=== PATIENT | female | born 1995 | race Caucasian/White ===

== ENCOUNTER 2016-12-10 18:27 | Emergency (ER) | payer MEDICAID ==
[~2016-12-10] VITALS: Ht 162.6 cm; Wt 81.6 kg
[~2016-12-10 18:27] MED LIST: ALBUTEROL0.09 MG/A2 IH; APAP/BUTALBITAL1 TA1 PO; BACTROBAN2% TP; ETODOLAC200 MG PO; FOLIC ACID 1MG T1 MG PO; KEFLEX 500MG.500 MG PO; KEFLEX250 M1 PO; LEVAQUIN500 MG PO; MONODOX100 MG PO; PRENATAL 19 TA1 EACH PO; SEPTRA DS 800 M1 TAB PO; VOLTAREN75 MG PO; ZOFRAN ODT4 MG PO; ZYRTEC-D 12HR 51 TER PO; Zofran4 MG PO
--- NOTE | 2016-12-10 18:43 | Emergency Room Report ---
History of Present Illness Time Seen by MD Marinelli Presenting Problem in Triage Pt arrived:Walked Presenting Problem:ABDOMINAL PAIN Onset of symptoms date/time:12/07/16 or onset unknown for: Treatment Prior to Arrival: [employer] Provided by: Sepsis Risk Assessment: Temp: 98.4 B/P: 141/88 MAP: 105 Pulse: 100 Resp: 20 Recent fever? N Clinical Suspician of Infection? N Mental Status: 1 - Regular (Normal Baseline) Sepsis Risk:Possible Sepsis Risk Have you (or family members/close friends) recently traveled outside the [place]? N If Yes, where/when: Have you had exposure to infectious disease within the past month? N TB? Other? Specify: Nausea,bilious emesis, bloating for the past three days. States she chews and swallows small pieces of styrofoam cups. No blood from above or below. Had fever three days ago, none today; no urinary sx. LMP two weeks ago. Hx anemia of , delivered twins one year ago and continues to take her PNV daily. ALLERGIES Coded Allergies: penicillin G (Intermediate, SWELLING 12/10/16) erythromycin base (Mild, I-HIVES 12/10/16) Uncoded Allergies: ARTIFICIAL STRAWBERRY FLAVORING (Mild, I-RASH 06/04/15) Home Medications Reported Medications No Known Home Medications History Medical History General CAD? No Angina: No MA: No Hypertension? No Hyperlipidemia? No CHF? No DVT? No PE? No COPD? No Asthma? No Anemia? No GERD? No Gastric ulcers? No GI Bleed? No Hernia? No Thyroid Problems? No Hypothyroidism? No CVA? No Seizures? Yes Diabetes? No Renal Insuffiency? No End Stage Renal Disease? No UTI? Yes Stones? No BPH? No GB Disease: No Nephritic Syndrome? No Asplenia? No Hepatitis? No Sickle Cell Disease? No Arthritis? No Migraines? Yes Cataracts? No Glaucoma? No MRSA? No HIV? No TB? No Anxiety? No Depression? No Cancer? No More? 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 EGD [employer] Hx LMP 1-6 Days Ago Social History Smoking Hx Smoker: Current Every Day Smoker Tobacco: Yes Type Cigarettes Packs/day 1 1/2 - 2 Packs Alcohol Alcohol: No Review of Systems All Other Systems Reviewed and Negative Gastrointestinal see HPI Physical Exam Vital Signs Vital Signs Date Time Temp Pulse Resp B/P Pulse O2 O2 Flow FiO2 Ox Delivery Rate 12/10 1831 98.4 100 20 141/88 99 General Appearance normal appearance, WD/WN, no apparent distress Eye Exam - bilateral eye normal exam, bilateral eye PERRL, bilateral eye EOMI Neck normal inspection, non-tender, supple, full range of motion Respiratory Status Yes: trachea midline, chest symmetrical, non tender chest. No: respiratory distress, tender on palpation, use of accessory muscles, pain on inspiration, pain on expiration, productive cough, non productive cough. Lung Sounds bilateral: normal breath sounds, lungs clear. Cardiovascular normal exam, regular rate/rhythm, no peripheral edema, no gallop, no JVD, no murmur, no rub, normal peripheral pulses Gastrointestinal normal bowel sounds, normal exam, soft, no organomegaly, no pulsatile mass, abnormal bowel sounds, distended, no guarding, no rebound, tenderness (periumbilical pain), no pain over McBurney's Extremities normal range of motion Strength 5 Upper Ext (L), 5 Upper Ext (R), 5 Lower Ext (L), 5 Lower Ext (R) Neurologic alert, normal exam, no motor/sensory deficits, oriented x 3 Skin intact, normal color, warm/dry Medical Decision Making LABS/Meds/Orders Pt receiving controlled substance in ED? No Results/Orders Laboratory Tests 12/10/16 1900: Sodium 137, Potassium 4.0, Chloride 101, Carbon Dioxide 28, BUN 11, Creatinine 0.8, Estimated Creat Clear 143, Estimated GFR (MDRD) 91, Glucose 99, Calcium 9.4 , Total Bilirubin 0.2, AST 16, ALT 25, Alkaline Phosphatase 95, Total Protein 7.9, Albumin 3.8, Globulin 4.1 H, Albumin/Globulin Ratio 0.9 L, Lipase 155, WBC 13.1 H, RBC 5.00, Hgb 15.2, Hct 45.3, MCV 90.6, RDW 13.0, Plt Count 239, MPV 9.2, Gran % 66.9, Gran # 8.8 H, Lymphocytes % 26.7, Monocytes % 2.9, Eosinophils % 3.1, Basophils % 0.3, Lymphocytes # 3.5, Monocytes # 0.4, Eosinophils # 0.4, Basophils # 0.0, PUBS MCHC 33.5, MCH 30.4 12/10/16 164: Urine Color YELLOW, Urine Appearance CLEAR, Urine pH 6.5, Ur Specific [place] 1.025, Urine Protein NEGATIVE, Urine Ketones NEGATIVE, Urine Blood NEGATIVE, Urine Nitrate NEGATIVE, Urine Bilirubin NEGATIVE, Urine Urobilinogen 0.2, Ur Leukocyte Esterase NEGATIVE, Urine RBC NONE, Urine WBC OCC, Ur Squamous Epith Cells 10-20, Urine Bacteria 2+, Urine Glucose NEGATIVE Current Medication Orders Sig/Gisel Start time Last Medication Dose Route Stop Time Status Admin Ondansetron HCl 0 .STK-MED ONE 12/10 1913 DC .ROUTE Ondansetron HCl 4 MG ONCE ONE 12/10 1844 DC 12/10 IV 12/10 Sodium Chloride 10 ML PRN PRN 12/10 1844 AC IV 12/11 184 Orders Procedure Date/time Status DIET-NOTHING BY MOUTH 12/[address] ABD/PELVIS REQ 12/10 185 Complete IV SALINE LOCK 12/10 1844 Active URINALYSIS/COMPLETE 12/10 184 Complete URINE 12/10 1844 Complete LIPASE 12/10 184 Complete CBC WITH AUTO DIFF 12/10 1844 Complete CHEM 12 PROFILE 12/10 184 Complete CULTURE, URINE 12/10 1642 Active XRAY/CT/US XRAY/CT/US CT abdomen, pelvis CT interpretation by reviewed by me (report reviewed) Time results known: 1950 CT Results nl appendix; radioopaque foci throughout; generous stool Departure Departure Time of Disposition 1950 Disposition DC Home or Self Care(routine) Clinical Impression Primary Impression: Vomiting Qualifiers: Vomiting type: unspecified Vomiting Intractability: non-intractable Nausea presence: with nausea Qualified Code: R11.2 - Nausea with vomiting, unspecified Secondary Impressions: Periumbilical pain Condition STABLE Referrals Loly ZUNIGA,Jamshid Knight Patient Instructions Acute Abdominal Pain Additional Instructions Clear liquids overnight, see your family doctor in one day for recheck. You stated you have Zofran at home, so take it as prescribed already for nausea/ vomiting. Do not chew/swallow styrofoam as it is accumulating in your gastrointestinal tract and may lead to obstruction. Discharge Counseling Counseled pt/family regarding diagnosis, test results, medications/RX, home care, follow up needs Prescriptions Current Visit Scripts No Known Home Medications ED Critical Care Critical Care No at 1957
[2016-12-10 18:50] LABS: URINE BILIRUBIN - DIPSTICK NEGATIVE (NEG); URINE BLOOD NEGATIVE (NEG)
[2016-12-10 19:26] LABS: LYMPH # 3.5 K/mm3 (0.7-4.5); LYMPH % 26.7 % (10-50.0)
[2016-12-10 19:33] LABS: HEMOGLOBIN 15.2 g/dL (12.2-16.2)
--- NOTE | 2016-12-10 19:40 | RADIOLOGY REPORT PS360 ---
CT ABD PELVIS W/O CONTRAST HISTORY: PERIUMBILICAL PAIN, BILIOUS EMESIS, BLOATING Patient Age: 21 years: Female Ordering Physician: Dasha Bravo MD TECHNIQUE: Helical CT scanning performed through abdomen and pelvis with no oral nor IV contrast utilized. COMPARISON : Previous 08/07/2016 CT abdomen without contrast. FINDINGS ------ Lung bases appear clear with nothing definitely acute. HEART NORMAL SIZE ABDOMEN PELVIS decreased sensitivity with lack of oral and IV contrast. Liver, spleen, adrenals appear satisfactory on this nonenhanced study. Pancreas unremarkable given the limitations of no contrast enhancement. Kidneys. No urinary tract calculi nor obstruction. Ureters unremarkable Gallbladder. Contracted. No calcified stones. No biliary ductal dilatation. ...... GI tract: Stomach. Food filled stomach. Likely recent meal. Stippled small areas radiopaque material at distal stomach likely reflect some type of ingested radiopaque material or food element. There is curious fat density anterior aspect of the descending duodenum on axial image 40 which yields afat/ fluid level. Curious feature noted. But curious tiny outpouching at duodenal bulb which I doubt is of significance. Possible diverticulum. No inflammation to support ulcer clinical correlation required the patient or may warrant further evaluation. The remainder the duodenal loop unremarkable. The small bowel normal caliber. No dilatation. There are some small focal radiopaque density seen within the small bowel reflecting ingested material is well. Seen at the proximal small bowel reflecting some type of ingested radio opaque material . Such as might be seen with a bone fragment. Ingested tablet also considered. . scattered small- moderatesized nodes seen throughout the mesentery. Slightly more evident. The larger nodes towards right lower quadrant measuring 13 mm x 8 mm seen on axial image 33. Other nodes are smaller less than 1 cc this may reflect mild mesenteric adenitis. The appendix is normal. Terminal ileum unremarkable. Large bowel. Moderate to generous stool throughout colon. Stool most evident at right colon Pelvis. Generous girth uterus resides to the right of midline. Question vague 16 mm fibroid at the right margin uterus coronal image 49. No significant adnexal masses Left ovary 2.8 cm. Normal size Right ovary anterior to the uterus measuring nearly 3.2 cm height.. . Osseous structures stable. No significant findings or lesions. Region of umbilicus with no significant change since July [address] abdomen IMPRESSION...... 1. No discrete acute findings abdomen or pelvis.No free fluid. No free air. Appendix is normal. No urinary tract obstruction or calculi. 2 No adnexal masses. Uterus appears slight generous in girth. Question 15 mm fibroid right aspect of uterus. Coronal image 49. 3. Moderate to generous stool throughout colon most evident at right colon. 4. Note small radiopaque foci seen throughout stomach and small bowel. Nonspecific but reflect some form of ingested radiopaque elements within food, medication. No small bowel dilatation nor obstruction
[2016-12-10 20:25] VITALS: BP 117/70
--- OUTSIDE RECORDS SUMMARY | 2016-12-12 22:21 | External Medical Summary Rpt ---
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 09-17-2 0.6 0.2-0.6 complet 014 K/ul ed 21:55 EOS# -17-2 0.7 0.0-0.9 complet 014 K/ul ed 21:55 BASO# -17-2 0.1 0.0-0.2 complet 014 K/ul ed 21:55 WBC -17-2 12.4 3.0-11. complet 014 K/UL 3 ed 21:55 RBC -17-2 3.820 3.450-5 complet 014 M/ul .400 ed 21:55 HGB 01-25-2 11.8 10.0-16 complet 014 gm/dl .0 ed 21:55 HCT 01-25-2 34.1 % 29.9-45 complet 014 .5 ed 21:55 MCV 01-25-2 89.3 fl 78.2-10 complet 014 1.8 ed 21:55 MCH 17-2 30.8 pg 26.4-33 complet 014 .3 ed 21:55 COMP. METABOLIC PANEL (CHEM 12) (01-25-2014 21:55) GLUCOSE 01-25- 79 70-110 complet 014 MG/DL ed 21:55 BUN 01-25-2 8 MG/DL 7-18 complet 014 ed 21:55 SODIUM 01-25-2 139 133-144 complet 014 mmol/L ed 21:55 POTASSI 01-25-2 4.1 3.6-5.2 complet UM 014 mmol/l ed 21:55 CHLORID 01-25-2 108 98-107 complet E 014 mmol/l ed 21:55 CO2 -17-2 27 21-32 complet 014 mmol/L ed 21:55 CREATIN -17-2 0.8 0.6-1.3 complet INE 014 MG/DL ed 21:55 PROTEIN -17-2 6.6 6.4-8.4 complet , TOTAL 014 G/DL ed 21:55 ALBUMIN -17-2 3.2 3.4-5.0 complet 014 G/DL ed 21:55 GLOBULI 17-2 3.4 2.4-4.8 complet N 014 G/DL ed 21:55 A/G 0.9 0.6-1.6 complet RATIO 014 ed 21:55 CALCIUM 9.0 8.5-10. complet 014 MG/DL 1 ed 21:55 ALKALIN 84 U/L 45-117 complet E 014 ed PHOSPHA 21:55 TASE AST 17 U/L 15-37 complet 014 ed 21:55 ALT 20 U/L 12-78 complet 014 ed 21:55 BILIRUB 0.10 0.00-1. complet IN, 014 MG/DL 00 ed TOTAL 21:55 AMYLASE (01-25-2014 21:55) AMYLASE 36 U/L 25-115 complet 014 ed 21:55 LIPASE (01-25-2014 21:55) LIPASE 112 U/L 73-393 complet 014 ed 21:55 UA, MICROSCOPIC REVIEW (01-25-2014 21:30) BACTERI 1+ HPF Absent complet A 014 ed 21:30 EPITHEL TNTC complet IAL 014 HPF ed CELLS 21:30 WBC 0-5 HPF 0-5 complet 014 ed 21:30 RBC 01-25- 0-5 HPF 0-5 complet 014 ed 21:30 COMMENT: (01-25-2014 21:30) COMMENT SEE complet : 014 BELOW ed 21:30 URINALYSIS COMPLETE (01-25-2014 21:30) COLOR YELLOW complet 014 ed 21:30 RBC 01-25- REVIEW 0-4 complet COUNT 014 /HPF ed 21:30 LEUKOCY NEGATIV NEGATIV complet DONALD 014 E E ed 21:30 NITRITE 01-25- NEGATIV NEGATIV complet 014 E E ed 21:30 UROBILI 01-25- 0.2 0.2-1.0 complet NOGEN 014 E.U./DL ed 21:30 SPECIFI 1.012 1.006-1 complet C 014 .035 ed GRAVITY 21:30 KETONE 01-25- NEGATIV NEGATIV complet 014 E MG/DL E ed 21:30 BILIRUB NEGATIV NEGATIV complet IN 014 E E ed 21:30 GLUCOSE NEGATIV NEGATIV complet 014 E MG/DL E ed 21:30 CLARITY CLOUDY complet 014 ed 21:30 PROTEIN NEGATIV NEGATIV complet 014 E MG/DL E ed 21:30 PH 6.5 5.0-9.0 complet 014 ed 21:30 BLOOD NEGATIV NEGATIV complet 014 E E ed 21:30 URINE HCG (01-25-2014 21:30) URINE NEGATIV complet HCG 014 E ed 21:30 HCG SCREEN,URINE (01-03-2014 22:08) [facility] NEGATIV NEGATIV complet tive 014 E E ed HCG 22:08 URINALYSIS W/C+S IF INDICATED (01-03-2014 22:08) Color YELLOW YELLOW, complet 014 STRAW,C ed 22:08 OLORLES S,PALE YELLOW TRICHOM NONE complet ONAS 014 SEEN ed 22:08 AMORPHO 1+ NONE complet US 014 SEEN ed SEDIMEN 22:08 T YEAST, NONE NONE complet UA 014 OBSERVE OBSERVE ed 22:08 D D Crystal NONE NONE complet s 014 SEEN SEEN ed 22:08 Casts NONE NONE complet 014 SEEN SEEN ed 22:08 Mucus NONE NONE complet 014 SEEN SEEN ed 22:08 Epithel 01-03- 10-20 NONE complet ial 014 SQUAMOU SEEN ed Cells 22:08 S EPITHEL IAL CELLS Bacteri NONE NONE complet a 014 SEEN SEEN ed 22:08 UA RBC 01-03- NONE 0-2 complet 014 SEEN ed 22:08 UA WBC 01-03- NONE 0-2 complet 014 SEEN ed 22:08 Blood NEGATIV NEGATIV complet 014 E E ed 22:08 Bilirub NEGATIV NEGATIV complet in 014 E E ed 22:08 Urobili NEGATIV 0-1 complet nogen 014 E mg/dL ed 22:08 Ketones NEGATIV NEGATIV complet 014 E E ed 22:08 Glucose 08-26-2 NEGATIV NEGATIV complet 014 E E ed 22:08 UA 08-26-2 NEGATIV NEGATIV complet Protein 014 E E ed 22:08 Nitrite 08--2 NEGATIV NEGATIV complet 014 E E ed 22:08 Leukocy 08-26-2 NEGATIV NEGATIV complet te 014 E E ed 22:08 PH 08--2 7.0 5.0-7.0 complet 014 ed 22:08 Specifi -26-2 1.010 1.016-1 complet c 014 .022 ed Whately 22:08 Appeara -26-2 HAZY CLEAR complet nce 014 ed 22:08 URINALYSIS COMPLETE (07-28-2013 00:49) EPITHEL 03-20-2 2 /HPF 0-6 complet IAL 014 ed CELL 00:49 COUNT WBC 03-20-2 2 /HPF 0-5 complet COUNT 014 ed 00:49 RBC 03-20-2 3 /HPF 0-4 complet COUNT 014 ed 00:49 LEUKOCY 03-20-2 NEGATIV NEGATIV complet DONALD 014 E E ed 00:49 NITRITE 03-20-2 NEGATIV NEGATIV complet 014 E E ed 00:49 UROBILI 03-20-2 0.2 0.2-1.0 complet NOGEN 014 E.U./DL ed 00:49 PROTEIN 03-20-2 NEGATIV NEGATIV complet 014 E MG/DL E ed 00:49 PH 03-20-2 6.0 5.0-9.0 complet 014 ed 00:49 BLOOD 03-20-2 LARGE NEGATIV Abnorma complet 014 E l ed 00:49 SPECIFI 03-20-2 1.012 1.006-1 complet C 014 .035 ed GRAVITY 00:49 KETONE 03-20-2 NEGATIV NEGATIV complet 014 E MG/DL E ed 00:49 BILIRUB 03-20-2 NEGATIV NEGATIV complet IN 014 E E ed 00:49 GLUCOSE 03-20-2 NEGATIV NEGATIV complet 014 E MG/DL E ed 00:49 CLARITY 03-20-2 CLEAR complet 014 ed 00:49 HYALINE 03-20-2 0 /LPF 0-4 complet CAST 014 ed 00:49 BACTERI 03-20-2 TRACE NEGATIV Abnorma complet A COUNT 014 /HPF E l ed 00:49 COLOR YELLOW complet 014 ed 00:49 URINE HCG (07-28-2013 00:39) URINE NEGATIV complet HCG 014 E ed 00:39 BASIC METABOLIC PANEL (CHEM 7) (07-28-2013 00:34) CALCIUM 9.5 8.5-10. complet 014 MG/DL 1 ed 00:34 CREATIN 0.8 0.6-1.3 complet INE 014 MG/DL ed 00:34 CO2 28 21-32 complet 014 mmol/L ed 00:34 CHLORID 106 98-107 complet E 014 mmol/l ed 00:34 POTASSI 4.1 3.6-5.2 complet UM 014 mmol/l ed 00:34 SODIUM 142 133-144 complet 014 mmol/L ed 00:34 BUN 10 7-18 complet 014 MG/DL ed 00:34 GLUCOSE 96 70-110 complet 014 MG/DL ed 00:34 MONO-TEST (07-28-2013 00:33) MONO-TE NEGATIV NEGATIV complet ST 014 E E ed 00:33 MANUAL DIFFERENTIAL (06-15-2013 13:57) SEGS 06-15-2 54 % 23-85 complet 014 ed 13:57 RBC -- NORMAL complet MORPHOL 014 ed OGY 13:57 PLATELE 02-05-2 NORMAL complet T 014 ed MORPHOL 13:57 OGY PLATELE -05-2 ADEQUAT complet T 014 E ed ESTIMAT 13:57 E EOS # 02-05-2 0.6 0.0-0.9 complet 014 K/ul ed 13:57 MONO # 02-05-2 0.7 0.2-0.6 Above complet 014 K/ul high ed 13:57 normal LYMPH # 02-05-2 3.5 0.4-3.9 complet 014 K/ul ed 13:57 NEUTROP 02-05-2 7.1 3.4-7.0 Above complet HIL # 014 K/ul high ed 13:57 normal NEUTROP 02-05-2 60.0 % 43.0-83 complet HIL % 014 .0 ed 13:57 EOS % 02-05-2 5.0 % 0.0-9.0 complet 014 ed 13:57 MONO % 02-05-2 6.0 % 1.0-14. complet 014 0 ed 13:57 LYMPH % 02-05-2 29.0 % 10.0-42 complet 014 .0 ed 13:57 BANDS 02-05-2 6 % 0-16 complet 014 ed 13:57 BASIC METABOLIC PANEL (CHEM 7) (06-15-2013 13:57) GLUCOSE 05-2 76 70-110 complet 014 MG/DL ed 13:57 CALCIUM -05-2 9.2 8.5-10. complet 014 MG/DL 1 ed 13:57 CREATIN -05-2 0.8 0.6-1.3 complet INE 014 MG/DL ed 13:57 CO2 05-2 25 21-32 complet 014 mmol/L ed 13:57 CHLORID 107 98-107 complet E 014 mmol/l ed 13:57 POTASSI 4.3 3.6-5.2 complet UM 014 mmol/l ed 13:57 SODIUM 136 133-144 complet 014 mmol/L ed 13:57 BUN 2 9 MG/DL 7-18 complet 014 ed 13:57 HCG QUALITATIVE SERUM (06-15-2013 13:57) HCG NEGATIV complet QUALITA 014 E ed TIVE 13:57 SERUM APTT (06-15-2013 13:57) APTT 31 SEC 26-33 complet 014 ed 13:57 PROTIME\T\INR (06-15-2013 13:57) INR 1.02 0.88-1. complet 014 12 ed 13:57 PROTHRO 11.2 9.9-12. complet MBIN 014 SEC 5 ed TIME 13:57 CBC/NO DIFF+ PLATELET (06-15-2013 13:57) MPV 9.8 fl 6.4-10. complet 014 4 ed 13:57 PLATELE 257 122-454 complet T 014 K/UL ed 13:57 RDW 13.2 % 10.1-16 complet 014 .2 ed 13:57 MCHC 05-2 34.1 32.5-35 complet 014 g/dl .3 ed 13:57 MCH -05-2 31.2 pg 26.4-33 complet 014 .3 ed 13:57 MCV -05-2 91.7 fl 78.2-10 complet 014 1.8 ed 13:57 HCT 05-2 38.5 % 29.9-45 complet 014 .5 ed 13:57 HGB -05-2 13.1 10.0-16 complet 014 gm/dl .0 ed 13:57 RBC -05-2 4.200 3.450-5 complet 014 M/ul .400 ed 13:57 WBC -05-2 11.9 3.0-11. Above complet 014 K/UL 3 high ed 13:57 normal MONO (01-06-2013 21:47) [place] --2 NEGATIV NEGATIV Normal complet Spot 013 E E ed 21:47 INFLUENZA VIRUS A/B DIRECT IF TST (01-06-2013 21:44) Influen 01-06-2 NEGATIV NEGATIV Normal complet za B 013 E E ed Antigen 21:44 Influen 08--2 NEGATIV NEGATIV Normal complet za A 013 E E ed Antigen 21:44 HCG SCREEN,URINE (11-27-2012 15:53) [facility] --2 NEGATIV NEGATIV Normal complet tive 013 E E ed HCG 15:53 URINALYSIS W/MICRO (11-27-2012 15:51) Epithel 07-20-2 20-50 NONE Abnorma complet ial 013 SEEN l ed Cells 15:51 Bacteri 07-20-2 2+ NONE Abnorma complet a 013 SEEN l ed 15:51 UA RBC 07-20-2 0-2 0-2 Normal complet 013 ed 15:51 UA WBC 07-20-2 0-2 0-2 Normal complet 013 ed 15:51 Blood 07--2 NEGATIV NEGATIV Normal complet 013 E E ed 15:51 Bilirub 07-20-2 NEGATIV NEGATIV Normal complet in 013 E E ed 15:51 Urobili 07-20-2 NEGATIV 0-1 Normal complet nogen 013 E mg/dL ed 15:51 Ketones 07-20-2 NEGATIV NEGATIV Normal complet 013 E E ed 15:51 Glucose 07-20-2 NEGATIV NEGATIV Normal complet 013 E E ed 15:51 UA 07-20-2 NEGATIV NEGATIV Normal complet Protein 013 E E ed 15:51 Nitrite -20-2 NEGATIV NEGATIV Normal complet 013 E E ed 15:51 Leukocy 07-20-2 NEGATIV NEGATIV Normal complet te 013 E E ed 15:51 PH -20-2 6.0 5.0-7.0 Normal complet 013 ed 15:51 Specifi -20-2 1.020 1.016-1 Normal complet c 013 .022 ed Whately 15:51 Appeara 20-2 SL HAZY CLEAR Abnorma complet nce 013 l ed 15:51 Color 20-2 YELLOW YELLOW, Normal complet 013 STRAW,C ed 15:51 OLORLES S,PALE YELLOW BASIC METABOLIC PANEL (11-27-2012 15:50) BUN/Cre -20-2 9 complet at 013 ed Ratio 15:50 Calcium 07-20-2 8.8 7.5-10. Normal complet 013 mg/dL 2 ed 15:50 CO2 07-20-2 29 21-29 Normal complet 013 mmol/L ed 15:50 Chlorid 07-20-2 107 99-108 Normal complet e 013 mEq/L ed 15:50 Potassi 07-20-2 3.8 3.5-5.0 Normal complet um 013 mEq/L ed 15:50 Sodium 07-20-2 141 133-144 Normal complet 013 mEq/L ed 15:50 Creatin 07-20-2 0.9 0.3-0.9 Normal complet ine 013 mg/dL ed 15:50 Glucose 07-20-2 113 70-99 Above complet 013 mg/dL high ed 15:50 normal BUN 07-20-2 8 mg/dL 5-18 Normal complet 013 ed 15:50 CBC W/DIFF (11-27-2012 15:50) Lymphoc 07-20-2 2.5 X 0.7-4.3 Normal complet yte 013 10 ed Count 15:50 Basophi 07-20-2 0.1 X 0.0-0.1 Normal complet l Count 013 10 ed 15:50 Eosinop 07-20-2 0.5 X 0.0-0.8 Normal complet hil 013 10 ed Count 15:50 Monocyt 07-20-2 0.4 X 0.2-1.2 Normal complet e Count 013 10 ed 15:50 Neutrop 07-20-2 5.3 X 1.5-7.1 Normal complet hil 013 10 ed Count 15:50 Basophi 07-20-2 0.7 % 0.0-2.0 Normal complet ls % 013 ed 15:50 Eosinop 07-20-2 5.5 % 0.0-6.0 Normal complet hils % 013 ed 15:50 Monocyt 07-20-2 4.7 % 3.0-15. Normal complet es % 013 0 ed 15:50 Lymphoc 07-20-2 28.7 % 4.0-51. Normal complet ytes % 013 0 ed 15:50 Neutrop 07-20-2 60.4 % 33.0-89 Normal complet hils % 013 .0 ed 15:50 MPV 07-20-2 10.1 fl 6.6-10. Normal complet 013 1 ed 15:50 RDW 07-20-2 13.1 % 10.7-14 Normal complet 013 .1 ed 15:50 MCV 07-20-2 90.4 fl 78.0-98 Normal complet 013 .0 ed 15:50 MCHC 07-20-2 34.2 31.8-35 Normal complet 013 gm/dL .7 ed 15:50 MCH 07-20-2 30.9 pg 25.5-33 Normal complet 013 .7 ed 15:50 Platele 07-20-2 198 X 126-404 Normal complet t 013 10 ed 15:50 Hematoc 07-20-2 39.4 % 32.9-46 Normal complet rit 013 .2 ed 15:50 Hemoglo 07-20-2 13.5 11.2-15 Normal complet bin 013 gm/dL .5 ed 15:50 RBC 07-20-2 4.36 X 3.64-5. Normal complet 013 10 36 ed 15:50 WBC 07-20-2 8.7 X 3.9-11. Normal complet 013 10 6 ed 15:50 CULTURE, BLOOD (04-03-2012 17:45) [facility] No complet l 012 Growth ed Report 17:45 After 5 Days [facility] No complet l 012 Growth ed Report 17:45 After 4 Days [facility] No complet l 012 Growth ed Report 17:45 After 3 Days [facility] No complet l 012 Growth ed Report 17:45 After 48 Hours [facility] No complet l 012 Growth ed Report 17:45 After 24 Hours [facility] Culture complet l 012 In ed Report 17:45 Progres s [facility] CUL RES complet l 012 ed Report 17:45 (Final) [facility] Status: complet l 012 Final ed Report 17:45 Last Updated : 012 09:34 [facility] Collect complet l 012 ed: ed Report 17:45 012 17:45 [facility] Specime complet l 012 n: ed Report 17:45 BLOOD CULTURE, BLOOD (04-03-2012 17:45) [facility] Specime complet l 012 n: ed Report 17:45 BLOOD HCG,SCREEN (04-03-2012 17:45) [facility] NEGATIV NEGATIV Normal complet tive 012 E E ed HCG 17:45 CBC W/DIFF (04-03-2012 17:45) Lymphoc 2.5 X 0.7-4.3 Normal complet yte 012 10 ed Count 17:45 Basophi 0.1 X 0.0-0.1 Normal complet l Count 012 10 ed 17:45 Eosinop 04-03-2 0.4 X 0.0-0.8 Normal complet hil 012 10 ed Count 17:45 Monocyt 04-03- 0.4 X 0.2-1.2 Normal complet e Count 012 10 ed 17:45 Neutrop 04-03- 10.8 X 1.5-7.1 Above complet hil 012 10 high ed Count 17:45 normal Basophi 04-03-2 0.4 % 0.0-2.0 Normal complet ls % 012 ed 17:45 Eosinop 04-03-2 2.7 % 0.0-6.0 Normal complet hils % 012 ed 17:45 Monocyt 04-03-2 2.9 % 3.0-15. Below complet es % 012 0 low ed 17:45 normal Lymphoc 11-24-2 17.4 % 4.0-51. Normal complet ytes % 012 0 ed 17:45 Neutrop 11-24-2 76.6 % 33.0-89 Normal complet hils % 012 .0 ed 17:45 MPV 11-24-2 10.6 fl 6.6-10. Above complet 012 1 high ed 17:45 normal RDW -24-2 12.0 % 10.7-14 Normal complet 012 .1 ed 17:45 MCV 11-24-2 91.0 fl 78.0-98 Normal complet 012 .0 ed 17:45 MCHC 24-2 32.8 31.8-35 Normal complet 012 gm/dL .7 ed 17:45 MCH -24-2 29.8 pg 25.5-33 Normal complet 012 .7 ed 17:45 Platele 24-2 314 X 126-404 Normal complet t 012 10 ed 17:45 Hematoc 24-2 46.7 % 32.9-46 Above complet rit 012 .2 high ed 17:45 normal Hemoglo 24-2 15.3 11.2-15 Normal complet bin 012 gm/dL .5 ed 17:45 RBC 24-2 5.14 X 3.64-5. Normal complet 012 10 36 ed 17:45 WBC -24-2 14.2 X 3.9-11. Normal complet 012 10 6 ed 17:45 HCG SCREEN,URINE (04-01-2012 22:56) [facility] 04-01-2 NEGATIV NEGATIV Normal complet tive 012 E E ed HCG 22:56 URINALYSIS W/MICRO (04-01-2012 22:37) AMORPHO 04-01-2 NONE NONE Normal complet US 012 SEEN SEEN ed SEDIMEN 22:37 T YEAST, NONE NONE Normal complet UA 012 OBSERVE OBSERVE ed 22:37 D D Crystal 04-01- NONE NONE Normal complet s 012 SEEN SEEN ed 22:37 Casts 04-01-2 NONE NONE Normal complet 012 SEEN SEEN ed 22:37 Mucus 04-01-2 NONE NONE Normal complet 012 SEEN SEEN ed 22:37 Epithel 04-01-2 10-20 NONE Abnorma complet ial 012 SEEN l ed Cells 22:37 Bacteri 04-01-2 3+ NONE Abnorma complet a 012 SEEN l ed 22:37 UA RBC 11-22-2 0-2 0-2 Normal complet 012 ed 22:37 UA WBC 11-22-2 0-2 0-2 Normal complet 012 ed 22:37 Blood 11-22-2 NEGATIV NEGATIV Normal complet 012 E E ed 22:37 Bilirub 11-22-2 NEGATIV NEGATIV Normal complet in 012 E E ed 22:37 Urobili -22-2 NEGATIV 0-1 Normal complet nogen 012 E mg/dL ed 22:37 Ketones -22-2 NEGATIV NEGATIV Normal complet 012 E E ed 22:37 Glucose 11-22-2 NEGATIV NEGATIV Normal complet 012 E E ed 22:37 UA 11-22-2 NEGATIV NEGATIV Normal complet Protein 012 E E ed 22:37 Nitrite 11-22-2 NEGATIV NEGATIV Normal complet 012 E E ed 22:37 Leukocy -22-2 NEGATIV NEGATIV Normal complet te 012 E E ed 22:37 PH -22-2 6.5 5.0-7.0 Normal complet 012 ed 22:37 Specifi 11-22-2 1.020 1.016-1 Normal complet c 012 .022 ed [place] 22:37 Appeara -22-2 CLOUDY CLEAR Abnorma complet nce 012 l ed 22:37 Color 11-22-2 YELLOW YELLOW, Normal complet 012 STRAW,C ed 22:37 OLORLES S,PALE YELLOW COMPREHENSIVE METABOLIC PANEL (03-02-2012 15:20) A/G 23-2 0.9 complet Ratio 012 ed 15:20 BUN/Cre 23-2 9 complet at 012 ed Ratio 15:20 Bilirub -23-2 0.20 0.1-1.2 Normal complet in, 012 mg/dL ed Total 15:20 AST 23-2 28 U/L 7-35 Normal complet 012 ed 15:20 ALT -23-2 38 U/L 6-24 Above complet 012 high ed 15:20 normal Alk 23-2 116 U/L 24-368 Normal complet Phos 012 ed 15:20 Albumin -23-2 3.5 2.7-5.2 Normal complet 012 gm/dL ed 15:20 Total 10-23-2 7.4 5.5-8.2 Normal complet Protein 012 gm/dL ed 15:20 Calcium 03-02-2 9.6 7.5-10. Normal complet 012 mg/dL 2 ed 15:20 CO2 03-02-2 29 21-29 Normal complet 012 mmol/L ed 15:20 Chlorid 03-02-2 104 99-108 Normal complet e 012 mEq/L ed 15:20 Potassi 03-02-2 3.8 3.5-5.0 Normal complet um 012 mEq/L ed 15:20 Sodium 139 133-144 Normal complet 012 mEq/L ed 15:20 Creatin 03-02-2 1.0 0.3-0.9 Above complet ine 012 mg/dL high ed 15:20 normal BUN 2 9 mg/dL 5-18 Normal complet 012 ed 15:20 Glucose 03-02- 123 70-99 Above complet 012 mg/dL high ed 15:20 normal CBC W/DIFF (03-02-2012 15:20) Lymphoc 23-2 2.7 X 0.7-4.3 Normal complet yte 012 10 ed Count 15:20 Basophi 03-02-2 0.2 X 0.0-0.1 Above complet l Count 012 10 high ed 15:20 normal Eosinop 23-2 0.4 X 0.0-0.8 Normal complet hil 012 10 ed Count 15:20 Monocyt 23-2 0.4 X 0.2-1.2 Normal complet e Count 012 10 ed 15:20 Neutrop 03-02-2 7.5 X 1.5-7.1 Above complet hil 012 10 high ed Count 15:20 normal Basophi 23-2 1.5 % 0.0-2.0 Normal complet ls % 012 ed 15:20 Eosinop 23-2 3.6 % 0.0-6.0 Normal complet hils % 012 ed 15:20 Monocyt 1023-2 4.0 % 3.0-15. Normal complet es % 012 0 ed 15:20 Lymphoc 10-23-2 23.8 % 4.0-51. Normal complet ytes % 012 0 ed 15:20 Neutrop 1023-2 67.1 % 33.0-89 Normal complet hils % 012 .0 ed 15:20 MPV 23-2 9.4 fl 6.6-10. Normal complet 012 1 ed 15:20 RDW 23-2 12.3 % 10.7-14 Normal complet 012 .1 ed 15:20 MCV 23-2 90.0 fl 78.0-98 Normal complet 012 .0 ed 15:20 MCHC 23-2 34.0 31.8-35 Normal complet 012 gm/dL .7 ed 15:20 MCH 23-2 30.6 pg 25.5-33 Normal complet 012 .7 ed 15:20 Platele 03-02-2 262 X 126-404 Normal complet t 012 10 ed 15:20 Hematoc 03-02-2 40.8 % 32.9-46 Normal complet rit 012 .2 ed 15:20 Hemoglo 23-2 13.9 11.2-15 Normal complet bin 012 gm/dL .5 ed 15:20 RBC 23-2 4.54 X 3.64-5. Normal complet 012 10 36 ed 15:20 WBC 23-2 11.2 X 3.9-11. Normal complet 012 10 6 ed 15:20 URINALYSIS W/MICRO (03-02-2012 14:00) Urobili 23-2 NEGATIV 0-1 Normal complet nogen 012 E mg/dL ed 14:00 Ketones 23-2 NEGATIV NEGATIV Normal complet 012 E E ed 14:00 Glucose 23-2 NEGATIV NEGATIV Normal complet 012 E E ed 14:00 UA 23-2 NEGATIV NEGATIV Normal complet Protein 012 E E ed 14:00 Nitrite 23-2 NEGATIV NEGATIV Normal complet 012 E E ed 14:00 Leukocy 23-2 NEGATIV NEGATIV Normal complet te 012 E E ed 14:00 PH 23-2 6.5 5.0-7.0 Normal complet 012 ed 14:00 Specifi 23-2 1.010 1.016-1 Below complet c 012 .022 low ed Whately 14:00 normal Appeara 23-2 CLEAR CLEAR Normal complet nce 012 ed 14:00 Color 23-2 YELLOW YELLOW, Normal complet 012 STRAW,C ed 14:00 OLORLES S,PALE YELLOW Epithel 10-23-2 5-10 NONE Abnorma complet ial 012 SQUAMOU SEEN l ed Cells 14:00 S EPITHEL IAL CELLS UA RBC 10-23-2 0-2 0-2 Normal complet 012 ed 14:00 UA WBC 10-23-2 0-2 0-2 Normal complet 012 ed 14:00 Blood 10-23-2 NEGATIV NEGATIV Normal complet 012 E E ed 14:00 Bilirub 10-23-2 NEGATIV NEGATIV Normal complet in 012 E E ed 14:00 Procedures Procedure DOS Code Location Performer Comment IADNA 513[address] [facility] DEPT [facility] DE[facility] TRACHOMAT [place] IS AMPLIFIED PROBE TQ CYTP 66923 [facility] CERV/VAG 7 [facility] ER JR AUTO THIN LAYER PREP MNL SCREEN IADNA 27411 [facility] NE[facility] DEPT [facility] DEPT GONORRHOE [place] AE AMPLIFIED PROBE TQ URINE 23717 [facility] TEST [facility] DEPT HLTH DEPT VISUAL [place] COLOR CMPRSN METHS CONTRACEP S4993 [facility] TIVE [facility] PILLS FOR TH DEPT TH DEPT [place] CONTROL RADEX 59346 [place] [facility] ANKLE 7 MEDICAL COMPLETE IMAGING MINIMUM 3 ASS VIEWS RADEX 73007 [place] [facility] FOOT 7 MEDICAL COMPLETE IMAGING MINIMUM 3 ASS VIEWS COLLECTIO 68937 [facility] N VENOUS 7 COMP BLOOD HEALTH VENIPUNCT DANNIE URE GONADOTRO 94238 [facility] PIN 7 COMP CHORIONIC HEALTH DANNIE QUALITATI VE URNLS DIP 98177 [facility] STICK/TAB INC INC LET REAGENT AUTO MICROSCOP Y BLOOD 19631 [facility] COUNT [facility] COMPLETE INC INC AUTO&AUTO DIFRNTL WBC FINAL G9551 [facility] 7 MEDICAL IMAG STS IMAGING W/O ASS INCIDNT FND LES NTD: FINAL G9638 [place] [facility] REPORTS 7 MEDICAL W/O DOC IMAGING 1/[place] [address] [facility] AMYLASE 7 [place] [address] [facility] ABDOMEN & 7 [facility] PELVIS INC INC W/O CONTRAST MATERIAL URINE 79119 [facility] TEST INC INC VISUAL COLOR CMPRSN METHS COMPREHEN 76625 [facility] SIVE 7 [facility] METABOLIC INC INC PANEL THER 76751 [facility] PROPH/DX 7 [facility] NJX IV INC INC PUSH SINGLE/1S T SBST/[place] [address] [facility] LIPASE 7 [place] [address] [facility] LIPASE 7 N N COMMUNTIY COMMUNTIY HOSPITA HOSPITA URINE 97627 [facility] 7 N N TEST COMMUNTIY COMMUNTIY VISUAL HOSPITA HOSPITA COLOR CMPRSN METHS THER 81027 [facility] PROPH/DX 7 N N NJX IV COMMUNTIY COMMUNTIY PUSH HOSPITA HOSPITA SINGLE/1S T SBST/DRUG COMPREHEN 71417 [facility] SIVE 7 N N METABOLIC COMMUNTIY [place] [address] [facility] INFUSION 7 N N HYDRATION COMMUNTIY COMMUNTIY EACH HOSPITA HOSPITA ADDITIONA L HOUR INJECTION J1885 [facility] 7 N N KETOROLAC COMMUNTIY COMMUNTIY HOSPITA HOSPITA TROMETHAM INE PER 15 MG INFUSION J7030 [facility] NORMAL 7 N N SALINE COMMUNTIY COMMUNTIY SOLUTION HOSPITA HOSPITA 1000 CC BLOOD 36025 [facility] [facility] COUNT 7 N N COMPLETE COMMUNTIY COMMUNTIY AUTO&AUTO HOSPITA HOSPITA DIFRNTL WBC URNLS DIP 90449 [facility] 7 N N STICK/TAB COMMUNTIY COMMUNTIY LET HOSPITA HOSPITA REAGENT AUTO MICROSCOP Y THERAPEUT 98490 [facility] IC 7 [facility] PROPHYLAC INC INC TIC/DX INJECTION SUBQ/IM URINE 97696 [facility] 7 N N TEST COMMUNTIY COMMUNTIY VISUAL HOSPITA HOSPITA COLOR CMPRSN METHS URNLS DIP 18442 [facility] 7 N N STICK/TAB COMMUNTIY COMMUNTIY LET HOSPITA HOSPITA REAGENT AUTO MICROSCOP Y URNLS DIP 47573 [facility] STICK/TAB INC INC LET REAGENT AUTO MICROSCOP Y BLOOD 33875 [facility] COUNT 7 [facility] COMPLETE INC INC AUTO&[place] [address] [facility] AMYLASE 7 [facility] INC INC FINAL G9638 [place] [facility] REPORTS 7 MEDICAL W/O DOC IMAGING 1/MORE ASS DOSE REDUCTION TECH FINAL G9551 [facility] RE[facility] ABD 7 MEDICAL IMAG STS IMAGING W/O ASS INCIDNT FND LES NTD: URINE 12373 [facility] TEST INC INC VISUAL COLOR CMPRSN METHS COMPREHEN 35345 [facility] SIVE 7 [facility] [place] [address] [facility] H[facility] LIPASE 7 [facility] INC INC SUSCEPTIB 31230 [facility] LTY STDY 7 [facility] ANTIMICRB INC INC IAL MICRO/[place] [address] [facility] ABDOMEN & 7 [facility] PELVIS INC INC W/O CONTRAST MATERIAL CUL BACT 43841 [facility] XCPT 7 [facility] URINE INC INC BLOOD/STO OL AEROBIC ISOL CUL BACT 73122 [facility] AEROBIC 7 [facility] ADDL INC INC METHS DEFINITIV E EA ISOL NEBULIZER E0570 [facility] HOME WITH 7 MEDICAL MEDICAL COMPRESSO R BREATHING A4618 [facility] HOME CIRCUITS 7 MEDICAL MEDICAL IAADIADOO 03665 [place] [facility] 6 G A R H G A R H INFLUENZA URNLS DIP 50639 [facility] 6 G A R H G A R H STICK/TAB LET REAGENT AUTO MICROSCOP Y GONADOTRO 37955 [place] PIN 6 G A R H G A R H CHORIONIC QUALITATI VE GONADOTRO 76180 [place] PIN 6 G A R H G A R H CHORIONIC QUALITATI VE URNLS DIP 59113 [place] 6 G A R H G A R H STICK/TAB LET REAGENT AUTO MICROSCOP Y CULTURE 69480 [place] [facility] BACTERIAL 6 G A R H G A R H QUANTTATI VE COLONY COUNT URINE RADEX 40827 [facility] ABDOMEN [address] [place] [address] CENTER ANTEROPOS TERIOR VIEW NONINVASI 29781 [facility] VE [address] [place] [address] EAR/PULSE CENTER [place] [address] SAMIRA GODFREYMAN ABDOMINAL 6 GAR REAL RADIOLOGY TIME PLLC W/[place] [address] [place] [facility] LIPASE 6 G A R H G A R H IAADIADOO 49601 [place] 6 G A R H G A R H INFLUENZA COMPREHEN 25645 [place] [facility] SIVE 6 G A R H G A R H METABOLIC PANEL THER 51232 [place] PROPH/DX 6 G A R H G A R H NJX IV PUSH SINGLE/1S T SBST/[place] [address] [place] [facility] INFUSION 6 G A R H G A R H HYDRATION EACH ADDITIONA L HOUR CULTURE 70506 [place] BACTERIAL 6 G A R H G A R H QUANTTATI VE COLONY COUNT URINE COLLECTIO 69533 [place] N VENOUS 6 G A R H G A R H BLOOD VENIPUNCT URE URNLS DIP 91071 [place] 6 G A R H G A R H STICK/TAB LET REAGENT AUTO MICROSCOP Y BLOOD 49457 [place] COUNT 6 G A R H G A R H COMPLETE AUTO&[place] [address] [facility] [place] AMYLASE 6 G A R H G A R H INJECTION J2550 [place] 6 G A R H G A R H PROMETHAZ INE HCL UP TO 50 MG INJECTION J1885 [facility] 6 G A R H G A R H KETOROLAC TROMETHAM INE PER 15 MG THERAPEUT 91725 [facility] IC 6 G A R H G A R H [place] [address] MAJOR NAVARRO BLOOD/URI 6 COMP C ACID HEALTH DANNIE BLOOD 09216 [facility] MELANIE COUNT 6 COMP COMPLETE HEALTH AUTOMATED DANNIE LACTATE 69518 LAB DANNIE LAB DANNIE DEHYDROGE 6 KRISTY KRISTY NASE LDH HOLDINGS HOLDINGS COMPREHEN 79005 [facility] [facility] W[facility] NAVARRO SIVE 6 COMP METABOLIC HEALTH PANEL DANNIE 16672 MAJOR NAVARRO DELIVERY 6 COMP ONLY HEALTH DANNIE ANESTHESI 80457 [facility] DEN A 6 ANESTHESI A GROUP DELIVERY PS ONLY BREAST E0603 [facility] HOME PUMP 6 MEDICAL MEDICAL ELECTRIC ANY TYPE IADNA 23055 LAB D[facility]IE LAB DANNIE ELIANA 6 KRISTY KRISTY SPECIES HOLDINGS HOLDINGS AMPLIFIED PROBE TQ IADNA 00719 LAB D[facility] LAB DANNIE CHLAMYDIA 6 KRISTY KRISTY HOLDINGS HOLDINGS TRACHOMAT IS AMPLIFIED PROBE TQ IADNA 42128 LAB D[facility] LAB DANNIE NEISSERIA 6 KRISTY KRISTY HOLDINGS HOLDINGS GONORRHOE AE AMPLIFIED PROBE TQ IADNA NOS 91321 LAB DANNIE LAB DANNIE 6 KRISTY KRISTY AMPLIFIED HOLDINGS HOLDINGS PROBE TQ EACH ORGANISM IADNA 84143 LAB DANNIE LAB DANNIE TRICHOMON 6 KRISTY KRISTY HOLDINGS HOLDINGS VAGINALIS AMPLIFIED PROBE TECH INJECTION J0690 [facility] [place] 6 G A R H G A R H CEFAZOLIN SODIUM 500 MG INJECTION J3105 [facility] [place] 6 G A R H G A R H TERBUTALI NE SULFATE UP TO 1 MG EVAL C/V 08071 [facility] [place] AMNIOTIC 6 G A R H G A R H FLUID PROTEIN QUAL EA SPECIMEN DRUG TEST G0479 [facility] 6 G A R H G A R H PRESUMP;I NSTRUMENT ED CHEMISTRY ANLYZER BLOOD 57250 [facility] [place] COUNT 6 COMP COMP COMPLETE HEALTH HEALTH AUTOMATED DANNIE DANNIE SYPHILIS 34217 LAB DANNIE LAB DANNIE TEST 6 KRISTY KRISTY NON-TREPO HOLDINGS HOLDINGS NEMAL ANTIBODY QUAL COLLECTIO 46460 MA[facility] [place] MELANIE N VENOUS 6 COMP BLOOD HEALTH VENIPUNCT DANNIE URE RADEX ABD 26382 MAJOR FRAGOSONE MELANIE 6 COMP ANTEROPOS HEALTH T&ADDL DANNIE OBLQ&CONE VIEWS OBSERVATI 67649 [facility] ON CARE 6 HEALTH APRIL [place] [address] [facility] NONSTRESS 6 HEALTH HEALTH TEST [facility] [address] [facility] INFUSION 6 HEALTH HEALTH HYDRATION [facility] EACH ADDITIONA L HOUR INITIAL 08744 [facility] SIXTO OBSERVATI 6 HEALTH APRIL ON MEDICAL CARE/DAY GROUP 70 MINUTES BILIRUBIN 01280 [facility] TOTAL 6 [facility]ALTH [facility] HOSPITAL G0378 [facility] OBSERVATI 6 HEALTH HEALTH ON [facility] [place] [address] [facility] BLOOD/URI 6 HEALTH HEALTH C ACID [facility] UNCLASSIF J3490 [facility] IED DRUGS 6 [place] [address] [facility] INFUSION 6 HEALTH HEALTH HYDRATION [facility] EACH ADDITIONA L HOUR TRANSFERA 37417 [facility] SE 6 HEALTH HEALTH ASPARTATE [facility] AMINO AST SGOT TRANSFERA 87868 [facility] SE 6 HEALTH HEALTH ALANINE [facility] AMINO ALT SGPT INJECTION J3105 [facility]KH 6 HEALTH HEALTH TERBUTALI [facility] NE SULFATE UP TO 1 MG BLOOD 60081 [facility] COUNT 6 HEALTH HEALTH COMPLETE [facility] AUTO&AUTO DIFRNTL WBC LACTATE 86770 [facility] DEHYDROGE 6 [facility] NASE LDH [facility] FTL 80968 [facility] FIBRONECT 6 [facility] IN INC INC CERVICOVA G SECRETION S SEMI-LAM URNLS DIP 62487 [facility] 6 [facility] STICK/TAB INC INC LET REAGENT AUTO MICROSCOP Y 15372 [facility] NONSTRESS 6 HEALTH HEALTH TEST [facility] CULTURE 29319 [facility] BACTERIAL 6 [facility] INC INC QUANTTATI VE COLONY COUNT URINE BLOOD 85718 [facility] TYPING 6 [facility] SEROLOGIC [facility] RH (D) ANTIBODY 36519 [facility] SCREEN 6 [facility] RBC EACH [facility] SERUM TECHNIQUE DOPPLER 73899 [facility] VELOCIMET 6 [facility] RY INC INC UMBILICAL ARTERY THERAPEUT 27755 [facility] IC 6 [facility] PROPHYLAC [facility] TIC/DX INJECTION SUBQ/IM US PREG 90906 [place] [facility] ALL UTERUS 6 MEDICAL REAL TIME IMAGING F/[place] [address] [facility] PHOSPHATA 6 [facility] HE[facility] SE [facility] ALKALINE CREATININ 89764 [facility] E BLOOD 6 [facility]ALTH [facility] BLOOD 77415 [facility] TYPING 6 [facility] SEROLOGIC [facility] ABO 14467 [place] [facility] ALL BIOPHYSIC 6 MEDICAL AL IMAGING PROFILE ASS W/[place] [address] [facility] INFUSION 6 [facility] HYDRATION [facility] INITIAL 31 MIN-1 HOUR 16890 [facility] BIOPHYSIC 6 PHYSICIAN PHYSICIAN AL S GROUP S GROUP PROFILE W/[place] [address] [facility] PINTO 6 PHYSICIAN LILIBETH UTERUS S GROUP LIMITED 1/> [facility] 84634 [facility] DISCHARGE 6 HEALTH APRIL DAY MEDICAL MANAGEMEN GROUP T 30 MIN/< SBSQ [address]/DAY MEDICAL 25 GROUP MINUTES SBSQ [address] CARE/DAY MEDICAL 15 GROUP MINUTES US PREG 30694 [facility] 6 HEALTH APRIL REAL TIME MEDICAL F/U GROUP TRNSABDL PER FETUS INITIAL [address] CARE/DAY MEDICAL 70 GROUP MINUTES 64929 [facility] BIOPHYSIC 6 PHYSICIAN LILIBETH AL S GROUP PROFILE W/[place] [address] [facility] PIN[facility] 6 PHYSICIAN LILIBETH UTERUS S GROUP LIMITED 1/> [facility] OBSERVATI 92252 [facility] ON/INPATI 6 COMP [facility] DANNIE CARE 50 MINUTES RADIOLOGI 70742 [place] IS[place] ALL C 6 MEDICAL EXAMINATI IMAGING ON ANKLE ASS 2 VIEWS 04933 [facility] HARPEL NONSTRESS 6 PHYSICIAN ENID TEST S GROUP 04776 [facility] NONSTRESS 6 [facility] TEST INC INC CULTURE 73798 [facility] BACTERIAL 6 [facility] INC INC QUANTTATI VE COLONY COUNT URINE THERAPEUT 77313 [facility] IC 6 [facility] PROPHYLAC INC INC TIC/DX INJECTION SUBQ/IM UNCLASSIF J3490 [facility] IED DRUGS 6 [facility] INC INC FTL 71021 [facility] FIBRONECT 6 [facility] IN INC INC CERVICOVA G SECRETION S SEMI-LAM URNLS DIP 96008 [facility] 6 [facility] STICK/TAB INC INC LET REAGENT AUTO MICROSCOP Y URNLS DIP 48896 [facility] 6 [facility] STICK/TAB INC INC LET REAGENT AUTO MICROSCOP Y INJECTION J0595 [facility] 6 [facility] BUTORPHAN INC INC OL TARTRATE 1 MG UNCLASSIF J3490 [facility] IED DRUGS 6 [facility] INC INC THERAPEUT 92236 [facility] IC 6 [facility] PROPHYLAC INC INC TIC/DX INJECTION SUBQ/IM US PREG 41955 CARMELA KELLY UTERUS 6 MEDICAL APRIL REAL TIME IMAGING W/[place] [address] CAR[facility]EL[facility] KELLY 6 MEDICAL APRIL UTERUS IMAGING LIMITED ASS 1/> FETUSES 85218 [facility] NONSTRESS 6 [facility] TEST INC INC GLUCOSE 31806 [facility] PINTO BLOOD 6 PHYSICIAN LILIBETH REAGENT S GROUP STRIP UNCLASSIF J3490 [facility] IED DRUGS 6 [facility] INC INC FTL 20460 [facility] FIBRONECT 6 [facility] IN INC INC CERVICOVA G SECRETION S SEMI-LAM URNLS DIP 79973 [facility]Y GIB 6 [facility] STICK/TAB INC LET REAGENT AUTO MICROSCOP Y 58973 [facility] NONSTRESS 6 [place] [address] [facility] INFUSION 6 [facility] HYDRATION INC INC INITIAL 31 MIN-1 HOUR US PREG 14297 [facility] SRAVANTHI UTERUS 6 HEALTH MOL W/DETAIL MEDICAL GROUP HECTOR 1ST GESTATION [place] PREG 09950 [facility] SRAVANTHI UTERUS 6 HEALTH MOL DETAIL MEDICAL GROUP HECTOR EXAM EA GESTAT BLOOD 43240 [facility] CONNE[facility] TYPING 6 G A R H G A R H SEROLOGIC RH (D) BLOOD 50080 [facility] TYPING 6 G A R H G A R H SEROLOGIC ABO ANTIBODY 95634 [facility] SCREEN 6 G A R H G A R H RBC EACH SERUM TECHNIQUE COLLECTIO 26040 [facility] N VENOUS 6 G A R H G A R H BLOOD VENIPUNCT URE US PREG 09117 JOSELUIS GARZA JR UTERUS 6 KAYLA ZUNIGA ELYSE AFTER 1ST PC TRIMEST GESTATION BLOOD 24039 [facility] COUNT 6 G A R H G A R H COMPLETE AUTO&AUTO DIFRNTL WBC DIRECT G0379 [facility] ADMISSION 6 G A R H G A R H PATIENT HOSPITAL OBSERV CARE OBSERVATI 09833 MAJOR NAVARRO ON/INPATI 6 [facility] DANNIE CARE 40 MINUTES HOSPITAL G0378 [facility] OBSERV[facility] 6 G A R H G A R H ON SERVICE PER HOUR DRUG TEST G0479 [facility] 6 G A R H G A R H PRESUMP;I NSTRUMENT ED CHEMISTRY ANLYZER URNLS DIP 02909 [facility] 6 G A R H G A R H STICK/TAB LET REAGENT AUTO MICROSCOP Y HOSPITAL G0463 [facility] OUTPATIEN 6 G A R H G A R H T CLIN VISIT ASSESS & MGMT PT OPHTH 85666 SCIFRES SCIFRES MEDICAL 6 ANG ANG XM&EVAL COMPRHNSV ESTAB PT 1/> FITTING 66376 SCIFRES SCIFRES SPECTACLE 6 ANG ANG S XCPT APHAKIA MONOFOCAL LENS V2784 SCIFRES SCIFRES POLYCARBO 6 ANG ANG JW OR EQUAL ANY INDEX PER LENS FRAMES V2020 SCIFRES SCIFRES PURCHASES 6 ANG ANG 1 VISN V2103 SCIFRES SCIFRES PLANO 6 ANG ANG TO+/-4.00 D SPHER 0.12-2.00 D CYL EA SCRATCH V2760 SCIFRES SCIFRES RESISTANT 6 ANG ANG COATING PER LENS IAADIADOO 13724 [facility] 6 N N INFLUENZA COMMUNTIY COMMUNTIY HOSPITA HOSPITA US PREG 59094 [facility] UTERUS 6 PHYSICIAN PHYSICIAN REAL TIME S GROUP S GROUP F/[place] [address] [facility] 6 PHYSICIAN PHYSICIAN UTERUS S GROUP S GROUP LIMITED 1/> [place] [address] [facility] [place] G[place] JAM UTERUS 6 RADIOLOGY REAL TIME W/IMAGE DCMTN TRANSVAG IAADIADOO 92144 [facility] 6 N N INFLUENZA COMMUNTIY COMMUNTIY HOSPITA HOSPITA URNLS DIP 18837 [facility] 6 [facility] STICK/TAB INC INC LET REAGENT AUTO MICROSCOP Y US PREG 10812 [facility] MILLIE UTERUS 6 PHYSICIAN LILIBETH REAL TIME S GROUP W/IMAGE DCMTN TRANSVAG COLLECTIO 31177 [facility] N VENOUS 6 [facility] BLOOD INC INC VENIPUNCT URE IADNA 80462 [facility] CHLAMYDIA 6 [facility] INC INC TRACHOMAT IS AMPLIFIED PROBE TQ IADNA 00108 [facility] NEISSERIA 6 [facility] INC INC GONORRHOE AE AMPLIFIED PROBE TQ OBSTETRIC 44587 [facility] PANEL 6 [facility] INC INC DRUG TST G0477 [facility] MILLIE PRESUMP;C 6 PHYSICIAN PBL BEING S GROUP READ DC OPT OBV ONLY INF AGT G0432 [facility] AB DETECT 6 [facility] EIA TECH INC INC HIV-1&/HI V-2 SCR GONADOTRO 42578 [facility] MELANIE PIN 5 COMP CHORIONIC HEALTH DANNIE QUANTITAT TOMMY COLLECTIO 85763 [facility] MELANIE N VENOUS 5 COMP BLOOD HEALTH VENIPUNCT DANNIE URE US PREG 48776 [facility] MELANIE UTERUS 5 COMP REAL TIME HEALTH W/IMAGE DANNIE DCMTN TRANSVAG COLLECTIO 02152 [facility] V[facility] 5 COMP BLOOD HEALTH VENIPUNCT DANNIE URE GONADOTRO 51249 [facility] MELANIE PIN 5 COMP CHORIONIC HEALTH DANNIE QUANTITAT TOMMY GONADOTRO 25250 [place] PIN 5 G A R H G A R H CHORIONIC QUANTITAT TOMMY GONADOTRO 12514 [place] PIN 5 G A R H G A R H CHORIONIC QUALITATI VE IAADIADOO 18690 [place] WH[place] 5 G A R H G A R H STREPTOCO CCUS GROUP A IAADIADOO 89093 [place] WH[place] 5 G A R H G A R H INFLUENZA COLLECTIO 59646 [facility] N VENOUS 5 COMP SHELLY BLOOD HEALTH VENIPUNCT DANNIE URE GONADOTRO 37644 [facility] PIN 5 COMP SHELLY CHORIONIC HEALTH DANNIE QUALITATI VE GONADOTRO 96955 [facility] PIN 5 COMP CAR CHORIONIC HEALTH DANNIE QUALITATI VE COLLECTIO 82556 [facility] N VENOUS 5 COMP CAR [place] [address] [place] [facility] ALL HEAD/BRAI 5 MEDICAL N W/O IMAGING CONTRAST ASS MATERIAL RADEX 57530 [place] [facility] FOOT 5 MEDICAL APRIL COMPLETE IMAGING MINIMUM 3 ASS VIEWS OPHTH 93752 BARBER JEANNIE BARBER JEANNIE MEDICAL 5 XM&EVAL COMPRE NEW PT 1/> VST FITTING 53197 ELISABETH DENNIS BARBER JEANNIE SPECTACLE 5 S XCPT APHAKIA MONOFOCAL LENS V2784 BARBERCLAUDINE DENNIS BARBER JEANNIE POLYCARBO 5 JW OR EQUAL ANY INDEX PER LENS SCRATCH V2760 ELISABETH CASENES JEANNIE RESISTANT 5 COATING PER LENS 1 VISN V2103 ELISABETH CASENES JEANNIE PLANO 5 TO+/-4.00 D SPHER 0.12-2.00 D CYL EA FRAMES V2020 ELISABETH [place] [address] [place] [address] [place] [facility] ABDOMEN & 5 MEDICAL APRIL PELVIS IMAGING W/O ASS CONTRAST MATERIAL IADNA 92186 LAB DANNIE LAB DANNIE CHLAMYDIA 5 KRISTY KRISTY HOLDINGS HOLDINGS [place] [address] [facility] MELANIE TRANSVAGI 5 COMP NAL HEALTH DANNIE COLLECTIO 75648 [facility] N VENOUS 5 COMP COMP BLOOD HEALTH HEALTH VENIPUNCT DANNIE DANNIE URE IADNA 84866 LAB DANNIE LAB DANNEI ELIANA 5 KRISTY KRISTY SPECIES HOLDINGS HOLDINGS AMPLIFIED PROBE TQ IADNA NOS 43338 LAB DANNIE LAB DANNIE 5 KRISTY KRISTY AMPLIFIED HOLDINGS HOLDINGS PROBE TQ EACH ORGANISM IADNA 06575 LAB [facility] LAB DANNIE NEISSERIA 5 KRISTY KRISTY HOLDINGS HOLDINGS GONORRHOE AE AMPLIFIED PROBE TQ IADNA 45479 LAB D[facility]IE LAB DANNIE TRICHOMON 5 KRISTY KRISTY HOLDINGS HOLDINGS VAGINALIS AMPLIFIED PROBE TECH GONADOTRO 24302 MAOJR NAVARRO PIN 5 COMP CHORIONIC HEALTH DANNIE QUALITATI VE GONADOTRO 01213 [facility] PIN 5 G A R H G A R H CHORIONIC QUALITATI VE BLOOD 10615 [facility] [place] COUNT 5 G A R H G A R H COMPLETE AUTO&AUTO DIFRNTL WBC URNLS DIP 81034 [facility] [place] 5 G A R H G A R H STICK/TAB [place] [address] [facility] [place] AMYLASE 5 [place] [address] [facility] LIPASE 5 G A R H G A R H COMPREHEN 66609 [facility] SIVE 5 G A R H G A R H METABOLIC PANEL URINE 83060 [facility] 5 PRIMARY BA TEST CARE VISUAL COLOR CMPRSN METHS URINE 78800 [facility] 4 PRIMARY BA TEST CARE VISUAL COLOR CMPRSN METHS RADIOLOGI 89744 SAMIRA BOLDEN BRA C 4 EXAMINATI RADIOLOGY ON PELVIS PLLC 1/2 VIEWS RADEX 28398 SAMIRA BOLDEN BRA ELBOW 4 COMPLETE RADIOLOGY MINIMUM 3 PLLC VIEWS RADEX 43082 SAMIRA BOLDEN BRA HAND 4 MINIMUM 3 RADIOLOGY VIEWS PLLC RADEX 72432 SAMIRA BOLDEN BRA SPINE 4 CERVICAL RADIOLOGY 2 OR 3 PLLC VIEWS BLOOD 52923 [facility] COUNT 4 G A R H G A R H COMPLETE AUTO&AUTO DIFRNTL WBC RADIOLOGI 27725 [facility] C EXAM 4 G A R H G A R H CHEST 2 VIEWS FRONTAL&L ATERAL RADIOLOGI 24988 SAMIRA WEAVER C EXAM 4 BA CHEST 2 RADIOLOGY VIEWS PLLC FRONTAL&L ATERAL GONADOTRO 40124 [facility] PIN 4 G A R H G A R H CHORIONIC QUALITATI VE URNLS DIP 31221 [facility] [place] 4 G A R H G A R H STICK/TAB LET REAGENT AUTO MICROSCOP Y NONINVASI 26293 SAMIRA HOGAN VE [address] [facility] EAR/PULSE CENTER CENTER OXIMETRY SINGLE DETER CRTCHS E0114 SAMIRA HOGAN UNDARM [address] [facility] OTH THAN [facility] WOOD PAIR PAD TIP&HNDGR IP REPAIR 12672 KIRKPATRI KIRKPATRI NAIL BED 4 CK IZZY CK IZZY RADEX 90035 RACHELLE BUSH FOOT 4 GAR GAR COMPLETE MINIMUM 3 VIEWS REMOVAL 04368 GAUNT TIN GAUNT TIN IMPLANTAB 4 LE CONTRACEP TIVE CAPSULES KO ELAST L1820 RESPIRATO RESPIRATO W/CONDYLR 4 RY PLUS RY PLUS PADS&JNT [facility] PRFAB INCL FIT&[place] [address] SAMIRA BUSH ABDOMINAL 4 GAR REAL RADIOLOGY TIME PLLC W/IMAGE DOCUMENTA TION US PELVIC 43766 JAYSON JAYSON 4 DEN DEN NONOBSTET RAINER REAL-TIME IMAGE COMPLETE CULTURE 84995 LAB DANNIE LAB DANNIE BACTERIAL 4 OF KRISTY KRISTY HOLDINGS QUANTTATI HOLDINGS VE COLONY COUNT URINE BLOOD 84432 LAB DANNIE LAB DANNIE COUNT 4 OF KRISTY COMPLETE KRISTY HOLDINGS AUTO&AUTO HOLDINGS DIFRNTL WBC US BREAST 33014 MARGARITA MARGARITA REAL 4 PATRIA PATRIA TIME W/IMAGE DOCUMENTA TION IADNA 81276 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 CHEST 2 [facility] CENTER VIEWS FRONTAL&L ATERAL HETEROPHI 59776 SAMIRA HOGAN LE [address] [facility] ANTIBODIE [facility] S SCREEN INFUSION J7030 SAMIRA HOGAN NORMAL [address] [facility] SALINE [facility] SOLUTION 1000 CC URNLS DIP 37283 SAMIRA HOGAN 4 MEDICAL MEDICAL STICK/TAB CENTER CENTER LET REAGENT AUTO MICROSCOP Y BLOOD 67782 SAMIRA HOGAN COUNT 4 [facility] [place] [facility] CENTER AUTO&AUTO DIFRNTL WBC GONADOTRO 06499 SAMIRA HOGAN PIN [address] [facility] CHORIONIC CENTER CENTER QUALITATI VE COLLECTIO 35759 SAMIRA HOGAN N VENOUS [address] [facility] BLOOD [facility] VENIPUNCT URE BASIC 43250 SAMIRA HOGAN METABOLIC 4 [facility] [place] T[place] [address] SAMIRA HOGAN INFUSION [address] [facility] HYDRATION [facility] INITIAL 31 MIN-1 HOUR NONINVASI 26312 SAMIRA HOGAN VE 4 [facility]PULSE [facility] CENTER OXIMETRY SINGLE DETER LEVEL III 67395 ANNA ADLER SHE SURG 4 ADLER MD PATHOLOGY PSC GROSS&MELANIE ROSCOPIC EXAM TONSILLEC 03734 THOMPSON THOMPSON FRANKI 4 BA BA PRIMARY/S ECONDARY AGE 12/> ANESTHESI 90691 [place] ANG [place] ANG A 4 INTRAORAL WITH BIOPSY NOS RADIOLOGI 24007 OWEN WEAVER C EXAM 4 BA BA CHEST 2 VIEWS FRONTAL&L ATERAL URNLS DIP 49566 DONTRELL JON 3 BA BA STICK/TAB LET RGNT NON-AUTO W/O MICRSCP RADEX 09122 KAYLA GARZA JR FINGR 3 ELYSE EYLSE MINIMUM 2 VIEWS GENERAL 74582 [facility] 3 KRISTY KRISTY PANEL HOLDINGS HOLDINGS 25 50573 [facility] D[facility] HYDROXY 3 KRITSY KRISTY INCLUDES HOLDINGS HOLDINGS FRACTIONS IF PERFORMED GONADOTRO 85099 [facility] D[facility] PIN 3 KRISTY KRIST[facility] CHORIONIC [facility] HOLDINGS QUANTITAT TOMMY LIPID 35645 [facility] PANEL 3 KRISTY KRISTY HOLDINGS HOLDINGS ECG 86298 SELPH SCO SELPH SCO ROUTINE 3 ECG W/LEAST 12 LDS I&R ONLY RADIOLOGI 19805 RACHELLE BUSH C EXAM 3 GAR GAR CHEST 2 VIEWS FRONTAL&L ATERAL RADIOLOGI 15639 BECKI CONNELL C EXAM 3 G A R H G A R H CHEST 2 VIEWS FRONTAL&L ATERAL PRESSURIZ 88279 B[facility] CONNELL ED/NONPRE 3 G A R H G A R H SSURIZED INHALATIO N TREATMENT COLLECTIO 62026 [facility] CONNELL N VENOUS 3 G A R H G A R H BLOOD VENIPUNCT URE IAADI 93430 [facility] CONNELL INFLUENZA 3 G A R H G A R H B VIRUS ANTIBODY 82774 [facility] CONNELL INFLUENZA 3 G A R H G A R H VIRUS HETEROPHI 05987 [facility] CONNELL LE 3 G A R H G A R H ANTIBODIE S SCREEN GONADOTRO 20592 [facility] CONNELL PIN 3 G A R H G A R H CHORIONIC QUALITATI VE DRUG SCR G0434 LAB DANNIE LABORATOR NOT 3 OF Y CHROMATOG KRISTY CORPORATI RAPHIC; HOLDINGS ON OF AM ANY NUMBER PT ENC BASIC 48658 BECKI CONNELL METABOLIC 3 G A R H G A R H PANEL CALCIUM TOTAL COLLECTIO 18129 BECKI CONNELL N VENOUS 3 G A R H G A R H BLOOD VENIPUNCT URE GONADOTRO 11062 B[facility] CONNELL PIN 3 G A R H G A R H CHORIONIC QUALITATI VE BLOOD 53929 BEC[facility] CONNELL COUNT 3 G A R H G A R H COMPLETE AUTO&AUTO DIFRNTL WBC URNLS DIP 47417 BECKI [place] 3 G A R H G A R H STICK/TAB LET REAGENT AUTO MICROSCOP Y RADEX 91166 BECKI CONNELL FOOT 3 G A R H G A R H COMPLETE MINIMUM 3 VIEWS COLLECTIO 20515 [facility] [address] [facility] [place] [address] [facility] AN[facility] 3 [facility] CHEST [facility] W/CONTRAS T/NONCONT RAST ECG 46963 [facility] ROUTINE [address] [facility] ECG CENTER CENTER W/LEAST 12 LDS TRCG ONLY W/O I&R RADIOLOGI 27011 SAMIRA HOGAN C EXAM 3 MEDICAL MEDICAL CHEST 2 CENTER CENTER VIEWS FRONTAL&L ATERAL LOCM Q9967 SAMIRA HOGAN [phone] 3 MEDICAL MEDICAL MG/ML CENTER CENTER IODINE CONCENTRA TION PER ML THER 13408 SAMIRA HOGAN PROPH/DX 3 MEDICAL MEDICAL NJX IV CENTER CENTER PUSH SINGLE/1S T SBST/DRUG ECG 89815 [facility] ROUTINE 3 EMERGENCY BRA ECG SERVICES W/LEAST 12 LDS I&R ONLY NONINVASI 73878 SAMIRA HOGAN VE 3 [facility]ICAL MEDICAL EAR/PULSE CENTER CENTER OXIMETRY SINGLE DETER BASIC 66554 SAMIRA HOGAN METABOLIC 3 MEDICAL MEDICAL PANEL CENTER CENTER CALCIUM IONIZED INJECTION J1885 SAMIRA HOGAN 3 MEDICAL MEDICAL KETOROLAC CENTER E[facility]ON TROMETHAM INE PER 15 MG BLOOD 09584 SAMIRA HOGAN COUNT 3 [facility] COMPLETE CENTER CENTER AUTO&AUTO DIFRNTL WBC GONADOTRO 49040 SAMIRA HOGAN PIN 3 [facility]ION[facility] CENTER CENTER QUALITATI VE IAADIADOO 69780 JEANIE WARE 3 [facility] [facility] A RADIOLOGI 70694 SAMIRA HOGAN C EXAM 3 MEDICAL MEDICAL CHEST 2 CENTER CENTER VIEWS FRONTAL&L ATERAL SUSCEPTIB 70589 [facility] LTY STDY 3 KRISTY KRISTY ANTIMICRB HOLDINGS HOLDINGS IAL MICRO/AGA R DILUTJ CUL BACT 20207 [facility] AEROBIC 3 KRISTY KRISTY ADDL HOLDINGS HOLDINGS METHS DEFINITIV E EA ISOL CULTURE 85636 LAB [facility] LAB [facility]ANN[facility] BACTERIAL 3 KRISTY KRISTY HOLDINGS HOLDINGS QUANTTATI VE COLONY COUNT URINE CULTURE 07729 LAB [facility] LAB [facility]ANN[facility] BCT 3 KRISTY KRISTY ISOL&PRSM HOLDINGS HOLDINGS PTV ID ISOLATE EA URINE WRIST L3908 PROFESSIO PROFESSIO HAND 3 NAL HOME NAL HOME ORTHOSIS MEDICAL MEDICAL EXT JASMINE JASMINE CONTROL COCK-UP PREFAB COLLECTIO 36447 MALIKA DALY N VENOUS 3 MELANIE MELANIE BLOOD VENIPUNCT URE URNLS DIP 03432 DONTRELL JON 3 BA BA STICK/TAB LET RGNT NON-AUTO W/O MICRSCP RADEX 64648 SAMIRA HOGAN FACIAL [address] [facility] CENTER COMPLETE MINIMUM 3 VIEWS NONINVASI 64878 SAMIRA HOGAN VE [address] [facility] EAR/PULSE CENTER CENTER OXIMETRY SINGLE DETER CLOSED 95494 DIOR ANT DIOR ANT TREATMENT 2 NASAL FRACTURE [place] [address] SAMIRA TYLER ABDOMINAL 2 DEN REAL RADIOLOGY TIME PLLC W/IMAGE LIMITED IAADIADOO 74281 JEANIE CARROLLBY 2 [facility] A EGD 95345 ULYSSES ARORA TRANSORAL 2 DAVID DAVID BIOPSY SINGLE/[place] [address] ANNA ADLER SHE SURG 2 ADLER PATHOLOGY PSC GROSS&MELANIE ROSCOPIC EXAM ANES 53153 BLANK CAR BLANK CAR UPPER GI [address] THORAX 88088 [place] [facility] W/O 2 G A R [facility] G A R [facility] CONTRAST MATERIAL CULTURE 70082 [place] BACTERIAL 2 G A R H G A R H BLOOD AEROBIC W/ID ISOLATES INJECTION J1956 [place] STUGAN 2 G A R H ANT LEVOFLOXA TOBI 250 MG GONADOTRO 13103 [place] PIN 2 G A R H G A R H CHORIONIC QUALITATI VE BLOOD 97405 [place] COUNT 2 G A R H G A R H COMPLETE AUTO&AUTO DIFRNTL WBC INJECTION J2405 [place] 2 G A R H G A R H ONDANSETR ON HCL PER 1 MG INJECTION C9113 [place] 2 G A R H G A R H PANTOPRAZ OLE SODIUM PER VIAL THER 67910 [place] PROPH/DX 2 G A R H G A R H NJX IV PUSH SINGLE/1S T SBST/DRUG LOCM Q9967 [place] 300-399 2 G A R H G A R H MG/[place] [address] B[facility]KI V[facility]BUR ABDOMEN & 2 G A R H G A R H PELVIS W/CONTRAS T MATERIAL CT THORAX 42977 [place] 2 G A R H G A R H W/CONTRAS T MATERIAL URNLS DIP 91775 [place] 2 G A R H G A R H STICK/TAB LET REAGENT AUTO MICROSCOP Y GONADOTRO 19460 [facility] PIN 2 G A R H G A R H CHORIONIC QUALITATI VE BLOOD 19979 LAB [facility]ANN[facility] LAB [facility] COUNT 2 AMERIC AMERIC COMPLETE HOLDING HOLDING AUTO&AUTO DIFRNTL WBC HETEROPHI 84689 LAB DANNIE LAB DANNIE LE 2 AMERIC AMERIC ANTIBODIE HOLDING HOLDING S SCREEN URNLS DIP 14108 DONTRELL JON 2 BA BA STICK/TAB LET RGNT NON-AUTO W/O MICRSCP OBSERVATI 84790 DONTRELL JON ON CARE 2 BA BA DISCHARGE MANAGEMEN T INITIAL 20216 DONTRELL JON OBSERVATI 2 BA BA ON CARE/DAY 50 MINUTES INITIAL 59419 DONTRELL JON OBSERVATI 2 BA BA ON CARE/DAY 50 [place] [address] JOSELUIS GARZA JR RETROPERI 2 KAYLA PAPPAS TONECJ PC REAL TIME W/IMAGE COMPLETE NONINVASI 44000 SAMIRA HOGAN VE [address] [facility] CENTER OXIMETRY SINGLE DETER RADIOLOGI 48275 SAMIRA Houser 2 DEN EXAMINATI RADIOLOGY ON FEMUR PLLC 2 VIEWS RADEX HIP 43851 SAMIRA TYLER 2 DEN UNILATERA RADIOLOGY L PLLC COMPLETE MINIMUM 2 VIEWS IAADIADOO 85842 DONTRELL JON 2 BA BA STREPTOCO CCUS GROUP A RADIOLOGI 63698 BECKI CONNELL C 2 G A R H G A R H EXAMINATI ON KNEE 3 VIEWS [facility]PHTH 20966 [facility] ARNULFO XM&EVAL COMPRE NEW PT 1/> VST RADEX 28389 KAYLA GARZA JR SPINE 2 ELYSE ELYSE CERVICAL 6 OR MORE VIEWS RADEX 47692 KAYLA GARZA JR RIBS UNI 2 ELYSE ELYSE W/POSTERO ANT CH MINIMUM 3 VIEWS OBSERVATI 90793 DONTRELL JON ON CARE 2 BA BA DISCHARGE MANAGEMEN T INITIAL 33849 DONTRELL JON OBSERVATI 2 BA BA ON CARE/DAY 50 MINUTES RADIOLOGI 52615 JOSELUIS GARZA JR C 2 KAYLA ZUNIGA ELYSE EXAMINATI PC ON CHEST SINGLE VIEW FRONTAL NEBULIZER E0570 [employer] [facility] WITH 2 [place] [address] [place] OWEN ABDOMEN & 2 BA PELVIS RADIOLOGY W/CONTRAS PLLC T MATERIAL BREATHING A4618 MT [facility]visible Sentinel MT MED CIRCUITS 2 EQUIPMENT EQUIPMENT INC INC RADIOLOGI 54610 SHADEANAM CASANOVAALL C EXAM 2 BA CHEST 2 RADIOLOGY VIEWS PLLC FRONTAL&L ATERAL BLOOD 06821 LAB DANNIE LAB DANNIE COUNT 2 AMERIC AMERIC COMPLETE HOLDINGS HOLDING AUTO&AUTO DIFRNTL WBC IAADIADOO 90429 [facility] 2 [facility] A RADIOLOGI 48529 SAMIRA AVILA C 2 PATRIA EXAMINATI RADIOLOGY ON KNEE 3 PLLC VIEWS IAADIADOO 17371 DONTRELL JON 2 BA BA STREPT[facility]O CCUS GROUP A 25 15349 LAB DANNIE LAB DANNIE HYDROXY 2 KRISTY KRISTY INCLUDES HOLDINGS HOLDINGS FRACTIONS IF PERFORMED CYANOCOBA 41856 LAB DANNIE LAB DANNIE KOURTNEY 2 KRISTY KRISTY VITAMIN HOLDINGS HOLDINGS B-12 GENERAL 50416 LAB DANNIE LAB DANNIE HEALTH 2 KRISTY KRISTY PANEL HOLDINGS HOLDINGS IRON 43132 LAB DANNIE LAB DANNIE BINDING 2 KRISTY KRISTY [place] [address] LAB DANNIE LAB DANNIE IRON 2 KRISTY KRISTY HOLDINGS HOLDINGS COLLECTIO 34446 OVERBEE OVERBEE N VENOUS 2 GENNY GENNY BLOOD VENIPUNCT URE RADEX 79414 [place] SPINE 2 G A R H G A R H THORACIC 2 VIEWS URNLS DIP 74001 JON OVERBEE 2 BA GENNY STICK/TAB LET RGNT NON-AUTO W/O MICRSCP URNLS DIP 25398 JON JON 1 BA BA STICK/TAB LET RGNT NON-AUTO W/O MICRSCP RADIOLOGI 30874 BECKI Houser EXAM 1 G A R H G A R H CHEST 2 VIEWS FRONTAL&L ATERAL ADMN SET A7003 CARE MORE CARE MORE SM VOL 1 PHARMACY PHARMACY NONFILTR PNEUMAT NEBULIZR DISPBL RADEX 02270 JOSELUIS GARZA JR ANKLE 1 KAYLA ZUNIGA ELYSE COMPLETE PC MINIMUM 3 VIEWS RADEX 41510 JOSELUIS GARZA JR FOOT 1 KAYLA ZUNIGA ELYSE COMPLETE PC MINIMUM 3 VIEWS HETEROPHI 68518 LAB D[facility]IE LAB DANNIE LE 1 AMERIC AMERIC ANTIBODIE HOLDING HOLDING S SCREEN BLOOD 59406 LAB DANNIE LAB DANNIE COUNT 1 AMERIC AMERIC COMPLETE HOLDING HOLDING AUTO&AUTO DIFRNTL WBC RADIOLOGI 55213 BECKI CONNELL C 1 G A R H G A R H EXAMINATI ON KNEE 3 VIEWS RADIOLOGI 36257 JOSELUIS GARZA JR C EXAM 1 KAYLA ZUNIGA ELYSE KNEE PC COMPLETE 4/MORE VIEWS CRTCHS E0114 THE THE [facility] STORE WOOD PAIR PAD TIP&HNDGR IP IADNA 07909 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 NEISSERIA 1 Y DANNIE OF Y DANNIE OF KRISTY KRISTY GONORRHOE H H AE AMPLIFIED PROBE TQ CYTP C/V 50863 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 AUTO THIN 1 Y DANNIE OF Y DANNIE OF LYR KRISTY KRISTY PREPJ SCR H H MNL RESCR PHYS IADNA 08619 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 CHLAMYDIA 1 Y DANNIE OF Y DANNIE OF KRISTY KRISTY TRACHOMAT H H IS AMPLIFIED PROBE TQ IAADIADOO 20278 SOL[facility] OVERBEE 1 PRIMARY GENNY STREPTOCO CARE CCUS GROUP A IAADIADOO 53462 SOL[facility]IO OVERBEE 1 PRIMARY GENNY STREPTOCO CARE CCUS GROUP A IAADIADOO 25334 SOLITARIO OVERBEE 0 PRIMARY GENNY STREPTOCO CARE CCUS GROUP A IAADIADOO 30828 SOLITARIO OVERBEE 0 PRIMARY GENNY STREPTOCO CARE CCUS GROUP A IIV3 [address] DR[address] JON VACCINE 0 LYDIA COSME SPLIT Espinoza JON VIRUS 0.5 D ML DOSAGE IM USE THERAPEUT 98518 DR. JON IC 0 LYDIA COSME PROPHYLAC Espinoza JON TIC/DX D INJECTION SUBQ/IM INJECTION J2550 DR. JON 0 LYDIA COSME PROMETHAZ Espinoza JON INE HCL D UP TO 50 MG RADEX 94599 [place] CLAVICLE 0 G A R H G A R H COMPLETE RADEX 07753 [place] SHOULDER 0 G A R H G A R H COMPLETE MINIMUM [address] D[address] JON 0 LYDIA COSME STICK/TAB Espinoza JON LET RGNT D NON-AUTO W/O MICRSCP FRAMES V2020 Bayron JOHNSON, PURCHASES 0 ALEX HENDERSONBIE K OD PSC KOD US PELVIC 52952 JOSELUIS GARZA JR, 0 KAYLA Phillip NONOBSTET PC RAINER REAL-TIME IMAGE COMPLETE SPHERE V2100 Bayron JOHNSON, SINGLE 0 ALEX MISSAEL K VISION OD PSC PLANO +/- KOD 4.00 PER LENS OPHTH 19753 Bayron JOHNSON, MEDICAL 0 ALEX MISSAEL K XM&EVAL OD PSC COMPRHNSV KOD ESTAB PT 1/> FITTING 14609 Bayron JOHNSON, SPECTACLE 0 ALEX HENDERSONBIE K S XCPT [place] [address] [place] ABDOMEN 0 G A R H G A R H W/CONTRAS T MATERIAL COLLECTIO 88505 [place] N VENOUS 0 G A R H G A R H BLOOD VENIPUNCT URE RADEX 57220 JOSELUIS GRAZA JR, UPPER GI 0 KAYLA Phillip W/WO PC GLUCAGON/ DELAY IMGES W/O KUB COMPREHEN 67356 [facility] [place] SIVE 0 [place] [address] JOSELUIS GARZA JR, ABDOMINAL 0 KAYLA Phillip REAL PC TIME W/[place] [address] [place] LIPASE 0 [place] [address] [place] AMYLASE 0 G A R H G A R H URNLS DIP 61242 [place] 0 G A R H G A R H STICK/TAB LET REAGENT AUTO MICROSCOP Y RADEX 67983 JOSELUIS GARZA JR, FINGR 0 KAYLA Phillip MINIMUM 2 PC VIEWS IAADIADOO 43533 SOLITARIO DODSONOME, 9 PRIMARY JOVANNA Marjan [place] [address] SAMIRA HOGAN INFLUENZA 9 MEDICAL MEDICAL A/B EACH CENTER CENTER WALKING L4386 [place] SAMIRA BOOT 9 MEDICAL MEDICAL NON-PNEUM CENTER CENTER ATIC PREFAB CUSTOM FIT RADIOLOGI 03734 Mik VÁSQUEZ 9 RAYMOND EXAMINAHOSSEIN RADIOLOGY ON FOOT 2 PLLC VIEWS RADEX 98568 [place] FOOT 9 G A R H G A R H COMPLETE MINIMUM 3 VIEWS COLLECTIO 63799 [place] N VENOUS 9 G A R H G A R H BLOOD VENIPUNCT URE COLLECTIO 29928 [place] N 9 G A R H G A R H CAPILLARY BLOOD SPECIMEN GLUCOSE 69757 [place] TOLERANCE 9 G A R H G A R H TEST GTT 3 SPECIMENS GLUCOSE 23933 [place] TOLERANCE 9 G A R H G A R H EA ADDL BEYOND [address] JON, Martell VENOUS 9 Espinoza COMBS VENIPUNCT D URE GENERAL 58118 LAB DANNIE LAB DANNIE HEALTH 9 AMERIC AMERIC PANEL HOLDING HOLDING FITTING 87528 Bayron JOHNSON, SPECTACLE 9 ALEX [place] S XCPT OD PSC APHAKIA KOD MONOFOCAL OPHTH 34920 Bayron JOHNSON, MEDICAL 9 ALEX [place] XM&EVAL OD PSC COMPRE KOD NEW PT 1/> VST SPHERE V2100 Bayron JOHNSON, SINGLE 9 ALEX [place] VISION OD PSC PLANO +/- KOD 4.00 PER LENS FRAMES V2020 Bayron JOHNSON, PURCHASES 9 ALEX [place] OD PSC KOD KNEE L1830 MT MED MT MED ORTHOSIS 9 EQUIPMENT EQUIPMENT IMMOBLIZE INC INC R CANVAS LONGTUDNL PREFAB RADIOLOGI 81449 JOSELUIS GARZA JR, C 9 KAYLA Phillip EXAMINA PC ON KNEE 3 VIEWS RADIOLOGI 70723 LAUREN Houser 9 [facility] ON KNEE 1/2 VIEWS RADEX 93826 SAMIRA TYLER ELBOW 8 [place] COMPLETE RADIOLOGY MINIMUM 3 PLLC VIEWS RADEX 01633 ALLAN PEREZ JR 8 KAYLA Phillip COMPLETE PC MINIMUM 3 VIEWS Encounters Encounter Start End Date Code Location Performer Type Date INITIAL 58045 [facility] DEPT [facility] DEPT MEDICINE [facility] AGE 18-39YRS EMERGENCY 10860 YOLANDA LEVI 7 7 PHYSICIAN DEPARTMEN S, PLLC T VISIT MODERATE SEVERITY OFFICE 60560 [facility] OUTPATIEN 7 7 COMP T VISIT HEALTH 15 DANNIE MINUTES EMERGENCY 71206 [facility] 7 7 [facility] DEPARTMEN INC T VISIT HIGH/URGE NT SEVERITY EMERGENCY 86324 YOLANDA LEVI DEPT 7 7 PHYSICIAN VISIT S, PLLC HIGH SEVERITY& THREAT [facility] OUTPATIEN INC T [facility] - 7 7 N OUTPATIEN COMMUNTIY T HOSPITA EMERGENCY 53152 [facility] DEPT 7 7 [place] LO VISIT EMERGENCY HIGH SERVI SEVERITY& THREAT FUNCJ EMERGENCY 00724 [facility] 7 7 N DEPARTMEN COMMUNTIY T VISIT HOSPITA MODERATE SEVERITY [facility] - 7 7 [facility] OUTPATIEN INC T EMERGENCY 03454 [facility] 7 7 [facility] DEPARTMEN INC T VISIT LOW/MODER SEVERITY EMERGENCY 11572 [facility] 7 7 N DEPARTMEN COMMUNTIY T VISIT HOSPITA LIMITED/M INOR PROB HOSPITAL [facility] - 7 7 N OUTPATIEN COMMUNTIY T HOSPITA EMERGENCY 20301 [facility] 7 7 [place] DEPARTMEN EMERGENCY T VISIT PHYS HIGH/URGE NT SEVERITY EMERGENCY 22866 [facility] DEPT 7 7 PHYSICIAN VISIT S, [facility] HIGH SEVERITY& THREAT [facility] - 7 7 [facility] OUTPATIEN INC T EMERGENCY 96781 [facility] 7 7 [facility] DEPARTMEN INC T VISIT MODERATE SEVERITY OFFICE 96900 [facility] 7 PRIMARY T VISIT CARE 15 MINUTES EMERGENCY 85806 [facility] 6 6 MEDICAL DEPARTMEN PARTNERS T VISIT LL MODERATE SEVERITY [facility] [place] - 6 6 G A R H OUTPATIEN T OFFICE 17332 [facility] T VISIT CARE 15 MINUTES OFFICE 42554 [facility] 6 6 PRIMARY BA T VISIT CARE 15 MINUTES [facility]OSP[facility] [place] - 6 6 G A R H OUTPATIEN T EMERGENCY 91481 [facility] 6 6 MEDICAL DEPARTMEN PARTNERS T VISIT LL HIGH/URGE NT SEVERITY EMERGENCY 98387 [place] 6 6 G A R H DEPARTMEN T VISIT MODERATE SEVERITY OFFICE 20642 SOLIT[facility]IO JON OUTPATIEN 6 6 PRIMARY BA T VISIT CARE 15 MINUTES HOSP[facility] [place] - 6 6 MEDICAL OUTPATIEN CENTER T EMERGENCY 52636 [place] 6 6 MEDICAL DEPARTMEN CENTER T VISIT MODERATE SEVERITY EMERGENCY 82431 SAMIRA GIBSONE 6 6 R OBDULIA DEPARTMEN ORIENTAL ORTHODOX T VISIT HOSP LOW/MODER SEVERITY OFFICE 29495 SOL[facility]IO JON OUTPATIEN 6 6 PRIMARY BA T VISIT CARE 15 MINUTES OFFICE 60720 SOLITARIOCE JON OUTPATIEN 6 6 PRIMARY AB T VISIT CARE 15 MINUTES OFFICE 88601 [facility]IO JON OUTPATIEN 6 6 PRIMARY BA T VISIT CARE 15 MINUTES [facility] [place] - 6 6 MEDICAL OUTPATIEN EATON T OFFICE 52087 SOL[facility]IO JON OUTPATIEN 6 6 PRIMARY BA T VISIT CARE 15 MINUTES EMERGENCY 12286 [place] 6 6 G A R H DEPARTMEN T VISIT MODERATE SEVERITY [facility] [place] - 6 6 G A R H OUTPATIEN T OFFICE 32643 [place] [place] MELANIE OUTPATIEN 6 6 COMP T VISIT HEALTH 10 DANNIE MINUTES OFFICE 91220 [facility] 6 COMP T VISIT HEALTH 15 DANNIE MINUTES [facility] [place] - 6 6 G A R H OUTPATIEN T OFFICE 77513 [facility]EN 6 6 COMP T VISIT HEALTH 15 DANNIE MINUTES [facility]OS[facility] - 6 6 HEALTH OUTPATIEN [facility] T OFFICE 32149 [facility] OUTPATIEN 6 6 PHYSICIAN LILIBETH T VISIT S GROUP 15 MINUTES [facility]OSP[facility] - 6 6 HEALTH INPATIENT [facility] OFFICE 93351 [facility] 6 6 COMP T VISIT HEALTH 15 DANNIE MINUTES EMERGENCY 04702 YOLANDA HALE DEPT 6 6 PHYSICIAN U ANDREIA VISIT S, PLLC HIGH SEVERITY& THREAT [facility] 6 6 [facility] OUTPATIEN INC T [facility] - 6 6 [facility] OUTPATIEN INC T OFFICE 49040 [facility] OUTPATIEN 6 6 PHYSICIAN T VISIT 5 S GROUP MINUTES OFFICE 92235 [facility] OUTPATIEN 6 6 PHYSICIAN LILIBETH T VISIT S GROUP 15 MINUTES [facility]OSP[facility] - 6 6 [facility] OUTPATIEN INC T [facility] - 6 6 [facility] OUTPATIEN HOSP T OFFICE 99633 [facility] SRAVANTHI CONSULTAT 6 6 HEALTH MOL ION MEDICAL NEW/ESTAB GROUP PATIENT 15 MIN OFFICE 28699 [facility] OUTPATIEN 6 6 PHYSICIAN LILIBETH T VISIT S GROUP 15 MINUTES [facility]OSP[facility] [place] - 6 6 G A R H OUTPATIEN T EMERGENCY 73622 [facility] 6 6 N DEPARTMEN COMMUNTIY T VISIT HOSPITA MODERATE SEVERITY OFFICE 64467 [facility] OUTPATIEN 6 6 PHYSICIAN MELANIE T NEW 30 S GROUP MINUTES [facility]OSP[facility] - 6 6 N OUTPATIEN COMMUNTIY T HOSPITA EMERGENCY 22165 [facility] 6 6 [place] OBDULIA DEPARTMEN EMERGENCY T VISIT PHYSI HIGH/URGE NT SEVERITY EMERGENCY 65279 YOLANDA BARROSO 6 6 PHYSICIAN FOR DEPARTMEN S, PLLC T VISIT MODERATE SEVERITY OFFICE 82181 [facility] OUTPATIEN 6 6 PHYSICIAN LILIBETH T VISIT S GROUP 15 MINUTES EMERGENCY 83372 SELWYN 6 6 N DEPARTMEN COMMUNTIY T VISIT HOSPITA MODERATE SEVERITY HOSPITAL SI[facility] - 6 6 N OUTPATIEN COMMUNTIY T HOSPITA EMERGENCY 74690 YOLANDA LEVI 6 6 PHYSICIAN MELANIE DEPARTMEN S, PLLC T VISIT MODERATE SEVERITY EMERGENCY 41180 [facility] 6 6 [facility] DEPARTMEN INC T VISIT LOW/MODER SEVERITY [facility] - 6 6 [facility] OUTPATIEN INC T OFFICE 18858 [facility] OUTPATIEN 6 6 PHYSICIAN T NEW 45 S GROUP MINUTES [facility]OSP[facility] 6 6 [facility] OUTPATIEN INC T [facility] - 5 5 [facility] OUTPATIEN INC T EMERGENCY 04323 YOLANDA HUNTER 5 5 PHYS[facility] HIGH/URGE NT SEVERITY EMERGENCY 68416 [facility] 5 5 [facility] T VISIT LIMITED/M INOR PROB OFFICE 65767 [facility] MELANIE OUTPATIEN 5 5 COMP T VISIT HEALTH 15 DANNIE MINUTES OFFICE 38563 [facility] MELANIE OUTPATIEN 5 5 COMP T VISIT HEALTH 15 DANNIE MINUTES [facility] [place] - 5 5 G A R H OUTPATIEN T EMERGENCY 46802 [facility]- 5 5 MEDICAL [place] I[place] DEPARTMEN PARTNERS T VISIT LL MODERATE SEVERITY [facility] [place] - 5 5 G A R H OUTPATIEN T EMERGENCY 64383 [place] 5 5 G A R H DEPARTMEN T VISIT MODERATE SEVERITY EMERGENCY 41617 [facility] 5 5 MEDICAL SHANTELLE DEPARTMEN PARTNERS T VISIT LL HIGH/URGE NT SEVERITY EMERGENCY 31356 [facility] P DEPT 5 5 MEDICAL VISIT PARTNERS HIGH LL SEVERITY& THREAT FUNCJ OFFICE 28473 [facility] OUTPATIEN 5 5 COMP SHELLY T VISIT HEALTH 15 DANNIE MINUTES OFFICE 65252 [facility] OUTPATIEN 5 5 COMP CAR T VISIT HEALTH 15 DANNIE MINUTES EMERGENCY 13268 YOLANDA LEVI 5 5 PHYSICIAN MELANIE DEPARTMEN S, PLLC T VISIT HIGH/URGE NT SEVERITY [facility] - 5 5 [facility] OUTPATIEN INC T EMERGENCY 69766 [facility] 5 5 [facility] DEPARTMEN INC T VISIT LIMITED/M INOR PROB EMERGENCY 80518 [facility] 5 5 [place] SCO DEPARTMEN EMERGENCY T VISIT PHYS MODERATE SEVERITY OFFICE 84403 [facility] OUTPATIEN 5 5 COMP T NEW 30 HEALTH MINUTES [facility]PITAL [place] - 5 5 G A R H OUTPATIEN T EMERGENCY 66154 [place] 5 5 G A R H DEPARTMEN T VISIT MODERATE SEVERITY EMERGENCY 71044 [facility] 5 [facility] DEPART[facility] PARTNERS T VISIT LL HIGH/URGE NT SEVERITY OFFICE 13773 [facility] PRIMARY BA T VISIT CARE 15 MINUTES EMERGENCY 24856 [facility] KIRKPATRI DEPT 4 4 [place] CK IZZY VISIT EMERGENCY HIGH PHYS SEVERITY& THREAT FUNCJ OFFICE 64179 [facility] 4 4 PRIMARY BA T VISIT CARE 15 MINUTES EMERGENCY 16424 [facility] DEPT 4 4 [place] VISIT EMERGENCY HIGH SERV SEVERITY& THREAT FUNCJ EMERGENCY 97743 [facility] P 4 4 MEDICAL DEPARTMEN PARTNERS T VISIT LL MODERATE SEVERITY [facility] [place] - 4 4 G A R H OUTPATIEN T EMERGENCY 74258 [facility] [place] 4 4 [place] R OBDULIA DEPARTMEN EMERGENCY T VISIT PHYS HIGH/URGE NT SEVERITY EMERGENCY 30094 [facility] MOSER 4 4 [place] SHANTELLE DEPARTMEN EMERGENCY T VISIT PHYS HIGH/URGE NT SEVERITY EMERGENCY 00622 [place] 4 4 G A R H DEPARTMEN T VISIT MODERATE SEVERITY [facility] [place] - 4 4 G A R H OUTPATIEN T EMERGENCY 18869 MELITON MOJGAN MELITON MOJGAN 4 4 DEPARTMEN T VISIT HIGH/URGE NT SEVERITY OFFICE 43302 DONTRELL JON OUTPATIEN 4 4 BA BA T VISIT 15 MINUTES OFFICE 55298 MIGUEL MAXWELL OUTPATIEN 4 4 T NEW 45 MINUTES EMERGENCY 75941 [place] [facility] 4 4 MEDICAL DIAGNOSTI DEPARTMEN CENTER CS T VISIT MODERATE SEVERITY [facility] [place] - 4 4 MEDICAL OUTPATIEN CENTER T EMERGENCY 88010 KIRKPATRLaura TRUJILLOKPATRI 4 4 CK IZZY CK IZZY DEPARTMEN T VISIT HIGH/URGE NT SEVERITY [facility] [place] - 4 4 MEDICAL OUTPATIEN CENTER T OFFICE 71614 DR. ABRAHAM SESAY OUTPATIEN 4 4 LYDIA T VISIT Espinoza JON 15 D MINUTES OFFICE 23515 JEANIE WARE OUTPATIEN 4 4 [facility] T VISIT HIGH HIGH 10 [facility]CHO[facility] MINUTES OFFICE 21905 JEANIE WARE OUTPATIEN 4 4 [facility] T VISIT 5 HIGH HIGH MINUTES [facility] [place] - 4 4 MEDICAL OUTPATIEN CENTER T PERIODIC 87794 [facility] PREVENTIV 4 4 E MED EST PATIENT 18-39 YRS [facility] [place] [facility] T EMERGENCY 77037 [place] [facility] T VISIT HIGH/URGE NT SEVERITY EMERGENCY 39156 KIRSTEN KIRSTEN 4 4 SRINI SRINI DEPARTMEN T VISIT MODERATE SEVERITY OFFICE 67164 THOMPSON THOMPSON CONSULTAT 4 4 BA BA ION NEW/ESTAB PATIENT 60 MIN OFFICE 42521 JEANIE WARE OUTPATIEN 3 3 [facility] T VISIT [facility] MIN[facility]ES OFFICE 97316 JEANIE WARE OUTPATIEN 3 3 [facility] T VISIT [facility] MIN[facility] OFFICE 22319 DONTRELL JON OUTPATIEN 3 3 BA BA T VISIT 15 MINUTES OFFICE 54314 DONTRELL JON OUTPATIEN 3 3 BA BA T VISIT 15 MINUTES [facility] [place] [facility] T EMERGENCY 02991 [place] [facility] T VISIT MODERATE SEVERITY OFFICE 16927 DONTRELL JON OUTPATIEN 3 3 BA BA T VISIT 15 MINUTES OFFICE 47957 JEANIE WARE OUTPATIEN 3 3 [facility] T VISIT 5 [facility]IGH [facility] MIN[facility] OFFICE 93718 DONTRELL JON OUTPATIEN 3 3 BA BA T VISIT 15 MINUTES EMERGENCY 49999 [facility] DEPT 3 3 VISIT HIGH SEVERITY& THREAT [facility] OFFICE 64136 SWOFF[facility] SWOFFORD OUTPATIEN 3 3 MAR MAR T NEW 30 MINUTES OFFICE 71074 JEANIE WARE OUTPATIEN 3 3 [facility] T VISIT [facility] MINUTES OFFICE 81725 AHMED LAY[facility]MED [facility] CONSULTAT 3 3 ION NEW/ESTAB PATIENT 60 MIN OFFICE 86361 DONTRELL JON OUTPATIEN 3 3 BA BA T VISIT 15 MIN[address] EMERGENCY [address] [facility] DEPT 3 3 ANDREIA ANDREIA VISIT HIGH SEVERITY& THREAT [facility] [place] - 3 3 G A R H OUTPATIEN T EMERGENCY 09389 [place] 3 3 G A R H DEPARTMEN T VISIT HIGH/URGE NT SEVERITY OFFICE 16951 JEANIE CARROLLBY OUTPATIEN 3 3 [facility] T VISIT 5 [facility]IGH [facility] MIN[facility] OFFICE 23749 DONTRELL JON OUTPATIEN 3 3 BA BA T VISIT 15 MINUTES OFFICE 79609 DONTRELL JON OUTPATIEN 3 3 BA BA T VISIT 15 MINUTES EMERGENCY 12121 [place] 3 3 G A R H DEPARTMEN T VISIT MODERATE SEVERITY [facility] [place] - 3 3 G A R H OUTPATIEN T EMERGENCY 46596 [facility] P [place] P 3 3 DEPARTMEN T VISIT HIGH/URGE NT SEVERITY OFFICE 99162 DONTRELL JON OUTPATIEN 3 3 BA BA T VISIT 15 MINUTES OFFICE 26982 DONTRELL JON OUTPATIEN 3 3 BA BA T VISIT 15 MINUTES [facility] [place] [facility] 3 3 G A R H OUTPATIEN T EMERGENCY 39948 [place] 3 3 G A R H DEPARTMEN T VISIT MODERATE SEVERITY OFFICE 84306 JEANIE WARE OUTPATIEN 3 3 [facility] T VISIT 5 [facility]IGH [facility] MIN[facility] EMERGENCY 68701 [place] 3 [facility] T VISIT HIGH/URGE NT SEVERITY EMERGENCY 12403 [facility] DEPT 3 3 EMERGENCY BRA VISIT SERVICES HIGH SEVERITY& THREAT [facility] OFFICE 33170 JEANIE CARROLLBY OUTPATIEN 3 3 [facility] T VISIT [facility] 15 [facility] MINUTES [facility] [place] [facility] T OFFICE 82584 MALIKA DALY OUTPATIEN 3 3 MELANIE MELANIE T VISIT 15 MINUTES OFFICE 81929 JEANIE JEANIE OUTPATIEN 3 3 [facility] T VISIT [facility] 10 [facility] MINUTES OFFICE 40465 JEANIE JEANIE OUTPATIEN 3 3 [facility] T VISIT [facility] 10 [facility] MINUTES OFFICE 29226 DONTRELL JON OUTPATIEN 3 3 BA BA T VISIT 15 MINUTES OFFICE 28233 DONTRELL JON OUTPATIEN 3 3 BA BA T VISIT 15 MINUTES OFFICE 03274 DONTRELL JON OUTPATIEN 3 3 BA BA T VISIT 15 MINUTES [facility] [place] [facility] OFFICE 02580 JEANIE CARROLLBY OUTPATIEN 3 3 [facility] T VISIT [facility] 10 [facility] MINUT[facility] OFFICE 88056 DONTRELL JON OUTPATIEN 3 3 BA BA T VISIT 15 MINUTES OFFICE 25612 DONTRELL JON OUTPATIEN 3 3 AB BA T VISIT 15 MINUTES OFFICE 55402 JEANIE WARE OUTPATIEN 3 3 [facility] T VISIT 5 [facility] OFFICE 55849 DONTRELL JON OUTPATIEN 3 3 BA BA T VISIT 15 MINUTES OFFICE 21446 JEANIE CARROLLBY OUTPATIEN 3 3 [facility] T [facility]IS[facility] 15 [facility] MIN[facility]ES OFFICE 61388 JEANIE CARROLLBY OUTPATIEN 3 3 [facility] T [facility]ISIT [facility] 10 [facility] MINUTES OFFICE 78193 JEANIE CARROLLBY OUTPATIEN 3 3 [facility] T VISIT [facility] MINUTES OFFICE 37490 MALIKA DALY OUTPATIEN 3 3 MELANIE MELANIE T VISIT 15 MINUTES OFFICE 18951 DONTRELL JON OUTPATIEN 3 3 BA BA T VISIT 15 MINUTES OFFICE 53131 ULYSSES ARORA OUTPATIEN 2 2 DAVID DAVID T VISIT 15 MINUTES OFFICE 20578 JEANIE JEANIE OUTPATIEN 2 2 [facility] T VISIT 5 [facility] 18923 DIOR ANT DIOR ANT 2 2 DEPARTMEN T VISIT HIGH/URGE NT SEVERITY EMERGENCY 17934 [place] [facility] T VISIT MODERATE SEVERITY OFFICE 44809 JEANIE WARE OUTPATIEN 2 2 [facility] T VISIT 5 [facility] [place] [facility] [place] [facility] T OFFICE 28133 JEANIE WARE OUTPATIEN 2 2 [facility] T VISIT [facility]ES OFFICE 63889 ULYSSES ARORA OUTPATIEN 2 2 DAVID DAVID T [facility] 30 MINUTES [facility] [place] [facility]PATI[facility] T EMERGENCY 09634 [place] 2 2 [facility] DEPARTMEN T VISIT MODERATE SEVERITY EMERGENCY 67031 [facility] T VISIT LL HIGH/URGE NT SEVERITY EMERGENCY 96241 [place] 2 2 [facility] DEPARTMEN T VISIT HIGH/URGE NT SEVERITY [facility] [place] [facility] OUTPATIEN T OFFICE 95080 JEANIE WARE OUTPATIEN 2 2 [facility] OFFICE 08655 DONTRELL JON OUTPATIEN 2 2 BA BA T VISIT 15 MINUTES OFFICE 63249 JEANIE WARE OUTPATIEN 2 2 [facility]ES OFFICE 06859 JEANIE WARE OUTPATIEN 2 2 [facility] T [facility] OFFICE 76318 DONTRELL JON OUTPATIEN 2 2 BA BA T VISIT 15 MINUTES OFFICE 53693 JEANIE JEANIE OUTPATIEN 2 2 [facility] T [facility]ES OFFICE 06258 JEANIE WARE OUTPATIEN 2 2 [facility] T VISIT 5 [facility] OFF[facility] 46281 JEANIE WARE OUTPATIEN 2 2 [facility] T VISIT 5 [facility] OFFICE 12188 OVERBEE OVERBEE OUTPATIEN 2 2 GENNY GENNY T VISIT 15 MINUTES OFFICE 20967 JEANIE WARE OUTPATIEN 2 2 [facility] T [facility]ES OFFICE 50987 JEANIE WARE OUTPATIEN 2 2 [facility] T [facility]ES OFFICE 92236 JEANIE WARE OUTPATIEN 2 2 [facility] T [facility]ES OFFICE 08982 MALIKA DALY OUTPATIEN 2 2 MELANIE MELANIE T VISIT 15 MINUTES OFFICE 69288 JEANIE WARE OUTPATIEN 2 2 [facility] T [facility]ES OFFICE 50069 JEANIE WARE OUTPATIEN 2 2 [facility] T VISIT 5 [facility] OFFICE 08573 JEANIE WARE OUTPATIEN 2 2 [facility] T [facility]ISIT [facility] MIN[facility]ES OFFICE 39784 JEANIE WARE OUTPATIEN 2 2 [facility] T [facility]IS[facility]ES OFFICE 58703 DONTRELL JON OUTPATIEN [address] [facility] T VISIT 15 MINUTES OFFICE 95531 JEANIE WARE OUTPATIEN 2 2 [facility] T [facility]ISIT [facility] MIN[facility]ES EMERGENCY 97665 [place] 2 2 [facility] T VISIT MODERATE SEVERITY [facility] [place] [facility] T OFFICE 88178 JEANIE WARE OUTPATIEN 2 2 [facility] T [facility]IS[facility]ES OFFICE 68703 JEANIE WARE OUTPATIEN 2 2 [facility] T VIS[facility]ES OFFICE 54511 DONTRELL JON OUTPATIEN 2 2 BA BA T VISIT 15 MINUTES [facility] [place] [facility] OUTPATI[facility] T EMERGENCY 70388 [facility] 2 2 [facility] T VISIT LL MODERATE SEVERITY OFFICE 46157 DONTRELL JON OUTPATIEN 2 2 BA BA T VISIT 25 MINUTES EMERGENCY 15209 [facility] DEPT 2 2 MEDICAL DON VISIT PARTNERS HIGH LL SEVERITY& THREAT FUNCJ OFFICE 30400 DONTRELL JON OUTPATIEN 2 2 BA BA T VISIT 15 MINUTES OFFICE 94174 JEANIE WARE OUTPATIEN 2 2 [facility] OFFICE 98534 JEANIE WARE OUTPATIEN 2 2 [facility] T [facility]IS[facility] MIN[facility]ES OFFICE 16562 JEANIE WARE OUTPATIEN 2 2 [facility] OFFICE 33250 DONTRELL JON OUTPATIEN 2 2 BA BA T VISIT 15 MINUTES OFFICE 08739 DONTRELL JON OUTPATIEN 2 2 BA BA T VISIT 15 MINUTES OFFICE 37846 JEANIE JEANIE OUTPATIEN 2 2 [facility] OFFICE 87909 DONTRELL JON OUTPATIEN 2 2 BA BA T VISIT 15 MINUTES OFFICE 39490 JEANIE JEANIE OUTPATIEN 2 2 [facility] T [facility]IS[facility] 15 [facility] MINUT[facility] OFFICE 08568 JEANIE JEANIE OUTPATIEN 2 2 [facility] T VIS[facility] 10 [facility] MINUTES EMERGENCY 08578 [facility] 2 2 DEPARTMEN T VISIT MODERATE SEVERITY OFFICE 83379 DONTRELL JON OUTPATIEN 2 2 BA BA T VISIT 15 MINUTES OFFICE 86180 DONTRELL JON OUTPATIEN 2 2 BA BA T VISIT 15 MINUTES OFFICE 30124 JEANIE JEANIE OUTPATIEN 2 2 [facility]ES OFFICE 95380 JEANIE JEANIE OUTPATIEN 2 2 [facility]ES OFFICE 91094 DONTRELL JON OUTPATIEN 2 2 BA BA T VISIT 15 MINUTES [facility] [place] [facility] OUTPATIEN T OFFICE 49116 DONTRELL OVERBEE OUTPATIEN 2 2 BA GENNY T VISIT 15 MINUTES OFFICE 55412 JEANIE WARE OUTPATIEN 1 1 [facility] OFFICE 97941 DONTRELL JON OUTPATIEN 1 1 BA BA T VISIT 15 MINUTES OFFICE 17627 JEANIE JEANIE OUTPATIEN 1 1 [facility] [place] [facility] OUTPATIEN T OFFICE 18152 SOLITARIO OVERBEE OUTPATIEN 1 1 [facility] T VISIT CARE 15 MINUTES OFFICE 66659 JEANIE JEANIE OUTPATIEN 1 1 [facility] T [facility]IS[facility] MIN[facility] OFFICE 84032 SOLITARIO OVERBEE OUTPATIEN 1 1 [facility] T VISIT CARE 15 MINUTES OFFICE 29435 SOLITARIO OVERBEE OUTPATIEN 1 1 [facility] T VISIT CARE 15 MINUTES OFFICE 68540 JEANIE JEANIE OUTPATIEN 1 1 [facility] T [facility] [place] [facility] OUTPATIEN T OFFICE 06411 SOLITARIO OVERBEE OUTPATIEN 1 1 [facility] T VISIT CARE 15 MINUTES OFFICE 39680 SOLITARIO OVERBEE OUTPATIEN 1 1 [facility] T [facility]ISIT C[facility] 15 MINUTES OFFICE 52780 SOLITARIO OVERBEE OUTPATIEN 1 1 [facility] T [facility] 15 [facility]UTES [facility] [place] [facility] OUTPATIEN T OFFICE 54579 SOLITARIO OVERBEE OUTPATIEN 1 1 [facility] T VISIT CARE 15 MINUTES INITIAL 91158 GAUNT TIN GAUNT TIN PREVENTIV 1 1 E MEDICINE NEW PT AGE 12-17 YR OFFICE 12607 JEANIE JEANIE OUTPATIEN 1 1 [facility] T [facility] OFFICE 19679 SOLITARIO OVERBEE OUTPATIEN 1 1 [facility] T VISIT CARE 15 MINUTES OFFICE 39266 JEANIE JEANIE OUTPATIEN 1 1 [facility] T [facility] OFFICE 38230 SOLITARIO OVERBEE OUTPATIEN 1 1 [facility] T VISIT CARE 15 MINUTES OFFICE 06484 JEANIE JEANIE OUTPATIEN 1 1 [facility]ES OFFICE 10259 JEANIE JEANIE OUTPATIEN 1 1 [facility] T [facility] MIN[facility]ES OFFICE 96972 JEANIE JEANIE OUTPATIEN 1 1 [facility] T [facility]IS[facility] MIN[facility]ES OFFICE 62778 JEANIE JEANIE OUTPATIEN 1 1 [facility] T [facility]ES OFFICE 65876 JEANIE JEANIE OUTPATIEN 1 1 [facility] T [facility]ISIT [facility] MIN[facility]ES OFFICE 93418 JEANIE JEANIE OUTPATIEN 1 1 [facility] T [facility]IS[facility] MIN[facility] OFFICE 12198 SOLITARIO OVERBEE OUTPATIEN 1 1 [facility] T VISIT CARE 15 MINUTES OFFICE 79048 JEANIE JEANIE OUTPATIEN 1 1 [facility] T VISIT 5 [facility] OFFICE 93368 JEANIE JEANIE OUTPATIEN 1 1 [facility] T [facility]IS[facility]ES OFFICE 02561 SOLITARIO OVERBEE OUTPATIEN 1 1 [facility] T VISIT CARE 15 MINUTES OFFICE 04990 JEANIE JEANIE OUTPATIEN 1 1 [facility] T [facility]ES OFFICE 25652 JEANIE JEANIE OUTPATIEN 1 1 [facility] T [facility]ISIT [facility]ES OFFICE 66114 SOLITARIO OVERBEE OUTPATIEN 1 1 [facility] T VISIT CARE 15 MINUTES OFFICE 41139 JEANIE JEANIE OUTPATIEN 1 1 [facility] T [facility]IS[facility]ES OFFICE 55730 JEANIE JEANIE OUTPATIEN 1 1 [facility] T [facility]ISIT [facility] 15 [facility] MIN[facility]ES OFFICE 99520 JEANIE JEANIE OUTPATIEN 1 1 [facility] T [facility]IS[facility] MIN[facility] OFFICE 83968 SOLITARIO OVERBEE OUTPATIEN 1 1 [facility] T VISIT CARE 15 MINUTES OFFICE 42217 SOLITARIO OVERBEE OUTPATIEN 1 1 [facility] T VISIT CARE 15 MINUTES OFFICE 60260 JEANIE JEANIE OUTPATIEN 1 1 [facility] T [facility]ES OFFICE 22411 JEANIE JEANIE OUTPATIEN 0 0 [facility] T [facility]IS[facility] MIN[facility] OFFICE 06721 SOLITARIO OVERBEE OUTPATIEN 0 0 [facility] T VISIT CARE 15 MINUTES OFFICE 26774 JEANIE JEANIE OUTPATIEN 0 0 [facility] MINUT[facility] OFF[facility] 74036 DR. DALY OUTPATIEN 0 0 LYDIA NAVARRO T VISIT JON,M 15 D MINUTES OFFICE 68996 JEANIE JEANIE OUTPATIEN 0 0 [facility] T [facility] OFFICE 88031 SOLITARIO OVERBEE OUTPATIEN 0 0 [facility] T [facility]IS[facility] CARE 15 MINUTES OFFICE 17278 JEANIE JEANIE OUTPATIEN 0 0 [facility] OFFICE 24320 JEANIE JEANIE OUTPATIEN 0 0 [facility] T [facility] OFFICE 79266 DR. DALY OUTPATIEN 0 0 LYDIA NAVARRO Devendra VISIT Espinoza JON 15 D [address]ES OFF[address]. JON OUTPATIEN 0 0 LYDIA Ramsay VISIT JONEspinoza [address]ES [address] JON OUTPATIEN 0 0 LYDIA Ramsay VISIT JONEspinoza 15 D MINUTES [facility] [place] [facility] OUTPATIEN T OFFICE 89991 JEANIE WARE OUTPATIEN 0 0 [facility] T [facility] OFFICE 92192 DR. JON OUTPATIEN 0 0 LYDIA Ramsay VISIT JON,M 15 D MINUTES OFFICE 63589 DR. JON OUTPATIEN 0 0 LYDIA Ramsay VISIT JON,M 15 D MINUTES OFFICE 99995 DR. JON OUTPATIEN 0 0 LYDIA Ramsay VISIT JON 15 D MINUTES [facility] [place] [facility] [place] [facility] [place] [facility] 0 0 [facility] OUTPATIEN T OFFICE 22844 DR. JON, OUTPATIEN 0 0 LYDIA LYDIA Devendra VISIT Espinoza JON 15 D MINUTES [facility] [place] [facility] 0 0 [facility] OUTPATIEN T EMERGENCY 50267 [place] 0 0 G A R H DEPARTMEN T VISIT LOW/MODER SEVERITY EMERGENCY 12744 [facility] 0 0 [facility] ROXANA Mulligan [facility] T VISIT [facility] HIGH/URGE NT SEVERITY OFFICE 17597 JODY VERA OUTPATIEN 0 0 ELEMENTAR ELEMENTAR T VISIT Y Y 10 MINUTES EMERGENCY 70215 [facility] 0 0 [facility] , DEIDRE DEPARTMEN PARTNERS F T V[facility]IT [facility] MODERATE SEVERITY [facility] [place] [facility] 0 0 [facility] OUTPATIEN T EMERGENCY 12967 [place] 0 0 G A [facility] H DEPARTMEN T VISIT LOW/MODER SEVERITY OFFICE 22801 JODY VERA OUTPATIEN 0 0 ELEMENTAR ELEMENTAR T VISIT Y Y [address] JON, OUTPATIEN 0 0 LYDIA Ramsay VISIT Espinoza JON 15 D MINUTES OFFICE 34647 SOLITARIO LEMUS, OUTPATIEN 0 0 [facility] JOVANNA D T VISIT CARE 15 MINUTES [facility] [place] [facility] T OFFICE 86495 SOLITARIO ALLAN, OUTPATIEN 9 9 PRIMARY JOVANNA D T VISIT CARE 15 MINUTES OFFICE 06549 [facility] JODY OUTPATIEN 9 9 HEALTH ELEMENTAR T VISIT CENTRAL Y 10 BANK ACCT MINUTES OFFICE 31343 [facility] [place] OUTPATIEN 9 9 HEALTH ELEMENTAR T NEW 20 CENTRAL Y MINUTES BANK ACCT OFFICE 05114 SOLITARIO ALLAN, OUTPATIEN 9 9 PRIMARY JOVANNA D T VISIT CARE 15 MINUTES OFFICE 82208 SOLITARIO ALLAN, OUTPATIEN 9 9 PRIMARY JOVANNA D T VISIT CARE 15 MINUTES OFFICE 22746 SOLITARIO ALLAN, OUTPATIEN 9 9 PRIMARY JOVANNA D T VISIT CARE 15 MINUTES [facility] [place] [facility] 90491 SAMIRA STEVE, CONSULTAT 9 9 R[facility] SOR[facility] PATIENT 40 MIN [facility]Y 90954 [facility] T VISIT LLC MODERATE SEVERITY EMERGENCY 85360 [place] 9 9 [facility] T VISIT LOW/MODER SEVERITY [facility] [place] [facility] 91149 SOLITARIO ALLAN, OUTPATIEN 9 9 PRIMARY JOVANNA D T VISIT CARE 15 MINUTES [facility] [place] [facility] 01753 PIERO POLANCOPATIEN 9 9 LYDIA Ramsay VISIT Espinoza JON 15 D MINUTES OFFICE 57378 ESAU POLANCO 9 9 LYDIA Ramsay VISIT Espinoza JON 15 D MINUTES OFFICE 67086 SOLITARIO ALLAN, OUTPATIEN 9 9 PRIMARY JOVANNA D T VISIT CARE 15 MINUTES OFFICE 98903 SOLITARIO ALLAN, OUTPATIEN 9 9 PRIMARY JOVANNA D T VISIT CARE 15 MINUTES EMERGENCY 53189 [place] 9 9 [facility] T VISIT MODERATE SEVERITY [facility] [place] - 9 9 [facility] T OFFICE 78293 [facility] 9 LYDIA FREEMAN T VISIT Espinoza JON 15 D MINUTES OFFICE 40267 SOLITARIO LEMUS [facility] 8 8 PRIMARY JOVANNA Ramsay VISIT [facility] 15 MINUTES [facility] 8 [facility] T OFF[facility] 54529 ALLAN LEMUS OUTPATILUDWIN 8 8 JOVANNA Phillip T [facility] 20 MINUTES [facility] [place] [facility] 8 8 [facility] T EMERGENCY 22924 [place] 8 8 [facility] T VISIT ANDRAE PATEL PROB OFFICE 69601 ALICJA VAZQUEZ [facility] [address] [facility] CARE Devendra ROSEN VISIT MED [facility] 10
--- OUTSIDE RECORDS SUMMARY | 2016-12-12 22:21 | External Medical Summary Rpt ---
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 complet c 012 .022 ed Converse 22:37 [facility] -22-2 CLOUDY CLEAR Abnorma complet [...] Below complet c 012 .022 low ed Converse 14:00 normal Appeara 23-2 CLEAR CLEAR Normal [...] Procedure DOS Code Location Performer Comment IADNA 11697 [facility] CHLAM[facility] DEPT [facility] DEPT TRACHOMAT SOURAV SOURAV IS AMPLIFIED PROBE TQ CYTP 57335 [facility], PICKLESIM CERV/VAG 7 LLC ER JR AUTO THIN LAYER PREP MNL SCREEN IADNA 86433 [facility] NEISSERIA 7 DISTRICT DISTRICT [facility] DEPT [facility] DEPT GONORRHOE SOURAV SOURAV AE AMPLIFIED PROBE TQ URINE 16747 [facility] 7 DISTRICT DISTRICT TEST [facility] DEPT HLTH DEPT VISUAL SOURAV SOURAV COLOR CMPRSN METHS CONTRACEP S4993 [facility] TIVE 7 DISTRICT DISTRICT PILLS FOR TH DEPT TH DEPT SOURAV SOURAV CONTROL RADEX 43463 [place] [facility] ANKLE 7 MEDICAL COMPLETE IMAGING MINIMUM 3 ASS VIEWS RADEX 33150 [place] FOOT 7 MEDICAL COMPLETE IMAGING MINIMUM 3 ASS VIEWS COLLECTIO 81207 [facility] N VENOUS 7 COMP BLOOD HEALTH VENIPUNCT DANNIE URE GONADOTRO 00929 [facility] PIN 7 COMP CHORIONIC HEALTH DANNIE QUALITATI VE URNLS DIP 58324 [facility] STICK/TAB INC INC LET REAGENT AUTO MICROSCOP Y BLOOD 97312 [facility] COUNT 7 [facility] COMPLETE INC INC AUTO&AUTO DIFRNTL WBC FINAL G9551 [facility] RE[facility] ABD 7 MEDICAL IMAG STS IMAGING W/O ASS INCIDNT FND LES NTD: FINAL G9638 [place] BE[place] REPORTS 7 MEDICAL W/O DOC IMAGING 1/[place] [address] [facility] AMYLASE 7 [place] [address] [facility] ABDOMEN & 7 [facility] PELVIS INC INC W/O CONTRAST MATERIAL URINE 76636 [facility] TEST INC INC VISUAL COLOR CMPRSN METHS COMPREHEN 77304 [facility] SIVE 7 [facility] METABOLIC INC INC PANEL THER 02265 [facility] PROPH/DX 7 [facility] NJX IV INC INC PUSH SINGLE/1S T SBST/[place] [address] [facility] LIPASE 7 [place] [address] [facility] LIPASE 7 N N COMMUNTIY COMMUNTIY HOSPITA HOSPITA URINE 74347 [facility] 7 N N TEST COMMUNTIY COMMUNTIY VISUAL HOSPITA HOSPITA COLOR CMPRSN METHS THER 49154 [facility] PROPH/DX 7 N N NJX IV COMMUNTIY COMMUNTIY PUSH HOSPITA HOSPITA SINGLE/1S T SBST/DRUG COMPREHEN 18871 [facility] SIVE 7 N N METABOLIC COMMUNTIY [place] [address] [facility] INFUSION 7 N N HYDRATION COMMUNTIY COMMUNTIY EACH HOSPITA HOSPITA ADDITIONA L HOUR INJECTION J1885 [facility] 7 N N KETOROLAC COMMUNTIY COMMUNTIY HOSPITA HOSPITA TROMETHAM INE PER 15 MG INFUSION J7030 [facility] NORMAL 7 N N SALINE COMMUNTIY COMMUNTIY SOLUTION HOSPITA HOSPITA 1000 CC BLOOD 50961 [facility] COUNT 7 N N COMPLETE COMMUNTIY COMMUNTIY AUTO&AUTO HOSPITA HOSPITA DIFRNTL WBC URNLS DIP 41824 [facility] 7 N N STICK/TAB COMMUNTIY COMMUNTIY LET HOSPITA HOSPITA REAGENT AUTO MICROSCOP Y THERAPEUT 05396 [facility] IC 7 [facility] PROPHYLAC INC INC TIC/DX INJECTION SUBQ/IM URINE 16130 [facility] 7 N N TEST COMMUNTIY COMMUNTIY VISUAL HOSPITA HOSPITA COLOR CMPRSN METHS URNLS DIP 44684 [facility] 7 N N STICK/TAB COMMUNTIY COMMUNTIY LET HOSPITA HOSPITA REAGENT AUTO MICROSCOP Y URNLS DIP 79603 [facility] STICK/TAB INC INC LET REAGENT AUTO MICROSCOP Y BLOOD 54941 [facility] COUNT 7 [facility] COMPLETE INC INC AUTO&[place] [address] [facility] AMYLASE 7 [facility] INC INC FINAL G9638 [place] REPORTS 7 MEDICAL W/O DOC IMAGING 1/MORE ASS DOSE REDUCTION TECH FINAL G9551 [facility] RE[facility] ABD 7 MEDICAL IMAG STS IMAGING W/O ASS INCIDNT FND LES NTD: URINE 35362 [facility] TEST INC INC VISUAL COLOR CMPRSN METHS COMPREHEN 74457 [facility] SIVE 7 [facility] [place] [address] [facility] LIPASE 7 [facility] INC INC SUSCEPTIB 81938 [facility] LTY STDY 7 [facility] ANTIMICRB INC INC IAL MICRO/[place] [address] [facility] ABDOMEN & 7 [facility] PELVIS INC INC W/O CONTRAST MATERIAL CUL BACT 36080 [facility] XCPT 7 [facility] URINE INC INC BLOOD/STO OL AEROBIC ISOL CUL BACT 76850 [facility] AEROBIC 7 [facility] ADDL INC INC METHS DEFINITIV E EA ISOL NEBULIZER E0570 [facility] HOME WITH 7 MEDICAL MEDICAL COMPRESSO R BREATHING A4618 [facility] HOME CIRCUITS 7 MEDICAL MEDICAL IAADIADOO 41631 [facility] 6 G A R H G A R H INFLUENZA URNLS DIP 51219 [facility] 6 G A R H G A R H STICK/TAB LET REAGENT AUTO MICROSCOP Y GONADOTRO 20369 [facility] PIN 6 G A R H G A R H CHORIONIC QUALITATI VE GONADOTRO 06442 [place] PIN 6 G A R H G A R H CHORIONIC QUALITATI VE URNLS DIP 74332 [facility] [facility] 6 G A R H G A R H STICK/TAB LET REAGENT AUTO MICROSCOP Y CULTURE 00457 [facility] [facility] BACTERIAL 6 G A R H G A R H QUANTTATI VE COLONY COUNT URINE RADEX 35545 [facility] ABDOMEN [address] [place] [address] CENTER ANTEROPOS TERIOR VIEW NONINVASI 51324 [facility] VE [address] [place] [address] EAR/PULSE CENTER [place] [address] SAMIRA GODFREYMAN ABDOMINAL 6 GAR REAL RADIOLOGY TIME [place] W/[place] [address] [facility] [facility] LIPASE 6 G A R H G A R H IAADIADOO 83391 [facility] 6 G A R H G A R H INFLUENZA COMPREHEN 04835 [facility] [facility] SIVE 6 G A R H G A R H METABOLIC PANEL THER 86629 [place] [facility] PROPH/DX 6 G A R H G A R H NJX IV PUSH SINGLE/1S T SBST/[place] [address] [facility] [facility] INFUSION 6 G A R H G A R H HYDRATION EACH ADDITIONA L HOUR CULTURE 40657 [place] BACTERIAL 6 G A R H G A R H QUANTTATI VE COLONY COUNT URINE COLLECTIO 84705 [place] N VENOUS 6 G A R H G A R H BLOOD VENIPUNCT URE URNLS DIP 43266 [place] 6 G A R H G A R H STICK/TAB LET REAGENT AUTO MICROSCOP Y BLOOD 55121 [place] COUNT 6 G A R H G A R H COMPLETE AUTO&[place] [address] [facility] [place] AMYLASE 6 G A R H G A R H INJECTION J2550 [place] 6 G A R H G A R H PROMETHAZ INE HCL UP TO 50 MG INJECTION J1885 [facility] 6 G A R H G A R H KETOROLAC TROMETHAM INE PER 15 MG THERAPEUT 61917 [facility] V[facility]GENBUR IC 6 G A R H G A R H INJECTION [place] [address] MAJOR NAVARRO BLOOD/URI 6 COMP C ACID HEALTH DANNIE BLOOD 92357 [facility] WON MELANIE COUNT 6 COMP COMPLETE HEALTH AUTOMATED DANNIE LACTATE 97601 LAB DANNIE LAB DANNIE DEHYDROGE 6 KRISTY KRISTY NASE [facility] COMPREHEN 01717 [facility] WON NAVARRO SIVE 6 COMP METABOLIC HEALTH PANEL DANNIE 80593 MAJOR NAVARRO DELIVERY 6 COMP ONLY HEALTH DANNIE ANESTHESI 79616 [facility] DEN A 6 ANESTHESI A GROUP DELIVERY PS ONLY BREAST E0603 [facility] HOME [facility] HOME PUMP 6 MEDICAL MEDICAL ELECTRIC ANY TYPE IADNA 70906 LAB DANNIE LAB DANNIE ELIANA 6 KRISTY KRISTY SPECIES [facility] AMPLIFIED PROBE TQ IADNA 37410 LAB DANNIE LAB DANNIE CHLAMYDIA 6 KRISTY KRISTY [facility] TRACHOMAT IS AMPLIFIED PROBE TQ IADNA 00527 LAB DANNIE LAB DANNIE NEISSERIA 6 KRISTY KRISTY [facility] GONORRHOE AE AMPLIFIED PROBE TQ IADNA NOS 48450 LAB DANNIE LAB DANNIE 6 KRISTY KRISTY AMPLIFIED [facility] PROBE TQ EACH ORGANISM IADNA 09731 LAB DANNIE LAB DANNIE TRICHOMON 6 KRISTY KRISTY [facility] VAGINALIS AMPLIFIED PROBE TECH INJECTION J0690 [facility] [place] 6 G A R H G A R H CEFAZOLIN SODIUM 500 MG INJECTION J3105 [facility] [place] 6 G A R H G A R H TERBUTALI NE SULFATE UP TO 1 MG EVAL C/V 12219 [facility] [place] AMNIOTIC 6 G A R H G A R H FLUID PROTEIN QUAL EA SPECIMEN DRUG TEST G0479 [facility] 6 G A R H G A R H PRESUMP;I NSTRUMENT ED CHEMISTRY ANLYZER BLOOD 14286 [facility] COUNT 6 COMP COMP COMPLETE HEALTH HEALTH AUTOMATED DANNIE DANNIE SYPHILIS 05904 LAB DANNIE LAB DANNIE TEST 6 KRISTY KRISTY NON-TREPO [facility] NEMAL ANTIBODY QUAL COLLECTIO 42471 [facility] [place] MELANIE N VENOUS 6 COMP BLOOD HEALTH VENIPUNCT DANNIE URE RADEX ABD 33266 MAJOR FRAGOSONE MELANIE 6 COMP ANTEROPOS HEALTH T&ADDL DANNIE OBLQ&CONE VIEWS OBSERVATI 79226 [facility] SIXTO ON CARE 6 HEALTH APRIL [place] [address] [facility] ALEVISM NONSTRESS 6 HEALTH HEALTH [place] [address] ALEVISM ALEVISM INFUSION 6 HEALTH HEALTH HYDRATION [facility] EACH ADDITIONA L HOUR INITIAL 59199 [facility] SIXTO OBSERVATI 6 HEALTH APRIL ON MEDICAL CARE/DAY GROUP 70 MINUTES BILIRUBIN 11922 [facility] ALEVISM TOTAL 6 [facility] G0378 A[facility]VISM ALEVISM OBSERVATI 6 HEALTH HEALTH ON [facility] [address] A[facility]VISM ALEVISM BLOOD/URI 6 HEALTH HEALTH C ACID [facility] UNCLASSIF J3490 [facility] IED DRUGS 6 [place] [address] ALEVISM ALEVISM INFUSION 6 HEALTH HEALTH HYDRATION [facility] EACH ADDITIONA L HOUR TRANSFERA 51863 [facility] ALEVISM SE 6 HEALTH HEALTH ASPARTATE [facility] AMINO AST SGOT TRANSFERA 40468 [facility] ALEVISM SE 6 HEALTH HEALTH ALANINE [facility] AMINO ALT SGPT INJECTION J3105 [facility] ALEVISM 6 HEALTH HEALTH TERBUTALI [facility] NE SULFATE UP TO 1 MG BLOOD 60056 [facility] ALEVISM COUNT 6 HEALTH HEALTH COMPLETE [facility] AUTO&AUTO DIFRNTL WBC LACTATE 71047 [facility] ALEVISM DEHYDROGE [address] [facility] HEALTH NASE LDH [facility] FTL 33221 [facility] FIBRONECT 6 [facility] IN INC INC CERVICOVA G SECRETION S SEMI-LAM URNLS DIP 66317 [facility] STICK/TAB INC INC LET REAGENT AUTO MICROSCOP Y 86841 ALEVISM ALEVISM NONSTRESS 6 HEALTH HEALTH TEST [facility] CULTURE 28696 [facility] BACTERIAL 6 [facility] INC INC QUANTTATI VE COLONY COUNT URINE BLOOD 94323 A[facility]M ALEVISM TYPING [address] [facility] HEALTH SEROLOGIC [facility] RH (D) ANTIBODY 93470 [facility] ALEVISM SCREEN 6 [facility] RBC EACH [facility] SERUM TECHNIQUE DOPPLER 24689 [facility] VELOCIMET 6 [facility] RY INC INC UMBILICAL ARTERY THERAPEUT 17679 [facility] ALEVISM IC [address] [facility] HEALTH PROPHYLAC [facility] TIC/DX INJECTION SUBQ/IM US PREG 79219 [place] ALL UTERUS 6 MEDICAL REAL TIME IMAGING F/[place] [address] ALEVISM ALEVISM PHOSPHATA [address] [facility] HEALTH SE [facility] ALKALINE CREATININ 63507 [facility]M ALEVISM E BLOOD [address] [facility] HEALTH [facility] BLOOD 57737 A[facility]M ALEVISM TYPING [address] [facility] HEALTH SEROLOGIC [facility] ABO 43008 [place] ALL BIOPHYSIC 6 MEDICAL AL IMAGING PROFILE ASS W/[place] [address] ALEVISM ALEVISM INFUSION 6 [facility] HYDRATION [facility] INITIAL 31 MIN-1 HOUR 75302 [facility] BIOPHYSIC 6 PHYSICIAN PHYSICIAN AL S GROUP S GROUP PROFILE W/[place] [address] [facility] PINTO 6 PHYSICIAN LILIBETH UTERUS S GROUP LIMITED 1/> [facility] 66271 A[facility] SIXTO DISCHARGE 6 HEALTH APRIL DAY MEDICAL MANAGEMEN GROUP T 30 MIN/< SBSQ [address]/DAY MEDICAL 25 GROUP MINUTES SBSQ [address] CARE/DAY MEDICAL 15 GROUP MINUTES US PREG 60475 [facility] 6 HEALTH APRIL REAL TIME MEDICAL F/U GROUP TRNSABDL PER FETUS INITIAL [address] CARE/DAY MEDICAL 70 GROUP MINUTES 03851 [facility] BIOPHYSIC 6 PHYSICIAN LILIBETH AL S GROUP PROFILE W/[place] [address] [facility] PINTO 6 PHYSICIAN LILIBETH UTERUS S GROUP LIMITED 1/> FETUSES OBSERVATI 10874 [facility] ON/INPATI [address] [facility] DANNIE CARE 50 MINUTES RADIOLOGI 27342 [place] ALL C 6 MEDICAL EXAMINATI IMAGING ON ANKLE ASS 2 VIEWS 78054 [facility] HARPEL NONSTRESS 6 PHYSICIAN ENID TEST S GROUP 99853 [facility] NONSTRESS 6 [facility] TEST INC INC CULTURE 36875 [facility] BACTERIAL 6 [facility] INC INC QUANTTATI VE COLONY COUNT URINE THERAPEUT 68014 [facility] IC 6 [facility] PROPHYLAC INC INC TIC/DX INJECTION SUBQ/IM UNCLASSIF J3490 [facility] IED DRUGS 6 [facility] INC INC FTL 47068 [facility] FIBRONECT 6 [facility] IN INC INC CERVICOVA G SECRETION S SEMI-LAM URNLS DIP 79137 [facility] 6 [facility] STICK/TAB INC INC LET REAGENT AUTO MICROSCOP Y URNLS DIP 63108 [facility] 6 [facility] STICK/TAB INC INC LET REAGENT AUTO MICROSCOP Y INJECTION J0595 [facility] BUTORPHAN INC INC OL TARTRATE 1 MG UNCLASSIF J3490 [facility] IED DRUGS 6 [facility] INC INC THERAPEUT 24296 [facility] IC 6 [facility] PROPHYLAC INC INC TIC/DX INJECTION SUBQ/IM US PREG 94445 CARMELA KELLY UTERUS 6 MEDICAL APRIL REAL TIME IMAGING W/[place] [address] CARMELA KELLY 6 MEDICAL APRIL UTERUS IMAGING LIMITED ASS 1/> FETUSES 22000 [facility] NONSTRESS 6 [facility] TEST INC INC GLUCOSE 94987 [facility]TO BLOOD 6 PHYSICIAN LILIBETH REAGENT S GROUP STRIP UNCLASSIF J3490 [facility] IED DRUGS 6 [facility] INC INC FTL 14639 [facility] FIBRONECT 6 [facility] IN INC INC CERVICOVA G SECRETION S SEMI-LAM URNLS DIP 56144 [facility] GUY GIB 6 [facility] HOS[facility] STICK/TAB INC LET REAGENT AUTO MICROSCOP Y 37445 [facility] NONSTRESS 6 [place] [address] [facility] INFUSION 6 [facility] HYDRATION INC INC INITIAL 31 MIN-1 HOUR US PREG 42095 [facility] SRAVANTHI UTERUS 6 HEALTH MOL W/DETAIL MEDICAL GROUP HECTOR 1ST [place]STATION [place] PREG 40884 [facility] SRAVANTHI UTERUS 6 HEALTH MOL DETAIL MEDICAL GROUP HECTOR EXAM EA GESTAT BLOOD 39995 [facility] CONNE[facility] TYPING 6 G A R H G A R H SEROLOGIC RH (D) BLOOD 50972 [facility] TYPING 6 G A R H G A R H SEROLOGIC ABO ANTIBODY 04033 [facility] SCREEN 6 G A R H G A R H RBC EACH SERUM TECHNIQUE COLLECTIO 41952 [facility] N VENOUS 6 G A R H G A R H BLOOD VENIPUNCT URE US PREG 09075 JOSELUIS GARZA JR UTERUS 6 KAYLA ZUNIGA ELYSE AFTER 1ST PC TRIMEST GESTATION BLOOD 75222 [facility] COUNT 6 G A R H G A R H COMPLETE AUTO&AUTO DIFRNTL WBC DIRECT G0379 [facility] ADMISSION 6 G A R H G A R H PATIENT HOSPITAL OBSERV CARE OBSERVATI 63876 MAJOR NAVARRO ON/INPATI 6 [facility] DANNIE CARE 40 MINUTES HOSPITAL G0378 [facility] G A R H G A R H ON SERVICE PER HOUR DRUG TEST G0479 [facility] 6 G A R H G A R H PRESUMP;I NSTRUMENT ED CHEMISTRY ANLYZER URNLS DIP 61523 [facility] VIRGENBUR 6 G A R H G A R H STICK/TAB LET REAGENT AUTO MICROSCOP Y HOSPITAL G0463 [facility] CONNE[facility] OUTPATIEN 6 G A R H G A R H T CLIN VISIT ASSESS & MGMT PT OPHTH 90431 SCIFRES SCIFRES MEDICAL 6 ANG ANG XM&EVAL COMPRHNSV ESTAB PT 1/> FITTING 46747 SCIFRES SCIFRES SPECTACLE 6 ANG ANG S XCPT APHAKIA MONOFOCAL LENS V2784 SCIFRES SCIFRES POLYCARBO 6 ANG ANG JW OR EQUAL ANY INDEX PER LENS FRAMES V2020 SCIFRES SCIFRES PURCHASES 6 ANG ANG 1 VISN V2103 SCIFRES SCIFRES PLANO 6 ANG ANG TO+/-4.00 D SPHER 0.12-2.00 D CYL EA SCRATCH V2760 SCIFRES SCIFRES RESISTANT 6 ANG ANG COATING PER LENS IAADIADOO 78165 [facility] 6 N N INFLUENZA COMMUNTIY COMMUNTIY HOSPITA HOSPITA US PREG 27679 [facility] UTERUS 6 PHYSICIAN PHYSICIAN REAL TIME S GROUP S [place] [address] [facility] SYSTEM 6 PHYSICIAN PHYSICIAN UTERUS S GROUP S GROUP LIMITED 1/> [place] [address] [facility] [place] GARZA JAM UTERUS 6 RADIOLOGY REAL TIME W/IMAGE DCMTN TRANSVAG IAADIADOO 65280 [facility] 6 N N INFLUENZA COMMUNTIY COMMUNTIY HOSPITA HOSPITA URNLS DIP 28259 [facility] STICK/TAB INC INC LET REAGENT AUTO MICROSCOP Y [place] PREG 49486 [facility] MILLIE UTERUS 6 PHYSICIAN LILIBETH REAL TIME S GROUP W/IMAGE DCMTN TRANSVAG COLLECTIO 68507 [facility] N VENOUS 6 [facility] BLOOD INC INC VENIPUNCT URE IADNA 61488 [facility] CHLAMYDIA 6 [facility] INC INC TRACHOMAT IS AMPLIFIED PROBE TQ IADNA 36964 [facility] NEISSERIA 6 [facility] INC INC GONORRHOE AE AMPLIFIED PROBE TQ OBSTETRIC 57752 [facility] PANEL 6 [facility] INC INC DRUG TST G0477 [facility] MILLIE PRESUMP;C 6 PHYSICIAN PBL BEING S GROUP READ DC OPT OBV ONLY INF AGT [id number] [facility] AB DETECT 6 [facility] EIA TECH INC INC HIV-1&/HI V-2 SCR GONADOTRO 01422 [facility] PIN 5 [facility] QUANTITAT TOMMY COLLECTIO 55166 [facility] N VENOUS 5 COMP BLOOD HEALTH VENIPUNCT DANNIE URE US PREG 11571 [facility] UTERUS 5 COMP REAL TIME HEALTH W/IMAGE DANNIE DCMTN TRANSVAG COLLECTIO 66198 [facility] 5 COMP BLOOD HEALTH VENIPUNCT DANNIE URE GONADOTRO 70833 [facility] PIN 5 [facility] D[facility] QUANTITAT TOMMY GONADOTRO 02754 [facility] PIN 5 G A R H G A R H CHORIONIC QUANTITAT TOMMY GONADOTRO 21723 [facility] PIN 5 G A R H G A R H CHORIONIC QUALITATI VE IAADIADOO 12588 [facility] 5 G A R H G A R H STREPTOCO CCUS GROUP A IAADIADOO 25299 [facility] 5 G A R H G A R H INFLUENZA COLLECTIO 36833 [facility] VENIPUNCT [facility]ANNIE URE GONADOTRO 22585 [facility] PIN 5 COMP [facility] D[facility] QUALITATI VE GONADOTRO 18439 [facility] PIN 5 COMP [facility] QUALITATI VE COLLECTIO 25976 [facility] N VENOUS 5 COMP [place] B[place] [address] [place] [facility] ALL HEAD/BRAI 5 MEDICAL N W/O IMAGING CONTRAST ASS MATERIAL RADEX 65263 [place] [facility] FOOT 5 MEDICAL APRIL COMPLETE IMAGING MINIMUM 3 ASS VIEWS OPHTH 13983 BARBER JEANNIE BARBER JEANNIE MEDICAL 5 XM&EVAL COMPRE NEW PT 1/> VST FITTING 81966 ELISABETH DENNIS BARBER JEANNIE SPECTACLE 5 S XCPT APHAKIA MONOFOCAL LENS V2784 BARBERCLAUDINE DENNIS BARBER JEANNIE POLYCARBO 5 JW OR EQUAL ANY INDEX PER LENS SCRATCH V2760 ELISABETH CASENES JEANNIE RESISTANT 5 COATING PER LENS 1 VISN V2103 ELISABETH CASENES JEANNIE PLANO 5 TO+/-4.00 D SPHER 0.12-2.00 D CYL EA FRAMES V2020 ELISAB[place] [address] [place] [address] [place] KELLY ABDOMEN & 5 MEDICAL APRIL PELVIS IMAGING W/O ASS CONTRAST MATERIAL IADNA 24789 [facility] LAB DANNIE CHLAMYDIA 5 [facility] HOLD[place] [address] [place] [facility] TRANSVAGI 5 COMP NAL HEALTH DANNIE COLLECTIO 92822 [facility] N VENOUS 5 COMP COMP BLOOD HEALTH HEALTH VENIPUNCT DANNIE DANNIE URE IADNA 13759 [facility] D[facility]IE ELIANA 5 KRISTY KRI[facility] SPECIES [facility] HOLDINGS AMPLIFIED PROBE TQ IADNA NOS 11357 [facility] LAB DANNIE 5 KRISTY KRISTY AMPLIFIED HOLDINGS HOLDINGS PROBE TQ EACH ORGANISM IADNA 08441 [facility] D[facility] NEISSERIA 5 KRISTY [facility] GONORRHOE AE AMPLIFIED PROBE TQ IADNA 26686 [facility] D[facility] TRICHOMON 5 [facility]RI[facility]Y [facility] [facility] VAGINALIS AMPLIFIED PROBE TECH GONADOTRO 10202 [facility] NAVARRO PIN 5 COMP [facility] QUALITATI VE GONADOTRO 11473 [facility] PIN 5 G A R H G A R H CHORIONIC QUALITATI VE BLOOD 65165 [facility] COUNT 5 G A R H G A R H COMPLETE AUTO&AUTO DIFRNTL WBC URNLS DIP 87058 [facility] 5 G A R H G A R H STICK/TAB [place] [address] [facility] AMYLASE 5 [place] [address] [facility] LIPASE 5 G A R H G A R H COMPREHEN 89860 [facility] CONNELL SIVE 5 G A R H G A R H METABOLIC PANEL URINE 11463 [facility] 5 PRIMARY BA TEST CARE VISUAL COLOR CMPRSN METHS URINE 16394 [facility] 4 PRIMARY BA TEST CARE VISUAL COLOR CMPRSN METHS RADIOLOGI 66829 [facility] BRA C 4 EXAMINATI RADIOLOGY ON PELVIS PLLC 1/2 VIEWS RADEX 94561 [facility] B[facility] ELBOW 4 COMPLETE RADIOLOGY MINIMUM 3 PLLC VIEWS RADEX 01637 [facility] HAND 4 MINIMUM 3 RADIOLOGY VIEWS PLLC RADEX 84580 [facility] SPINE 4 CERVICAL RADIOLOGY 2 OR 3 PLLC VIEWS BLOOD 91645 [facility] VIRGEN[facility] COUNT 4 G A R H G A R H COMPLETE AUTO&AUTO DIFRNTL WBC RADIOLOGI 42333 BECKI VIRGENBUR C EXAM 4 G A R H G A R H CHEST 2 VIEWS FRONTAL&L ATERAL RADIOLOGI 57064 SAMIRA WEAVER C EXAM 4 BA CHEST 2 RADIOLOGY VIEWS PLLC FRONTAL&L ATERAL GONADOTRO 00911 BECKI [facility] PIN 4 G A R H G A R H CHORIONIC QUALITATI VE URNLS DIP 76249 BECKI [place] 4 G A R H G A R H STICK/TAB LET REAGENT AUTO MICROSCOP Y NONINVASI 76594 SAMIRA HOGAN VE 4 [facility] EAR/PULSE CENTER CENTER OXIMETRY SINGLE DETER CRTCHS E0114 SAMIRA HOGAN UNDARM 4 [facility] OTH THAN [facility] WOOD PAIR PAD TIP&HNDGR IP REPAIR 52197 KIRKPATRI KIRKPATRI NAIL BED 4 CK IZZY CK IZZY RADEX 23753 RACHELLE BUSH FOOT 4 GAR GAR COMPLETE MINIMUM 3 VIEWS REMOVAL 96700 GAUNT TIN GAUNT TIN IMPLANTAB 4 LE CONTRACEP TIVE CAPSULES KO ELAST L1820 RESPIRATO RESPIRATO W/CONDYLR 4 RY PLUS RY PLUS PADS&JNT [facility] PRFAB INCL FIT&[place] [address] SAMIRA BUSH ABDOMINAL 4 GAR REAL RADIOLOGY TIME PLLC W/IMAGE DOCUMENTA TION US PELVIC 94765 JAYSON JAYSON 4 DEN DEN NONOBSTET RAINER REAL-TIME IMAGE COMPLETE CULTURE 92850 LAB DANNIE LAB DANNIE BACTERIAL 4 OF KRISTY KRISTY HOLDINGS QUANTTATI HOLDINGS VE COLONY COUNT URINE BLOOD 39583 LAB DANNIE LAB DANNIE COUNT 4 OF KRISTY COMPLETE KRISTY HOLDINGS AUTO&AUTO HOLDINGS DIFRNTL WBC US BREAST 96326 MARGARITA MARGARITA REAL 4 PATRIA PATRIA TIME W/IMAGE DOCUMENTA TION IADNA 90596 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 CHLAMYDIA 4 Y DANNIE OF Y DANNIE OF KRISTY KRISTY TRACHOMAT H H IS AMPLIFIED PROBE TQ CYTP C/V 85211 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 AUTO THIN 4 Y DANNIE OF Y DANNIE OF LYR KRISTY KRISTY PREPJ SCR H H MNL RESCR PHYS IADNA 45663 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 NEISSERIA 4 Y DANNIE OF Y DANNIE OF KRISTY KRISTY GONORRHOE H H AE AMPLIFIED PROBE TQ RADIOLOGI 16246 SAMIRA HOGAN C EXAM 4 [facility] CHEST 2 [facility] VIEWS FRONTAL&L ATERAL HETEROPHI 83055 SAMIRA HOGAN LE 4 [facility] ANTIBODIE [facility] S SCREEN INFUSION J7030 SAMIRA HOGAN NORMAL 4 [facility] SALINE [facility] SOLUTION 1000 CC URNLS DIP 31644 SAMIRA HOGAN 4 MEDICAL MEDICAL STICK/TAB CENTER CENTER LET REAGENT AUTO MICROSCOP Y BLOOD 16835 SAMIRA HOGAN COUNT 4 [facility] MEDICAL COMPLETE CENTER CENTER AUTO&AUTO DIFRNTL WBC GONADOTRO 41872 SAMIRA HOGAN PIN 4 [facility] CHORIONIC CENTER CENTER QUALITATI VE COLLECTIO 90283 SAMIRA HOGAN N VENOUS 4 [facility] BLOOD [facility] VENIPUNCT URE BASIC 00182 SAMIRA HOGAN METABOLIC 4 [facility] MEDICAL [place] [address] SAMIRA HOGAN INFUSION 4 [facility] HYDRATION [facility] INITIAL 31 MIN-1 HOUR NONINVASI 07462 SAMIRA HOGAN VE 4 [facility] MEDICAL EAR/PULSE CENTER CENTER OXIMETRY SINGLE DETER LEVEL III 96280 ANNA ADLER SHE SURG 4 ADLER MD PATHOLOGY PSC GROSS&MELANIE ROSCOPIC EXAM TONSILLEC 00223 THOMPSON THOMPSON FRANKI 4 BA BA PRIMARY/S ECONDARY AGE 12/> ANESTHESI 63043 LOCK[place]ART ANG LOCKHART ANG A 4 INTRAORAL WITH BIOPSY NOS RADIOLOGI 73164 OWEN WEAVER C EXAM 4 BA BA CHEST 2 VIEWS FRONTAL&L ATERAL URNLS DIP 46777 DONTRELL JON 3 BA BA STICK/TAB LET RGNT NON-AUTO W/O MICRSCP RADEX 68397 KAYLA GARZA JR FINGR 3 ELYSE ELYSE MINIMUM 2 VIEWS GENERAL 12497 LAB DANNIE LAB DANNIE HEALTH 3 KRISTY KRISTY PANEL HOLDINGS HOLDINGS 25 17814 LAB DANNIE LAB DANNIE HYDROXY 3 KRISTY KRISTY INCLUDES HOLDINGS HOLDINGS FRACTIONS IF PERFORMED GONADOTRO 40507 LAB DANNIE LAB DANNIE PIN 3 KRISTY KRISTY CHORIONIC HOLDINGS HOLDINGS QUANTITAT TOMMY LIPID 49024 LAB DANNIE LAB DANNIE PANEL 3 KRISTY KRISTY HOLDINGS HOLDINGS ECG 87712 SELPH SCO SELPH SCO ROUTINE 3 ECG W/LEAST 12 LDS I&R ONLY RADIOLOGI 27925 RACHELLE BUSH C EXAM 3 GAR GAR CHEST 2 VIEWS FRONTAL&L ATERAL RADIOLOGI 18606 BECKI CONNELL C EXAM 3 G A R H G A R H CHEST 2 VIEWS FRONTAL&L ATERAL PRESSURIZ 63540 BECKI CONNELL ED/NONPRE 3 G A R H G A R H SSURIZED INHALATIO N TREATMENT COLLECTIO 66323 BECKI CONNELL N VENOUS 3 G A R H G A R H BLOOD VENIPUNCT URE IAADI 20903 BECKI CONNELL INFLUENZA 3 G A R H G A R H B VIRUS ANTIBODY 03642 BECKI CONNELL INFLUENZA 3 G A R H G A R H VIRUS HETEROPHI 74334 BECKI CONNELL LE 3 G A R H G A R H ANTIBODIE S SCREEN GONADOTRO 39471 BECKI CONNELL PIN 3 G A R H G A R H CHORIONIC QUALITATI VE DRUG SCR G0434 LAB DANNIE LABORATOR NOT 3 OF Y CHROMATOG KRISTY CORPORATI RAPHIC; HOLDINGS ON OF AM ANY NUMBER PT ENC BASIC 23362 BECKI CONNELL METABOLIC 3 G A R H G A R H PANEL CALCIUM TOTAL COLLECTIO 78159 BECKI CONNELL N VENOUS 3 G A R H G A R H BLOOD VENIPUNCT URE GONADOTRO 87056 BECKI CONNELL PIN 3 G A R H G A R H CHORIONIC QUALITATI VE BLOOD 68822 BECKI CONNELL COUNT 3 G A R H G A R H COMPLETE AUTO&AUTO DIFRNTL WBC URNLS DIP 02768 BECKI [place] 3 G A R H G A R H STICK/TAB LET REAGENT AUTO MICROSCOP Y RADEX 55156 BECKI CONNELL FOOT 3 G A R H G A R H COMPLETE MINIMUM 3 VIEWS COLLECTIO [address] [facility] N VENOUS 3 [facility] BLOOD [place] [address] [facility] 3 [facility] CHEST [facility] W/CONTRAS T/NONCONT RAST ECG 96735 [facility] R[facility] 3 [facility] ECG CENTER CENTER W/LEAST 12 LDS TRCG ONLY W/O I&R RADIOLOGI 69881 SAMIRA HOGAN C EXAM 3 MEDICAL MEDICAL CHEST 2 CENTER CENTER VIEWS FRONTAL&L ATERAL LOCM Q9967 SAMIRA HOGAN 300-399 3 MEDICAL MEDICAL MG/ML CENTER CENTER IODINE CONCENTRA TION PER ML THER 45930 SAMIRA HOGAN PROPH/DX 3 MEDICAL MEDICAL NJX IV CENTER CENTER PUSH SINGLE/1S T SBST/DRUG ECG 33709 [facility] ROUTINE 3 EMERGENCY BRA ECG SERVICES W/LEAST 12 LDS I&R ONLY NONINVASI 94411 SAMIRA HOGAN VE 3 MEDICAL MEDICAL EAR/PULSE CENTER CENTER OXIMETRY SINGLE DETER BASIC 96378 SAMIRA HOGAN METABOLIC 3 MEDICAL MEDICAL PANEL CENTER CENTER CALCIUM IONIZED INJECTION J1885 SAMIRA HOGAN 3 MEDICAL MEDICAL KETOROLAC CENTER [place] TROMETHAM INE PER 15 MG BLOOD 10172 SAMIRA HOGAN COUNT 3 MEDICAL MEDICAL COMPLETE CENTER CENTER AUTO&AUTO DIFRNTL WBC GONADOTRO 56942 SAMIRA HOGAN PIN 3 MEDICAL MEDICAL CHORIONIC CENTER CENTER QUALITATI VE IAADIADOO 34743 JEANIE WARE 3 [facility] STREPTOCO [facility]IGH [facility] A RADIOLOGI 43019 SAMIRA HOGAN C EXAM 3 MEDICAL MEDICAL CHEST 2 CENTER CENTER VIEWS FRONTAL&L ATERAL SUSCEPTIB 27931 LAB DANNIE LAB DANNIE LTY STDY 3 KRISTY KRISTY ANTIMICRB HOLDINGS HOLDINGS IAL MICRO/AGA R DILUTJ CUL BACT 69292 LAB DANNIE LAB DANNIE AEROBIC 3 KRISTY KRISTY ADDL HOLDINGS HOLDINGS METHS DEFINITIV E EA ISOL CULTURE 66240 LAB DANNIE LAB DANNIE BACTERIAL 3 KRISTY KRISTY HOLDINGS HOLDINGS QUANTTATI VE COLONY COUNT URINE CULTURE 64595 LAB DANNIE LAB DANNIE BCT 3 KRISTY KRISTY ISOL&PRSM HOLDINGS HOLDINGS PTV ID ISOLATE EA URINE WRIST L3908 PROFESSIO PROFESSIO HAND 3 [facility] ORTHOSIS MEDICAL MEDICAL EXT JASMINE JASMINE CONTROL COCK-UP PREFAB COLLECTIO 40963 MALIKA DALY N VENOUS 3 MELANIE MELANIE BLOOD VENIPUNCT URE URNLS DIP 37503 DONTRELL JON 3 BA BA STICK/TAB LET RGNT NON-AUTO W/O MICRSCP RADEX 74412 SAMIRA HOGAN FACIAL 2 [facility] BONES CENTER CENTER COMPLETE MINIMUM 3 VIEWS NONINVASI 90463 SAMIRA HOGAN VE 2 [facility] EAR/PULSE CENTER CENTER OXIMETRY SINGLE DETER CLOSED 68979 DIOR ANT DIOR ANT TREATMENT 2 NASAL FRACTURE [place] [address] SAMIRA TYLER ABDOMINAL 2 DEN REAL RADIOLOGY TIME PLLC W/IMAGE LIMITED IAADIADOO 34536 JEANIE CARROLLBY 2 [facility] STREPTOCO HIGH [facility] A EGD 01505 ULYSSES ARORA TRANSORAL 2 DAVID DAVID BIOPSY SINGLE/[place] [address] ANNA ADLER SHE SURG 2 ADLER PATHOLOGY PSC GROSS&MELANIE ROSCOPIC EXAM ANES 49042 BLANK CAR BLANK CAR UPPER GI 2 [address]OS[address] TO [address]UM [address] THORAX 36077 [place] W/O 2 G A R H G A R H CONTRAST MATERIAL CULTURE 74481 [place] BACTERIAL 2 G A R H G A R H BLOOD AEROBIC W/ID ISOLATES INJECTION J1956 [place] STUGAN 2 G A R H ANT LEVOFLOXA TOBI 250 MG GONADOTRO 25548 [place] PIN 2 G A R H G A R H CHORIONIC QUALITATI VE BLOOD 54775 [place] COUNT 2 G A R H G A R H COMPLETE AUTO&AUTO DIFRNTL WBC INJECTION J2405 [place] 2 G A R H G A R H ONDANSETR ON HCL PER 1 MG INJECTION C9113 [place] 2 G A R H G A R H PANTOPRAZ OLE SODIUM PER VIAL THER 06161 [place] PROPH/DX 2 G A R H G A R H NJX IV PUSH SINGLE/1S T SBST/DRUG LOCM Q9967 [place] 300-399 2 G A R H G A R H MG/[place] [address] BECKI V[place]GEN[place] ABDOMEN & 2 G A R H G A R H PELVIS W/CONTRAS T MATERIAL CT THORAX 21275 [place] 2 G A R H G A R H W/CONTRAS T MATERIAL URNLS DIP 73968 [place] 2 G A R H G A R H STICK/TAB LET REAGENT AUTO MICROSCOP Y GONADOTRO 26259 BECKI [facility] PIN 2 G A R H G A R H CHORIONIC QUALITATI VE BLOOD 34095 LAB DANNIE LAB DANNIE COUNT 2 AMERIC AMERIC COMPLETE HOLDING HOLDING AUTO&AUTO DIFRNTL WBC HETEROPHI 91359 LAB DANNIE LAB DANNIE LE 2 AMERIC AMERIC ANTIBODIE HOLDING HOLDING S SCREEN URNLS DIP 62604 DONTRELL JON 2 BA AB STICK/TAB LET RGNT NON-AUTO W/O MICRSCP OBSERVATI 31603 DONTRELL JON ON CARE 2 BA BA DISCHARGE MANAGEMEN T INITIAL 61350 DONTRELL JON OBSERVATI 2 BA BA ON CARE/DAY 50 MINUTES INITIAL 82196 DONTRELL JON OBSERVATI 2 BA BA ON CARE/DAY [address] [place] [address] JOSELUIS GARZA JR RETROPERI 2 KAYLA PAPPAS TONECJ PC REAL TIME W/IMAGE COMPLETE NONINVASI 40941 SAMIRA HOGAN VE 2 [facility] EAR/PULSE CENTER CENTER OXIMETRY SINGLE DETER RADIOLOGI 73549 SAMIRA Houser 2 DEN EXAMINATI RADIOLOGY ON FEMUR PLLC 2 VIEWS RADEX HIP 13497 SAMIRA TYLER 2 DEN UNILATERA RADIOLOGY L PLLC COMPLETE MINIMUM 2 VIEWS IAADIADOO 68346 DONTRELL JON 2 BA BA STREPTOCO CCUS GROUP A RADIOLOGI 31905 BECKI CONNELL C 2 G A R H G A R H EXAMINATI ON KNEE 3 VIEWS OPHTH 51229 [facility] ARNULFO XM&EVAL COMPRE NEW PT 1/> VST RADEX 66381 KAYLA GARZA JR SPINE 2 ELYSE ELYSE CERVICAL 6 OR MORE VIEWS RADEX 98741 KAYLA GARZA JR RIBS UNI 2 ELYSE ELYSE W/POSTERO ANT CH MINIMUM 3 VIEWS OBSERVATI 28786 DONTRELL JON ON CARE 2 BA BA DISCHARGE MANAGEMEN T INITIAL 74974 DONTRELL JON OBSERVATI 2 BA BA ON CARE/DAY 50 MINUTES RADIOLOGI 03059 JOSELUIS GARZA JR C 2 KAYLA ZUNIGA ELYSE EXAMINATI PC ON CHEST SINGLE VIEW FRONTAL NEBULIZER E0570 [employer] MED WITH 2 EQU[place] [address] [place] OWEN ABDOMEN & 2 BA PELVIS RADIOLOGY W/CONTRAS PLLC T MATERIAL BREATHING A4618 MT GLAMSQUAD MT MED CIRCUITS 2 EQUIPMENT EQUIPMENT INC INC RADIOLOGI 96719 SHADEANAM CASANOVAALL C EXAM 2 BA CHEST 2 RADIOLOGY VIEWS PLLC FRONTAL&L ATERAL BLOOD 10430 LAB DANNIE LAB DANNIE COUNT 2 AMERIC AMERIC COMPLETE HOLDINGS HOLDING AUTO&AUTO DIFRNTL WBC IAADIADOO 20930 [facility] MONETT 2 [facility] STREPTOCO HIGH [facility] [facility] GROUP A RADIOLOGI 28743 SAMIRA AVILA C 2 PATRIA EXAMINATI RADIOLOGY ON KNEE 3 PLLC VIEWS IAADIADOO 66907 DONTRELL JON 2 BA BA STREPTOCO CCUS GROUP A 25 74691 LAB DANNIE LAB DANNIE HYDROXY 2 KRISTY KRISTY INCLUDES HOLDINGS HOLDINGS FRACTIONS IF PERFORMED CYANOCOBA 67030 LAB DANNIE LAB DANNIE KOURTNEY 2 KRISTY KRISTY VITAMIN HOLDINGS HOLDINGS B-12 GENERAL 45463 LAB DANNIE LAB DANNIE HEALTH 2 KRISTY KRISTY PANEL HOLDINGS HOLDINGS IRON 91764 LAB DANNIE LAB DANNIE BINDING 2 KRISTY KRISTY [place] [address] LAB DANNIE LAB DANNIE IRON 2 KRISTY KRISTY HOLDINGS HOLDINGS COLLECTIO 46680 OVERBEE OVERBEE N VENOUS 2 GENNY GENNY BLOOD VENIPUNCT URE RADEX 71365 [place] SPINE 2 G A R H G A R H THORACIC 2 VIEWS URNLS DIP 16773 JON OVERBEE 2 BA GENNY STICK/TAB LET RGNT NON-AUTO W/O MICRSCP URNLS DIP 53709 JON JON 1 BA BA STICK/TAB LET RGNT NON-AUTO W/O MICRSCP RADIOLOGI 12940 BECKI Houser EXAM 1 G A R H G A R H CHEST 2 VIEWS FRONTAL&L ATERAL ADMN SET A7003 CARE MORE CARE MORE SM VOL 1 PHARMACY PHARMACY NONFILTR PNEUMAT NEBULIZR DISPBL RADEX 35970 JOSELUIS GARZA JR ANKLE 1 KAYLA ZUNIGA ELYSE COMPLETE PC MINIMUM 3 VIEWS RADEX 05548 JOSELUIS GARZA JR FOOT 1 KAYLA ZUNIGA ELYSE COMPLETE PC MINIMUM 3 VIEWS HETEROPHI 98154 LAB DANNIE LAB DANNIE LE 1 AMERIC AMERIC ANTIBODIE HOLDING HOLDING S SCREEN BLOOD 24969 LAB DANNIE LAB DANNIE COUNT 1 AMERIC AMERIC COMPLETE HOLDING HOLDING AUTO&AUTO DIFRNTL WBC RADIOLOGI 74498 BECKI CONNELL C 1 G A R H G A R H EXAMINATI ON KNEE 3 VIEWS RADIOLOGI 48659 JOSELUIS GARZA JR C EXAM 1 KAYLA ZUNIGA ELYSE KNEE PC COMPLETE 4/MORE VIEWS CRTCHS E0114 THE [facility] ST[facility] WOOD PAIR PAD TIP&HNDGR IP IADNA 11558 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 NEISSERIA 1 Y DANNIE OF Y DANNIE OF KRISTY KRISTY GONORRHOE H H AE AMPLIFIED PROBE TQ CYTP C/V 76519 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 AUTO THIN 1 Y DANNIE OF Y DANNIE OF LYR KRISTY KRISTY PREPJ SCR H H MNL RESCR PHYS IADNA 25563 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 CHLAMYDIA 1 Y DANNIE OF Y DANNIE OF KRISTY KRISTY TRACHOMAT H H IS AMPLIFIED PROBE TQ IAADIADOO 74009 SOLITARIO OVERBEE 1 PRIMARY GENNY STREPTOCO CARE CCUS GROUP A IAADIADOO 66676 SOLITARIO OVERBEE 1 PRIMARY GENNY STREPTOCO CARE CCUS GROUP A IAADIADOO 23271 SOLITARIO OVERBEE 0 PRIMARY GENNY STREPTOCO CARE CCUS GROUP A IAADIADOO 71286 SOLITARIO OVERBEE 0 PRIMARY GENNY STREPTOCO CARE CCUS GROUP A IIV3 [address]41 DR. JON VACCINE 0 LYDIA COSME SPLIT Espinoza JON VIRUS 0.5 D ML DOSAGE IM USE THERAPEUT 84716 DR. JON IC 0 LYDIA COSME PROPHYLAC Espinoza JON TIC/DX D INJECTION SUBQ/IM INJECTION J2550 DR. JON 0 LYDIA COSME PROMETHAZ Espinoza JON INE HCL D UP TO 50 MG RADEX 31393 [place] CLAVICLE 0 G A R H G A R H COMPLETE RADEX 24777 [place] SHOULDER 0 G A R H G A R H COMPLETE MINIMUM [address] D[address] JON 0 LYDIA COSME STICK/TAB Espinoza JON LET RGNT D NON-AUTO W/O MICRSCP FRAMES V2020 Bayron JOHNSON, PURCHASES 0 ALEX HENDERSONBIE K OD PSC KOD US PELVIC 80138 JOSELUIS GARZA JR, 0 KAYLA Phillip NONOBSTET PC RAINER REAL-TIME IMAGE COMPLETE SPHERE V2100 Bayron JOHNSON, SINGLE 0 ALEX MISSAEL K VISION OD PSC PLANO +/- KOD 4.00 PER LENS OPHTH 31384 Bayron JOHNSON, MEDICAL 0 ALEX MISSAEL K XM&EVAL OD PSC COMPRHNSV KOD ESTAB PT 1/> FITTING 52330 Bayron JOHNSON, SPECTACLE 0 ALEX HENDERSONBIE K S XCPT [place] [address] [place] ABDOMEN 0 G A R H G A R H W/CONTRAS T MATERIAL COLLECTIO 59611 [place] N VENOUS 0 G A R H G A R H BLOOD VENIPUNCT URE RADEX 46717 JOSELUIS GARZA JR, UPPER GI 0 KAYLA Phillip W/WO PC GLUCAGON/ DELAY IMGES W/O KUB COMPREHEN 60959 BECKI [place] SIVE 0 [place] [address] JOSELUIS GARZA JR, ABDOMINAL 0 KAYLA Phillip REAL PC TIME W/[place] [address] [place] LIPASE 0 [place] [address] [place] AMYLASE 0 G A R H G A R H URNLS DIP 91377 [place] 0 G A R H G A R H STICK/TAB LET REAGENT AUTO MICROSCOP Y RADEX 47491 JOSELUIS GARZA JR, FINGR 0 KAYLA Phillip MINIMUM 2 PC VIEWS IAADIADOO 10286 SOLITARIO DODSONOME, 9 PRIMARY JOVANNA Marjan [place] [address] SAMIRA HOGAN INFLUENZA 9 MEDICAL MEDICAL A/B EACH CENTER CENTER WALKING L4386 [place] SAMIRA BOOT 9 MEDICAL MEDICAL NON-PNEUM CENTER CENTER ATIC PREFAB CUSTOM FIT RADIOLOGI 94986 Mik VÁSQUEZ 9 RAYMOND EXAMINAHOSSEIN RADIOLOGY ON FOOT 2 PLLC VIEWS RADEX 25220 [place] FOOT 9 G A R H G A R H COMPLETE MINIMUM 3 VIEWS COLLECTIO 96863 [place] N VENOUS 9 G A R H G A R H BLOOD VENIPUNCT URE COLLECTIO 46774 [place] N 9 G A R H G A R H CAPILLARY BLOOD SPECIMEN GLUCOSE 13611 [place] TOLERANCE 9 G A R H G A R H TEST GTT 3 SPECIMENS GLUCOSE 59844 [place] TOLERANCE 9 G A R H G A R H EA ADDL BEYOND [address] JON, Martell VENOUS 9 Espinoza COMBS VENIPUNCT D URE GENERAL 75431 LAB DANNIE LAB DANNIE HEALTH 9 AMERIC AMERIC PANEL HOLDING HOLDING FITTING 31213 Bayron JOHNSON, SPECTACLE 9 ALEX [place] S XCPT OD PSC APHAKIA KOD MONOFOCAL OPHTH 95840 Bayron JOHNSON, MEDICAL 9 ALEX [place] XM&EVAL OD PSC COMPRE KOD NEW PT 1/> VST SPHERE V2100 Bayron JOHNSON, SINGLE 9 ALEX [place] VISION OD PSC PLANO +/- KOD 4.00 PER LENS FRAMES V2020 Bayron JOHNSON, PURCHASES 9 ALEX [place] OD PSC KOD KNEE L1830 MT MED MT MED ORTHOSIS 9 EQUIPMENT EQUIPMENT IMMOBLIZE INC INC R CANVAS LONGTUDNL PREFAB RADIOLOGI 34744 JOSELUIS GARZA JR, C 9 KAYLA Pihllip EXAMINA PC ON KNEE 3 VIEWS RADIOLOGI 47455 LAUREN Houser 9 [facility] ON KNEE 1/2 VIEWS RADEX 74185 SAMIRA TYLER ELBOW 8 [place]OUST[place]HA [place] COMPLETE RADIOLOGY MINIMUM 3 PLLC VIEWS RADEX 98148 ALLAN PEREZ JR 8 KAYLA Phillip COMPLETE PC MINIMUM 3 VIEWS Encounters Encounter Start End Date Code Location Performer Type Date INITIAL 12821 [facility] DEPT [facility] DEPT MEDICINE [facility] AGE 18-39YRS EMERGENCY 07701 YOLANDA LEVI 7 7 PHYSICIAN DEPARTMEN S, PLLC T VISIT MODERATE SEVERITY OFFICE 32564 [facility] OUTPATIEN 7 7 COMP T VISIT HEALTH 15 DANNIE MINUTES EMERGENCY 82154 [facility] 7 7 [facility] DEPARTMEN INC T VISIT HIGH/URGE NT SEVERITY EMERGENCY 19189 YOLANDA LEVI DEPT 7 7 PHYSICIAN VISIT S, PLLC HIGH SEVERITY& THREAT [facility] 7 [facility] OUTPATIEN INC T [facility] - 7 7 N OUTPATIEN COMMUNTIY T HOSPITA EMERGENCY 44306 MEDICINE [facility] DEPT 7 7 [place] LO VISIT EMERGENCY HIGH SERVI SEVERITY& THREAT [facility] EMERGENCY 90933 [facility] 7 7 N DEPARTMEN COMMUNTIY T VISIT HOSPITA MODERATE SEVERITY [facility] - 7 7 [facility] OUTPATIEN INC T EMERGENCY 13517 [facility] 7 7 [facility] DEPARTMEN INC T VISIT LOW/MODER SEVERITY EMERGENCY 17218 [facility] 7 7 N DEPARTMEN COMMUNTIY T VISIT HOSPITA LIMITED/M INOR PROB [facility] - 7 7 N OUTPATIEN COMMUNTIY T HOSPITA EMERGENCY 98577 [facility] 7 7 [place] DEPARTMEN EMERGENCY T VISIT PHYS HIGH/URGE NT SEVERITY EMERGENCY 44070 [facility] DEPT 7 7 PHYSICIAN VISIT S, [facility] HIGH SEVERITY& THREAT [facility] - 7 7 MEM HOSP OUTPATIEN INC T EMERGENCY 40700 [facility] 7 7 MEM HOSP DEPARTMEN INC T VISIT MODERATE SEVERITY OFFICE 62072 [facility] 7 PRIMARY T VISIT CARE 15 MINUTES EMERGENCY 33164 [facility] 6 6 MEDICAL DEPARTMEN PARTNERS T VISIT LL MODERATE SEVERITY [facility] [place] - 6 6 G A R H OUTPATIEN T OFFICE 87473 [facility] PRIMARY T VISIT CARE 15 MINUTES OFFICE 69761 [facility] 6 6 PRIMARY BA T VISIT CARE 15 MINUTES [facility] [place] - 6 6 G A R H OUTPATIEN T EMERGENCY 72693 [facility] 6 6 MEDICAL DEPARTMEN PARTNERS T VISIT LL HIGH/URGE NT SEVERITY EMERGENCY 51892 [place] 6 6 G A R H DEPARTMEN T VISIT MODERATE SEVERITY OFFICE 00946 SOLITARIO JON OUTPATIEN 6 6 PRIMARY BA T VISIT CARE 15 MINUTES [facility] [place] - 6 6 MEDICAL OUTPATIEN CENTER T EMERGENCY 58546 [place] 6 6 MEDICAL DEPARTMEN CENTER T VISIT MODERATE SEVERITY EMERGENCY 43405 SAMIRA GIBSONE 6 6 R OBDULIA DEPARTMEN [facility] T VISIT HOSP LOW/MODER SEVERITY OFFICE 72434 SOLITARIO JON OUTPATIEN 6 6 PRIMARY BA T VISIT CARE 15 MINUTES OFFICE 84260 SOLITARIOCE JON OUTPATIEN 6 6 PRIMARY BA T VISIT CARE 15 MINUTES OFFICE 51075 SOLITARIO JON OUTPATIEN 6 6 PRIMARY BA T VISIT CARE 15 MINUTES [facility] [place] - 6 6 MEDICAL OUTPATIEN [place] T OFFICE 29453 [facility] JON OUTPATIEN 6 6 PRIMARY BA T VISIT CARE 15 MINUTES EMERGENCY 05211 [place] 6 6 G A R H DEPARTMEN T VISIT MODERATE SEVERITY [facility] [place] [facility] 6 6 G A R H OUTPATIEN T OFFICE 72662 [facility] OUT[facility] 6 6 COMP T VISIT HEALTH 10 DANNIE MINUTES [facility] COMP T V[facility]ALTH 15 DANNIE MINUTES [facility] [place] [facility] 6 6 G A R H [facility] T [facility] 14565 [facility]EN [facility] 6 COMP T VISIT HEALTH 15 DANNIE MINUTES [facility] - 6 6 HEALTH OUTPATIEN [place] T OFFICE 19978 [facility] [place] OUTPATIEN 6 6 PHYSICIAN LILIBETH T VISIT S GROUP 15 MINUTES [facility]OSP[facility] 6 6 HE[facility] INPATIENT [facility] 00[facility] 6 6 COMP T VISIT HEALTH 15 DANNIE MINUTES EMERGENCY 82502 YOLANDA HALE DEPT 6 6 PHYSICIAN U ANDREIA VISIT S, PLLC HIGH SEVERITY& THREAT [facility]J [facility] [place] - 6 6 [facility] OUTPATIEN INC T [facility] [place] - 6 6 [facility] OUTPATIEN INC T OFFICE 41511 [facility] OUTPATIEN 6 6 PHYSICIAN T VISIT 5 S GROUP MINUTES OFFICE 43568 [facility] [place] OUTPATIEN 6 6 PHYSICIAN LILIBETH T VISIT S GROUP 15 MINUTES [facility]OSP[facility] [place] - 6 6 [facility]EN [facility] - 6 6 [facility] OUTPATIEN HOSP T OFFICE 35560 [facility] SRAVANTHI CONSULTAT 6 6 HEALTH MOL ION MEDICAL NEW/ESTAB GROUP PATIENT 15 MIN OFFICE 72775 [facility] [place] OUTPATIEN 6 6 PHYSICIAN LILIBETH T VISIT S GROUP 15 MINUTES [facility] [place] [facility] 6 6 G A R H OUTPATIEN T EMERGENCY 16752 [facility] 6 6 N DEPARTMEN COMMUNTIY T VISIT HOSPITA MODERATE SEVERITY OFFICE 85308 [facility] [place] OUTPATIEN 6 6 PHYSICIAN MELANIE T NEW 30 S GROUP MINUTES HOSPITAL [facility] - 6 6 N OUTPATIEN COMMUNTIY T HOSPITA EMERGENCY 86975 [facility] 6 6 [facility]BD[facility]IA DEPARTMEN EMERGENCY T VISIT PHYSI HIGH/URGE NT SEVERITY EMERGENCY 85988 YOLANDA BARROSO 6 6 PHYSICIAN FOR DEPARTMEN S, PLLC T VISIT MODERATE SEVERITY OFFICE 93773 [facility] OUTPATIEN 6 6 PHYSICIAN LILIBETH T VISIT S GROUP 15 MINUTES EMERGENCY 88930 [facility] 6 6 N DEPARTMEN COMMUNTIY T VISIT HOSPITA MODERATE SEVERITY HOSPITAL SI[facility] - 6 6 N OUTPATIEN COMMUNTIY T HOSPITA EMERGENCY 31168 YOLANDA LEVI 6 6 PHYSICIAN MELANIE DEPARTMEN S, PLLC T VISIT MODERATE SEVERITY EMERGENCY 48592 [facility] 6 6 [facility] DEPARTMEN INC T VISIT LOW/MODER SEVERITY [facility] [place] - 6 6 [facility] OUTPATIEN INC T OFFICE 64646 [facility] OUTPATIEN 6 6 PHYSICIAN T NEW 45 S GROUP MINUTES [facility] - 6 6 [facility]PAT[facility] INC T [facility] - 5 5 [facility] OUTPATIEN INC T EMERGENCY 41142 YOLANDA HUNTER 5 5 [facility]YSIC[facility]IGH/URGE NT SEVERITY EMERGENCY 62648 [facility] 5 5 [facility] V[facility]/M INOR PROB OFFICE 57832 [facility] MELANIE OUTPATIEN 5 5 COMP T VISIT HEALTH 15 DANNIE MINUTES OFFICE 24670 [facility] MELANIE OUTPATIEN 5 5 COMP T VISIT HEALTH 15 DANNIE MINUTES [facility] [place] [facility] 5 5 G A R H OUTPATIEN T EMERGENCY 66014 [facility]- 5 5 MEDICAL [place] DEPARTMEN PARTNERS T VISIT LL MODERATE SEVERITY [facility] [place] - 5 5 G A R H OUTPATIEN T EMERGENCY 78379 [place] 5 5 G A R H DEPARTMEN T VISIT MODERATE SEVERITY EMERGENCY 34618 [facility] 5 5 MEDICAL SH[place] DEPARTMEN PARTNERS T VISIT LL HIGH/URGE NT SEVERITY EMERGENCY 47454 [facility] P DEPT 5 5 MEDICAL VISIT PARTNERS HIGH LL SEVERITY& THREAT FUNCJ OFFICE 86110 [facility] OUTPATIEN 5 5 COMP SEHLLY T VISIT HEALTH 15 DANNIE MINUTES OFFICE 80287 [facility] OUTPATIEN 5 5 COMP CAR T VISIT HEALTH 15 DANNIE MINUTES EMERGENCY 12116 YOLANDA LEVI 5 5 PHYSICIAN MELANIE DEPARTMEN S, PLLC T VISIT HIGH/URGE NT SEVERITY [facility] [place] - 5 5 [facility] OUTPATIEN INC T EMERGENCY 96945 [facility] 5 5 [facility] DEPARTMEN INC T VISIT LIMITED/M INOR PROB EMERGENCY 22375 [facility] [place] 5 5 [facility] DEPARTMEN EMERGENCY T VISIT PHYS MODERATE SEVERITY OFFICE 75562 [facility] OUTPATIEN 5 5 COMP T NEW 30 HEALTH MINUTES [facility] [place] [facility] 5 5 G A R H OUTPATIEN T EMERGENCY 66092 [place] 5 5 G A R H DEPARTMEN T VISIT MODERATE SEVERITY EMERGENCY 91534 [facility] 5 5 [facility]ICAL [facility] DEPARTMEN PARTNERS T VISIT LL HIGH/URGE NT SEVERITY OFFICE 25848 [facility] PRIMARY BA T VISIT CARE 15 MINUTES EMERGENCY 92361 [facility] DE[facility] 4 4 [facility] CK IZZY VISIT EMERGENCY HIGH PHYS SEVERITY& THREAT FUNCJ OFFICE [address] [facility] [facility] 4 4 PRIMARY BA T VISIT CARE 15 MINUTES EMERGENCY 72927 [facility] DEPT 4 4 [facility] VISIT EMERGENCY HIGH SERV SEVERITY& THREAT FUNCJ EMERGENCY 48307 [facility] P 4 4 MEDICAL DEPARTMEN PARTNERS T VISIT LL MODERATE SEVERITY [facility] [place] [facility] 4 4 G A R H OUTPATIEN T EMERGENCY 49636 [facility] 4 4 [facility] R OBDULIA DEPARTMEN EMERGENCY T VISIT PHYS HIGH/URGE NT SEVERITY EMERGENCY 80880 [facility] 4 4 [facility] [place] DEPARTMEN EMERGENCY T VISIT PHYS HIGH/URGE NT SEVERITY EMERGENCY 30605 [place] 4 4 G A R H DEPARTMEN T VISIT MODERATE SEVERITY [facility] [place] [facility] 4 4 G A R H OUTPATIEN T EMERGENCY 37445 MELITON MOJGAN MELITON MOJGAN 4 4 DEPARTMEN T VISIT HIGH/URGE NT SEVERITY OFFICE 49343 DONTRELL JON OUTPATIEN 4 4 BA BA T VISIT 15 MINUTES OFFICE 37869 MIGUEL MAXWELL OUTPATIEN 4 4 T NEW 45 MINUTES EMERGENCY 00421 [place] [facility] 4 4 [facility] DIAGNOSTI DEPARTMEN CENTER CS T VISIT MODERATE SEVERITY [facility] [place] [facility] 4 [facility] T EMERGENCY 85752 KIRKPATRLaura TRUJILLOKPATRI 4 4 CK IZZY CK IZZY DEPARTMEN T VISIT HIGH/URGE NT SEVERITY [facility] [place] [facility] 4 [facility] T OFFICE 92301 DR. ABRAHAM SESAY OUTPATIEN 4 4 LYDIA T VISIT Espinoza JON 15 D MINUTES OFFICE 47282 JEANIE WARE OUTPATIEN 4 4 [facility] T VISIT [facility] MIN[facility]ES OFFICE 56103 JEANIE WARE OUTPATIEN 4 4 [facility] T [facility]ISIT 5 HIGH HIGH MINUTES [facility] [place] [facility] T PERIODIC 18107 GA[facility] T[facility] GA[facility]T T[facility] PREVENTIV 4 4 E MED EST PATIENT 18-39 YRS [facility] [place] [facility] 4 [facility] T EMERGENCY 14434 [place] 4 4 [facility] DEPART[facility] CENTER T VISIT HIGH/URGE NT SEVERITY EMERGENCY 66347 KIRSTEN KIRSTEN 4 4 SRINI SRINI DEPARTMEN T VISIT MODERATE SEVERITY OFFICE 17909 THOMPSON THOMPSON CONSULTAT 4 4 BA BA ION NEW/ESTAB PATIENT 60 MIN OFFICE 79855 JEANIE WARE OUTPATIEN 3 3 [facility] T VISIT [facility] MIN[facility]ES OFFICE 33289 JEANIE WARE OUTPATIEN 3 3 [facility] T VISIT [facility] MIN[facility]ES OFFICE 67836 DONTRELL JON OUTPATIEN 3 3 BA BA T VISIT 15 MINUTES OFFICE 65918 DONTRELL JON OUTPATIEN 3 3 BA BA T VISIT 15 MINUTES [facility] [place] [facility] T EMERGENCY 10608 [place] 3 3 [facility] CENTER T VISIT MODERATE SEVERITY OFFICE 72852 DONTRELL JON OUTPATIEN 3 3 BA BA T VISIT 15 MINUTES OFFICE 71806 JEANIE WARE OUTPATIEN 3 3 [facility] T VISIT 5 [facility]IGH [facility] MINUT[facility] OFFICE 57498 DONTRELL JON OUTPATIEN 3 3 BA BA T VISIT 15 MINUTES EMERGENCY 95686 [facility] DEPT 3 3 VISIT HIGH SEVERITY& THREAT [facility] OFFICE 62400 [facility] OUTPATIEN 3 3 MAR MAR T NEW 30 MINUTES OFFICE 67322 JEANIE WARE OUTPATIEN 3 3 [facility] T VISIT [facility] MINUT[facility] OFFICE 50104 AHMED LAY[facility] AHMED [facility]AY[facility] CONSULTAT 3 3 ION NEW/ESTAB PATIENT 60 MIN OFFICE 58129 DONTRELL JON OUTPATIEN 3 3 BA BA T VISIT 15 MINUTES EMERGENCY 50541 [facility] DEPT 3 3 ANDREIA ANDREIA VISIT HIGH SEVERITY& THREAT [facility] [place] [facility] 3 3 G A R H OUTPATIEN T EMERGENCY 58183 [place] 3 3 G A R H DEPARTMEN T VISIT HIGH/URGE NT SEVERITY OFFICE 29064 JEANIE CARROLLBY OUTPATIEN 3 3 [facility]ISIT 5 [facility]IGH [facility] OFFICE 22713 DONTRELL JON OUTPATIEN 3 3 BA BA T VISIT 15 MINUTES OFFICE 81784 DONTRELL JON OUTPATIEN 3 3 BA BA T VISIT 15 MINUTES EMERGENCY 94406 [place] 3 3 G A R H DEPARTMEN T VISIT MODERATE SEVERITY [facility] [place] [facility] 3 3 G A R H OUTPATIEN T EMERGENCY 62473 LETIC[facility] P [facility] P 3 3 DEPARTMEN T VISIT HIGH/URGE NT SEVERITY OFFICE 85594 DONTRELL JON OUTPATIEN 3 3 BA BA T VISIT 15 MINUTES OFFICE 25079 DONTRELL JON OUTPATIEN 3 3 BA BA T VISIT 15 MINUTES [facility] [place] [facility] 3 3 G A R H OUTPATIEN T EMERGENCY 06693 [place] 3 3 G A R H DEPARTMEN T VISIT MODERATE SEVERITY OFFICE 90732 JEANIE WARE OUTPATIEN 3 3 [facility] T VISIT 5 HIGH [facility] MINUTES [facility] EMERGENCY 04327 [place] 3 3 [facility] CENTER T VISIT HIGH/URGE NT SEVERITY EMERGENCY 87682 [facility] DEPT 3 3 EMERGENCY BRA VISIT SERVICES HIGH SEVERITY& THREAT FUNCJ OFFICE 71149 JEANIE CARROLLBY OUTPATIEN 3 3 [facility] T VISIT H[facility] 15 [facility] MINUTES [facility] [place] [facility] 3 [facility] OUT[facility] T OFFICE 24419 MALIKA DALY OUTPATIEN 3 3 MELANIE MELANIE T VISIT 15 MINUTES OFFICE 55316 JEANIE JEANIE OUTPATIEN 3 3 [facility] T VISIT [facility] MINUTES OFFICE 16329 JEANIE JEANIE OUTPATIEN 3 3 [facility] T VISIT [facility] MINUTES OFFICE 51925 DONTRELL JON OUTPATIEN 3 3 BA BA T VISIT 15 MINUTES OFFICE 75737 DONTRELL JON OUTPATIEN 3 3 BA BA T VISIT 15 MINUTES OFFICE 26056 DONTRELL JON OUTPATIEN 3 3 BA BA T VISIT 15 MINUTES [facility] [place] [facility] T OFFICE 23848 JEANIE CARROLLBY OUTPATIEN 3 3 [facility] T VISIT [facility] 10 [facility] MINUT[facility] OFFICE 74730 DONTRELL JON OUTPATIEN 3 3 BA BA T VISIT 15 MINUTES OFFICE 60062 DONTRELL JON OUTPATIEN 3 3 BA BA T VISIT 15 MINUTES OFFICE 28802 JEANIE WARE OUTPATIEN 3 3 [facility] T VISIT 5 HIGH [facility] MINUTES [facility] OFFICE 71216 DONTRELL JON OUTPATIEN 3 3 BA BA T VISIT 15 MINUTES OFFICE 87956 JEANIE CARROLLBY OUTPATIEN 3 3 [facility] T VISIT [facility] 15 [facility] MINUTES OFFICE 06593 JEANIE CARROLLBY OUTPATIEN 3 3 [facility] T VISIT [facility] 10 [facility] MINUTES OFFICE 45917 JEANIE CARROLLBY OUTPATIEN 3 3 [facility] T VISIT [facility] 10 [facility] MINUTES OFFICE 57627 MALIKA DALY OUTPATIEN 3 3 MELANIE MELANIE T VISIT 15 MINUTES OFFICE 74016 DONTRELL JON OUTPATIEN 3 3 BA BA T VISIT 15 MINUTES OFFICE 04656 ULYSSES ARORA OUTPATIEN 2 2 DAVID DAVID T VISIT 15 MINUTES OFFICE 78755 JEANIE JEANIE OUTPATIEN 2 2 [facility] T VISIT 5 HIGH [facility] MINUTES [facility] EMERGENCY 78828 DIOR ANT DIOR ANT 2 2 DEPARTMEN T VISIT HIGH/URGE NT SEVERITY EMERGENCY 61887 [place] 2 2 [facility] T VISIT MODERATE SEVERITY OFFICE 10107 JEANIE WARE OUTPATIEN 2 2 [facility] T VISIT 5 [facility]IGH [facility] MINUT[facility] [place] [facility] 2 [facility] [place] [facility] 2 2 [facility] T OFFICE 38121 JEANIE WARE OUTPATIEN 2 2 [facility] T VISIT [facility] MIN[facility]ES OFFICE 34960 ULYSSES ARORA OUTPATIEN 2 2 DAVID DAVID T [facility] 30 MINUTES [facility] [place] [facility] 2 2 G A R H OUTPATIEN T EMERGENCY 05796 [place] 2 2 G A R H DEPARTMEN T VISIT MODERATE SEVERITY EMERGENCY 16336 [facility] 2 2 [facility] T VISIT LL HIGH/URGE NT SEVERITY EMERGENCY 56079 [place] 2 2 G A R H DEPARTMEN T VISIT HIGH/URGE NT SEVERITY [facility] [place] [facility] 2 2 G A R H OUTPATIEN T OFFICE 37467 JEANIE WARE OUTPATIEN 2 2 [facility] T VISIT [facility] MIN[facility]ES OFFICE 28775 DONTRELL JON OUTPATIEN 2 2 BA BA T VISIT 15 MINUTES OFFICE 00330 JEANIE WARE OUTPATIEN 2 2 [facility] T VISIT [facility] MIN[facility]ES OFFICE 78692 JEANIE WARE OUTPATIEN 2 2 [facility] T VISIT [facility] MINUTES OFFICE 78313 DONTRELL JON OUTPATIEN 2 2 BA BA T VISIT 15 MINUTES OFFICE 20618 JEANIE JEANIE OUTPATIEN 2 2 [facility] T VISIT [facility] MINUTES OFFICE 17415 JEANIE WARE OUTPATIEN 2 2 [facility] T VISIT 5 [facility] MIN[facility] OFFICE 74210 JEANIE WARE OUTPATIEN 2 2 [facility] T VISIT 5 [facility] OFFICE 34570 [facility] OUTPATIEN 2 2 GENNY GENNY T VISIT 15 MINUTES OFFICE 28844 JEANIE WARE OUTPATIEN 2 2 [facility] T VISIT [facility] MINUTES OFFICE 72578 JEANIE WARE OUTPATIEN 2 2 [facility] T VISIT [facility] 10 [facility] MINUTES OFFICE 53312 JEANIE WARE OUTPATIEN 2 2 [facility] T VISIT [facility] 10 [facility] MINUTES OFFICE 19827 MALIKA DALY OUTPATIEN 2 2 MELANIE MELANIE T VISIT 15 MINUTES OFFICE 57395 JEANIE WARE OUTPATIEN 2 2 [facility] T VISIT [facility] MINUTES OFFICE 72378 JEANIE WARE OUTPATIEN 2 2 [facility] T VISIT 5 [facility]IGH [facility] MIN[facility] OFFICE 76907 JEANIE [facility]ARE OUTPATIEN 2 2 [facility] T VISIT [facility] 10 [facility] MINUTES OFFICE 51585 JEANIE WARE OUTPATIEN 2 2 [facility] T VISIT [facility] MINUTES OFFICE 44316 DONTRELL JON OUTPATIEN 2 2 [facility] T VISIT 15 MINUTES OFFICE 84205 JEANIE WARE OUTPATIEN 2 2 [facility] T VISIT [facility] 10 [facility] MINUTES EMERGENCY 23564 [place] 2 2 [facility] T VISIT MODERATE SEVERITY [facility] [place] [facility] 2 2 [facility] OUTPAT[facility] CENTER T OFFICE 16652 JEANIE WARE OUTPATIEN 2 2 [facility] T VISIT [facility] MIN[facility] OFFICE 74999 JEANIE WARE OUTPATIEN 2 2 [facility] T VISIT [facility] MIN[facility]ES OFFICE 36031 DONTRELL JON OUTPATIEN 2 2 BA BA T VISIT 15 MINUTES [facility] [place] [facility] 2 2 G A R H OUTPATIEN T EMERGENCY 82058 [facility] 2 2 MEDICAL DEPARTMEN PARTNERS T VISIT LL MODERATE SEVERITY OFFICE 52700 DONTRELL JON OUTPATIEN 2 2 BA BA T VISIT 25 MINUTES EMERGENCY 02293 [facility] 2 2 MEDICAL DON VISIT PARTNERS HIGH LL SEVERITY& THREAT FUNCJ OFFICE 27636 DONTRELL JON OUTPATIEN 2 2 BA BA T VISIT 15 MINUTES OFFICE 36689 JEANIE WARE OUTPATIEN 2 2 [facility] T VISIT [facility] MIN[facility] OFFICE 22710 JEANIE [facility]ARE OUTPATIEN 2 2 [facility] T VISIT [facility] MIN[facility]ES OFFICE 59792 JEANIE WARE OUTPATIEN 2 2 [facility] T VISIT [facility] MIN[facility] OFFICE 51079 DONTRELL JON OUTPATIEN 2 2 BA BA T VISIT 15 MINUTES OFFICE 98105 DONTRELL JON OUTPATIEN 2 2 BA BA T VISIT 15 MINUTES OFFICE 76187 JEANIE JEANIE OUTPATIEN 2 2 [facility] OFFICE 64165 DONTRELL JON OUTPATIEN 2 2 BA BA T VISIT 15 MINUTES OFFICE 57226 JEANIE JEANIE OUTPATIEN 2 2 [facility] T VISIT [facility] 15 [facility] MINUTES OFFICE 40742 JEANIE JEANIE OUTPATIEN 2 2 [facility] T VISIT [facility] 10 [facility] MINUTES EMERGENCY 19633 [facility] 2 2 DEPARTMEN T VISIT MODERATE SEVERITY OFFICE 83940 DONTRELL JON OUTPATIEN 2 2 BA BA T VISIT 15 MINUTES OFFICE 44420 DONTRELL JON OUTPATIEN 2 2 BA BA T VISIT 15 MINUTES OFFICE 41069 JEANIE JEANIE OUTPATIEN 2 2 [facility] T VISIT [facility] MIN[facility]ES OFFICE 89855 JEANIE JEANIE OUTPATIEN 2 2 [facility] T VISIT [facility] MIN[facility] OFFICE 94952 DONTRELL JON OUTPATIEN 2 2 BA BA T VISIT 15 MINUTES [facility] [place] [facility] G A R H OUTPATIEN T OFFICE 39476 DONTRELL [facility] OUTPATIEN 2 2 BA GENNY T VISIT 15 MINUTES OFFICE 85233 JEANIE WARE OUTPATIEN 1 1 [facility] T VISIT [facility] MIN[facility] OFFICE 73857 DONTRELL JON OUTPATIEN 1 1 BA BA T VISIT 15 MINUTES OFFICE 53732 JEANIE JEANIE OUTPATIEN 1 1 [facility] T VISIT [facility] [place] [facility] 1 G A [facility] H OUTPATIEN T OFFICE 98180 [facility] OUTPATI[facility] 1 1 [facility] T VISIT CARE 15 MINUTES OFFICE 74321 JEANIE JEANIE OUTPATIEN 1 1 [facility] T VISIT [facility] 15 [facility] MINUT[facility] OFFICE 19110 [facility] OUTPATIEN 1 1 [facility] T VISIT CARE 15 MINUTES OFFICE 72704 [facility] OUTPATIEN 1 1 [facility] T VISIT CARE 15 MINUTES OFFICE 28928 JEANIE JEANIE OUTPATIEN 1 1 [facility] T VISIT [facility] [place] [facility] 1 G A [facility] H OUTPATIEN T OFFICE 08633 [facility] OUTPATI[facility] 1 1 [facility] T VISIT CARE 15 MINUTES OFFICE 31151 [facility] OUTPATI[facility] 1 1 [facility] T VISIT CARE 15 MINUTES OFFICE 15155 [facility] OUTPATI[facility] 1 1 [facility] T VISIT CARE 15 MINUTES [facility] [place] [facility] 1 G A [facility] H OUTPATIEN T OFFICE 77179 [facility] OUTPATIEN 1 1 [facility] T VISIT CARE 15 MINUTES INITIAL 72333 GAUNT TIN GAUNT TIN PREVENTIV 1 1 E MEDICINE NEW PT AGE 12-17 YR OFFICE 98025 JEANIE JEANIE OUTPATIEN 1 1 [facility] T VIS[facility]ES OFFICE 76907 [facility] OUTPATIEN 1 1 [facility] T VISIT CARE 15 MINUTES OFFICE 38018 JEANIE JEANIE OUTPATIEN 1 1 [facility] T VISIT [facility]ES OFFICE 47882 [facility] OUTPATIEN 1 1 [facility] T VISIT CARE 15 MINUTES OFFICE 71732 JEANIE JEANIE OUTPATIEN 1 1 [facility] T VIS[facility]ES OFFICE 78885 JEANIE JEANIE OUTPATIEN 1 1 [facility] T VISIT [facility] MIN[facility]ES OFFICE 70333 JEANIE JEANIE OUTPATIEN 1 1 [facility] T VIS[facility] MIN[facility]ES OFFICE 17525 JEANIE JEANIE OUTPATIEN 1 1 [facility] T VIS[facility]ES OFFICE 24547 JEANIE JEANIE OUTPATIEN 1 1 [facility] T VISIT [facility] MIN[facility]ES OFFICE 39475 JEANIE JEANIE OUTPATIEN 1 1 [facility] T VISIT [facility] MIN[facility]ES OFFICE 96030 [facility] OUTPATIEN 1 1 [facility] T VISIT CARE 15 MINUTES OFFICE 97254 JEANIE JEANIE OUTPATIEN 1 1 [facility] T VISIT 5 [facility] MIN[facility] OFFICE 02179 JEANIE JEANIE OUTPATIEN 1 1 [facility] T VISIT [facility] MIN[facility] OFFICE 80124 [facility] OUTPATIEN 1 1 [facility] T VISIT CARE 15 MINUTES OFFICE 07311 JEANIE JEANIE OUTPATIEN 1 1 [facility] T VISIT [facility] MIN[facility]ES OFFICE 58954 JEANIE JEANIE OUTPATIEN 1 1 [facility] T VISIT [facility] MIN[facility]ES OFFICE 83287 [facility] OUTPATIEN 1 1 [facility] T VISIT CARE 15 MINUTES OFFICE 57557 JEANIE JEANIE OUTPATIEN 1 1 [facility] T [facility]IS[facility]ES OFFICE 21839 JEANIE JEANIE OUTPATIEN 1 1 [facility] T VISIT [facility] 15 [facility] MIN[facility]ES OFFICE 44216 JEANIE JEANIE OUTPATIEN 1 1 [facility] T VISIT [facility] MIN[facility] OFFICE 39876 [facility] OUTPATIEN 1 1 [facility] T VISIT CARE 15 MINUTES OFFICE 63639 [facility] OUTPATIEN 1 1 [facility] T VISIT CARE 15 MINUTES OFFICE 30101 JEANIE JEANIE OUTPATIEN 1 1 [facility] T VISIT [facility]ES OFFICE 28102 JEANIE JEANIE OUTPATIEN 0 0 [facility] T VISIT [facility] OFFICE 55011 [facility] OUTPATIEN 0 0 [facility] T VISIT CARE 15 MINUTES OFFICE 93495 JEANIE JEANIE OUTPATIEN 0 0 [facility] T [facility] OFFICE [address]70 DR[facility] DALY OUTPATIEN 0 0 LYDIA NAVARRO T VISIT JON,M 15 D MINUTES OFFICE 91166 JEANIE JEANIE OUTPATIEN 0 0 [facility] T VIS[facility] OFFICE 94657 [facility] OUTPATIEN 0 0 [facility] T VISIT CARE 15 MINUTES OFFICE 47169 JEANIE JEANIE OUTPATIEN 0 0 [facility]IS[facility]ES OFFICE 49857 JEANIE JEANIE OUTPATIEN 0 0 [facility] T [facility]IS[facility] MINUT[facility] OFFICE 55973 DR. DALY OUTPATIEN 0 0 LYDIA NAVARRO Devendra VISIT Espinoza JON 15 D [address]ES OFF[address] JON OUTPATIEN 0 0 LYDIA Ramsay VISIT JONEspinoza [address]ES [address] JON OUTPATIEN 0 0 LYDIA Ramsay VISIT JONEspinoza 15 D MINUTES [facility] [place] [facility] OUTPATIEN T OFFICE 86120 JEANIE WARE OUTPATIEN 0 0 [facility] T VISIT [facility] MINUT[facility] OFFICE 23634 DR. JON OUTPATIEN 0 0 LYDIA Ramsay VISIT JON,M 15 D MINUTES OFFICE 92055 DR. JON OUTPATIEN 0 0 LYDIA Ramsay VISIT JON,M 15 D MIN[address]ES OFFICE 61687 DR. JON OUTPATIEN 0 0 LYDIA Ramsay VISIT JON 15 D MINUTES [facility] [place] [facility]PAT[facility] [place] [facility] 0 0 [facility]PAT[facility] [place] [facility] 0 0 G [facility] OUTPATIEN T OFFICE 11039 DR. JON, OUTPATIEN 0 0 LYDIA LYDIA Devendra VISIT Espinoza JON 15 D MINUTES [facility] [place] [facility] 0 0 [facility] OUTPATIEN T EMERGENCY 76491 [place] 0 0 G A R H DEPARTMEN T VISIT LOW/MODER SEVERITY EMERGENCY 11594 [facility] 0 0 MEDICAL ROXANA Mulligan DEPARTMEN PARTNERS T VISIT [facility] HIGH/URGE NT SEVERITY OFFICE 36500 JODY VERA OUTPATIEN 0 0 ELEMENTAR ELEMENTAR T VISIT Y Y 10 MINUTES EMERGENCY 84134 [facility] 0 0 MEDICAL , DEIDRE DEPARTMEN PARTNERS F T V[facility]IT [facility] MODERATE SEVERITY [facility] [place] [facility] 0 0 [facility] A [facility] OUTPATIEN T EMERGENCY 13333 [place] 0 0 G A R H DEPARTMEN T VISIT LOW/MODER SEVERITY OFFICE 65859 JODY VERA OUTPATIEN 0 0 ELEMENTAR ELEMENTAR T VISIT Y Y [address] JON, OUTPATIEN 0 0 LYDIA Ramsay VISIT Espinoza JON 15 D MINUTES OFFICE 75339 [facility] LEMUS, OUTPATIEN 0 0 PRIMARY JOVANNA D T VISIT CARE 15 MINUTES [facility] [place] [facility] 9 [facility] T OFFICE 50816 SOLITARIO ALLAN, OUTPATIEN 9 9 PRIMARY JOVANNA D T VISIT CARE 15 MINUTES OFFICE 64997 [facility] JODY OUTPATIEN 9 9 HEALTH ELEMENTAR T VISIT CENTRAL Y 10 BANK ACCT MINUTES OFFICE 31216 [facility] [place] OUTPATIEN 9 9 HEALTH ELEMENTAR T NEW 20 CENTRAL Y MINUTES BANK ACCT OFFICE 23772 SOLITARIO ALLAN, OUTPATIEN 9 9 PRIMARY JOVANNA D T VISIT CARE 15 MINUTES OFFICE 35750 SOLITARIO ALLAN, OUTPATIEN 9 9 PRIMARY JOVANNA D T VISIT CARE 15 MINUTES OFFICE 21464 SOLITARIO ALLAN, OUTPATIEN 9 9 PRIMARY JOVANNA D T VISIT CARE 15 MINUTES [facility] [place] [facility] 9 9 [facility] T OFFICE 94918 SAMIRA STEVE, CONSULTAT 9 9 RODY SORTO NEW/ESTAB HOSP PATIENT 40 MIN [facility] 15808 [facility] E T VISIT LLC MODERATE SEVERITY EMERGENCY 26590 [place] 9 9 G A R [facility] T VISIT LOW/MODER SEVERITY [facility] [place] [facility] 45126 SOLITARIO ALLAN, OUTPATIEN 9 9 PRIMARY JOVANNA D T VISIT CARE 15 MINUTES [facility] [place] [facility] 97314 PIERO POLANCOPATIEN 9 9 LYDIA Ramsay VISIT Espinoza JON 15 D MINUTES OFFICE 75594 ESAU POLANCO 9 9 LYDIA Ramsay VISIT Espinoza JON 15 D MINUTES OFFICE 17623 SOLITARIO ALLAN, OUTPATIEN 9 9 PRIMARY JOVANNA D T VISIT CARE 15 MINUTES OFFICE 04489 SOLITARIO ALLAN, OUTPATIEN 9 9 PRIMARY JOVANNA D T VISIT CARE 15 MINUTES EMERGENCY 16149 [facility] 9 9 [facility] T VISIT MODERATE SEVERITY [facility] [place] - 9 9 [facility] T OFFICE 53267 [facility] 9 LYDIA FREEMAN T VISIT Espinoza JON 15 D MINUTES OFFICE 94580 [facility]IO LEMUS [facility] 8 8 PRIMARY JOVANNA Ramsay VISIT [facility] 15 MIN[facility]ES [facility] 8 [facility] T OFFICE 46306 ALLAN LEMUS OUTPATILUDWIN 8 8 JOVANNA Phillip T [facility] 20 MINUTES [facility] SH[facility] - 8 8 [facility] T EMERGENCY 21575 SHADE 8 8 [facility] T VISIT ANDRAE PATEL PROB OFFICE 79234 ALICJA VAZQUEZ [facility] 8 8 [facility] C[facility] Devendra ROSEN V[facility] 10
--- OUTSIDE RECORDS SUMMARY | 2016-12-12 22:33 | External Medical Summary Rpt ---
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 INJURY 02-10-2008 JOSELUIS JURADO&GISELA GARZA MD PC CIFIED [facility]&WRI ST V705 HEALTH 01-25-2008 [place] EXAMINATION [facility] CV OF DEFINED MED SUBPOPULATI ON Medications Na ND Rx Da Fi Fi [...] 0 MA MG CY TA BL ET LA 00 01 02 21 6 00 CA [...] .0 RE 17 ER ti YL 15 5- 5- 00 50 BE ve LA 02 20 20 MO 9 E ED [...] .0 RE 17 ER ti IN 40 06 BE ve IR 20 20 20 MO 4 E 50 11 11 RE BR 30 2 IA 0 PH N MG AR S MA CA CY PS UL E LA 00 10 10 0 30 10 CA 62 OV Ac OM 78 -1 -1 .0 RE 17 ER ti ET 11 06 BE ve FELIPE 83 20 20 MO 5 E ZI 01 11 11 RE BR NE 0 IA PH N 25 AR S MA MG CY TA BL ET IB 53 10 10 0 30 10 CA 62 OV Ac UP 74 -0 -0 .0 RE 16 ER ti RO 60 19 BE ve FE 46 20 20 MO 5 E N 60 11 11 RE BR 80 5 IA 0 PH N MG AR S MA TA CY BL ET CE 00 08 08 0 21 7 CA 62 OV Ac PH 09 -2 -2 .0 RE 13 ER ti AL 33 72 BE ve EX 14 20 20 MO 3 E IN 70 11 11 RE BR 5 IA 50 PH N 0 AR S MG MA CY CA PS UL E LO 51 08 08 0 30 30 CA 62 OV Ac RA 66 -2 -2 .0 RE 13 ER ti TA 00 72 BE ve DI 52 20 20 MO 4 E NE 60 11 11 RE BR 5 IA 10 PH N AR S MG MA CY TA BL ET IB 53 08 08 0 90 30 CA 62 OV Ac UP 74 -2 -2 .0 RE 13 ER ti RO 60 72 BE ve FE 46 20 20 MO 5 E N 60 11 11 RE BR 80 5 IA 0 PH N MG AR S MA TA CY BL ET CE 16 08 08 0 20 10 CA 62 OV Ac FD 71 -0 -0 .0 RE 12 ER ti IN 40 67 BE ve IR 20 20 20 MO 2 E 50 11 11 RE BR 30 2 IA 0 PH N MG AR S MA CA CY PS UL E CI 00 08 08 0 7. 10 CA 62 OV Ac LA 06 -0 -0 50 RE 12 ER [...] 3. 28 CA 62 GA Ac 06 -2 00 RE 09 UN ti 21 6- 8- 0 82 T ve 92 20 20 MO 8 TI 01 11 11 RE NA 5 C PH AR MA CY 00 06 06 2 3. 28 CA 62 GA Ac 06 -1 00 RE 09 UN ti 21 6- 6- 0 82 T ve 92 20 20 MO 8 TI 01 11 11 RE NA 5 C PH AR MA CY 59 05 05 0 8. 25 CA [...] S MA CA CY PS UL E BE 65 05 05 0 30 10 CA 62 OV Ac NZ 16 -1 -1 .0 RE 07 ER ti ON 20 0- 0- 00 63 BE ve AT 53 20 20 MO 3 E AT 61 11 11 RE BR E 0 IA 10 PH N 0 AR S MG MA CY CA PS UL E AZ 64 05 05 [...] 2 60 30 CA 61 CO Ac LA 14 -0 -0 .0 RE 97 LL [...] 0 10 5 CA 62 OV Ac WY 00 -2 -2 .0 RE 02 ER ti FL 40 3- 3- 00 54 BE ve U 80 20 20 MO 6 E 75 08 11 11 RE BR 5 IA MG PH N AR S CA MA PS CY UL E 60 01 01 0 24 8 CA 62 OV Ac 25 -3 -3 0. RE 00 ER ti 80 1- 1- 00 67 BE ve 23 20 20 0 MO 4 E 91 11 11 RE BR 6 IA PH N AR S MA CY LA 00 01 01 0 15 5 CA 62 OV Ac OM 78 -3 -3 .0 RE 00 ER ti ET 11 1- 1- 00 67 BE ve FELIPE 83 20 [...] 0 MA MG CY TA BL ET LA 00 10 12 0 20 5 CA 61 CO Ac OM 78 -0 -0 .0 RE 97 LL ti ET 11 5- 7- 00 47 IN ve FELIPE 83 20 20 MO 3 S ZI 01 10 10 RE WI NE 0 LL PH IA 25 AR M MA MG CY TA BL ET NA 00 11 12 2 60 30 CA 61 CO Ac LA 14 -0 -0 .0 RE 97 LL ti OX 39 2- 6- 00 40 IN ve EN 90 20 20 MO 0 S 80 10 10 RE WI SO 1 LL DI PH IA UM AR M MA 55 CY 0 MG TA B AV 00 11 12 4 28 28 CA 61 CO Ac IA 55 -0 -0 .0 RE 97 LL ti NE 59 2- 6- 00 40 IN ve -2 04 20 20 MO 1 S 8 55 10 10 RE WI TA 8 LL BL PH IA ET AR M MA CY AZ 00 11 11 0 6. 5 CA 61 OV Ac IT 00 RE 96 ER ti HR 37 6- 6- 0 18 BE ve OM 14 20 20 MO 3 E YC 61 10 10 RE BR IN 8 IA PH N 25 AR S 0 MA MG CY TA BL ET NA 00 11 11 3 60 30 [place] 34 FELIPE Ac LA 09 -0 -0 .0 VA 10 LL [...] 8 MA NA BL CY D ET IB 53 10 10 0 60 10 CA 61 OV Ac UP 74 -2 -2 .0 RE 94 ER ti RO 60 6- 6- 00 76 BE ve FE 46 20 20 MO 3 E N 40 10 10 RE BR 40 5 IA 0 PH N MG AR S MA TA CY BL ET 67 10 10 0 20 10 CA 61 OV Ac 25 -2 -2 .0 RE 94 ER ti 30 6- 6- 00 76 BE ve 00 20 20 MO 4 E 76 10 10 RE BR 0 IA PH N AR S MA CY LA 00 09 09 0 20 5 CA [...] RE 92 LL ti ME 12 5- 00 15 IN ve TH 32 20 20 MO 7 S AC 50 10 10 RE WI IN 1 LL PH IA 25 AR M MA MG CY CA PS UL E IB 53 09 09 0 30 8 CA 61 CO Ac UP 74 -1 -1 .0 RE 92 LL ti RO 60 5- 5 15 IN ve FE 46 20 20 MO 8 S N 60 10 10 RE WI 80 5 LL 0 PH IA MG AR M MA TA CY BL ET AV 00 08 08 0 10 10 CA 61 CO Ac EL 08 -1 -1 .0 RE 90 LL ti OX 51 51 IN ve 73 20 20 MO 8 S 40 30 10 10 RE WI 0 1 LL MG PH IA AR M TA MA BL CY ET CL 00 08 08 0 20 10 CA 61 CO Ac AR 05 -1 -1 .0 RE 90 LL ti IT 40 36 IN ve HR 03 20 20 MO 5 S OM 72 10 10 RE WI YC 1 LL IN PH IA AR M 50 MA 0 CY MG TA BL ET 67 07 07 5 30 10 CA 61 CO Ac 25 -1 -1 .0 RE 88 LL ti 30 5 5- 00 71 IN ve 62 20 20 MO 3 S 11 10 10 RE WI 0 LL PH IA AR M MA CY 60 05 05 0 10 3 CA 20 BA Ac 95 -1 -1 .0 RE 04 RL ti 10 8 8- 65 OW ve 79 20 20 MO 0 77 10 10 RE DA 0 NA PH S AR MA CY LA 00 05 05 0 10 3 CA 61 BA Ac OM 71 -1 -1 .0 RE 85 RL ti ET 30 8 59 OW ve HE 52 20 20 MO 8 GA 61 10 10 RE DA N 2 NA 25 PH S AR MG MA CY JASMINE PP OS IT OR Y 67 11 12 00 20 10 CA 61 CO Ac 25 -2 -0 .0 RE 75 LL ti 30 5- 3- 00 18 IN ve 00 20 20 MO 7 S 76 09 09 RE WI 0 LL PH IA AR M MA CY 60 11 12 00 90 5 CA 61 CO Ac 25 -2 -0 .0 RE 75 LL ti 80 5- 3- 00 18 IN ve 23 20 20 MO 8 S 91 09 09 RE WI 6 LL PH IA AR M MA CY 60 10 11 00 12 3 CA 61 NE Ac 25 -2 -0 0. RE 72 WS ti 80 3- 5- 00 88 OM ve 23 20 20 0 MO 5 E 91 09 09 RE JA 6 WY PH E AR D MA CY AZ 64 10 11 00 6. 5 CA 61 NE Ac IT 67 -2 -0 00 RE 72 WS ti HR 90 2- 5- 0 88 OM ve OM 96 20 20 MO 4 E YC 10 09 09 RE JA IN 4 WY PH E 25 AR D 0 MA MG CY TA BL ET LA 00 09 10 00 20 5 CA 61 NE Ac OM 78 -3 -0 .0 RE 71 WS ti ET 11 0- 8- 00 43 OM ve FELIPE 83 20 20 MO 8 E ZI 01 09 09 RE JA NE 0 WY PH E 25 AR D MA MG CY TA BL ET AZ 00 08 09 00 6. 5 CA 61 NE Ac IT 78 -2 -1 00 RE 69 WS ti HR 11 6- 0- 0 20 OM ve OM 49 20 20 MO 6 E YC 66 09 09 RE JA IN 8 WY PH E 25 AR D 0 MA MG CY TA BL ET AZ 00 08 08 00 6. 5 [...] PH IA AR M MA CY 67 03 03 00 20 10 CA 61 CO Ac 25 -0 -2 .0 RE 60 LL ti 30 9- 6- 00 00 IN ve 00 20 20 MO 9 S 76 09 09 RE WI 0 LL PH IA AR M MA CY 53 02 03 00 30 8 CA 61 WY Ac 74 -2 -1 .0 RE 59 [...] 0 bl PH e AR MA CY LA 00 09 10 00 6. 4 CA [...] sed n IIV3 09-2 141 AMANDA No 20 INS WILL VACC 10 BA GRAZYNA INE AMANDA SPLI INS, T MD VIRU S 0.5 ML DOSA GE IM USE Procedures Procedure DOS Code Location Performer Comment IADNA 38716 [facility] CHLAM[facility]DIA 7 [facility] DEPT [facility] DEPT TRACHOMAT SOURAV SOURAV IS AMPLIFIED PROBE TQ CYTP 12841 [facility], PICKLESIM CERV/VAG 7 [facility] ER JR AUTO THIN LAYER PREP MNL SCREEN IADNA 06519 [facility] NEISSERIA [facility] DE[facility] GONORRHOE SOURAV SOURAV AE AMPLIFIED PROBE TQ URINE 88394 [facility] 7 [facility] TEST [facility] DEPT [facility] DEPT VISUAL SOURAV SOURAV COLOR CMPRSN METHS CONTRACEP S4993 [facility] TIVE 7 [facility] DEPT SOURAV SOURAV CONTROL RADEX 27136 [place] [facility] ANKLE 7 MEDICAL COMPLETE IMAGING MINIMUM 3 ASS VIEWS RADEX 80159 [place] [facility] FOOT 7 MEDICAL COMPLETE IMAGING MINIMUM 3 ASS VIEWS COLLECTIO 76072 [facility] N VENOUS 7 COMP BLOOD HEALTH VENIPUNCT DANNIE URE GONADOTRO 17974 [facility] PIN 7 COMP [facility] DANNIE QUALITATI VE FINAL G9551 CARMELA BLAIR REPR ABD 7 MEDICAL IMAG STS IMAGING W/O ASS INCIDNT FND LES NTD: URNLS DIP 94908 [facility] STICK/TAB INC [place] [address] [facility] ABDOMEN & 7 [facility] PELVIS INC INC W/[place] [address] [facility] LIPASE 7 [facility] INC INC BLOOD 61787 [facility] COUNT 7 [facility] COMPLETE INC INC AUTO&AUTO DIFRNTL WBC FINAL G9638 CARMELA BLAIR REPORTS 7 MEDICAL W/O DOC IMAGING 1/MORE ASS DOSE REDUCTION TECH URINE 79614 [facility] REISON [facility] TEST INC INC [place] [address] UKRT[facility] AMYLASE 7 [facility] INC INC COMPREHEN 36685 [facility] SIVE 7 [facility] METABOLIC INC INC PANEL THER 91057 [facility] PROPH/DX 7 [facility] NJX IV INC INC PUSH SINGLE/1S T SBST/DRUG THER 75928 [facility] PROPH/DX 7 N N NJX IV COMMUNTIY COMMUNTIY PUSH HOSPITA HOSPITA SINGLE/1S T SBST/DRUG INJECTION J1885 [facility] 7 N N KETOROLAC COMMUNTIY COMMUNTIY HOSPITA HOSPITA TROMETHAM INE PER 15 MG INFUSION J7030 [facility] NORMAL 7 N N SALINE COMMUNTIY COMMUNTIY SOLUTION HOSPITA HOSPITA 1000 CC COMPREHEN 49088 [facility] SIVE 7 N N METABOLIC COMMUNTIY [place] [address] [facility] INFUSION 7 N N HYDRATION COMMUNTIY COMMUNTIY EACH HOSPITA HOSPITA ADDITIONA L HOUR URINE 72923 [facility] 7 N N TEST COMMUNTIY COMMUNTIY VISUAL HOSPITA HOSPITA COLOR CMPRSN METHS BLOOD 18146 [facility] COUNT 7 N N COMPLETE COMMUNTIY COMMUNTIY AUTO&AUTO HOSP[place] [address] [facility] LIPASE 7 N N COMMUNTIY COMMUNTIY HOSPITA HOSPITA URNLS DIP 48853 [facility] 7 N N STICK/TAB COMMUNTIY COMMUNTIY LET HOSPITA HOSPITA REAGENT AUTO MICROSCOP Y THERAPEUT 77952 [facility] IC 7 [facility] PROPHYLAC INC INC TIC/DX INJECTION SUBQ/IM URINE 40496 [facility] 7 N N TEST COMMUNTIY COMMUNTIY VISUAL HOSPITA HOSPITA COLOR CMPRSN METHS URNLS DIP 13240 [facility] 7 N N STICK/TAB COMMUNTIY COMMUNTIY LET HOSPITA HOSPITA REAGENT AUTO MICROSCOP Y URNLS DIP 76431 [facility] STICK/TAB INC [place] [address] [facility] ABDOMEN & 7 MEDICAL PELVIS IMAGING W/O ASS CONTRAST MATERIAL FINAL G9551 [facility]LLY REPR ABD 7 MEDICAL IMAG STS IMAGING W/O ASS INCID[place]: [place] [address] [facility] LIPASE 7 [facility] INC INC BLOOD 59833 [facility] COUNT 7 [facility] COMPLETE INC INC AUTO&[place] [address] [facility] AMYLASE 7 [facility] INC INC SUSCEPTIB 11935 [facility] LTY STDY 7 [facility] ANTIMICRB INC INC IAL MICRO/AGA R DILUTJ FINAL G9638 CARMELA KELLY REPORTS 7 MEDICAL W/O DOC IMAGING 1/MORE ASS DOSE REDUCTION TECH URINE 96122 [facility] TEST INC INC VISUAL COLOR CMPRSN METHS CUL BACT 23503 [facility] XCPT 7 [facility] URINE INC INC BLOOD/STO OL AEROBIC ISOL COMPREHEN 75112 [facility] SIVE 7 [facility] METABOLIC INC INC PANEL CUL BACT 20912 [facility] AEROBIC 7 [facility] ADDL INC INC METHS DEFINITIV E EA ISOL BREATHING A4618 [facility] CIRCUITS 7 MEDICAL MEDICAL NEBULIZER E0570 [facility] WITH 7 MEDICAL MEDICAL COMPRESSO R IAADIADOO 76463 [facility] 6 G A R H G A R H INFLUENZA URNLS DIP 32260 [facility] 6 G A R H G A R H STICK/TAB LET REAGENT AUTO MICROSCOP Y GONADOTRO 98773 [facility] PIN 6 G A R H G A R H CHORIONIC QUALITATI VE GONADOTRO 40889 [facility] PIN 6 G A R H G A R H CHORIONIC QUALITATI VE URNLS DIP 84614 [facility] 6 G A R H G A R H STICK/TAB LET REAGENT AUTO MICROSCOP Y CULTURE 26683 [facility] BACTERIAL 6 G A R H G A R H QUANTTATI VE COLONY COUNT URINE NONINVASI 90611 [facility] VE 6 [facility] [place] OXIMETRY SINGLE DETER RADEX 67665 [facility] ABDOMEN [address] [place] [address] [place] [address] [facility] [place] ABDOMINAL 6 GAR REAL RADIOLOGY TIME PLLC W/IMAGE LIMITED INJECTION J1885 [facility] 6 G A R H G A R H KETOROLAC TROMETHAM INE PER 15 MG THER 37846 [facility] PROPH/DX 6 G A R H G A R H NJX IV PUSH SINGLE/1S T SBST/DRUG CULTURE 24773 [facility] BACTERIAL 6 G A R H G A R H QUANTTATI VE COLONY COUNT URINE COMPREHEN 06052 [facility] SIVE 6 [place] [address] [facility] INFUSION 6 G A R H G A R H HYDRATION EACH ADDITIONA L HOUR THERAPEUT 20621 [facility] IC 6 G A R H G A R H [place] [address] [facility] AMYLASE 6 G A R H G A R H IAADIADOO 96988 [facility] 6 G A R H G A R H INFLUENZA INJECTION J2550 [facility] 6 G A R H G A R H PROMETHAZ INE HCL UP TO 50 MG COLLECTIO 69093 [facility] N VENOUS 6 G A R H G A R H BLOOD VENIPUNCT URE URNLS DIP 09700 [facility] 6 G A R H G A R H STICK/TAB [place] [address] [facility] CONNELL LIPASE 6 G A R H G A R H BLOOD 09738 [facility] CONNE[facility] COUNT 6 G A R H G A R H COMPLETE AUTO&AUTO DIFRNTL WBC BLOOD 47844 [facility] [place] MELANIE COUNT 6 COMP COMPLETE HEALTH AUTOMATED DANNIE LACTATE 52214 LAB DANNIE LAB DANNIE DEHYDROGE 6 KRISTY KRISTY [place] [address] MAJOR NAVARRO BLOOD/URI 6 COMP C ACID HEALTH DANNIE COMPREHEN 37110 MAJOR NAVARRO SIVE 6 COMP METABOLIC HEALTH PANEL DANNIE ANESTHESI 74087 [place] DEN A 6 ANESTHESI A GROUP DELIVERY PS ONLY 486[address] MAJOR [place] MELANIE DELIVERY 6 COMP ONLY HEALTH DANNIE BREAST E0603 [facility] HOME PUMP 6 MEDICAL MEDICAL ELECTRIC ANY TYPE IADNA 76938 LAB DANNIE LAB DANNIE TRICHOMON 6 KRISTY KRISTY HOLDINGS HOLDINGS VAGINALIS AMPLIFIED PROBE TECH IADNA 21796 LAB DANNIE LAB DANNIE NEISSERIA 6 KRISTY KRISTY HOLDINGS HOLDINGS GONORRHOE AE AMPLIFIED PROBE TQ IADNA NOS 17008 LAB DANNIE LAB DANNIE 6 KRISTY KRISTY AMPLIFIED HOLDINGS HOLDINGS PROBE TQ EACH ORGANISM IADNA 63124 LAB DANNIE LAB DANNIE CHLAMYDIA 6 KRISTY KRISTY HOLDINGS HOLDINGS TRACHOMAT IS AMPLIFIED PROBE TQ IADNA 58379 LAB DANNIE LAB DANNIE ELIANA 6 KRISTY KRISTY SPECIES HOLDINGS HOLDINGS AMPLIFIED PROBE TQ DRUG TEST G0479 [facility] 6 G A R H G A R H PRESUMP;I NSTRUMENT ED CHEMISTRY ANLYZER EVAL C/V 30403 [facility] AMNIOTIC 6 G A R H G A R H FLUID PROTEIN QUAL EA SPECIMEN INJECTION J0690 [facility] 6 G A R H G A R H CEFAZOLIN SODIUM 500 MG INJECTION J3105 [facility] 6 G A R H G A R H TERBUTALI NE SULFATE UP TO 1 MG COLLECTIO 46888 [facility] M[facility]IE N VENOUS 6 COMP BLOOD HEALTH VENIPUNCT DANNIE URE SYPHILIS 02464 LAB DANNIE LAB DANNIE TEST 6 KRISTY KRISTY NON-TREPO HOLDINGS HOLDINGS NEMAL ANTIBODY QUAL RADEX ABD 86574 [facility] WON MELANIE 6 COMP ANTEROPOS HEALTH T&ADDL DANNIE OBLQ&CONE VIEWS BLOOD 51683 [facility] COUNT 6 COMP COMP COMPLETE HEALTH HEALTH AUTOMATED DANNIE DANNIE 49705 [facility] T[facility]RIISM NONSTRESS 6 [facility]ALTH [place] [address] T[facility]RIISM TENRIISM INFUSION 6 HEALTH HEALTH HYDRATION [facility] EACH ADDITIONA L HOUR OBSERVATI 87359 JOSE G HENSON ON CARE 6 HEALTH APRIL DISCHARGE MEDICAL GROUP MANAGEMEN T DOPPLER 37319 [facility] VELOCIMET 6 [facility] RY INC INC UMBILICAL ARTERY BLOOD 70432 [facility] T[facility]RI[facility] TYPING 6 HEALTH HEALTH SEROLOGIC [facility] RH (D) UNCLASSIF J3490 [facility] IED DRUGS 6 [facility] INC INC THERAPEUT 73350 TENRIISM TENRIISM IC 6 HEALTH HEALTH PROPHYLAC [facility] TIC/DX INJECTION SUBQ/[place] [address] TENRIISM TENRIISM INFUSION 6 HEALTH HEALTH HYDRATION [facility] EACH ADDITIONA L HOUR INITIAL 98111 TENRIISMDevendra HENSON OBSERVATI 6 HEALTH APRIL ON MEDICAL CARE/DAY GROUP 70 MINUTES 66335 [place] BIOPHYSIC 6 MEDICAL AL IMAGING PROFILE ASS W/O NON-STRES S TESTING [place] PREG 46337 [place] [facility] UTERUS 6 MEDICAL REAL TIME IMAGING F/[place] [address] T[facility] TENRIISM INFUSION 6 [facility]ALTH HEALTH HYDRATION [facility] INITIAL 31 MIN-1 HOUR CULTURE 34214 [facility] BACTERIAL 6 [facility] INC INC QUANTTATI VE COLONY COUNT URINE ANTIBODY 07819 [facility] T[facility]RIISM SCREEN 6 HEALTH HEALTH RBC EACH [facility] SERUM TECHNIQUE BLOOD 94876 [facility] T[facility]RIISM TYPING 6 HEALTH HEALTH SEROLOGIC [facility] G0378 TENRIISM TENRIISM OBSERVATI 6 HEALTH HEALTH ON [facility] SERVICE PER HOUR INJECTION J3105 T[facility]RIISM TENRIISM 6 HEALTH HEALTH TERBUTALI [facility] NE SULFATE UP TO 1 MG TRANSFERA 09457 [facility]ISM TENRIISM SE 6 [facility]ALTH HEALTH ASPARTATE [facility] AMINO AST SGOT TRANSFERA 77902 T[facility]RIISM TENRIISM SE 6 [facility]ALTH HEALTH ALANINE [facility] AMINO ALT SGPT BILIRUBIN 81601 [facility]ISM TENRIISM TOTAL 6 [facility] [place] [address] TENRIISM TENRIISM BLOOD/URI 6 HEALTH HEALTH C ACID [facility] 72828 TENRIISM TENRIISM NONSTRESS 6 HEALTH HEALTH TEST [facility] LACTATE 67530 TENRIISM TENRIISM DEHYDROGE 6 HEALTH HEALTH NASE LDH [facility] URNLS DIP 51587 [facility] STICK/TAB INC INC LET REAGENT AUTO MICROSCOP Y FTL 19127 [facility] FIBRONECT 6 [facility] IN INC INC CERVICOVA [place] [address] TENRIISM TENRIISM PHOSPHATA 6 [facility] [place] ALKALINE CREATININ 60205 T[facility]ISM TENRIISM E BLOOD 6 [facility] BLOOD 43646 TENRIISM TENRIISM COUNT 6 [facility] AUTO&AUTO DIFRNTL WBC 81801 [facility] BIOPHYSIC 6 PHYSICIAN PHYSICIAN AL S GROUP S GROUP PROFILE W/[place] [address] [facility] MILLIE 6 PHYSICIAN LILIBETH UTERUS S GROUP LIMITED 1/> [facility] [address] [facility] DISCHARGE [address] [place] [address] [facility] T 30 MIN/< SBSQ [id number] MEDICAL 25 GROUP [place]UT[place] PREG [address] REAL TIME MEDICAL F/U GROUP TRNSABDL PER FETUS SBSQ [address] MEDICAL 15 GROUP MINUTES INITIAL [address] [place] 70 [place] [address] [facility] 6 PHYSICIAN LILIBETH UTERUS S GROUP LIMITED 1/> [facility] [address] [facility] 6 PHYSICIAN LILIBETH AL S GROUP PROFILE W/O NON-STRES S TESTING OBSERVATI 65506 [facility] ON/INPATI 6 [facility] DANNIE CARE 50 MINUTES 38666 [facility] NONSTRESS 6 PHYSICIAN ENID TEST S GROUP RADIOLOGI 82817 [place] ALL C 6 MEDICAL EXAMINATI IMAGING ON ANKLE ASS 2 VIEWS URNLS DIP 57232 [facility] STICK/TAB INC INC LET [place]AGENT [place]CROSCOP Y 02330 [facility] NONSTRESS 6 [facility] TEST INC INC FTL 08599 [facility] FIBRONECT 6 [facility] IN INC INC CERVICOVA G SECRETION S SEMI-LAM CULTURE 34313 [facility] BACTERIAL 6 [facility] INC INC QUANTTATI VE COLONY COUNT URINE UNCLASSIF J3490 [facility] IED DRUGS 6 [facility] INC INC THERAPEUT 37948 [facility] IC 6 [facility] PROPHYLAC INC INC TIC/DX INJECTION SUBQ/IM UNCLASSIF J3490 [facility] IED DRUGS 6 [place] [address] [facility] 6 MEDICAL APRIL UTERUS IMAGING LIMITED ASS 1/> FETUSES THERAPEUT 87893 [facility] IC 6 [facility] PROPHYLAC INC INC TIC/DX INJECTION SUBQ/IM US PREG 94188 [facility] UTERUS 6 MEDICAL APRIL REAL TIME IMAGING W/IMAGE ASS DCMTN TRANSVAG URNLS DIP 76652 [facility] 6 [facility] STICK/TAB INC INC LET REAGENT [place] MICROSCOP Y 86399 [facility] NONSTRESS 6 [facility] TEST INC INC INJECTION J0595 [facility] 6 [facility] BUTORPHAN INC INC OL TARTRATE 1 MG GLUCOSE 21882 [facility] BLOOD 6 PHYSICIAN LILIBETH REAGENT S GROUP STRIP UNCLASSIF J3490 [facility] IED DRUGS 6 [place] [address] [facility] INFUSION 6 [facility] HYDRATION INC INC INITIAL 31 MIN-1 HOUR 82184 [facility] NONSTRESS 6 [facility] TEST INC INC FTL 35988 [facility] FIBRONECT 6 [facility] IN INC INC CERVICOVA G SECRETION S SEMI-LAM URNLS DIP 15691 [facility] GIB 6 [facility] STICK/TAB INC LET REAGENT AUTO MICROSCOP [place] PREG 74801 TENRIISM SRAVANTHI UTERUS 6 HEALTH MOL W/DETAIL MEDICAL GROUP HECTOR 1ST GESTATION [place] PREG 73265 TENRIISM SRAVANTHI UTERUS 6 HEALTH MOL DETAIL MEDICAL GROUP HECTOR EXAM EA GESTAT BLOOD 55403 [place] [facility] TYPING 6 G A R H G A R H SEROLOGIC RH (D) [place] PREG 87693 JOSELUIS GARZA JR UTERUS 6 KAYLA ZUNIGA ELYSE AFTER 1ST PC TRIMEST GESTATION OBSERVATI 59568 MAJOR NAVARRO ON/INPATI 6 COMP [facility] DANNIE CARE 40 MINUTES BLOOD 79972 [facility] CONNELL TYPING 6 G A R H G A R H SEROLOGIC ABO ANTIBODY 02805 [facility] SCREEN 6 G A R H G A R H RBC EACH SERUM TECHNIQUE COLLECTIO 83896 [facility] N VENOUS 6 G A R H G A R H BLOOD VENIPUNCT URE DIRECT G0379 [facility] CONNE[facility] ADMISSION 6 G A R H G A R H [facility]IENT [facility] G0378 [facility] CONNELL OBSERVATI 6 G A R H G A R H ON SERVICE PER HOUR BLOOD 94346 [facility] CONNELL COUNT 6 G A R H G A R H COMPLETE AUTO&AUTO DIFRNTL WBC URNLS DIP 61442 [facility] CONNELL 6 G A R H G A R H STICK/TAB LET REAGENT AUTO MICROSCOP Y DRUG TEST G0479 [facility] CONNELL 6 G A R H G A R H PRESUMP;I NSTRUMENT ED CHEMISTRY [facility] G0463 BECKI CONNELL OUTPATIEN 6 G A R H G A R H T CLIN VISIT ASSESS & MGMT PT OPHTH 74256 SCIFRES SCIFRES MEDICAL 6 ANG ANG XM&EVAL COMPRHNSV ESTAB PT 1/> FITTING 73558 SCIFRES SCIFRES SPECTACLE 6 ANG ANG S XCPT APHAKIA MONOFOCAL FRAMES V2020 SCIFRES SCIFRES PURCHASES 6 ANG ANG 1 VISN V2103 SCIFRES SCIFRES PLANO 6 ANG ANG TO+/-4.00 D SPHER 0.12-2.00 D CYL EA SCRATCH V2760 SCIFRES SCIFRES RESISTANT 6 ANG ANG COATING PER LENS LENS V2784 SCIFRES SCIFRES POLYCARBO 6 ANG ANG JW OR EQUAL ANY INDEX PER LENS IAADIADOO 88217 [facility] 6 N N [place] [address] [facility] 6 PHYSICIAN PHYSICIAN UTERUS S GROUP S GROUP LIMITED 1/> FETUSES US PREG 44632 [facility] UTERUS 6 PHYSICIAN PHYSICIAN REAL TIME S GROUP S GROUP F/U TRNSABDL PER FETUS US PREG 15012 [facility] [place] [facility] UTERUS 6 RADIOLOGY REAL TIME W/IMAGE DCMTN TRANSVAG IAADIADOO 87155 [facility] 6 N N INFLUENZA COMMUNTIY COMMUNTIY HOSPITA HOSPITA URNLS DIP 92779 [facility] STICK/TAB INC INC LET REAGENT AUTO MICROSCOP Y US PREG 04161 [facility] UTERUS 6 PHYSICIAN LILIBETH REAL TIME S GROUP W/IMAGE DCMTN TRANSVAG OBSTETRIC 06722 [facility] PANEL 6 [facility] INC INC IADNA 78588 [facility] CHLAMYDIA 6 [facility] INC INC TRACHOMAT IS AMPLIFIED PROBE TQ INF AGT G0432 [facility] AB DETECT 6 [facility] EIA TECH INC INC HIV-1&/HI V-2 SCR COLLECTIO 99933 [facility] N VENOUS 6 [facility] BLOOD INC INC VENIPUNCT URE IADNA 13763 [facility] NEISSERIA 6 [facility] INC INC GONORRHOE AE AMPLIFIED PROBE TQ DRUG TST G0477 [facility] [place] PRESUMP;C 6 PHYSICIAN PBL BEING S GROUP READ DC OPT OBV ONLY GONADOTRO 81373 [facility] PIN 5 COMP [facility] QUANTITAT TOMMY COLLECTIO 94768 [facility] N VENOUS 5 COMP BLOOD HEALTH VENIPUNCT DANNIE URE US PREG 13859 [facility] UTERUS 5 COMP REAL TIME HEALTH W/IMAGE DANNIE DCMTN TRANSVAG COLLECTIO 38242 [facility] N VENOUS 5 COMP BLOOD HEALTH VENIPUNCT DANNIE URE GONADOTRO 30462 [facility] PIN 5 COMP [facility] QUANTITAT TOMMY GONADOTRO 69494 [facility] PIN 5 G A R H G A R H CHORIONIC QUANTITAT TOMMY GONADOTRO 77523 [facility] PIN 5 G A R H G A R H CHORIONIC QUALITATI VE IAADIADOO 46379 [facility] 5 G A R H G A R H STREPTOCO CCUS GROUP A IAADIADOO 76407 [facility] 5 G A R H G A R H INFLUENZA COLLECTIO 32240 [facility] N VENOUS [address] [facility] BLOOD HEALTH VENIPUNCT DANNIE URE GONADOTRO 98818 [facility] PIN [address] [facility] CHORIONIC HEALTH DANNIE QUALITATI VE GONADOTRO 27626 [facility] PIN 5 COMP CAR [facility]ORIONIC HEALTH DANNIE QUALITATI VE COLLECTIO 50944 [facility] N VENOUS 5 COMP CAR [place] [address] [place] ISAB[place] ALL HEAD/BRAI 5 MEDICAL N W/O IMAGING CONTRAST ASS MATERIAL RADEX 49260 [place] KE[place] FOOT 5 MEDICAL APRIL COMPLETE IMAGING MINIMUM 3 ASS VIEWS FITTING 61321 BARBER JEANNIE BARBER JEANNIE SPECTACLE 5 S XCPT APHAKIA MONOFOCAL SCRATCH V2760 BARBER JEANNIE BARBER JEANNIE RESISTANT 5 COATING PER LENS LENS V2784 BARBER JEANNIE BARBER JEANNIE POLYCARBO 5 JW OR EQUAL ANY INDEX PER LENS 1 VISN V2103 BARBER JEANNIE BARBER JEANNIE PLANO 5 TO+/-4.00 D SPHER 0.12-2.00 D CYL EA FRAMES V2020 BARBER JEANNIE BARBER JEANNIE PURCHASES 5 OPHTH 13061 BARBER JEANNIE BARBER JEANNIE MEDICAL 5 XM&EVAL COMPRE NEW PT 1/> [place] [address] [place] KELLY ABDOMEN & 5 MEDICAL APRIL PELVIS IMAGING W/O ASS CONTRAST MATERIAL GONADOTRO 35953 [facility] [facility] PIN 5 COMP [facility] DANNIE QUALITATI VE IADNA 87584 LAB DANNIE LAB DANNIE ELIANA 5 KRISTY KRISTY SPECIES HOLDINGS [place] [address] [facility] TRANSVAGI 5 COMP NAL HEALTH DANNIE IADNA 90476 LAB D[facility] LAB DANNIE CHLAMYDIA 5 KRISTY KRISTY HOLDINGS HOLDINGS TRACHOMAT IS AMPLIFIED PROBE TQ IADNA 61120 LAB D[facility] LAB DANNIE NEISSERIA 5 KRISTY KRISTY HOLDINGS HOLDINGS GONORRHOE AE AMPLIFIED PROBE TQ COLLECTIO 27976 [facility] MAJOR N VENOUS 5 COMP COMP BLOOD HEALTH HEALTH VENIPUNCT DANNIE DANNIE URE IADNA NOS 96521 LAB DANNIE LAB DANNIE 5 KRISTY KRISTY AMPLIFIED HOLDINGS HOLDINGS PROBE TQ EACH ORGANISM IADNA 26874 LAB [facility] LAB DANNIE TRICHOMON 5 KRISTY KRISTY HOLDINGS HOLDINGS VAGIN[place] [address] [facility] [facility] AMYLASE 5 G A R H G A R H COMPREHEN 22805 [place] SIVE 5 G A R H G A R H METABOLIC PANEL BLOOD 29386 [facility] COUNT 5 G A R H G A R H COMPLETE AUTO&[place] [address] [place] LIPASE 5 G A R H G A R H GONADOTRO 42321 [place] PIN 5 G A R H G A R H CHORIONIC QUALITATI VE URNLS DIP 81129 [place] [facility] 5 G A R H G A R H STICK/TAB LET REAGENT AUTO MICROSCOP Y URINE 31767 [facility] 5 PRIMARY BA TEST CARE VISUAL COLOR CMPRSN METHS URINE 33340 SOLITARIO JON 4 PRIMARY BA TEST CARE VISUAL COLOR CMPRSN METHS RADIOLOGI 32310 SAMIRA BOLDEN BRA C 4 EXAMINATI RADIOLOGY ON PELVIS PLLC 1/2 VIEWS RADEX 60473 SAMIRA BOLDEN BRA ELBOW 4 COMPLETE RADIOLOGY MINIMUM 3 PLLC VIEWS RADEX 00984 SAMIRA BOLDEN BRA HAND 4 MINIMUM 3 RADIOLOGY VIEWS PLLC RADEX 88512 SAMIRA BOLDEN BRA SPINE 4 CERVICAL RADIOLOGY 2 OR 3 PLLC VIEWS BLOOD 45108 [place] COUNT 4 G A R H G A R H COMPLETE AUTO&AUTO DIFRNTL WBC RADIOLOGI 96534 JOSELUIS GARZA JR C EXAM 4 KAYLA ZUNIGA ELYSE CHEST 2 PC VIEWS FRONTAL&L ATERAL RADIOLOGI 16120 SAMIRA WEAVER C EXAM 4 BA CHEST 2 RADIOLOGY VIEWS PLLC FRONTAL&L ATERAL URNLS DIP 12458 [facility] [place] 4 G A R H G A R H STICK/TAB LET REAGENT AUTO MICROSCOP Y GONADOTRO 93063 [facility] PIN 4 G A R H G A R H CHORIONIC QUALITATI VE CRTCHS E0114 SAMIRA HOGAN UNDARM 4 MEDICAL MEDICAL OTH THAN CENTER CENTER WOOD PAIR PAD TIP&HNDGR IP NONINVASI 47026 SAMIRA HOGAN VE 4 [facility] EAR/PULSE CENTER CENTER OXIMETRY SINGLE DETER RADEX 20224 RACHELLE BUSH FOOT 4 GAR GAR COMPLETE MINIMUM 3 VIEWS REPAIR 60446 KIRKPATRI KIRKPATRI NAIL BED 4 CK IZZY CK IZZY REMOVAL 78977 GAUNT TIN GAUNT TIN IMPLANTAB 4 LE CONTRACEP TIVE CAPSULES KO ELAST L1820 RESPIRATO RESPIRATO W/CONDYLR 4 RY PLUS RY PLUS PADS&JNT HEALTHCA HEALTHCA PRFAB INCL FIT&ADJ US PELVIC 71212 JAYSON JAYSON 4 DEN DEN NONOBSTET [place] [address] SAMIRA BUSH ABDOMINAL 4 GAR REAL RADIOLOGY TIME PLLC W/IMAGE DOCUMENTA TION CULTURE 38943 LAB DANNIE LAB DANNIE BACTERIAL 4 OF KRISTY KRISTY HOLDINGS QUANTTATI HOLDINGS VE COLONY COUNT URINE BLOOD 93855 LAB DANNIE LAB DANNIE COUNT 4 OF KRISTY COMPLETE KRISTY HOLDINGS AUTO&AUTO HOLDINGS DIFRNTL WBC US BREAST 79796 MARGARITA MARGARITA REAL 4 PATRIA PATRIA TIME W/IMAGE DOCUMENTA TION IADNA 11471 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 CHLAMYDIA 4 Y DANNIE OF Y DANNIE OF KRISTY KRISTY TRACHOMAT H H IS AMPLIFIED PROBE TQ IADNA 36752 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 NEISSERIA 4 Y DANNIE OF Y DANNIE OF KRISTY KRISTY GONORRHOE H H AE AMPLIFIED PROBE TQ CYTP C/V 41063 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 AUTO THIN 4 Y DANNIE OF Y DANNIE OF LYR KRISTY KRISTY PREPJ SCR H H MNL RESCR PHYS HETEROPHI 07341 SAMIRA HOGAN LE 4 [facility] ANTIBODIE [facility] S SCREEN RADIOLOGI 38348 SETTLES SETTLES C EXAM 4 II ELIA II ELIA CHEST 2 VIEWS FRONTAL&L ATERAL INFUSION J7030 SAMIRA HOGAN NORMAL 4 [facility] SALINE CENTER [place] SOLUTION 1000 CC BASIC 77937 SAMIRA HOGAN METABOLIC 4 [facility] MEDICAL [place]EL [place] [address] SAMIRA HOGAN INFUSION [address] [place] [address] HYDRATION [facility] INITIAL 31 MIN-1 HOUR COLLECTIO 54941 SAMIRA HOGAN N VENOUS [address] [place] [address] BLOOD [facility] VENIPUNCT URE NONINVASI 41601 SAMIRA HOGAN VE [address] [place] [address] EAR/PULSE CENTER CENTER OXIMETRY SINGLE DETER BLOOD 97841 SAMIRA HOGAN COUNT 4 [facility] COMPLETE [facility] AUTO&AUTO DIFRNTL WBC GONADOTRO 85411 SAMIRA HOGAN PIN [address] [place] [address] CHORIONIC [place] CENTER QUALITATI VE URNLS DIP 07983 SAMIRA HOGAN [address] [place] [address] MEDICAL STICK/TAB CENTER CENTER LET REAGENT AUTO MICROSCOP Y ANESTHESI 54643 [place] ANG [place] ANG A 4 INTRAORAL WITH BIOPSY NOS LEVEL III 79011 ANNA ADLER SHE SURG 4 ADLER PATHOLOGY PSC GROSS&MELANIE ROSCOPIC EXAM TONSILLEC 91364 THOMPSON THOMPSON FRANKI 4 BA BA PRIMARY/S ECONDARY AGE 12/> RADIOLOGI 70238 OWEN WEAVER C EXAM 4 BA BA CHEST 2 VIEWS FRONTAL&L ATERAL URNLS DIP 75968 DONTRELL JON 3 BA BA STICK/TAB LET RGNT NON-AUTO W/O MICRSCP RADEX 63774 KAYLA GARZA JR FINGR 3 ELYSE ELYSE MINIMUM 2 VIEWS GENERAL 04324 LAB DANNIE LAB DANNIE HEALTH 3 KRISTY KRISTY PANEL HOLDINGS HOLDINGS LIPID 16284 LAB DANNIE LAB DANNIE PANEL 3 KRISTY KRISTY HOLDINGS HOLDINGS 25 38665 LAB DANNIE LAB DANNIE HYDROXY 3 KRISTY KRISTY INCLUDES HOLDINGS HOLDINGS FRACTIONS IF PERFORMED GONADOTRO 17685 LAB DANNIE LAB DANNIE PIN 3 KRISTY KRISTY CHORIONIC HOLDINGS HOLDINGS QUANTITAT TOMMY ECG 06291 SELPH SCO SELPH SCO ROUTINE 3 ECG W/LEAST 12 LDS I&R ONLY RADIOLOGI 67631 RACHELLE BUSH C EXAM 3 GAR GAR CHEST 2 VIEWS FRONTAL&L ATERAL RADIOLOGI 98099 KAYLA GARZA JR C EXAM 3 ELYSE ELYSE CHEST 2 VIEWS FRONTAL&L ATERAL COLLECTIO 38361 [facility] [place] N VENOUS 3 G A R H G A R H BLOOD VENIPUNCT URE PRESSURIZ 27460 B[facility] CONNELL ED/NONPRE 3 G A R H G A R H SSURIZED INHALATIO N TREATMENT ANTIBODY 15405 [facility] [place] INFLUENZA 3 G A R H G A R H VIRUS IAADI 82963 [place] INFLUENZA 3 G A R H G A R H B VIRUS HETEROPHI 37171 [place] LE 3 G A R H G A R H ANTIBODIE S SCREEN GONADOTRO 63387 [place] PIN 3 G A R H G A R H CHORIONIC QUALITATI VE DRUG SCR G0434 LAB DANNIE LABORATOR NOT 3 OF Y CHROMATOG KRISTY CORPORATI RAPHIC; HOLDINGS ON OF AM ANY NUMBER PT ENC BASIC 45985 [facility] [place] METABOLIC 3 G A R H G A R H PANEL CALCIUM TOTAL COLLECTIO 19750 [facility] N VENOUS 3 G A R H G A R H BLOOD VENIPUNCT URE GONADOTRO 03590 [place] PIN 3 G A R H G A R H CHORIONIC QUALITATI VE URNLS DIP 77639 [place] [facility] 3 G A R H G A R H STICK/TAB LET REAGENT AUTO MICROSCOP Y BLOOD 57716 [place] COUNT 3 G A R H G A R H COMPLETE AUTO&AUTO DIFRNTL WBC RADEX 02871 JOSELUIS GARZA JR FOOT 3 KAYLA ZUNIGA ELYSE COMPLETE PC MINIMUM 3 VIEWS BASIC 75565 SAMIRA HOGAN METABOLIC 3 MEDICAL MEDICAL PANEL CENTER CENTER CALCIUM IONIZED LOCM Q9967 SAMIRA HOGAN [phone] 3 MEDICAL MEDICAL MG/ML CENTER CENTER [place] [address] SAMIRA HOGAN ANGIOGRAP 3 [facility] HY CHEST CENTER CENTER W/CONTRAS T/NONCONT RAST INJECTION J1885 SHADEKARLALUCIO HOGAN 3 [facility] KETOROLAC CENTER [place] TROMETHAM INE PER 15 MG THER 17831 SAMIRA HOGAN PROPH/DX 3 [facility] NJX IV CENTER CENTER PUSH SINGLE/1S T SBST/DRUG COLLECTIO 51643 SAMIRA HOGAN N VENOUS 3 [facility] BLOOD CENTER [place] VENIPUNCT URE RADIOLOGI 03905 SAMIRA HOGAN C EXAM 3 MEDICAL MEDICAL CHEST 2 CENTER CENTER VIEWS FRONTAL&L ATERAL ECG 70545 [facility] ROUTINE 3 EMERGENCY BRA ECG SERVICES W/LEAST 12 LDS I&R ONLY NONINVASI 13402 SAMIRA HOGAN VE 3 [facility] EAR/PULSE CENTER CENTER OXIMETRY SINGLE DETER BLOOD 56059 SAMIRA OHGAN COUNT 3 MEDICAL MEDICAL COMPLETE CENTER [place] AUTO&AUTO DIFRNTL WBC GONADOTRO 55930 SAMIRA HOGAN PIN 3 [facility] CHORIONIC CENTER CENTER QUALITATI VE ECG 34814 SAMIRA HOGAN ROUTINE 3 [facility] ECG CENTER [place] W/LEAST 12 LDS TRCG ONLY W/O I&R IAADIADOO 86338 JEANIE JEANIE 3 [facility] [facility] A RADIOLOGI 54194 KELVIN WARREN C EXAM 3 OBDULIA OBDULIA CHEST 2 VIEWS FRONTAL&L ATERAL SUSCEPTIB 65981 LAB [facility] LAB DANNIE LTY STDY 3 KRISTY KRISTY ANTIMICRB HOLDINGS HOLDINGS IAL MICRO/AGA R DILUTJ CUL BACT 51634 LAB D[facility] LAB [facility] AEROBIC 3 KRISTY KRISTY ADDL HOLDINGS HOLDINGS METHS DEFINITIV E EA ISOL CULTURE 86923 LAB DANNIE LAB DANNIE BCT 3 KRISTY KRISTY ISOL&PRSM HOLDINGS HOLDINGS PTV ID ISOLATE EA URINE CULTURE 04723 LAB DANNIE LAB DANNIE BACTERIAL 3 KRISTY KRISTY HOLDINGS HOLDINGS QUANTTATI VE COLONY COUNT URINE WRIST L3908 PROFESSIO PROFESSIO HAND 3 [facility] MEDICAL MEDICAL EXT JASMINE JASMINE CONTROL COCK-UP PREFAB COLLECTIO 19109 MALIKA DALY N VENOUS 3 MELANIE MELANIE BLOOD VENIPUNCT URE URNLS DIP 28840 DONTRELL JON 3 BA BA STICK/TAB LET RGNT NON-AUTO W/O MICRSCP NONINVASI 13966 SAMIRA HOGAN 2 [facility] MEDICAL EAR/PULSE CENTER CENTER OXIMETRY SINGLE DETER CLOSED 70075 DIOR ANT DIOR ANT TREATMENT 2 NASAL FRACTURE W/O MANIPULAT ION RADEX 41475 SAMIRA HOGAN FACIAL 2 [facility] BONES CENTER CENTER COMPLETE MINIMUM 3 [place] [address] SAMIRA HOGAN ABDOMINAL 2 [facility] REAL CENTER CENTER TIME W/IMAGE LIMITED IAADIADOO 00351 JEANIE CARROLLBY 2 [facility] [place] [facility] [place] [address] ANNA ADLER SHE SURG 2 ADLER PATHOLOGY [facility] GROSS&[place] EGD 62472 ULYSSES ARORA TRANSORAL 2 DAVID DAVID BIOPSY SINGLE/MU LTIPLE ANES 65644 SAMIRA KERNS, II UPPER GI 2 [facility] ENDOSCOPY [facility] TO DUODENUM CULTURE 14853 [place] BACTERIAL 2 G A R H G A R H BLOOD AEROBIC W/ID ISOLATES CT THORAX 98755 [place] W/O 2 G A R H G A R H CONTRAST MATERIAL INJECTION J1956 [place] STUGAN 2 G A R H ANT LEVOFLOXA TOBI 250 MG GONADOTRO 83980 [place] PIN 2 G A R H G A R H CHORIONIC QUALITATI VE BLOOD 24084 [place] COUNT 2 G A R H G A R H COMPLETE AUTO&AUTO DIFRNTL WBC THER 50313 [facility] [place] PROPH/DX 2 G A R H G A R H NJX IV PUSH SINGLE/1S T SBST/DRUG INJECTION C9113 [place] 2 G A R H G A R H PANTOPRAZ OLE SODIUM PER VIAL INJECTION J2405 [place] 2 G A R H G A R H ONDANSETR ON HCL PER 1 MG LOCM Q9967 [place] 300-399 2 G A R H G A R H MG/ML IODINE CONCENTRA TION PER ML CT THORAX 53335 [place] 2 G A R H G A R H W/[place] [address] [place] ABDOMEN & 2 G A R H G A R H PELVIS W/CONTRAS T MATERIAL GONADOTRO 71302 [facility] [place] PIN 2 G A R H G A R H CHORIONIC QUALITATI VE URNLS DIP 78425 [place] 2 G A R H G A R H STICK/TAB LET REAGENT AUTO MICROSCOP Y HETEROPHI 98586 LAB [facility] LAB DANNIE LE 2 [facility] ANTIBODIE HOLDING HOLDING S SCREEN BLOOD 18190 LAB DANNIE LAB DANNIE COUNT 2 AMERIC AMERIC COMPLETE HOLDING HOLDING AUTO&AUTO DIFRNTL WBC URNLS DIP 53468 DONTRELL JON 2 BA BA STICK/TAB LET RGNT NON-AUTO W/O MICRSCP OBSERVATI 77143 DONTRELL JON ON CARE 2 BA BA DISCHARGE MANAGEMEN T INITIAL 77827 DONTRELL JON OBSERVATI 2 BA BA ON CARE/DAY 50 MINUTES INITIAL 33790 DONTRELL JON OBSERVATI 2 BA BA ON CARE/DAY [address] [place] [address] JOSELUIS GARZA JR RETROPERI 2 KAYLA KASPER PC REAL TIME W/IMAGE COMPLETE RADIOLOGI 44111 SAMIRA Houser [address] [place] [address] MEDICAL EXAMINATI CENTER CENTER ON FEMUR 2 VIEWS NONINVASI 45388 SAMIRA SAINI 2 [facility] MEDICAL EAR/PULSE CENTER CENTER OXIMETRY SINGLE DETER RADEX HIP 94387 SAMIRA HOGAN 2 [facility] L COMPLETE MINIMUM 2 VIEWS IAADIADOO 48150 DONTRELL JON 2 BA BA STREPTOCO CCUS GROUP A RADIOLOGI 85617 JOSELUIS Houser 2 KAYLA ZUNIGA ELYSE EXAMINATI PC ON KNEE 3 VIEWS OPHTH 76526 [facility] HAZELETT MEDICAL 2 ADOLFO MATA XM&EVAL COMPRE NEW PT 1/> VST RADEX 79450 KAYLA GARZA JR SPINE 2 ELYSE ELYSE CERVICAL 6 OR MORE VIEWS RADEX 64055 KAYLA GARZA JR RIBS UNI 2 ELYSE ELYSE W/POSTERO ANT CH MINIMUM 3 VIEWS OBSERVATI 86234 DONTRELL JON ON CARE 2 BA BA DISCHARGE MANAGEMEN T INITIAL 15658 DONTRELL JON OBSERVATI 2 BA BA ON CARE/DAY 50 MINUTES RADIOLOGI 73636 JOSELUIS Houser 2 KAYLA ZUNIGA ELYSE EXAMINATI PC ON CHEST SINGLE VIEW FRONTAL RADIOLOGI 15259 SAMIRA WEAVER C EXAM 2 BA CHEST 2 RADIOLOGY VIEWS PLLC FRONTAL&L ATERAL BREATHING A4618 MT MED MT MED CIRCUITS [address] [place] [address] SAMIRA WEAVER ABDOMEN & 2 BA PELVIS RADIOLOGY W/CONTRAS PLLC T MATERIAL NEBULIZER E0570 MT MED MT MED WITH 2 EQUIPMENT EQUIPMENT COMPRESSO INC INC R BLOOD 79147 LAB DANNIE LAB DANNIE COUNT 2 AMERIC AMERIC COMPLETE HOLDINGS HOLDING AUTO&AUTO DIFRNTL WBC IAADIADOO 43602 JEANIE WARE 2 [facility] [facility] A RADIOLOGI 73733 SAMIRA AVILA C 2 PATRIA EXAMINATI RADIOLOGY ON KNEE 3 PLLC VIEWS IAADIADOO 52364 DONTRELL JON 2 [place] [address] LAB DANNIE LAB DANNIE IRON 2 KRISTY KRISTY HOLDINGS HOLDINGS GENERAL 83749 LAB DANNIE LAB DANNIE HEALTH 2 KRISTY KRISTY PANEL HOLDINGS HOLDINGS 25 73975 LAB DANNIE LAB DANNIE HYDROXY 2 KRISTY KRISTY INCLUDES HOLDINGS HOLDINGS FRACTIONS IF PERFORMED CYANOCOBA 49754 LAB DANNIE LAB DANNIE KOURTNEY 2 KRISTY KRISTY VITAMIN HOLDINGS HOLDINGS B-12 IRON 14609 LAB DANNIE LAB DANNIE BINDING 2 KRISTY KRISTY CAPACITY HOLDINGS HOLDINGS COLLECTIO 07246 OVERBEE OVERBEE N VENOUS 2 GENNY GENNY BLOOD VENIPUNCT URE RADEX 38121 BECKI CONNELL SPINE 2 G A R H G A R H THORACIC 2 VIEWS URNLS DIP 29852 JON OVERBEE 2 BA GENNY STICK/TAB LET RGNT NON-AUTO W/O MICRSCP URNLS DIP 27590 JON JON 1 BA BA STICK/TAB LET RGNT NON-AUTO W/O MICRSCP RADIOLOGI 42535 JOSELUIS Houser EXAM 1 KAYLA ZUNIGA ELYSE CHEST 2 PC VIEWS FRONTAL&L ATERAL ADMN SET A7003 CARE MORE CARE MORE SM VOL 1 PHARMACY PHARMACY NONFILTR PNEUMAT NEBULIZR DISPBL RADEX 61644 JOSELUIS GARZA JR ANKLE 1 KAYLA ZUNIGA ELYSE COMPLETE PC MINIMUM 3 VIEWS RADEX 73631 JOSELUIS GARZA JR FOOT 1 KAYLA ZUNIGA ELYSE COMPLETE PC MINIMUM 3 VIEWS HETEROPHI 76787 LAB DANNIE LAB DANNIE LE 1 AMERIC AMERIC ANTIBODIE HOLDING HOLDING S SCREEN BLOOD 97194 LAB DANNIE LAB DANNIE COUNT 1 AMERIC AMERIC COMPLETE HOLDING HOLDING AUTO&AUTO DIFRNTL WBC RADIOLOGI 56819 JOSELUIS GARZA JR C EXAM 1 KAYLA ZUNIGA ELYSE KNEE PC COMPLETE 4/MORE VIEWS RADIOLOGI 54181 BECKI CONNELL C 1 G A R H G A R H EXAMINATI ON KNEE 3 VIEWS CRTCHS E0114 THE THE [facility] WOOD PAIR PAD TIP&HNDGR IP IADNA 39710 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 NEISSERIA 1 Y DANNIE OF Y DANNIE OF KRISTY KRISTY GONORRHOE H H AE AMPLIFIED PROBE TQ IADNA 63001 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 CHLAMYDIA 1 Y DANNIE OF Y DANNIE OF KRISTY KRISTY TRACHOMAT H H IS AMPLIFIED PROBE TQ CYTP C/V 47063 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 AUTO THIN 1 Y DANNIE OF Y DANINE OF LYR KRISTY KRISTY PREPJ SCR H H MNL RESCR PHYS IAADIADOO 37084 SOLITARIO OVERBEE 1 PRIMARY GENNY STREPTOCO CARE CCUS GROUP A IAADIADOO 36777 SOLITARIO OVERBEE 1 PRIMARY GENNY STREPTOCO CARE CCUS GROUP A IAADIADOO 90682 SOLITARIO OVERBEE 0 PRIMARY GENNY STREPTOCO CARE CCUS GROUP A IAADIADOO 35609 SOLITARIO OVERBEE 0 PRIMARY GENNY STREPTOCO CARE CCUS GROUP A IIV3 [address] DR[address] JON VACCINE 0 Espinoza CALL VIRUS 0.5 D ML DOSAGE IM USE INJECTION J2550 DR. JON 0 LYDIA COSME PROMETHEspinoza RODARTE INE HCL D UP TO [address] JON IC 0 LYDIA COSME PROPHYLEspinoza SERRATO TIC/DX D INJECTION SUBQ/IM RADEX 77606 [place] CLAVICLE 0 G A R H G A R H COMPLETE RADEX 32744 [place] SHOULDER 0 G A R H G A R H COMPLETE MINIMUM [address] JON 0 LYDIA COSME STICK/TAB Espinoza JON LET RGNT D NON-AUTO W/O MICRSCP SPHERE V2100 Bayron JOHNSON, SINGLE 0 [place] VISION OD PSC PLANO +/- KOD 4.00 PER LENS FITTING 15040 Bayron JOHNSON, SPECTACLE 0 [place] S XCPT OD PSC APHAKIA KOD MONOFOCAL OPHTH 75337 Bayron JOHNSON, MEDICAL 0 ALEX [place] XM&EVAL OD PSC COMPRHNSV KOD ESTAB PT 1/> US PELVIC 44968 [place] 0 G A R H G A R H NONOBSTET RAINER REAL-TIME IMAGE COMPLETE FRAMES V2020 Bayron JOHNSON, PURCHASES 0 [place] [address] JOSELUIS GARZA JR, ABDOMEN 0 KAYLA Phillip W/[place] [address] [place] LIPASE 0 G A R H G A R H COMPREHEN 58751 [place] SIVE 0 G A R H G A R H METABOLIC PANEL RADEX 22936 [place] UPPER GI 0 G A R H G A R H W/WO GLUCAGON/ [place] [address] [place] ABDOMINAL 0 G A R H G A R [place] W/[place] [address] [place] AMYLASE 0 G A R H G A R H COLLECTIO 91038 [place] N VENOUS 0 G A R H G A R H BLOOD VENIPUNCT URE URNLS DIP 23477 [place] 0 G A R H G A R H STICK/TAB LET REAGENT AUTO MICROSCOP Y RADEX 03933 [place] FINGR 0 G A R H G A R H MINIMUM 2 VIEWS IAADIADOO 98588 [facility], PRIMARY JOVANNA D [place] [address] [facility] INFLUEN[facility] MEDICAL MEDICAL A/B [facility] CENTER RADIOLOGI 58966 [facility] C MEDICAL MEDICAL EXAMINATI CENTER CENTER ON FOOT 2 VIEWS WALKING L4386 [facility] BOOT 9 [facility] NON-[facility]UM C[facility] CENTER ATIC PREFAB CUSTOM FIT RADEX 46298 JOSELUIS GARZA JR, FOOT 9 KYALA Phillip COMPLETE PC MINIMUM 3 VIEWS COLLECTIO 38172 [place] N VENOUS 9 G A R H G A R H BLOOD VENIPUNCT URE COLLECTIO 40849 [place] N 9 G A R H G A R H CAPILLARY BLOOD SPECIMEN GLUCOSE 32885 [place] TOLERANCE 9 G A R H G A R H EA ADDL BEYOND 3 SPECIMENS GLUCOSE 03960 [place] TOLERANCE 9 G A R H G A R H TEST GTT 3 SPECIMENS COLLECTIO 27829 Martell POLANCO VENOUS 9 Espinoza COMBS VENIPUNCT D URE GENERAL 64399 [facility] 9 AMERIC AMERIC PANEL HOLDING HOLDING FITTING 69405 Bayron JOHNSON, SPECTACLE 9 ALEX [place] S XCPT OD PSC APHAKIA KOD MONOFOCAL SPHERE V2100 Bayron JOHNSON, SINGLE 9 ALEX [place] VISION OD PSC PLANO +/- KOD 4.00 PER LENS FRAMES V2020 Bayron JOHNSON, PURCHASES 9 ALEX [place] OD PSC KOD OPHTH 61940 Bayron JOHNSON, MEDICAL 9 A[place] XM&EVAL OD PSC COMPRE KOD NEW PT 1/> VST KNEE L1830 [employer] [facility]TH[facility] 9 EQUIPMENT EQUIPMENT [employer] R CANVAS LONGTUDNL PREFAB RADIOLOGI 22774 LAUREN Houser 9 [facility] ON KNEE 1/2 VIEWS RADIOLOGI 93746 Mik PEREZ JR 9 KAYLA Phillip [facility] ON KNEE 3 VIEWS RADEX 77076 SAMIRA HOGAN EL[place]OW 8 [facility] MINIMUM 3 VIEWS RADEX 00361 LAUREN AGUILAR EL[facility]OW 8 [facility] MINIMUM 3 VIEWS Encounters Encounter Start End Date Code Location Performer Type Date INITIAL 52660 [facility] TH DEPT [facility] DEPT MEDICINE SOU[facility] SOU[facility]V NEW PT AGE 18-39YRS EMERGENCY 58233 YOLANDA LEVI 7 7 PHYSICIAN DEPARTMEN S, PLLC T VISIT MODERATE SEVERITY OFFICE 41890 [facility] OUTPATIEN 7 7 COMP T VISIT HEALTH 15 DANNIE MINUTES EMERGENCY 92453 YOLANDA LEVI DEPT 7 7 PHYSICIAN VISIT S, PLLC HIGH SEVERITY& THREAT [facility] - 7 7 [facility] OUTPATIEN INC T EMERGENCY 94146 [facility] 7 7 [facility] DEPARTMEN INC T VISIT HIGH/URGE NT SEVERITY [facility]OS[facility] - 7 7 N OUTPATIEN COMMUNTIY T HOSPITA EMERGENCY 47515 [facility] 7 7 N DEPARTMEN COMMUNTIY T VISIT HOSPITA MODERATE SEVERITY EMERGENCY 03381 [facility] DEPT 7 7 [place] LO VISIT EMERGENCY HIGH SERVI SEVERITY& THREAT FUNCJ EMERGENCY 94313 [place] 7 7 MEM [facility] DEPARTMEN INC T VISIT LOW/MODER SEVERITY [facility]OSP[facility] - 7 7 [facility] OUTPATIEN INC T HOSPITAL [facility] - 7 7 N OUTPATIEN COMMUNTIY T HOSPITA EMERGENCY 12304 [facility] 7 7 [place] DEPARTMEN EMERGENCY T VISIT PHYS HIGH/URGE NT SEVERITY EMERGENCY 98714 [facility] 7 7 N DEPARTMEN COMMUNTIY T VISIT HOSPITA LIMITED/M INOR PROB EMERGENCY 95176 [facility] DEPT 7 7 PHYSICIAN VISIT S, PLLC HIGH SEVERITY& [facility]AT [facility] [place] [facility] 7 7 [facility] OUTPATIEN INC T EMERGENCY 66653 [place] 7 7 [facility] DEPARTMEN INC T VISIT MODERATE SEVERITY OFFICE 74448 [facility] 15 [facility]ES [facility] [place] [facility] 6 6 G A R H OUTPATIEN T EMERGENCY 10836 [facility] 6 6 MEDICAL DEPARTMEN PARTNERS T VISIT LL MODERATE SEVERITY OFFICE 05007 SOLITARIO JON OUTPATIEN 6 6 PRIMARY T VISIT CARE 15 MINUTES OFFICE 66881 SOLITARIO JON OUTPATIEN 6 6 PRIMARY BA T VISIT CARE 15 MINUTES EMERGENCY 20513 [place] 6 6 G A R H DEPARTMEN T VISIT MODERATE SEVERITY [facility] [place] [facility] 6 6 G A R H OUTPATIEN T EMERGENCY 70868 [facility] 6 6 MEDICAL DEPARTMEN PARTNERS T VISIT LL HIGH/URGE NT SEVERITY OFFICE 93134 SOLITARIO JON OUTPATIEN 6 6 PRIMARY BA T VISIT CARE 15 MINUTES EMERGENCY 50579 [place] 6 6 [facility] DEPARTMEN CENTER T VISIT MODERATE SEVERITY EMERGENCY 63468 [place] 6 6 R OBDULIA DEPARTMEN SAMARITAN T VISIT HOSP LOW/MODER SEVERITY [facility] [place] - 6 6 [facility] OUTPAT[facility]EN CENTER T OFFICE 80539 SOLITARIO JON OUTPATIEN 6 6 PRIMARY BA T VISIT CARE 15 MINUTES OFFICE 52220 SOLITARIO JON OUTPATIEN 6 6 PRIMARY BA T VISIT CARE 15 MINUTES OFFICE 47781 SOLITARIO JON OUTPATIEN 6 6 PRIMARY BA T VISIT CARE 15 MINUTES [facility] [place] [facility] 6 6 [facility] OUT[facility] CENTER T OFFICE 16615 SOLITARIO JON OUTPATIEN 6 6 PRIMARY BA T VISIT CARE 15 MINUTES [facility] [place] [facility] 6 6 G A R H OUTPATIEN T EMERGENCY 21531 [place] 6 6 G A R H DEPARTMEN T VISIT MODERATE SEVERITY OFFICE 53357 [facility] 6 6 COMP T VISIT HEALTH 10 DANNIE MINUTES OFFICE 23344 [facility] OUT[facility] 6 6 COMP T VISIT HEALTH 15 DANNIE MINUTES [facility] [place] [facility] 6 6 G A R H OUTPATIEN T OFFICE 71290 [facility] OUT[facility]EN 6 6 COMP T VISIT HEALTH 15 DANNIE MINUTES [facility]OSP[facility] - 6 6 HEALTH OUTPATIEN [place] T OFFICE 56760 [facility] OUTPATIEN 6 6 PHYSICIAN LILIBETH T VISIT S GROUP 15 MINUTES HOSP[facility] - 6 6 HEALTH INPATIENT [place] OFFICE 28315 [facility] WON MELANIE OUTPATIEN 6 6 COMP T VISIT HEALTH 15 DANNIE MINUTES EMERGENCY 43513 YOLANDA HALE DEPT 6 6 PHYSICIAN U ANDREIA VISIT S, PLLC HIGH SEVERITY& THREAT FUNCJ [facility] 6 6 [facility] OUTPATIEN [facility] [facility] 6 6 [facility] OFF[facility] 81590 [facility] OUTPATIEN 6 6 PHYSICIAN T VISIT 5 S GROUP MINUTES OFFICE 64289 [facility] OUTPATIEN 6 6 PHYSICIAN LILIBETH T VISIT S GROUP 15 MINUTES [facility]OSP[facility] [place] [facility] 6 6 [facility] OUTPATIEN INC [facility] - 6 6 [facility] OUTPATIEN HOSP T OFFICE 44058 T[facility]RIISM SRAVANTHI CONSULTAT 6 6 HEALTH MOL ON LICENSE OF [facility] MEDICAL NEW/ESTAB GROUP PATIENT 15 MIN OFFICE 95766 [facility] OUTPATIEN 6 6 PHYSICIAN LILIBETH T VISIT S GROUP 15 MINUTES [facility]OS[facility] [place] [facility] 6 6 G A R H OUTPATIEN T OFFICE 72546 [facility] OUTPATIEN 6 6 PHYSICIAN MELANIE T NEW 30 S GROUP MINUTES EMERGENCY 63102 [facility] 6 6 [facility] OBDULIA DEPARTMEN EMERGENCY T VISIT PHYSI HIGH/URGE NT SEVERITY HOSPITAL [facility] - 6 6 N OUTPATIEN COMMUNTIY T HOSPITA EMERGENCY 10985 [facility] 6 6 N DEPARTMEN COMMUNTIY T VISIT HOSPITA MODERATE SEVERITY EMERGENCY 21156 YOLANDA BARROSO 6 6 PHYSICIAN FOR DEPARTMEN S, PLLC T VISIT MODERATE SEVERITY OFFICE 01882 [facility] MILLIE OUTPATIEN 6 6 PHYSICIAN LILIBETH T VISIT S GROUP 15 MINUTES HOSPITAL [facility] - 6 6 N OUTPATIEN COMMUNTIY T HOSPITA EMERGENCY 97826 [facility] PAT T VISIT PHYS MODERATE SEVERITY EMERGENCY 81663 YOLANDA LEVI 6 6 PHYSICIAN MELANIE [facility] T VISIT MODERATE SEVERITY EMERGENCY 50023 [place] 6 6 [facility] DEPARTMEN INC T VISIT LOW/MODER SEVERITY [facility] [place] [facility] 6 6 [facility] OUTPATIEN INC T OFFICE 61595 [facility] MILLIE HARRYPATIEN 6 6 PHYSICIAN T NEW 45 S GROUP MINUTES [facility]OSP[facility] 6 6 [facility] OUTPATIEN INC T EMERGENCY 74113 YOLANDA HUNTER 5 5 PHYSICIAN DEPARTMEN S, [facility] T VISIT HIGH/URGE NT SEVERITY EMERGENCY 29906 [place] 5 5 [facility] DEPARTMEN INC T VISIT LIMITED/M [facility] [place] - 5 5 [facility] OUTPATIEN INC T OFFICE 41255 [facility] MELANIE OUTPATIEN 5 5 COMP T VISIT HEALTH 15 DANNIE MINUTES OFFICE 39830 [facility] MELANIE OUTPATIEN 5 5 COMP T VISIT HEALTH 15 DANNIE MINUTES [facility] [place] [facility] 5 5 G A R H OUTPATIEN T EMERGENCY 72416 [facility] 5 5 [facility]ICAL [facility] DEPARTMEN PARTNERS T VISIT LL MODERATE SEVERITY EMERGENCY 69419 [place] 5 5 G A R H DEPARTMEN T VISIT MODERATE SEVERITY [facility] [place] [facility] 5 5 G A R H OUTPATIEN T EMERGENCY 46137 [facility] 5 5 MEDICAL SHANTELLE DEPARTMEN PARTNERS T VISIT LL HIGH/URGE NT SEVERITY EMERGENCY 83799 [facility] P DEPT 5 5 MEDICAL VISIT PARTNERS HIGH LL SEVERITY& THREAT FUNCJ OFFICE 20572 [facility] RIZO OUTPATIEN 5 5 COMP SHELLY T VISIT HEALTH 15 DANNIE MINUTES OFFICE 05470 [facility] ALEXANDRA STEVE OUTPATIEN 5 5 COMP CAR T VISIT HEALTH 15 DANNIE MINUTES EMERGENCY 16359 [facility] 5 5 PHYSICIAN MELANIE DEPARTMEN S, PLLC T VISIT HIGH/URGE NT SEVERITY EMERGENCY 47987 [place] 5 5 [facility] DEPARTMEN INC T VISIT LIMITED/M [facility] [place] [facility] 5 5 [facility] OUTPATIEN INC T EMERGENCY 86455 [facility] [place] 5 5 [facility] SCO DEPARTMEN EMERGENCY T VISIT PHYS MODERATE SEVERITY OFFICE 47991 [facility] OUT[facility] 5 5 COMP T NEW 30 HEALTH MINUTES DANNIE EMERGENCY 33061 [place] 5 5 G A R H DEPARTMEN T VISIT MODERATE SEVERITY [facility] [place] [facility] 5 5 G A R H OUTPATIEN T EMERGENCY 98017 [facility] 5 5 MEDICAL [facility] DEPARTMEN PARTNERS T VISIT LL HIGH/URGE NT SEVERITY OFFICE 06938 SOLITARIO JON OUTPATIEN 5 5 PRIMARY BA T VISIT CARE 15 MINUTES EMERGENCY 51061 [facility] KIRKPATRI DEPT 4 4 [facility] CK IZZY VISIT EMERGENCY HIGH PHYS SEVERITY& THREAT FUNCJ OFFICE 38600 SOLITARIO JON OUTPATIEN 4 4 PRIMARY BA T VISIT CARE 15 MINUTES EMERGENCY 34607 [facility] 4 4 [facility] VISIT EMERGENCY HIGH SERV SEVERITY& THREAT FUNCJ EMERGENCY 17271 [place] 4 4 G A R H DEPARTMEN T VISIT MODERATE SEVERITY [facility] [place] [facility] 4 4 G A R H OUTPATIEN T EMERGENCY 83122 [facility] 4 4 [facility] R OBDULIA DEPARTMEN EMERGENCY T VISIT PHYS HIGH/URGE NT SEVERITY EMERGENCY 29503 [facility] MOSER 4 4 [facility] SHANTELLE DEPARTMEN EMERGENCY T VISIT PHYS HIGH/URGE NT SEVERITY EMERGENCY 99444 [place] 4 4 G A R H DEPARTMEN T VISIT MODERATE SEVERITY [facility] [place] [facility] 4 4 G A R H OUTPATIEN T EMERGENCY 11547 MELITON MOJGAN MELITON MOJGAN 4 4 DEPARTMEN T VISIT HIGH/URGE NT SEVERITY OFFICE 33707 DONTRELL JON OUTPATIEN 4 4 BA BA T VISIT 15 MINUTES OFFICE 85694 MIGUEL MAXWELL OUTPATIEN 4 4 T NEW 45 MINUTES EMERGENCY 25076 BRIGIDOATRLaura TRUJILLOKPATRI 4 4 CK IZZY CK IZZY DEPARTMEN T VISIT HIGH/URGE NT SEVERITY EMERGENCY 05128 SAMIRA JOHNS 4 4 MEDICAL DIAGNOSTI [facility] T VISIT MODERATE SEVERITY [facility] [place] - 4 4 [facility] OUTPATIEN C[facility] T [facility] [place] - 4 4 [facility] OUT[facility] C[facility] T OFFICE 01452 DR. ABRAHAM SESAY OUTPATIEN 4 4 LYDIA T VISIT Espinoza JON 15 D MINUTES OFFICE 02386 JEANIE WARE OUTPATIEN 4 4 [facility] T VISIT [facility] MIN[facility] OFFICE 49547 JEANIE WARE OUTPATILUDWIN 4 4 [facility] T VISIT 5 HIGH HIGH MINUTES [facility] - 4 4 MEDICAL OUTPATIEN CENTER T PERIODIC 35874 GAUNT TIN GAUNT TIN PREVENTIV 4 4 E MED EST PATIENT 18-39 YRS [facility] [place] - 4 4 [facility] OUTPAT[facility]EN CENTER T EMERGENCY 66733 [place] 4 [facility] HIGH/URGE NT SEVERITY EMERGENCY 52692 KIRSTEN KIRSTEN 4 4 SRINI SRINI [facility] T VISIT MODERATE SEVERITY OFFICE 93586 THOMPSON THOMPSON CONSULTAT 4 4 BA BA ION NEW/ESTAB PATIENT 60 MIN OFFICE 72549 JEANIE JEANIE OUTPATIEN 3 3 [facility] T VISIT [facility] MINUTES OFFICE 96609 JON JON OUTPATIEN 3 3 BA BA T VISIT 15 MINUTES OFFICE 82885 JEANIE JEANIE OUTPATIEN 3 3 [facility] T VISIT [facility] 10 [facility] MINUTES OFFICE 29592 DONTRELL JON OUTPATIEN 3 3 BA BA T VISIT 15 MINUTES EMERGENCY 55443 FOSTER FOSTER 3 3 YAZMIN ARCE [facility] T VISIT MODERATE SEVERITY [facility] [place] - 3 3 [facility] OUTPATIEN CENTER T OFFICE 22615 JON JON OUTPATIEN 3 3 BA BA T VISIT 15 MINUTES OFFICE 57522 JEANIE JEANIE OUTPATIEN 3 3 [facility] T VISIT 5 HIGH HIGH MINUTES [facility] OFFICE 09529 DONTRELL JON OUTPATIEN 3 3 BA BA T VISIT 15 MINUTES EMERGENCY 24921 [facility]PH S[facility]ELPH SCO DEPT 3 3 VISIT HIGH SEVERITY& THREAT FUNCJ OFFICE 84519 SWOFFORD SWOFFORD OUTPATIEN 3 3 MAR MAR T NEW 30 MINUTES OFFICE 90530 JEANIE JEANIE OUTPATIEN 3 3 [facility] T VISIT [facility] 10 [facility] MINUTES OFFICE 56691 EUFEMIAMED LAYTON CORINNE LATYON CONSULTAT 3 3 ION NEW/ESTAB PATIENT 60 MIN OFFICE 22714 DONTRELL JON OUTPATIEN 3 3 BA BA T VISIT 15 MINUTES EMERGENCY 13168 [place] 3 3 G A R H DEPARTMEN T VISIT HIGH/URGE NT SEVERITY [facility] [place] [facility] 3 3 G A R H OUTPATIEN T EMERGENCY 08486 [facility] 3 3 ANDREIA ANDREIA VISIT HIGH SEVERITY& THREAT FUNCJ OFFICE 14970 JEANIE WARE OUTPATIEN 3 3 [facility] T VISIT 5 HIGH [facility] MINUTES [facility] OFFICE 12629 JEANIE JEANIE OUTPATIEN 3 3 [facility] T VISIT HIGH [facility] 15 [facility] MINUTES OFFICE 81650 DONTRELL JON OUTPATIEN 3 3 BA BA T VISIT 15 MINUTES [facility] [place] [facility] 3 3 G A R H OUTPATIEN T EMERGENCY 33591 [place] 3 3 G A R H DEPARTMEN T VISIT MODERATE SEVERITY EMERGENCY 33994 LETICIA P LETIC[facility] P 3 3 DEPARTMEN T VISIT HIGH/URGE NT SEVERITY OFFICE 42735 DONTRELL JON OUTPATIEN 3 3 BA BA T VISIT 15 MINUTES OFFICE 46257 DONTRELL JON OUTPATIEN 3 3 BA BA T VISIT 15 MINUTES EMERGENCY 05296 [place] 3 3 G A R H DEPARTMEN T VISIT MODERATE SEVERITY [facility] [place] [facility] 3 3 G A R H OUTPATIEN T OFFICE 99927 JEANIE JEANIE OUTPATIEN 3 3 [facility] T VISIT 5 HIGH HIGH MINUTES [facility] EMERGENCY 99796 [place] 3 3 [facility] DEPART[facility] CENTER T VISIT HIGH/URGE NT SEVERITY [facility] [place] [facility] 3 3 [facility] OUTPAT[facility]EN CENTER T EMERGENCY 28174 [facility] DEPT 3 3 EMERGENCY BRA VISIT SERVICES HIGH SEVERITY& THREAT FUNCJ OFFICE 99029 JEANIE WARE OUTPATIEN 3 3 [facility] T VISIT [facility] 15 [facility] MIN[facility] OFFICE 81643 MALIKA DALY OUTPATIEN 3 3 [facility] VIS[facility] 15 MINUTES OFFICE 50102 JEANIE WARE OUTPATIEN 3 3 [facility] T VISIT [facility] 10 [facility] MINUTES OFFICE 00470 JEANIE WARE OUTPATIEN 3 3 [facility] T VISIT [facility] 10 [facility] MINUTES OFFICE 61293 DONTRELL JON OUTPATIEN 3 3 BA BA T VISIT 15 MINUTES OFFICE 40139 DONTRELL JON OUTPATIEN 3 3 BA BA T VISIT 15 MINUTES OFFICE 51955 DONTRELL JON OUTPATIEN 3 3 BA BA T VISIT 15 MINUTES [facility] [place] [facility] 3 3 [facility] OUT[facility]EN CENTER T OFFICE 46542 JEANIE WARE OUTPATIEN 3 3 [facility] T VISIT [facility] 10 [facility] MINUTES OFFICE 93836 DONTRELL JON OUTPATIEN 3 3 BA BA T VISIT 15 MINUTES OFFICE 84167 DONTRELL JON OUTPATIEN 3 3 BA BA T VISIT 15 MINUTES OFFICE 38526 JEANIE WARE OUTPATIEN 3 3 [facility] T VISIT 5 HIGH HIGH MINUTES [facility] OFFICE 74220 DONTRELL JON OUTPATIEN 3 3 BA BA T VISIT 15 MINUTES OFFICE 73624 JEANIE WARE OUTPATIEN 3 3 [facility] T VISIT [facility] 15 [facility] MINUTES OFFICE 86478 JEANIE CARROLLBY OUTPATIEN 3 3 [facility] T VISIT H[facility] 10 [facility] MINUTES OFFICE 74682 JEANIE CARROLLBY OUTPATIEN 3 3 [facility] T VISIT [facility] 10 [facility] MINUTES OFFICE 74872 MALIKA DALY OUTPATIEN 3 3 MELANIE MELANIE T VISIT 15 MINUTES OFFICE 81587 JON JON OUTPATIEN 3 3 BA BA T VISIT 15 MINUTES OFFICE 08438 ULYSSES ARORA OUTPATIEN 2 2 DAVID HERNANDEZ T VISIT 15 MINUTES OFFICE 18853 JEANIE WARE OUTPATIEN 2 2 [facility] T VISIT 5 HIGH HIGH MINUTES [facility] [place] - 2 2 MEDICAL OUTPATIEN CENTER T EMERGENCY 80020 [place] 2 2 [facility] DEPART[facility] CENTER T VISIT MODERATE SEVERITY EMERGENCY 01089 DIOR ANT DIOR ANT 2 2 DEPARTMEN T VISIT HIGH/URGE NT SEVERITY OFFICE 17745 JEANIE WARE OUTPATIEN 2 2 [facility] T VISIT 5 HIGH HIGH MINUTES [facility] [place] - 2 2 MEDICAL OUTPATIEN CENTER T OFFICE 35541 JEANIE WARE OUTPATIEN 2 2 [facility] T VISIT H[facility] OFFICE 93309 ARORA ULYSSES OUTPATIEN 2 2 DAVID HERNANDEZ T NEW 30 MINUTES EMERGENCY [address] [facility] 2 2 MEDICAL [facility]CTOR DEPARTMEN PARTNERS T VISIT LL HIGH/URGE NT SEVERITY EMERGENCY 76137 [place] 2 2 G A R H DEPARTMEN T VISIT MODERATE SEVERITY [facility] [place] [facility] 2 2 G A R H OUTPATIEN T [facility] [place] [facility] 2 2 G A R H OUTPATIEN T EMERGENCY 94024 [place] 2 2 G A R H DEPARTMEN T VISIT HIGH/URGE NT SEVERITY OFFICE 89403 DONTRELL JON OUTPATIEN 2 2 BA BA T VISIT 15 MINUTES OFFICE 52927 JEANIE WARE OUTPATIEN 2 2 [facility] T VISIT [facility] OFFICE 54265 JEANIE CARROLLBY OUTPATIEN 2 2 [facility] T VISIT H[facility] MIN[facility] OFFICE 00203 JEANIE WARE OUTPATIEN 2 2 [facility] T VISIT [facility] MIN[facility]ES OFFICE 34378 DONTRELL JON OUTPATIEN 2 2 [facility] T VISIT 15 MINUTES OFFICE 08286 JEANIE WARE OUTPATIEN 2 2 [facility] T VISIT [facility] MIN[facility]ES OFFICE 05711 JEANIE WARE OUTPATIEN 2 2 [facility] T VISIT 5 HIGH HIGH MINUTES [facility] OFF[facility] 46585 JEANIE WARE OUTPATIEN 2 2 [facility] T VISIT 5 HIGH HIGH MINUTES [facility] OFFICE 80673 OVERBEE OVERBEE OUTPATIEN 2 2 GENNY GENNY T VISIT 15 MINUTES OFFICE 96308 JEANIE WARE OUTPATIEN 2 2 [facility] T VISIT [facility] 10 [facility] MIN[facility]ES OFFICE 11235 JEANIE WARE OUTPATIEN 2 2 [facility] T VISIT [facility] 10 [facility] MIN[facility]ES OFFICE 96319 JEANIE WARE OUTPATIEN 2 2 [facility] T VISIT [facility] 10 [facility] MIN[facility]ES OFFICE 60482 MALIKA DALY OUTPATIEN 2 2 MELANIE MELANIE T VISIT 15 MINUTES OFFICE 32169 JEANIE WARE OUTPATIEN 2 2 [facility] T VISIT [facility] 10 [facility] MINUTES OFFICE 52648 JEANIE CARROLLBY OUTPATIEN 2 2 [facility] T [facility]ISIT 5 HIGH HIGH MINUTES [facility] OFFICE 99147 JEANIE JEANIE OUTPATIEN 2 2 [facility] T VISIT [facility] 10 [facility] MIN[facility]ES OFFICE 61763 JEANIE JEANIE OUTPATIEN 2 2 [facility] T VISIT [facility] 10 [facility] MIN[facility]ES OFFICE 68713 JEANIE WARE OUTPATIEN 2 2 [facility] T VISIT [facility] 10 [facility] MIN[facility]ES OFFICE 90973 DONTRELL JON OUTPATIEN 2 2 BA BA T VISIT 15 MINUTES [facility] [place] [facility] 2 2 [facility] OUTPAT[facility]EN CENTER T EMERGENCY 53659 [facility]STR[facility] 2 2 EMERGENCY DEPARTMEN SERVICES T VISIT MODERATE SEVERITY OFFICE 06643 JEANIE JEANIE OUTPATIEN 2 2 [facility] T VISIT [facility]ES OFFICE 54405 JEANIE JEANIE OUTPATIEN 2 2 [facility] T VISIT [facility] 10 [facility] MIN[facility]ES OFFICE 14663 DONTRELL JON OUTPATIEN 2 2 BA BA T VISIT 15 MINUTES [facility] [place] [facility] 2 2 G A R H OUTPATIEN T EMERGENCY 84734 [facility] 2 2 MEDICAL DEPARTMEN PARTNERS T VISIT LL MODERATE SEVERITY OFFICE 67044 DONTRELL JON OUTPATIEN 2 2 BA BA T VISIT 25 MINUTES EMERGENCY 76654 [facility] 2 2 MEDICAL DON VISIT PARTNERS HIGH LL SEVERITY& THREAT FUNCJ OFFICE 17120 DONTRELL JON OUTPATIEN 2 2 BA BA T VISIT 15 MINUTES OFFICE 27666 JEANIE WARE OUTPATIEN 2 2 [facility] T VISIT [facility]ES OFFICE 38929 JEANIE WARE OUTPATIEN 2 2 [facility] T VISIT [facility] 10 [facility] MIN[facility]ES OFFICE 49006 JEANIE WARE OUTPATIEN 2 2 [facility] T VISIT [facility] 10 [facility] MIN[facility] OFFICE 19942 DONTRELL JON OUTPATIEN 2 2 BA BA T VISIT 15 MINUTES OFFICE 22329 DONTRELL JON OUTPATIEN 2 2 BA BA T VISIT 15 MINUTES OFFICE 26454 JEANIE JEANIE OUTPATIEN 2 2 [facility] OFFICE 73628 DONTRELL JON OUTPATIEN 2 2 BA BA T VISIT 15 MINUTES OFFICE 98407 JEANIE JEANIE OUTPATIEN 2 2 [facility]ES OFFICE 37220 JEANIE WARE OUTPATIEN 2 2 [facility] MINUTES EMERGENCY 34942 MINIX CASSY MINIX CASSY 2 2 DEPARTMEN T VISIT MODERATE SEVERITY OFFICE 85866 DONTRELL JON OUTPATIEN 2 2 BA BA T VISIT 15 MINUTES OFFICE 11114 DONTRELL JON OUTPATIEN 2 2 BA BA T VISIT 15 MINUTES OFFICE 78427 JEANIE WARE OUTPATIEN 2 2 [facility] T VISIT [facility] 10 [facility] MIN[facility]ES OFFICE 00299 JEANIE JEANIE OUTPATIEN 2 2 [facility] T VISIT [facility] MIN[facility]ES OFFICE 40995 DONTRELL JON OUTPATIEN 2 2 BA BA T VISIT 15 MINUTES [facility] [place] [facility] 2 2 G A R H OUTPATIEN T OFFICE 78790 DONTRELL STYLES OUTPATIEN 2 2 BA GENNY T VISIT 15 MINUTES OFFICE 02591 JEANIE WARE OUTPATIEN 1 1 [facility] OFFICE 97837 DONTRELL JON OUTPATIEN 1 1 BA BA T VISIT 15 MINUTES OFFICE 53769 JEANIE WARE OUTPATIEN 1 1 [facility] T [facility]IS[facility] [place] [facility] 1 G A R H OUTPATIEN T OFFICE 48191 SOLITARIO STYLES OUTPATIEN 1 1 [facility] T VISIT CARE 15 MINUTES OFFICE 44534 JEANIE JEANIE OUTPATIEN 1 1 [facility] T VISIT [facility] 15 [facility]ES OFFICE 25460 SOLITARIO OVERBEE OUTPATIEN 1 1 [facility] T [facility]ISIT CARE 15 MINUTES [facility] [place] [facility] 1 [facility] OUTPATIEN T OFFICE 69092 JEANIE JEANIE OUTPATIEN 1 1 [facility] T VISIT [facility]ES OFFICE 69485 SOLITARIO OVERBEE OUTPATIEN 1 1 [facility] T VISIT CARE 15 MINUTES OFFICE 15042 SOLITARIO OVERBEE OUTPATIEN 1 1 [facility] T VISIT CARE 15 MINUTES OFFICE 48862 SOLITARIO OVERBEE OUTPATIEN 1 1 [facility] T VISIT CARE 15 MINUTES OFFICE 64669 SOLITARIO OVERBEE OUTPATIEN 1 1 [facility] T VISIT CARE 15 MINUTES [facility] [place] [facility] 1 G A R H OUTPATIEN T OFFICE 58543 SOLITARIO OVERBEE OUTPATIEN 1 1 [facility] T VISIT CARE 15 MINUTES INITIAL 87442 GAUNT TIN GAUNT TIN PREVENTIV 1 1 E MEDICINE NEW PT AGE 12-17 YR OFFICE 01130 JEANIE JEANIE OUTPATIEN 1 1 [facility] T VISIT [facility]ES OFFICE 87652 SOLITARIO OVERBEE OUTPATIEN 1 1 [facility] T VISIT CARE 15 MINUTES OFFICE 43167 JEANIE JEANIE OUTPATIEN 1 1 [facility] T VISIT [facility]ES OFFICE 88684 JEANIE JEANIE OUTPATIEN 1 1 [facility] T VISIT [facility] 15 [facility] MIN[facility]ES OFFICE 74391 JEANIE JEANIE OUTPATIEN 1 1 [facility] T VISIT [facility] MIN[facility]ES OFFICE 29364 JEANIE JEANIE OUTPATIEN 1 1 [facility] T VISIT [facility] 10 [facility] MIN[facility]ES OFFICE 01244 JEANIE JEANIE OUTPATIEN 1 1 [facility] T VISIT [facility] MIN[facility]ES OFFICE 39423 JEANIE JEANIE OUTPATIEN 1 1 [facility] T VISIT [facility] MIN[facility]ES OFFICE 13966 JEANIE JEANIE OUTPATIEN 1 1 [facility] T VISIT [facility] 10 [facility] MIN[facility]ES OFFICE 54457 JEANIE JEANIE OUTPATIEN 1 1 [facility] T VISIT [facility] OFF[facility] 71071 [facility] OVERBEE OUTPATIEN 1 1 [facility] 15 MINUTES OFFICE 05245 JEANIE JEANIE OUTPATIEN 1 1 [facility] 43642 JEANIE JEANIE OUTPATIEN 1 1 [facility] OFFICE 45404 [facility] OVER[facility] OUTPATIEN 1 1 [facility]IS[facility] CARE 15 MINUTES OFFICE 50065 JEANIE JEANIE OUTPATIEN 1 1 [facility]ES OFF[facility] 49502 JEANIE JEANIE OUTPATIEN 1 1 [facility] OFFICE 71856 [facility] OVERB[facility] OUTPATIEN 1 1 [facility] 15 MINUTES OFFICE 56716 JEANIE JEANIE OUTPATIEN 1 1 [facility]ES OFF[facility] 52776 JEANIE JEANIE OUTPATIEN 1 1 [facility]ES OFFICE 00199 JEANIE JEANIE OUTPATIEN 1 1 [facility] OFFICE 26052 [facility] OVER[facility] OUTPATIEN 1 1 [facility] 15 MINUTES OFFICE 97978 [facility] OVERBEE OUTPATIEN 1 1 [facility] 15 MINUTES OFFICE 09690 JEANIE JEANIE OUTPATIEN 1 1 [facility]ES OFF[facility] 50408 JEANIE JEANIE OUTPATIEN 0 0 [facility] OFF[facility] 72088 [facility] OVER[facility] OUTPATIEN 0 0 [facility] 15 MINUTES OFFICE 54115 JEANIE JEANIE OUTPATIEN 0 0 [facility] [address]370 DR[facility] MALIKA HARRYPATIEN 0 0 LYDIA Ramsay VISIT [facility] JON 15 D MINUTES OFFICE 82176 JEANIE JEANIE OUTPATIEN 0 0 [facility] OFF[facility] 94274 [facility] OVER[facility] OUTPATIEN 0 0 [facility] 15 MINUTES OFFICE 01734 JEANIE JEANIE OUTPATIEN 0 0 [facility]ES [facility] 44561 JEANIE JEANIE OUTPATIEN 0 0 [facility] 38657 DR. MALIKA HARRYPATIEN 0 0 LYDIA Ramsay VISIT [facility] JON 15 D MINUTES OFFICE 95247 JEANIE JEANIE OUTPATIEN 0 0 [facility]ES [facility] 67099 JEANIE JEANIE OUTPATIEN 0 0 [facility] 54774 DR. DONTRELL CIFUENTES 0 0 LYDIA Ramsay VISIT [facility] D [facility]ES [facility] 25005 DR. JON OUTPATIEN 0 0 LYDIA Ramsay VISIT [facility] JON 15 D MIN[address]ES OFF[address] DR[address] JON OUTPATIEN 0 0 LYDIA COSME Devendra VISIT [facility] JON 15 D MIN[address] OFFICE [address]440 DR. JON, OUTPATIEN 0 0 LYDIA Ramsay VISIT [facility] JON [facility] D [facility]ES [facility] [place] [facility] [place] [facility] 0 [facility] OUTPATIEN T OFFICE 02873 DR. JON, OUTPATIEN 0 0 LYDIA Ramsay VISIT [facility] JON 15 D MINUTES [facility] [place] [facility] 0 [facility] OUTPATIEN T EMERGENCY 08168 [place] 0 0 G A [facility] DEPARTMEN T VISIT LOW/MODER SEVERITY EMERGENCY 28430 [facility], 0 0 [facility] ROXANA Mull[facility] HIGH/URGE NT SEVERITY OFFICE 25425 JODY VERA OUTPATIEN 0 0 ELEMENTAR ELEMENTAR T VISIT Y Y 10 MINUTES [facility] [place] [facility] 0 0 [facility]PATI[facility] T EMERGENCY [address] [facility] 0 0 MEDICAL , DEIDRE [facility] MODERATE SEVERITY EMERGENCY 14992 [place] 0 0 G A R H DEPARTMEN T VISIT LOW/MODER SEVERITY OFFICE 16434 JODY VERA OUTPATIEN 0 0 ELEMENTAR ELEMENTAR T VISIT Y Y [address] JON, OUTPATIEN 0 0 LYDIA FREEMAN Devendra VISIT [facility] JON 15 D MINUTES OFFICE 45118 [facility] LEMUS OUTPATIEN 0 0 [facility] T [facility] CARE 15 MINUTES OFFICE 73106 [facility] ALLAN, OUTPATIEN 9 9 [facility] D T VISIT CARE 15 MINUTES [facility] [place] [facility] T OFFICE 48658 [facility] [place] [facility] 9 9 HEALTH ELEMENTAR T VISIT CENTRAL Y 10 BANK ACCT MINUTES OFFICE [id number] [facility] [place] [facility] 9 9 HEALTH ELEMENTAR T NEW 20 CENTRAL Y MINUTES BANK ACCT OFFICE 14069 SOLITARIO ALLAN, OUTPATIEN 9 9 PRIMARY JOVANNA D T VISIT CARE 15 MINUTES OFFICE 49333 SOLITARIO ALLAN, OUTPATIEN 9 9 PRIMARY JOVANNA D T VISIT CARE 15 MINUTES [facility] [place] [facility] 24199 MARISA LORENZO 9 9 [facility] NEW/ESTAB [facility] PATIENT 40 MIN OFFICE 12616 SOLITARIO ALLAN, OUTPATIEN 9 9 PRIMARY JOVANNA D T VISIT CARE 15 MINUTES [facility] [place] - 9 9 G A R H OUTPATIEN T EMERGENCY [id number] [place] 9 9 G A R H DEPARTMEN T VISIT LOW/MODER SEVERITY EMERGENCY [address] [facility] [place] MIGUEL ÁNGEL, 9 9 [facility] MODERATE SEVERITY OFFICE 93843 SOLITARIO ALLAN, OUTPATIEN 9 9 PRIMARY JOVANNA D T VISIT CARE 15 MINUTES [facility] [place] [facility] 9 9 G A R H OUTPATIEN T OFFICE 18558 ESAU POLANCO 9 9 LYDIA Ramsay VISIT Espinoza JON 15 D MINUTES OFFICE 48039 ESAU POLANCO 9 9 LYDIA Ramsay VISIT Espinoza JON 15 D MINUTES OFFICE 00049 SOLITARIO LEMUS, OUTPATIEN 9 9 PRIMARY JOVANNA D T VISIT CARE 15 MINUTES OFFICE 73140 SOLITARIO DODSONOME, OUTPATIEN 9 9 PRIMARY JOVANNA D T VISIT CARE 15 MINUTES [facility]OSP[facility] - 9 9 [facility] T EMERGENCY 41635 AGU[facility] 9 9 [facility] T VISIT MODERATE SEVERITY OFFICE [address]1793 DR. OJN, OUTPATIEN 9 9 LYDIA FREEMAN T VISIT Espinoza JON 15 D MINUTES OFFICE 17723 SOLITARIO LEMUS, OUTPATIEN 8 8 PRIMARY JOVANNA Phillip T VISIT CARE 15 MINUTES [facility] - 8 8 [facility] OFF[facility] 76175 ALLAN, ALLAN, OUTPATIEN 8 8 JOVANNA D JOVANNA D T NEW 20 MINUTES HOSPITAL [facility] - 8 8 [facility] T EMERGENCY 08338 LAUREN 8 8 [facility] T VISIT LIMITED/M INOR PROB OFFICE 95820 ALICJA VAZQUEZ [facility] 8 8 [facility] JESSIKA T VISIT MED [facility] 10 MINUTES
--- OUTSIDE RECORDS SUMMARY | 2016-12-12 22:33 | External Medical Summary Rpt ---
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 [place] [address] [facility] ABDOMEN & 7 [facility] PELVIS INC INC W/[place] [address] [facility] LIPASE 7 [facility] INC INC BLOOD 75145 [facility] COUNT 7 [facility] COMPLETE INC INC AUTO&AUTO DIFRNTL WBC FINAL G9638 CARMELA BLAIR REPORTS 7 MEDICAL W/O DOC IMAGING 1/MORE ASS DOSE REDUCTION TECH URINE 96899 [facility] REISON [facility] TEST INC INC [place] [address] [facility] AMYLASE 7 [facility] INC INC COMPREHEN 63677 [facility] SIVE 7 [facility] METABOLIC INC INC PANEL THER 21663 [facility] PROPH/DX 7 [facility] NJX IV INC INC PUSH SINGLE/1S T SBST/DRUG THER 96066 [facility] PROPH/DX 7 N N NJX IV COMMUNTIY COMMUNTIY PUSH HOSPITA HOSPITA SINGLE/1S T SBST/DRUG INJECTION J1885 [facility] 7 N N KETOROLAC COMMUNTIY COMMUNTIY HOSPITA HOSPITA TROMETHAM INE PER 15 MG INFUSION J7030 [facility] NORMAL 7 N N SALINE COMMUNTIY COMMUNTIY SOLUTION HOSPITA HOSPITA 1000 CC COMPREHEN 96297 [facility] SIVE 7 N N METABOLIC COMMUNTIY [place] [address] [facility] INFUSION 7 N N HYDRATION COMMUNTIY COMMUNTIY EACH HOSPITA HOSPITA ADDITIONA L HOUR URINE 49683 [facility] 7 N N TEST COMMUNTIY COMMUNTIY VISUAL HOSPITA HOSPITA COLOR CMPRSN METHS BLOOD 62869 [facility] COUNT 7 N N COMPLETE COMMUNTIY COMMUNTIY AUTO&AUTO HOSP[place] [address] [facility] LIPASE 7 N N COMMUNTIY COMMUNTIY HOSPITA HOSPITA URNLS DIP 73819 [facility] 7 N N STICK/TAB COMMUNTIY COMMUNTIY LET HOSPITA HOSPITA REAGENT AUTO MICROSCOP Y THERAPEUT 35745 [facility] IC 7 [facility] PROPHYLAC INC INC TIC/DX INJECTION SUBQ/IM URINE 15716 [facility] 7 N N TEST COMMUNTIY COMMUNTIY VISUAL HOSPITA HOSPITA COLOR CMPRSN METHS URNLS DIP 11293 [facility] 7 N N STICK/TAB COMMUNTIY COMMUNTIY LET HOSPITA HOSPITA REAGENT AUTO MICROSCOP Y URNLS DIP 79470 [facility] STICK/TAB [place] [address] [facility] KELLY ABDOMEN & 7 MEDICAL PELVIS IMAGING W/O ASS CONTRAST MATERIAL FINAL G9551 [facility] KELLY REPR ABD 7 MEDICAL IMAG STS IMAGING W/O ASS INCID[place] F[place]: [place] [address] [facility] LIPASE 7 [facility] INC INC BLOOD 83893 [facility] COUNT 7 [facility] COMPLETE INC INC AUTO&[place] [address] [facility] AMYLASE 7 [facility] INC INC SUSCEPTIB 57932 [facility] LTY STDY 7 [facility] ANTIMICRB INC INC IAL MICRO/AGA R DILUTJ FINAL G9638 CARMELA KELLY REPORTS 7 MEDICAL W/O DOC IMAGING 1/MORE ASS DOSE REDUCTION TECH URINE 85560 [facility] TEST INC INC VISUAL COLOR CMPRSN METHS CUL BACT 00772 [facility] XCPT 7 [facility] URINE INC INC BLOOD/STO OL AEROBIC ISOL COMPREHEN 35943 [facility] SIVE 7 [facility] METABOLIC INC INC PANEL CUL BACT 43546 [facility] AEROBIC 7 [facility] ADDL INC INC METHS DEFINITIV E EA ISOL BREATHING A4618 [facility] HOME [facility] HOME CIRCUITS 7 MEDICAL MEDICAL NEBULIZER E0570 [facility] HOME [facility] HOME WITH 7 MEDICAL MEDICAL COMPRESSO R IAADIADOO 03676 [facility] 6 G A R H G A R H INFLUENZA URNLS DIP 27131 [facility] 6 G A R H G A R H STICK/TAB LET REAGENT AUTO MICROSCOP Y GONADOTRO 61401 [facility] PIN 6 G A R H G A R H CHORIONIC QUALITATI VE GONADOTRO 20414 [facility] PIN 6 G A R H G A R H CHORIONIC QUALITATI VE URNLS DIP 36333 [facility] 6 G A R H G A R H STICK/TAB LET REAGENT AUTO MICROSCOP Y CULTURE 87399 [facility] BACTERIAL 6 G A R H G A R H QUANTTATI VE COLONY COUNT URINE NONINVASI 14007 [facility] VE 6 [facility] EAR/PULSE CENTER [place] OXIMETRY SINGLE DETER RADEX 35559 [facility] ABDOMEN [address] [place] [address] [place] [address] [facility] ABDOMINAL 6 GAR REAL RADIOLOGY TIME PLLC W/IMAGE LIMITED INJECTION J1885 [facility] 6 G A R H G A R H KETOROLAC TROMETHAM INE PER 15 MG THER 51739 [facility] PROPH/DX 6 G A R H G A R H NJX IV PUSH SINGLE/1S T SBST/DRUG CULTURE 43350 [facility] BACTERIAL 6 G A R H G A R H QUANTTATI VE COLONY COUNT URINE COMPREHEN 15761 [facility] SIVE 6 [place] [address] [facility] INFUSION 6 G A R H G A R H HYDRATION EACH ADDITIONA L HOUR THERAPEUT 88658 [facility] IC 6 G A R H G A R H [place] [address] [facility] AMYLASE 6 G A R H G A R H IAADIADOO 23125 [facility] 6 G A R H G A R H INFLUENZA INJECTION J2550 [facility] 6 G A R H G A R H PROMETHAZ INE HCL UP TO 50 MG COLLECTIO 16471 [facility] N VENOUS 6 G A R H G A R H BLOOD VENIPUNCT URE URNLS DIP 45129 [facility] 6 G A R H G A R H STICK/TAB [place] [address] [facility] CONNELL LIPASE 6 G A R H G A R H BLOOD 79147 [facility] COUNT 6 G A R H G A R H COMPLETE AUTO&AUTO DIFRNTL WBC BLOOD 39643 [facility] [place] MEL[facility]IE COUNT 6 COMP COMPLETE HEALTH AUTOMATED DANNIE LACTATE 20320 LAB DANNIE LAB DANNIE DEHYDROGE 6 KRISTY KRISTY [place] [address] MAJOR NAVARRO BLOOD/URI 6 COMP C ACID HEALTH DANNIE COMPREHEN 84169 MAJOR NAVARRO SIVE 6 COMP METABOLIC HEALTH PANEL DANNIE ANESTHESI 60332 [place] DEN A 6 ANESTHESI A GROUP DELIVERY PS ONLY 79427 [facility] [place] MELANIE DELIVERY 6 COMP ONLY HEALTH DANNIE BREAST E0603 [facility] HOME [facility] HOME PUMP 6 MEDICAL MEDICAL ELECTRIC ANY TYPE IADNA 17251 LAB [facility] LAB DANNIE TRICHOMON 6 KRISTY KRISTY [employer] HOLD[employer] VAGINALIS AMPLIFIED PROBE TECH IADNA 84996 LAB [facility] LAB DANN[facility] NEISSERIA 6 KRISTY KRISTY [employer] HOLDINGS GONORRHOE AE AMPLIFIED PROBE TQ IADNA NOS 33124 LAB D[facility] LAB DANNIE 6 KRISTY KRISTY AMPLIFIED HOLDINGS HOLDINGS PROBE TQ EACH ORGANISM IADNA 88297 LAB [facility] LAB DANNIE CHLAMYDIA 6 KRISTY KRISTY [employer]INGS HOLDINGS TRACHOMAT IS AMPLIFIED PROBE TQ IADNA 37984 LAB [facility] LAB DANNIE ELIANA 6 KRISTY KRISTY SPECIES HOLDINGS HOLDINGS AMPLIFIED PROBE TQ DRUG TEST G0479 [facility] 6 G A R H G A R H PRESUMP;I NSTRUMENT ED CHEMISTRY ANLYZER EVAL C/V 32137 [facility] AMNIOTIC 6 G A R H G A R H FLUID PROTEIN QUAL EA SPECIMEN INJECTION J0690 [facility] 6 G A R H G A R H CEFAZOLIN SODIUM 500 MG INJECTION J3105 [facility] 6 G A R H G A R H TERBUTALI NE SULFATE UP TO 1 MG COLLECTIO 95027 PR[facility]IRIE [facility] RO[facility] WON MELANIE N VENOUS 6 COMP BLOOD HEALTH VENIPUNCT DANNIE URE SYPHILIS 16407 LAB DANNIE LAB DANNIE TEST 6 KRISTY KRISTY NON-TREPO HOLDINGS HOLDINGS NEMAL ANTIBODY QUAL RADEX ABD 13815 PRAIRIE [facility] ROCHER WON MELANIE 6 COMP ANTEROPOS HEALTH T&ADDL DANNIE OBLQ&CONE VIEWS BLOOD 75749 [facility] COUNT 6 COMP COMP COMPLETE HEALTH HEALTH AUTOMATED DANNIE DANNIE 52978 [facility] NONSTRESS 6 HEALTH HEALTH TEST [facility] [place] [address] OR[facility] ORTHODOXY INFUSION 6 HEALTH HEALTH HYDRATION [facility] EACH ADDITIONA L HOUR OBSERVATI 23317 JOSE G HENSON ON CARE 6 HEALTH APRIL DISCHARGE MEDICAL GROUP MANAGEMEN T DOPPLER 08333 [facility] VELOCIMET 6 [facility] RY INC INC UMBILICAL ARTERY BLOOD 78930 [facility] TYPING 6 HEALTH HEALTH SEROLOGIC [facility] RH (D) UNCLASSIF J3490 [facility] IED DRUGS 6 [facility] INC INC THERAPEUT 64017 [facility] ORTHODOX[facility] IC 6 HEALTH HEALTH PROPHYLAC [facility] TIC/[place] INJECTION SUBQ/[place] [address] [facility] ORTHODOXY INFUSION 6 HEALTH HEALTH HYDRATION [facility] EACH ADDITIONA L HOUR INITIAL 49607 ORTHODOXYDevendra HENSON OBSERVATI 6 HEALTH APRIL ON MEDICAL CARE/DAY GROUP 70 MINUTES 62428 [place] ISABEL ALL BIOPHYSIC 6 MEDICAL AL IMAGING PROFILE ASS W/O NON-STRES S TESTING US PREG 57663 [place] IS[place] ALL UTERUS 6 MEDICAL REAL TIME IMAGING F/[place] [address] [facility] OR[facility] INFUSION 6 HEALTH HEALTH HYDRATION [facility] INITIAL 31 MIN-1 HOUR CULTURE 69553 [facility] BACTERIAL 6 [facility] INC INC QUANTTATI VE COLONY COUNT URINE ANTIBODY 01190 [facility] SCREEN 6 HEALTH HEALTH RBC EACH [facility] SERUM TECHNIQUE BLOOD 50400 [facility] TYPING 6 HEALTH HEALTH SEROLOGIC [facility] G0378 [facility] ORTHODOXY OBSERVATI 6 HEALTH HEALTH ON [facility] SERVICE PER HOUR INJECTION J3105 [facility] ORTHODOXY 6 HEALTH HEALTH TERBUTALI [facility] NE SULFATE UP TO 1 MG TRANSFERA 75596 [facility]TH[facility] SE 6 HEALTH HEALTH ASPARTATE [facility] AMINO AST SGOT TRANSFERA 06710 [facility] ORTH[facility]OX[facility] SE 6 HEALTH HEALTH ALANINE [facility] AMINO ALT SGPT BILIRUBIN 98948 [facility] TOTAL 6 HEALTH HEALTH [facility] [place] [address] OR[facility] ORTHODOXY BLOOD/URI 6 HEALTH HEALTH C ACID [facility] 41099 [facility] ORTH[facility]OXY NONSTRESS 6 HEALTH HEALTH TEST [facility] LACTATE 75113 [facility] ORTHODOXY DEHYDROGE 6 HEALTH HEALTH NASE LDH [facility] URNLS DIP 79518 [facility] STICK/TAB INC INC LET REAGENT AUTO MICROSCOP Y FTL 85584 [facility] FIBRONECT 6 [facility] IN INC INC CERVICOVA [place] [address] ORTH[facility]Y ORTHODOXY PHOSPHATA 6 [facility] [place] ALKALINE CREATININ 49913 [facility] E BLOOD 6 [facility] BLOOD 03224 [facility] ORTHODOXY COUNT 6 [facility] AUTO&AUTO DIFRNTL WBC 52634 [facility] BIOPHYSIC 6 PHYSICIAN PHYSICIAN AL S GROUP S GROUP PROFILE W/[place] [address] [facility] 6 PHYSICIAN LILIBETH UTERUS S GROUP LIMITED 1/> [facility] [address] [facility] DISCHARGE [address] [place] [address] DAY MEDICAL MANAGEMEN GROUP T 30 MIN/< SBSQ [address] MEDICAL 25 GROUP MINUTES [place] PREG [address] REAL TIME MEDICAL F/U GROUP TRNSABDL PER FETUS SBSQ [address] MEDICAL 15 GROUP MINUTES INITIAL [address] MEDICAL [address] [place] [address] [facility] 6 PHYSICIAN LILIBETH UTERUS S GROUP LIMITED 1/> FETUSES 59156 [facility] 6 PHYSICIAN LILIBETH AL S GROUP PROFILE W/O NON-STRES S TESTING OBSERVATI 71754 [facility] ON/INPATI 6 [facility] DANNIE CARE 50 MINUTES 88860 [facility] NONSTRESS 6 PHYSICIAN ENID TEST S GROUP RADIOLOGI 14797 [place] ALL C 6 MEDICAL EXAMINATI IMAGING ON ANKLE ASS 2 VIEWS URNLS DIP 24346 [facility] STICK/TAB INC INC LET REAGENT AUTO MICROSCOP Y 25500 [facility] NONSTRESS 6 [facility] TEST INC INC FTL 93513 [facility] FIBRONECT 6 [facility] IN INC INC CERVICOVA G SECRETION S SEMI-LAM CULTURE 94821 [facility] BACTERIAL 6 [facility] INC INC QUANTTATI VE COLONY COUNT URINE UNCLASSIF J3490 [facility] IED DRUGS 6 [facility] INC INC THERAPEUT 25896 [facility] IC 6 [facility] PROPHYLAC INC INC TIC/DX INJECTION SUBQ/IM UNCLASSIF J3490 [facility] IED DRUGS 6 [place] [address] [facility] 6 MEDICAL APRIL UTERUS IMAGING LIMITED ASS 1/> FETUSES THERAPEUT 71449 [facility] IC 6 [facility] PROPHYLAC INC INC TIC/DX INJECTION SUBQ/IM US PREG 43663 [facility] UTERUS 6 MEDICAL APRIL REAL TIME IMAGING W/IMAGE ASS DCMTN TRANSVAG URNLS DIP 98014 [facility] STICK/TAB INC INC LET REAGENT AUTO MICROSCOP Y 27147 [facility] NONSTRESS 6 [facility] TEST INC INC INJECTION J0595 [facility] 6 [facility] BUTORPHAN INC INC OL TARTRATE 1 MG GLUCOSE 37096 [facility] BLOOD 6 PHYSICIAN LILIBETH REAGENT S GROUP STRIP UNCLASSIF J3490 [facility] IED DRUGS 6 [place] [address] [facility] INFUSION 6 [facility] HYDRATION INC INC INITIAL 31 MIN-1 HOUR 59806 [facility] NONSTRESS 6 [facility] TEST INC INC FTL 89925 [facility] FIBRONECT 6 [facility] IN INC INC CERVICOVA G SECRETION S SEMI-LAM URNLS DIP 72897 [facility] GIB 6 [facility] STICK/TAB INC LET REAGENT AUTO MICROSCOP [place] PREG 98869 [facility] SRAVANTHI UTERUS 6 HEALTH MOL W/DETAIL MEDICAL GROUP HECTOR 1ST GESTATION [place] PREG 37201 [facility] SRAVANTHI UTERUS 6 HEALTH MOL DETAIL MEDICAL GROUP HECTOR EXAM EA GESTAT BLOOD 42383 [facility] TYPING 6 G A R H G A R H SEROLOGIC RH (D) [place] PREG 93250 JOSELUIS GARZA JR UTERUS 6 KAYLA ZUNIGA ELYSE AFTER 1ST PC TRIMEST GESTATION OBSERVATI 40001 MAJOR NAVARRO ON/INPATI 6 COMP [facility] DANNIE CARE 40 MINUTES BLOOD 18576 [facility] TYPING 6 G A R H G A R H SEROLOGIC ABO ANTIBODY 43081 [facility] SCREEN 6 G A R H G A R H RBC EACH SERUM TECHNIQUE COLLECTIO 23582 [facility] N VENOUS 6 G A R H G A R H BLOOD VENIPUNCT URE DIRECT G0379 [facility] ADMISSION 6 G A R H G A R H [facility]IENT [facility] G0378 [facility] OBSERVATI 6 G A R H G A R H ON SERVICE PER HOUR BLOOD 69209 [facility] COUNT 6 G A R H G A R H COMPLETE AUTO&AUTO DIFRNTL WBC URNLS DIP 25349 [facility] 6 G A R H G A R H STICK/TAB LET REAGENT AUTO MICROSCOP Y DRUG TEST G0479 [facility] 6 G A R H G A R H PRESUMP;I NSTRUMENT ED CHEMISTRY [facility] G0463 [facility] OUTPATIEN 6 G A R H G A R H T CLIN VISIT ASSESS & MGMT PT OPHTH 95251 SCIFRES SCIFRES MEDICAL 6 ANG ANG XM&EVAL COMPRHNSV ESTAB PT 1/> FITTING 72791 SCIFRES SCIFRES SPECTACLE 6 ANG ANG S XCPT APHAKIA MONOFOCAL FRAMES V2020 SCIFRES SCIFRES PURCHASES 6 ANG ANG 1 VISN V2103 SCIFRES SCIFRES PLANO 6 ANG ANG TO+/-4.00 D SPHER 0.12-2.00 D CYL EA SCRATCH V2760 SCIFRES SCIFRES RESISTANT 6 ANG ANG COATING PER LENS LENS V2784 SCIFRES SCIFRES POLYCARBO 6 ANG ANG JW OR EQUAL ANY INDEX PER LENS IAADIADOO 28054 [facility] 6 N N INFLUENZA [place] [address] [facility] 6 PHYSICIAN PHYSICIAN UTERUS S GROUP S GROUP LIMITED 1/> FETUSES US PREG 76093 [facility] UTERUS 6 PHYSICIAN PHYSICIAN REAL TIME S GROUP S GROUP F/U TRNSABDL PER FETUS [place] PREG 80483 [facility] [place] GARZA JAM UTERUS 6 RADIOLOGY REAL TIME W/IMAGE DCMTN TRANSVAG IAADIADOO 05958 [facility] 6 N N INFLUENZA COMMUNTIY COMMUNTIY HOSPITA HOSPITA URNLS DIP 59243 [facility] 6 [facility] STICK/TAB INC INC LET REAGENT AUTO MICROSCOP Y [place] PREG 72732 [facility] UTERUS 6 PHYSICIAN LILIBETH REAL TIME S GROUP W/IMAGE DCMTN TRANSVAG OBSTETRIC 12857 [facility] PANEL 6 [facility] INC INC IADNA 28652 [facility] CHLAMYDIA 6 [facility] INC INC TRACHOMAT IS AMPLIFIED PROBE TQ INF AGT G0432 [facility] AB DETECT 6 [facility] EIA TECH INC INC HIV-1&/HI V-2 SCR COLLECTIO 15620 [facility] N VENOUS 6 [facility] BLOOD INC INC VENIPUNCT URE IADNA 50140 [facility] NEISSERIA 6 [facility] INC INC GONORRHOE AE AMPLIFIED PROBE TQ DRUG TST G0477 [facility] PRESUMP;C 6 PHYSICIAN PBL BEING S GROUP READ DC OPT OBV ONLY GONADOTRO 17018 [place] [facility] PIN 5 COMP CHORIONIC HEALTH DANNIE QUANTITAT TOMMY COLLECTIO 54963 [place] [facility] [facility] N VENOUS 5 COMP BLOOD HEALTH VENIPUNCT DANNIE URE US PREG 15336 [place] UTERUS 5 COMP REAL TIME HEALTH W/IMAGE DANNIE DCMTN TRANSVAG COLLECTIO 07563 [place] N VENOUS 5 COMP BLOOD HEALTH VENIPUNCT DANNIE URE GONADOTRO 83172 [place] PIN 5 COMP CHORIONIC HEALTH DANNIE QUANTITAT TOMMY GONADOTRO 77648 [facility] PIN 5 G A R H G A R H CHORIONIC QUANTITAT TOMMY GONADOTRO 82633 [facility] PIN 5 G A R H G A R H CHORIONIC QUALITATI VE IAADIADOO 95731 [facility] 5 G A R H G A R H STREPTOCO CCUS GROUP A IAADIADOO 90356 [facility] 5 G A R H G A R H INFLUENZA COLLECTIO 60886 [facility] N VENOUS 5 COMP [facility] BLOOD HEALTH VENIPUNCT DANNIE URE GONADOTRO 46428 [facility] PIN 5 COMP [facility] CHORIONIC HEALTH DANNIE QUALITATI VE GONADOTRO 01406 [facility] PIN 5 COMP CAR CHORIONIC HEALTH DANNIE QUALITATI VE COLLECTIO 11838 [facility] N VENOUS 5 COMP CAR [place] [address] [place] ISABEL ALL HEAD/BRAI 5 MEDICAL N W/O IMAGING CONTRAST ASS MATERIAL RADEX 90938 [place] KELLY FOOT 5 MEDICAL APRIL COMPLETE IMAGING MINIMUM 3 ASS VIEWS FITTING 13745 BARBER JEANNIE BARBER JEANNIE SPECTACLE 5 S XCPT APHAKIA MONOFOCAL SCRATCH V2760 BARBER JEANNIE BARBER JEANNIE RESISTANT 5 COATING PER LENS LENS V2784 BARBER JEANNIE BARBER JEANNIE POLYCARBO 5 JW OR EQUAL ANY INDEX PER LENS 1 VISN V2103 BARBER JEANNIE BARBER JEANNIE PLANO 5 TO+/-4.00 D SPHER 0.12-2.00 D CYL EA FRAMES V2020 BARBER JEANNIE BARBER JEANNIE PURCHASES 5 OPHTH 30637 BARBER JEANNIE BARBER JEANNIE MEDICAL 5 XM&EVAL COMPRE NEW PT 1/> [place] [address] [place] KELLY ABDOMEN & 5 MEDICAL APRIL PELVIS IMAGING W/O ASS CONTRAST MATERIAL GONADOTRO 55149 [facility] WON MELANIE PIN 5 COMP [facility] DANNIE QUALITATI VE IADNA 94102 LAB DANNIE LAB DANNIE ELIANA 5 KRISTY KRISTY SPECIES [place] [address] MAJOR [place] MELANIE TRANSVAGI 5 COMP NAL HEALTH DANNIE IADNA 63159 LAB DANNIE LAB DANNIE CHLAMYDIA 5 [facility]RI[facility] [employer] [facility]INGS TRACHOMAT IS AMPLIFIED PROBE TQ IADNA 89932 LAB DANN[facility] LAB DANNIE NEISSERIA 5 KRISTY KRI[facility] [employer] HOLDINGS GONORRHOE AE AMPLIFIED PROBE TQ COLLECTIO 61718 PR[facility]IE [facility] MAJOR N VENOUS 5 COMP COMP BLOOD HEALTH HEALTH VENIPUNCT DANNIE DANNIE URE IADNA NOS 94103 LAB DANNIE LAB DANNIE 5 KRISTY KRISTY AMPLIFIED HOLDINGS HOLDINGS PROBE TQ EACH ORGANISM IADNA 88111 LAB D[facility] LAB DANNIE TRICHOMON 5 KRISTY KRIST[facility] HOLDINGS HOLDINGS VAGIN[place] [address] [place] [facility] AMYLASE 5 G A R H G A R H COMPREHEN 72971 [facility] SIVE 5 G A R H G A R [facility] METABOLIC PANEL BLOOD 35636 [facility] COUNT 5 G A R H G A R H COMPLETE AUTO&[place] [address] [place] [facility] LIPASE 5 G A R H G A R H GONADOTRO 02295 [facility] [facility] PIN 5 G A R H G A R H CHORIONIC QUALITATI VE URNLS DIP 30219 [facility] 5 G A R H G A R H STICK/TAB LET REAGENT AUTO MICROSCOP Y URINE 33045 [facility] 5 PRIMARY BA TEST CARE VISUAL COLOR CMPRSN METHS URINE 36324 SOLITARIO JON 4 PRIMARY BA TEST CARE VISUAL COLOR CMPRSN METHS RADIOLOGI 29054 [facility] BOLDEN BRA C 4 EXAMINATI RADIOLOGY ON PELVIS PLLC 1/2 VIEWS RADEX 77298 [facility] BOLDEN BRA ELBOW 4 COMPLETE RADIOLOGY MINIMUM 3 PLLC VIEWS RADEX 21101 [facility] BOLDEN BRA HAND 4 MINIMUM 3 RADIOLOGY VIEWS PLLC RADEX 72497 [facility] BOLDEN BRA SPINE 4 CERVICAL RADIOLOGY 2 OR 3 PLLC VIEWS BLOOD 61306 [facility] [facility] COUNT 4 G A R H G A R H COMPLETE AUTO&AUTO DIFRNTL WBC RADIOLOGI 08743 JOSELUIS GARZA JR C EXAM 4 KAYLA ZUNIGA ELYSE CHEST 2 PC VIEWS FRONTAL&L ATERAL RADIOLOGI 64210 SAMIRA WEAVER C EXAM 4 BA CHEST 2 RADIOLOGY VIEWS PLLC FRONTAL&L ATERAL URNLS DIP 63895 [facility] 4 G A R H G A R H STICK/TAB LET REAGENT AUTO MICROSCOP Y GONADOTRO 00685 [facility] VIRGENBUR PIN 4 G A R H G A R H CHORIONIC QUALITATI VE CRTCHS E0114 SAMIR[facility] HOGAN UNDARM 4 MEDICAL MEDICAL O[facility] THAN CENTER CENTER WOOD PAIR PAD TIP&HNDGR IP NONINVASI 06795 SAMIRA HOGAN VE 4 [facility] EAR/PULSE CENTER CENTER OXIMETRY SINGLE DETER RADEX 12406 RACHELLE BUSH FOOT 4 GAR GAR COMPLETE MINIMUM 3 VIEWS REPAIR 30356 KIRKPATRI KIRKPATRI NAIL BED 4 CK IZZY CK IZZY REMOVAL 44690 GAUNT TIN GAUNT TIN IMPLANTAB 4 LE CONTRACEP TIVE CAPSULES KO ELAST L1820 RESPIRATO RESPIRATO W/CONDYLR 4 RY PLUS RY PLUS PADS&JNT [facility] PRFAB INCL FIT&ADJ US PELVIC 95104 JAYSON JAYSON 4 DEN DEN NONOBSTET [place] [address] SAMIRA BUSH ABDOMINAL 4 GAR REAL RADIOLOGY TIME PLLC W/IMAGE DOCUMENTA TION CULTURE 15929 LAB DANNIE LAB DANNIE BACTERIAL 4 OF KRISTY KRISTY HOLDINGS QUANTTATI HOLDINGS VE COLONY COUNT URINE BLOOD 83433 LAB DANNIE LAB DANNIE COUNT 4 OF KRISTY COMPLETE KRISTY HOLDINGS AUTO&AUTO HOLDINGS DIFRNTL WBC [place] BREAST 77805 MARGARITA MARGARITA REAL 4 PATRIA PATRIA TIME W/IMAGE DOCUMENTA TION IADNA 12516 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 CHLAMYDIA 4 Y DANNIE OF Y DANNIE OF KRISTY KRISTY TRACHOMAT H H IS AMPLIFIED PROBE TQ IADNA 94284 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 S SCREEN RADIOLOGI 70679 SETTLES SETTLES C EXAM 4 II ELIA II ELIA CHEST 2 VIEWS FRONTAL&L ATERAL INFUSION J7030 SAMIRA HOGAN NORMAL 4 [facility] SALINE CENTER [place] SOLUTION 1000 CC BASIC 19666 SAMIRA HOGAN METABOLIC 4 [facility] MEDICAL [place]EL [place] T[place] [address] SAMIRA HOGAN INFUSION [address] [place] [address] HYDRATION [facility] INITIAL 31 MIN-1 HOUR COLLECTIO 70274 SAMIRA HOGAN N VENOUS [address] [place] [address] BLOOD [facility] VENIPUNCT URE NONINVASI 63552 SAMIRA HOGAN VE [address] [place] [address] EAR/PULSE CENTER CENTER OXIMETRY SINGLE DETER BLOOD 44016 SAMIRA HOGAN COUNT 4 [facility] COMPLETE [facility] AUTO&AUTO DIFRNTL WBC GONADOTRO 30118 SAMIRA HOGAN PIN [address] [place] [address] CHORIONIC [place] CENTER QUALITATI VE URNLS DIP 51866 SAMIRA HOGAN [address] [place] [address] MEDICAL STICK/TAB CENTER CENTER LET REAGENT AUTO MICROSCOP Y ANESTHESI 26965 LOCKHART ANG LOCKHART ANG A 4 INTRAORAL WITH BIOPSY NOS LEVEL III 16271 ANNA ADLER SHE SURG 4 ADLER PATHOLOGY PSC GROSS&MELANIE ROSCOPIC EXAM TONSILLEC 32485 THOMPSON THOMPSON FRANKI 4 BA BA PRIMARY/S ECONDARY AGE 12/> RADIOLOGI 76424 OWEN WEAVER C EXAM 4 BA BA CHEST 2 VIEWS FRONTAL&L ATERAL URNLS DIP 84939 DONTRELL JON 3 BA BA STICK/TAB LET RGNT NON-AUTO W/O MICRSCP RADEX 37936 KAYLA GARZA JR FINGR 3 ELYSE ELYSE MINIMUM 2 VIEWS GENERAL 49548 LAB DANNIE LAB DANNIE HEALTH 3 KRISTY KRISTY PANEL HOLDINGS HOLDINGS LIPID 80248 LAB DANNIE LAB DANNIE PANEL 3 KRISTY KRISTY HOLDINGS HOLDINGS 25 35428 LAB DANNIE LAB DANNIE HYDROXY 3 KRISTY KRISTY INCLUDES HOLDINGS HOLDINGS FRACTIONS IF PERFORMED GONADOTRO 89517 LAB DANNIE LAB DANNIE PIN 3 KRISTY KRISTY CHORIONIC HOLDINGS HOLDINGS QUANTITAT TOMMY ECG 69080 SELPH SCO SELPH SCO ROUTINE 3 ECG W/LEAST 12 LDS I&R ONLY RADIOLOGI 95120 RACHELLE BUSH C EXAM 3 GAR GAR CHEST 2 VIEWS FRONTAL&L ATERAL RADIOLOGI 31535 KAYLA GARZA JR C EXAM 3 ELYSE ELYSE CHEST 2 VIEWS FRONTAL&L ATERAL COLLECTIO 32463 [facility] [place] N VENOUS 3 G A R H G A R H BLOOD VENIPUNCT URE PRESSURIZ 33494 [facility] CONNELL ED/NONPRE 3 G A R H G A R H SSURIZED INHALATIO N TREATMENT ANTIBODY 02699 [facility] [place] INFLUENZA 3 G A R H G A R H VIRUS IAADI 64920 [place] INFLUENZA 3 G A R H G A R H B VIRUS HETEROPHI 89660 [place] LE 3 G A R H G A R H ANTIBODIE S SCREEN GONADOTRO 82502 [place] PIN 3 G A R H G A R H CHORIONIC QUALITATI VE DRUG SCR G0434 LAB DANNIE LABORATOR NOT 3 OF Y CHROMATOG KRISTY CORPORATI RAPHIC; HOLDINGS ON OF AM ANY NUMBER PT ENC BASIC 40416 [facility] [place] METABOLIC 3 G A R H G A R H PANEL CALCIUM TOTAL COLLECTIO 29758 [place] N VENOUS 3 G A R H G A R H BLOOD VENIPUNCT URE GONADOTRO 24183 [place] PIN 3 G A R H G A R H CHORIONIC QUALITATI VE URNLS DIP 13991 [place] 3 G A R H G A R H STICK/TAB LET REAGENT AUTO MICROSCOP Y BLOOD 41034 [place] COUNT 3 G A R H G A R H COMPLETE AUTO&AUTO DIFRNTL WBC RADEX 40474 JOSELUIS GARZA JR FOOT 3 KAYLA ZUNIGA ELYSE COMPLETE PC MINIMUM 3 VIEWS BASIC 05532 SAMIRA HOGAN METABOLIC 3 MEDICAL MEDICAL PANEL CENTER CENTER CALCIUM IONIZED LOCM Q9967 SAMIRA HOGAN [phone] 3 MEDICAL MEDICAL MG/ML CENTER C[place] [address] SAMIRA HOGAN ANGIOGRAP 3 [facility] HY CHEST CENTER CENTER W/CONTRAS T/NONCONT RAST INJECTION J1885 SHADEKARLALUCIO HOGAN 3 [facility] KETOROLAC CENTER [place] TROMETHAM INE PER 15 MG THER 12631 SAMIRA HOGAN PROPH/DX 3 [facility] NJX IV CENTER CENTER PUSH SINGLE/1S T SBST/DRUG COLLECTIO 30524 SAMIRA HOGAN N VENOUS 3 [facility] BLOOD CENTER [place] VENIPUNCT URE RADIOLOGI 49562 SAMIRA HOGAN C EXAM 3 MEDICAL MEDICAL CHEST 2 CENTER CENTER VIEWS FRONTAL&L ATERAL ECG 88619 [facility] ROUTINE 3 EMERGENCY BRA ECG SERVICES W/LEAST 12 LDS I&R ONLY NONINVASI 96795 SAMIRA HOGAN VE 3 [facility] EAR/PULSE CENTER CENTER OXIMETRY SINGLE DETER BLOOD 76078 SAMIRA HOGAN COUNT 3 MEDICAL MEDICAL COMPLETE CENTER [place] AUTO&AUTO DIFRNTL WBC GONADOTRO 57949 SAMIRA HOGAN PIN 3 [facility] CHORIONIC CENTER CENTER QUALITATI VE ECG 35277 SAMIRA HOGAN ROUTINE 3 [facility] ECG CENTER [place] W/LEAST 12 LDS TRCG ONLY W/O I&R IAADIADOO 02974 JEANIE JEANIE 3 [facility] A RADIOLOGI 23376 KELVIN WARREN C EXAM 3 OBDULIA OBDULIA CHEST 2 VIEWS FRONTAL&L ATERAL SUSCEPTIB 77298 LAB DANNIE LAB DANNIE LTY STDY 3 KRISTY KRISTY ANTIMICRB HOLDINGS HOLDINGS IAL MICRO/AGA R DILUTJ CUL BACT 89726 LAB DANNIE LAB DANNIE AEROBIC 3 KRISTY KRISTY ADDL HOLDINGS HOLDINGS METHS DEFINITIV E EA ISOL CULTURE 11790 LAB DANNIE LAB DANNIE BCT 3 KRISTY KRISTY ISOL&PRSM HOLDINGS HOLDINGS PTV ID ISOLATE EA URINE CULTURE 56599 LAB DANNIE LAB DANNIE BACTERIAL 3 KRISTY KRISTY HOLDINGS HOLDINGS QUANTTATI VE COLONY COUNT URINE WRIST L3908 PROFESSIO PROFESSIO HAND 3 [facility] MEDICAL MEDICAL EXT JASMINE JASMINE CONTROL COCK-UP PREFAB COLLECTIO 77763 MALIKA DALY N VENOUS 3 MELANIE MELANIE BLOOD VENIPUNCT URE URNLS DIP 88588 DONTRELL JON 3 BA BA STICK/TAB LET RGNT NON-AUTO W/O MICRSCP NONINVASI 47851 SAMIRA HOGAN 2 [facility] MEDICAL EAR/PULSE CENTER CENTER OXIMETRY SINGLE DETER CLOSED 48366 DIOR ANT DIOR ANT TREATMENT 2 NASAL FRACTURE W/O MANIPULAT ION RADEX 56761 SAMIRA HOGAN FACIAL 2 [facility] BONES CENTER CENTER COMPLETE MINIMUM 3 [place] [address] SAMIRA HOGAN ABDOMINAL 2 [facility] REAL CENTER CENTER TIME W/IMAGE LIMITED IAADIADOO 63958 JEANIE CARROLLBY 2 [facility] [place] [address] ANNA ADLER SHE SURG 2 ADLER PATHOLOGY [facility] GROSS&[place] EGD 55717 ULYSSES ARORA TRANSORAL 2 DAVID DAVID BIOPSY SINGLE/MU LTIPLE ANES 07594 SAMIRA KERNS, II UPPER GI 2 [facility] ENDOSCOPY UATSDIN PROXIMAL HOSP TO DUODENUM CULTURE 29432 [place] BACTERIAL 2 G A R H G A R H BLOOD AEROBIC W/ID ISOLATES CT THORAX 33821 [place] W/O 2 G A R H G A R H CONTRAST MATERIAL INJECTION J1956 [place] STUGAN 2 G A R H ANT LEVOFLOXA TOBI 250 MG GONADOTRO 50453 [place] PIN 2 G A R H G A R H CHORIONIC QUALITATI VE BLOOD 34976 [place] COUNT 2 G A R H G A R H COMPLETE AUTO&AUTO DIFRNTL WBC THER 82502 [facility] [place] PROPH/DX 2 G A R [...] IODINE CONCENTRA TION PER ML CT THORAX 05327 [place] 2 G A R H G A R H W/[place] [address] [place] ABDOMEN & 2 G A R H G A R H PELVIS W/CONTRAS T MATERIAL GONADOTRO 10734 [facility] [place] PIN 2 G A R H G A R H CHORIONIC QUALITATI VE URNLS DIP 33000 [place] 2 G A R H G A R H STICK/TAB LET REAGENT AUTO MICROSCOP Y HETEROPHI 10953 LAB DANNIE LAB DANNIE LE 2 [facility] ANTIBODIE HOLDING HOLDING S SCREEN BLOOD 55810 LAB DANNIE LAB DANNIE COUNT 2 AMERIC AMERIC COMPLETE HOLDING HOLDING AUTO&AUTO DIFRNTL WBC URNLS DIP 95769 DONTRELL JON 2 BA BA STICK/TAB LET RGNT NON-AUTO W/O MICRSCP OBSERVATI 74634 DONTRELL JON ON CARE 2 BA BA DISCHARGE MANAGEMEN T INITIAL 63323 DONTRELL JON OBSERVATI 2 BA BA ON CARE/DAY 50 MINUTES INITIAL 35494 DONTRELL JON OBSERVATI 2 BA BA ON CARE/DAY 50 [place] [address] JOSELUIS GARZA JR RETROPERI 2 KAYLA KASPER PC REAL TIME W/IMAGE COMPLETE RADIOLOGI 16929 SAMIRA Houser [address] [place] [address] MEDICAL EXAMINATI CENTER CENTER ON FEMUR 2 VIEWS NONINVASI 32499 SAMIRA SAINI 2 [facility] MEDICAL EAR/PULSE CENTER CENTER OXIMETRY SINGLE DETER RADEX HIP 75966 SAMIRA HOGAN 2 [facility] C[facility] L COMPLETE MINIMUM 2 VIEWS IAADIADOO 93675 DONTRELL JON 2 BA BA STREPTOCO CCUS GROUP A RADIOLOGI 40220 JOSELUIS Houser 2 KAYLA ZUNIGA ELYSE EXAMINATI PC ON KNEE 3 VIEWS OPHTH 48755 [facility] HAZELETT MEDICAL 2 ADOLFO MATA XM&EVAL COMPRE NEW PT 1/> VST RADEX 90189 KAYLA GARZA JR SPINE 2 ELYSE ELYSE CERVICAL 6 OR MORE VIEWS RADEX 59951 KAYLA GARZA JR RIBS UNI 2 ELYSE ELYSE W/POSTERO ANT CH MINIMUM 3 VIEWS OBSERVATI 17690 DONTRELL JON ON CARE 2 BA BA DISCHARGE MANAGEMEN T INITIAL 85813 DONTRELL JON OBSERVATI 2 BA BA ON CARE/DAY 50 MINUTES RADIOLOGI 13701 JOSELUIS Houser 2 KAYLA ZUNIAG ELYSE EXAMINATI PC ON CHEST SINGLE VIEW FRONTAL RADIOLOGI 96506 SAMIRA WEAVER C EXAM 2 BA CHEST 2 RADIOLOGY VIEWS PLLC FRONTAL&L ATERAL BREATHING A4618 MT MED MT MED CIRCUITS [address] [place] [address] SAMIRA WEAVER ABDOMEN & 2 BA PELVIS RADIOLOGY W/CONTRAS PLLC T MATERIAL NEBULIZER E0570 MT MED MT MED WITH 2 EQUIPMENT EQUIPMENT COMPRESSO INC INC R BLOOD 32860 LAB DANNIE LAB DANNIE COUNT 2 AMERIC AMERIC COMPLETE HOLDINGS HOLDING AUTO&AUTO DIFRNTL WBC IAADIADOO 22881 JEANIE WARE [facility] A RADIOLOGI 92955 SAMIRA AVILA C 2 PATRIA EXAMINATI RADIOLOGY ON KNEE 3 PLLC VIEWS IAADIADOO 23824 DONTRELL JON 2 [place] [address] LAB DANNIE LAB DANNIE IRON 2 KRISTY KRISTY HOLDINGS HOLDINGS GENERAL 35381 LAB DANNIE LAB DANNIE HEALTH 2 KRISTY KRISTY PANEL HOLDINGS HOLDINGS 25 76807 LAB DANNIE LAB DANNIE HYDROXY 2 KRISTY KRISTY INCLUDES HOLDINGS HOLDINGS FRACTIONS IF PERFORMED CYANOCOBA 45332 LAB DANNIE LAB DANNIE KOURTNEY 2 KRISTY KRISTY VITAMIN HOLDINGS HOLDINGS B-12 IRON 85184 LAB DANNIE LAB DANNIE BINDING 2 KRISTY KRISTY CAPACITY HOLDINGS HOLDINGS COLLECTIO 85217 OVERBEE OVERBEE N VENOUS 2 GENNY GENNY BLOOD VENIPUNCT URE RADEX 05293 BECKI CONNELL SPINE 2 G A R H G A R H THORACIC 2 VIEWS URNLS DIP 62421 JON OVERBEE 2 BA GENNY STICK/TAB LET RGNT NON-AUTO W/O MICRSCP URNLS DIP 63901 JON JON 1 BA BA STICK/TAB LET RGNT NON-AUTO W/O MICRSCP RADIOLOGI 44567 JOSELUIS Houser EXAM 1 KAYLA ZUNIGA ELYSE CHEST 2 PC VIEWS FRONTAL&L ATERAL ADMN SET A7003 CARE MORE CARE MORE SM VOL 1 PHARMACY PHARMACY NONFILTR PNEUMAT NEBULIZR DISPBL RADEX 73386 JOSELUIS GARZA JR ANKLE 1 KAYLA ZUNIGA ELYSE COMPLETE PC MINIMUM 3 VIEWS RADEX 09239 JOSELUIS GARZA JR FOOT 1 KAYLA ZUNIGA ELYSE COMPLETE PC MINIMUM 3 VIEWS HETEROPHI 72981 LAB DANNIE LAB ADNNIE LE 1 AMERIC AMERIC ANTIBODIE HOLDING HOLDING S SCREEN BLOOD 63682 LAB DANNIE LAB DANNIE COUNT 1 AMERIC AMERIC COMPLETE HOLDING HOLDING AUTO&AUTO DIFRNTL WBC RADIOLOGI 46915 JOSELUIS GARZA JR C EXAM 1 KAYLA ZUNIGA ELYSE KNEE PC COMPLETE 4/MORE VIEWS RADIOLOGI 36043 BECKI CONNELL C 1 G A R H G A R H EXAMINATI ON KNEE 3 VIEWS CRTCHS E0114 THE THE UNDARM 1 [facility] STORE WOOD PAIR PAD TIP&HNDGR IP IADNA 18379 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 NEISSERIA 1 Y DANNIE OF Y DANNIE OF KRISTY KRISTY GONORRHOE H H AE AMPLIFIED PROBE TQ IADNA 77682 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 JON VACCINE 0 Espinoza CALL VIRUS 0.5 D ML DOSAGE IM USE INJECTION J2550 DR. JON 0 LYDIA COSME PROMETHEspinoza RODARTE INE HCL D UP TO [address] JON IC 0 LYDIA COSME PROPHYLEspinoza SERRATO TIC/DX D INJECTION SUBQ/IM RADEX 59756 [place] CLAVICLE 0 G A R H G A R H COMPLETE RADEX 70249 [place] SHOULDER 0 G A R H G A R H COMPLETE MINIMUM [address] JON 0 LYDIA COSME STICK/TAB Espinoza JON LET RGNT D NON-AUTO W/O MICRSCP SPHERE V2100 Bayron JOHNSON, SINGLE 0 [place] VISION OD PSC PLANO +/- KOD 4.00 PER LENS FITTING 97861 Bayron JOHNSON, SPECTACLE 0 [place] S XCPT OD PSC APHAKIA KOD MONOFOCAL OPHTH 57691 Byaron JOHNSON, MEDICAL 0 ALEX [place] XM&EVAL OD PSC COMPRHNSV KOD ESTAB PT 1/> US PELVIC 39592 [place] 0 G A R H G A R H NONOBSTET RAINER REAL-TIME IMAGE COMPLETE FRAMES V2020 Bayron JOHNSON, PURCHASES 0 [place] [address] JOSELUIS GARZA JR, ABDOMEN 0 KAYLA Phillip W/[place] [address] [place] LIPASE 0 G A R H G A R H COMPREHEN 23985 [place] SIVE 0 G A R H G A R H METABOLIC PANEL RADEX 80120 [place] UPPER GI 0 G A R H G A R H W/WO GLUCAGON/ [place] [address] [place] ABDOMINAL 0 G A R H G A R [place] REAL [place] W/[place] [address] [place] AMYLASE 0 G A R H G A R H COLLECTIO 65387 [place] N VENOUS 0 G A R H G A R H BLOOD VENIPUNCT URE URNLS DIP 77862 [place] 0 G A R H G A R H STICK/TAB LET REAGENT AUTO MICROSCOP Y RADEX 70400 [place] FINGR 0 G A R H G A R H MINIMUM 2 VIEWS IAADIADOO 91996 [facility], PRIMARY JOVANNA D [place] [address] [facility] INFLUENZA MEDICAL MEDICAL A/B [facility] CENTER RADIOLOGI 08848 [facility] C MEDICAL MEDICAL EXAMINATI CENTER CENTER ON FOOT 2 VIEWS WALKING L4386 [facility] BOOT 9 [facility] MEDICAL NON-PNEUM CENTER CENTER ATIC PREFAB CUSTOM FIT RADEX 17119 JOSELUIS GARZA JR, FOOT 9 KAYLA Phillip COMPLETE PC MINIMUM 3 VIEWS COLLECTIO 57634 [place] N VENOUS 9 G A R H G A R H BLOOD VENIPUNCT URE COLLECTIO 61169 [place] N 9 G A R H G A R H CAPILLARY BLOOD SPECIMEN GLUCOSE 64376 [place] TOLERANCE 9 G A R H G A R H EA ADDL BEYOND 3 SPECIMENS GLUCOSE 98358 [place] TOLERANCE 9 G A R H G A R H TEST GTT 3 SPECIMENS COLLECTIO 91335 Martell POLANCO VENOUS 9 Espinoza COMBS VENIPUNCT D URE GENERAL 93531 LAB DANNIE LAB DANNIE HEALTH 9 AMERIC AMERIC PANEL HOLDING HOLDING FITTING 30721 Bayron JOHNSON, SPECTACLE 9 [place]LEX [place] S XCPT OD PSC APHAKIA KOD MONOFOCAL SPHERE V2100 Bayron JOHNSON, SINGLE 9 [place]LEX [place] VISION OD PSC PLANO +/- KOD 4.00 PER LENS FRAMES V2020 Bayron JOHNSON, PURCHASES 9 ALEX [place] OD PSC KOD OPHTH 95501 Bayron JOHNSON, MEDICAL 9 ALEX [place] XM&EVAL OD PSC COMPRE KOD NEW PT 1/> VST KNEE L1830 [employer] [facility] ORTHOSIS 9 EQUIPMENT EQUIPMENT [employer] R CANVAS LONGTUDNL PREFAB RADIOLOGI 42238 LAUREN Houser 9 [facility] ON KNEE 1/2 VIEWS RADIOLOGI 46143 Mik PEREZ JR 9 KAYLA Phillip [facility] ON KNEE 3 VIEWS RADEX 94587 SAMIRA HOGAN ELBOW 8 [facility] MINIMUM 3 VIEWS RADEX 58448 LAUREN AGUILAR ELBOW 8 [facility] MINIMUM 3 VIEWS Encounters Encounter Start End Date Code Location Performer Type Date INITIAL 45631 [facility] E TH DEPT [facility] DEPT MEDICINE SOURAV SOURAV NEW PT AGE 18-39YRS EMERGENCY 38171 YOLANDA LEVI 7 7 PHYSICIAN DEPARTMEN S, PLLC T VISIT MODERATE SEVERITY OFFICE 41610 [facility] OUTPATIEN 7 7 COMP T VISIT HEALTH 15 DANNEI MINUTES EMERGENCY 61822 YOLANDA LEVI DEPT 7 7 PHYSICIAN VISIT S, PLLC HIGH SEVERITY& THREAT [facility] 7 7 [facility] OUTPATIEN INC T EMERGENCY 55462 [facility] 7 7 [facility] DEPARTMEN INC T VISIT HIGH/URGE NT SEVERITY [facility] - 7 7 N OUTPATIEN COMMUNTIY T HOSPITA EMERGENCY 81325 [facility] 7 7 N DEPARTMEN COMMUNTIY T VISIT HOSPITA MODERATE SEVERITY EMERGENCY 82651 [facility] 7 7 [place] LO VISIT EMERGENCY HIGH SERVI SEVERITY& THREAT [facility] EMERGENCY 32756 [facility] 7 7 [facility] DEPARTMEN INC T VISIT LOW/MODER SEVERITY [facility] 7 7 [facility] OUTPATIEN INC T [facility] - 7 7 N OUTPATIEN COMMUNTIY T HOSPITA EMERGENCY 52154 [facility] 7 7 [place] DEPARTMEN EMERGENCY T VISIT PHYS HIGH/URGE NT SEVERITY EMERGENCY 92275 [facility] 7 7 N DEPARTMEN COMMUNTIY T VISIT HOSPITA LIMITED/M INOR PROB EMERGENCY 47909 [facility] DE[facility] 7 7 PHYSICIAN VISIT S, PLLC HIGH SEVERITY& THREAT [facility] [place] 7 7 [facility] OUTPATIEN INC T EMERGENCY 54740 [facility] 7 7 [facility] DEPARTMEN INC T VISIT MODERATE SEVERITY OFFICE 89883 [facility] T VISIT CARE 15 MINUTES [facility] [place] - 6 6 G A R H OUTPATIEN T EMERGENCY 75365 [facility] 6 6 MEDICAL DEPARTMEN PARTNERS T VISIT LL MODERATE SEVERITY OFFICE 74896 SOLITARIO JON OUTPATIEN 6 6 PRIMARY T VISIT CARE 15 MINUTES OFFICE 98489 SOLITARIO JON OUTPATIEN 6 6 PRIMARY BA T VISIT CARE 15 MINUTES EMERGENCY 27697 [place] 6 6 G A R H DEPARTMEN T VISIT MODERATE SEVERITY [facility] [place] - 6 6 G A R H OUTPATIEN T EMERGENCY 43392 [facility] 6 6 MEDICAL DEPARTMEN PARTNERS T VISIT LL HIGH/URGE NT SEVERITY OFFICE 67936 SOLITARIO JON OUTPATIEN 6 6 PRIMARY BA T VISIT CARE 15 MINUTES EMERGENCY 08544 [place] 6 6 MEDICAL DEPARTMEN CENTER T VISIT MODERATE SEVERITY EMERGENCY 31283 [place] [facility] 6 6 R OBDULIA DEPARTMEN UATSDIN T VISIT HOSP LOW/MODER SEVERITY [facility] [place] - 6 6 MEDICAL OUTPATIEN CENTER T OFFICE 80708 SOLITARIO JON OUTPATIEN 6 6 PRIMARY BA T VISIT CARE 15 MINUTES OFFICE 26988 SOLIT[facility]IO JON OUTPATIEN 6 6 PRIMARY BA T VISIT CARE 15 MINUTES OFFICE 01422 SOLITARIO JON OUTPATIEN 6 6 PRIMARY BA T VISIT CARE 15 MINUTES [facility] [place] - 6 6 MEDICAL OUTPATIEN CENTER T OFFICE 58107 SOLITARIO JON OUTPATIEN 6 6 PRIMARY BA T VISIT CARE 15 MINUTES [facility] [place] - 6 6 G A R H OUTPATIEN T EMERGENCY 14301 [place] 6 6 G A R H DEPARTMEN T VISIT MODERATE SEVERITY OFFICE 37228 [facility] 6 6 COMP T VISIT HEALTH 10 DANNIE MINUTES OFFICE 83733 [facility] 6 6 COMP T VISIT HEALTH 15 DANNIE MINUTES [facility] [place] - 6 6 G A R H OUTPATIEN T OFFICE 96670 [facility] 6 6 COMP T VISIT HEALTH 15 DANNIE MINUTES [facility] 6 6 HEALTH OUTPATIEN ALICIA T OFFICE 42539 [facility] OUT[facility] 6 6 PHYSICIAN LILIBETH T VISIT S GROUP 15 MINUTES [facility] - 6 6 HEALTH INPATIENT ALICIA OFFICE 23804 [facility] OUTPATIEN 6 6 COMP T VISIT HEALTH 15 DANNIE MINUTES EMERGENCY 72759 YOLANDA HALE DEPT 6 6 PHYSICIAN U ANDREIA VISIT S, PLLC HIGH SEVERITY& THREAT [facility] 6 6 [facility] OUTPATIEN INC [facility] 6 6 [facility] OUTPATIEN [facility] T OFFICE 44056 [facility] 6 6 PHYSICIAN T VISIT 5 S GROUP MINUTES OFFICE 42279 [facility] 6 6 PHYSICIAN LILIBETH T VISIT S GROUP 15 MINUTES [facility] - 6 6 [facility] OUTPATIEN [facility] - 6 6 [facility] OUTPATIEN HOSP T OFFICE 04555 [facility] SRAV[facility]THI CONSULTAT 6 6 HEALTH MOL [facility] NEW/ESTAB GROUP PATIENT 15 MIN OFFICE 84383 [facility] 6 6 PHYSICIAN LILIBETH T VISIT S GROUP 15 MINUTES [facility] [place] [facility] 6 6 G A R H OUTPATIEN T OFFICE 31926 [facility] OUT[facility] 6 6 PHYSICIAN MELANIE T NEW 30 S GROUP MINUTES EMERGENCY 28745 [facility] 6 6 [place] OBDULIA DEPARTMEN EMERGENCY T VISIT PHYSI HIGH/URGE NT SEVERITY HOSPITAL [facility] - 6 6 N OUTPATIEN COMMUNTIY T HOSPITA EMERGENCY 62669 [facility] 6 6 N DEPARTMEN COMMUNTIY T VISIT HOSPITA MODERATE SEVERITY EMERGENCY 54937 YOLANDA BARROSO 6 6 PHYSICIAN FOR DEPARTMEN S, PLLC T VISIT MODERATE SEVERITY OFFICE 35097 [facility] OUTPATI[facility] 6 6 PHYSICIAN LILIBETH T VISIT S GROUP 15 MINUTES HOSPITAL [facility] - 6 6 N OUTPATIEN COMMUNTIY T HOSPITA EMERGENCY 09753 [facility] 6 6 [facility] T VISIT PHYS MODERATE SEVERITY EMERGENCY 75934 YOLANDA LEVI 6 6 PHYSICIAN MELANIE [facility] T VISIT MODERATE SEVERITY EMERGENCY 93436 [facility] 6 6 [facility] DEPARTMEN INC T VISIT LOW/MODER SEVERITY [facility] - 6 6 [facility] OUTPATI[facility] INC T OFFICE 58944 [facility] HARR[facility]ATIEN 6 6 PHYSICIAN T NEW 45 S GROUP MINUTES [facility] - 6 6 [facility] OUTPATIEN INC T EMERGENCY 07606 YOLANDA HUNTER 5 5 [facility] H[facility]/URGE NT SEVERITY EMERGENCY 22818 [facility] 5 5 [facility] DEPARTMEN INC T VISIT LIMITED/M INOR PROB [facility] - 5 5 [facility] OUTPATIEN INC T OFFICE 21880 [facility] MELANIE OUTPATIEN 5 5 COMP T VISIT HEALTH [address]ES OFF[address] [facility] MELANIE OUTPATIEN 5 5 COMP T VISIT HEALTH 15 DANNIE MINUTES [facility] [place] [facility] 5 5 G A R H OUTPATIEN T EMERGENCY 86743 [facility] 5 5 MEDICAL [facility] DEPARTMEN PARTNERS T VISIT LL MODERATE SEVERITY EMERGENCY 41914 [place] 5 5 G A R H DEPARTMEN T VISIT MODERATE SEVERITY [facility] [place] - 5 5 G A R H OUTPATIEN T EMERGENCY 76290 [facility] 5 5 MEDICAL [place] DEPARTMEN PARTNERS T VISIT LL HIGH/URGE NT SEVERITY EMERGENCY 23971 [facility] P DEPT 5 5 MEDICAL VISIT PARTNERS HIGH LL SEVERITY& THREAT FUNCJ OFFICE 96696 [facility] OUTPATIEN 5 5 COMP SHELLY T VISIT HEALTH 15 DANNIE MINUTES OFFICE 28503 [facility] ALEXANDRA STEVE OUTPATIEN 5 5 COMP CAR T VISIT HEALTH 15 DNANIE MINUTES EMERGENCY 09680 [facility] 5 5 PHYSICIAN MELANIE DEPARTMEN S, PLLC T VISIT HIGH/URGE NT SEVERITY EMERGENCY 92696 [facility] 5 5 [facility] DEPARTMEN INC T VISIT LIMITED/M [facility] PROB [facility] - 5 5 [facility] OUTPATIEN INC T EMERGENCY 97662 [facility] 5 5 [place] [facility] DEPARTMEN EMERGENCY T VISIT PHYS MODERATE SEVERITY OFFICE 40522 [facility] OUTPATIEN 5 5 COMP T NEW 30 HEALTH MINUTES DANNIE EMERGENCY 93944 [facility] 5 5 G A R H DEPARTMEN T VISIT MODERATE SEVERITY [facility] [place] - 5 5 G A R H OUTPATIEN T EMERGENCY 50225 [facility] [address] [facility] DEPARTMEN PARTNERS T VISIT LL HIGH/URGE NT SEVERITY OFFICE 18827 [facility] OUTPATIEN 5 5 PRIMARY BA T VISIT CARE 15 MINUTES EMERGENCY 08450 [facility] K[facility] DEPT 4 4 [place] CK IZZY VISIT EMERGENCY HIGH PHYS SEVERITY& THREAT FUNCJ OFFICE 95932 [facility] OUTPATIEN 4 4 PRIMARY BA T VISIT CARE 15 MINUTES EMERGENCY 66863 [facility] DEPT 4 4 [place] VISIT EMERGENCY HIGH SERV SEVERITY& THREAT FUNCJ EMERGENCY 80733 [facility] 4 4 G A R H DEPARTMEN T VISIT MODERATE SEVERITY [facility] [place] - 4 4 G A R H OUTPATIEN T EMERGENCY 96691 [facility] 4 4 [place] R OBDULIA DEPARTMEN EMERGENCY T VISIT PHYS HIGH/URGE NT SEVERITY EMERGENCY 66770 [facility] MOSER 4 4 [place] SHANTELLE DEPARTMEN EMERGENCY T VISIT PHYS HIGH/URGE NT SEVERITY EMERGENCY 11716 [facility] 4 4 G A R H DEPARTMEN T VISIT MODERATE SEVERITY [facility] [place] - 4 4 G A R H OUTPATIEN T EMERGENCY 46575 [facility] MOJGAN MELITON MOJGAN 4 4 DEPARTMEN T VISIT HIGH/URGE NT SEVERITY OFFICE 32546 [facility] OUTPATIEN 4 4 BA BA T VISIT 15 MINUTES OFFICE 35225 MIGUEL MAXWELL OUTPATIEN 4 4 T NEW 45 MINUTES EMERGENCY 04918 BRIGIDOATRLaura TRUJILLOKPATRI 4 4 CK IZZY CK IZZY DEPARTMEN T VISIT HIGH/URGE NT SEVERITY EMERGENCY 79360 SAMIRA JOHNS 4 4 [facility] T VISIT MODERATE SEVERITY [facility] [place] [facility] T [facility] [place] [facility] T OFFICE 76997 DR. ABRAHAM SESAY OUTPATIEN 4 4 LYDIA T VISIT Espinoza JON 15 D MINUTES OFFICE 76296 JEANIE WARE OUTPATIEN 4 4 [facility]ES OFFICE 12766 JEANIE WARE OUTPATILUDWIN 4 4 [facility] T VISIT 5 HIGH HIGH MINUTES [facility] [place] - 4 4 [facility] OUT[facility] T PERIODIC 46503 GAUNT TIN GAUNT TIN PREVENTIV 4 4 E MED EST PATIENT 18-39 YRS [facility] [place] - [facility] 4 [facility] T EMERGENCY 67275 [place] 4 [facility] HIGH/URGE NT SEVERITY EMERGENCY 05277 KIRSTEN KIRSTEN 4 4 SRINI SRINI [facility] T VISIT MODERATE SEVERITY OFFICE 17375 [facility] 4 4 BA BA ION NEW/ESTAB PATIENT 60 MIN OFFICE 44678 JEANIE JEANIE OUTPATIEN 3 3 [facility] OFFICE 22134 JON JON OUTPATIEN 3 3 AB BA T VISIT 15 MINUTES OFFICE 04929 JEANIE JEANIE OUTPATIEN 3 3 [facility]ES OFFICE 18631 DONTRELL JON OUTPATIEN 3 3 BA BA T VISIT 15 MINUTES EMERGENCY 96982 FOSTER FOSTER 3 3 YAZMIN ARCE [facility] T VISIT MODERATE SEVERITY [facility] [place] - [facility] T OFFICE 45481 JON JON OUTPATIEN 3 3 BA BA T VISIT 15 MINUTES OFFICE 09597 JEANIE JEANIE OUTPATIEN 3 3 [facility] OFF[facility] 22833 DONTRELL JON OUTPATIEN 3 3 BA BA T VISIT 15 MINUTES EMERGENCY 26897 [facility] DEPT 3 3 VISIT HIGH SEVERITY& THREAT FUNCJ OFFICE 83831 SWOFFORD SWOFFORD OUTPATIEN 3 3 MAR MAR T NEW 30 MINUTES OFFICE 70101 JEANIE JEANIE OUTPATIEN 3 3 [facility]ES OFFICE 17389 EUFEMIAMED [facility] 3 3 ION NEW/ESTAB PATIENT 60 MIN OFFICE 94610 DONTRELL JON OUTPATIEN 3 3 BA BA T VISIT 15 MINUTES EMERGENCY 76665 [place] 3 3 G A R H DEPARTMEN T VISIT HIGH/URGE NT SEVERITY [facility] [place] [facility] 3 3 G A R H OUTPATIEN T EMERGENCY 01087 [facility] DEPT 3 3 ANDREIA ANDREIA VISIT HIGH SEVERITY& THREAT FUNCJ OFFICE 03982 JEANIE WARE OUTPATIEN 3 3 [facility] 17289 JEANIE JEANIE OUTPATIEN 3 3 [facility] MIN[facility]ES OFFICE 11143 DONTRELL JON OUTPATIEN 3 3 BA BA T VISIT 15 MINUTES [facility] [place] [facility] 3 3 G A R H OUTPATIEN T EMERGENCY 80954 [place] 3 3 G A R H DEPARTMEN T VISIT MODERATE SEVERITY EMERGENCY 72563 LETICIA P LETICIA P 3 3 DEPARTMEN T VISIT HIGH/URGE NT SEVERITY OFFICE 08759 DONTRLEL JON OUTPATIEN 3 3 BA BA T VISIT 15 MINUTES OFFICE 48965 DONTRELL JON OUTPATIEN 3 3 BA BA T VISIT 15 MINUTES EMERGENCY 35694 [place] 3 3 G A R H DEPARTMEN T VISIT MODERATE SEVERITY [facility] [place] [facility] 3 3 G A R H OUTPATIEN T OFFICE 53284 JEANIE JEANIE OUTPATIEN 3 3 [facility] 5 [facility]IGH [facility] MINUT[facility] 10619 [place] 3 3 [facility] T VISIT HIGH/URGE NT SEVERITY [facility] [place] [facility] 3 3 [facility] T EMERGENCY 95930 [facility] DEPT 3 3 EMERGENCY BRA VISIT SERVICES HIGH SEVERITY& THREAT FUNCJ OFFICE 36832 JEANIE WARE OUTPATIEN 3 3 [facility]ES OFFICE 14832 MALIKA DALY OUTPATIEN 3 3 [facility] T VISIT 15 MINUTES OFFICE 33256 JEANIE WARE OUTPATIEN 3 3 [facility]ES OFFICE 82320 JEANIE WARE OUTPATIEN 3 3 [facility] MIN[facility] OFFICE 67159 DONTRELL JON OUTPATIEN 3 3 BA BA T VISIT 15 MINUTES OFFICE 60883 DONTRELL JON OUTPATIEN 3 3 BA BA T VISIT 15 MINUTES OFFICE 80543 DONTRELL JON OUTPATIEN 3 3 BA BA T VISIT 15 MINUTES [facility] [place] [facility] T OFFICE 71824 JEANIE WARE OUTPATIEN 3 3 [facility]ES OFFICE 21128 DONTRELL JON OUTPATIEN 3 3 BA BA T VISIT 15 MINUTES OFFICE 77067 DONTRELL JON OUTPATIEN 3 3 BA BA T VISIT 15 MINUTES OFFICE 39314 JEANIE WARE OUTPATIEN 3 3 [facility] 5 [facility] MINUT[facility] OFFICE 56965 DONTRELL JON OUTPATIEN 3 3 BA BA T VISIT 15 MINUTES OFFICE 55456 JEANIE WARE OUTPATIEN 3 3 [facility] MIN[facility]ES OFFICE 08466 JEANIE CARROLLBY OUTPATIEN 3 3 [facility] V[facility] MIN[facility]ES OFFICE 88053 JEANIE CARROLLBY OUTPATIEN 3 3 [facility] OFFICE 35562 MALIKA DALY OUTPATIEN 3 3 MELANIE MELANIE T VISIT 15 MINUTES OFFICE 75801 JON JON OUTPATIEN 3 3 BA BA T VISIT 15 MINUTES OFFICE 33663 ULYSSES ARORA OUTPATIEN 2 2 DAVID HERNANDEZ T VISIT 15 MINUTES OFFICE 02382 JEANIE WARE OUTPATIEN 2 2 [facility] T VISIT 5 HIGH HIGH MINUTES [facility] [place] - 2 2 [facility] OUTPAT[facility] T EMERGENCY 98563 [place] 2 2 [facility] T VISIT MODERATE SEVERITY EMERGENCY 25658 DIOR ANT DIOR ANT 2 2 DEPARTMEN T VISIT HIGH/URGE NT SEVERITY OFFICE 45763 JEANIE WARE OUTPATIEN 2 2 [facility] T VISIT 5 HIGH HIGH MINUTES [facility] [place] [facility] 2 [facility] T OFFICE 63361 JEANIE WARE OUTPATIEN 2 2 [facility]ES OFFICE 82690 ARORA ULYSSES OUTPATIEN 2 2 DAVID HERNANDEZ T NEW 30 MINUTES EMERGENCY 41439 [facility] 2 2 [facility] [place] DEPARTMEN PARTNERS T VISIT LL HIGH/URGE NT SEVERITY EMERGENCY 00271 [place] 2 2 G A R H DEPARTMEN T VISIT MODERATE SEVERITY [facility] [place] - 2 2 G A R H OUTPATIEN T [facility] [place] - 2 2 G A R H OUTPATIEN T EMERGENCY 76302 [place] 2 2 G A R H DEPARTMEN T VISIT HIGH/URGE NT SEVERITY OFFICE 46837 DONTRELL JON OUTPATIEN 2 2 BA BA T VISIT 15 MINUTES OFFICE 39118 JEANIE WARE OUTPATIEN 2 2 [facility] OFFICE 75389 JEANIE CARROLLBY OUTPATIEN 2 2 [facility] V[facility] MIN[facility] OFFICE 11977 JEANIE WARE OUTPATIEN 2 2 [facility] V[facility] OFFICE 50247 DONTRELL JON OUTPATIEN 2 2 [facility] T VISIT 15 MINUTES OFFICE 95109 JEANIE WARE OUTPATIEN 2 2 [facility] OFFICE 54066 JEANIE WARE OUTPATIEN 2 2 [facility] T V[facility] 5 [facility]IGH [facility] MINUT[facility] OFF[facility] 23520 JEANIE WARE OUTPATIEN 2 2 [facility] 5 [facility]IGH [facility] MINUT[facility] OFF[facility] 40482 OVERBEE OVERBEE OUTPATIEN 2 2 GENNY GENNY T VISIT 15 MINUTES OFFICE 54124 JEANIE WARE OUTPATIEN 2 2 [facility] OFFICE 22984 JEANIE WARE OUTPATIEN 2 2 [facility] OFFICE 49824 JEANIE WARE OUTPATIEN 2 2 [facility] MIN[facility] OFFICE 44439 MALIKA DALY OUTPATIEN 2 2 MELANIE MELANIE T VISIT 15 MINUTES OFFICE 96724 EJANIE WARE OUTPATIEN 2 2 [facility]ES OFFICE 95464 JEANIE CARROLLBY OUTPATIEN 2 2 [facility] T V[facility] 5 [facility]IGH [facility] MINUT[facility] 82166 JEANIE JEANIE OUTPATIEN 2 2 [facility] V[facility] OFFICE 04321 JEANIE JEANIE OUTPATIEN 2 2 [facility] MIN[facility] OFFICE 47185 JEANIE WARE OUTPATIEN 2 2 [facility]ES OFFICE 39805 DONTRELL JON OUTPATIEN 2 2 BA BA T VISIT 15 MINUTES [facility] [place] - 2 2 [facility] OUTPAT[facility] CENTER T EMERGENCY 16026 [facility] 2 2 EMERGENCY DEPARTMEN SERVICES T VISIT MODERATE SEVERITY OFFICE 32188 JEANIE JEANIE OUTPATIEN 2 2 [facility] OFFICE 59804 JEANIE JEANIE OUTPATIEN 2 2 [facility] OFFICE 24286 DONTRELL JON OUTPATIEN 2 2 BA BA T VISIT 15 MINUTES [facility] [place] [facility] 2 2 G A R H OUTPATIEN T EMERGENCY 55825 [facility] 2 2 MEDICAL DEPARTMEN PARTNERS T VISIT LL MODERATE SEVERITY OFFICE 78246 DONTRELL JON OUTPATIEN 2 2 BA BA T VISIT 25 MINUTES EMERGENCY 57125 [facility] DE[facility] 2 2 MEDICAL DON VISIT PARTNERS HIGH LL SEVERITY& THREAT FUNCJ OFFICE 04287 DONTRELL JON OUTPATIEN 2 2 BA AB T VISIT 15 MINUTES OFFICE 15678 JEANIE WARE OUTPATIEN 2 2 [facility] OFFICE 82187 JEANIE WARE OUTPATIEN 2 2 [facility]ES OFFICE 66151 JEANIE WARE OUTPATIEN 2 2 [facility] OFFICE 94852 DONTRELL JON OUTPATIEN 2 2 BA BA T VISIT 15 MINUTES OFFICE 91092 DONTRELL JON OUTPATIEN 2 2 BA BA T VISIT 15 MINUTES OFFICE 39111 JEANIE JEANIE OUTPATIEN 2 2 [facility] OFFICE 21718 DONTRELL JON OUTPATIEN 2 2 BA BA T VISIT 15 MINUTES OFFICE 00469 JEANIE JEANIE OUTPATIEN 2 2 [facility] OFFICE 94078 JEANIE WARE OUTPATIEN 2 2 [facility] MIN[facility]ES EMERGENCY 57240 MINIX CASSY MINIX CASSY 2 2 DEPARTMEN T VISIT MODERATE SEVERITY OFFICE 47839 DONTRELL JON OUTPATIEN 2 2 BA BA T VISIT 15 MINUTES OFFICE 69844 DONTRELL JON OUTPATIEN 2 2 BA BA T VISIT 15 MINUTES OFFICE 42294 JEANIE WARE OUTPATIEN 2 2 [facility] OFFICE 12078 JEANIE JEANIE OUTPATIEN 2 2 [facility]ES OFFICE 69616 DONTRELL JON OUTPATIEN 2 2 BA BA T VISIT 15 MINUTES [facility] [place] [facility] 2 2 G A R H OUTPATIEN T OFFICE 27798 DONTRELL STYLES OUTPATIEN 2 2 BA GENNY T VISIT 15 MINUTES OFFICE 85218 JEANIE WARE OUTPATIEN 1 1 [facility] OFFICE 08053 DONTRELL JON OUTPATIEN 1 1 BA BA T VISIT 15 MINUTES OFFICE 02235 JEANIE WARE OUTPATIEN 1 1 [facility] [place] [facility] 1 1 G A R H OUTPATIEN T OFFICE 82758 SOLITARIO STYLES OUTPATIEN 1 1 [facility] T VISIT CARE 15 MINUTES OFFICE 21009 JEANIE JEANIE OUTPATIEN 1 1 [facility]ES OFFICE 52195 SOLITARIO OVERBEE OUTPATIEN 1 1 [facility] GENNY T VISIT CARE 15 MINUTES [facility] [place] [facility] 1 1 G A R H OUTPATIEN T OFFICE 72982 JEANIE JEANIE OUTPATIEN 1 1 [facility] OFFICE 15188 SOLITARIO OVERBEE OUTPATIEN 1 1 [facility]NY T VISIT CARE 15 MINUTES OFFICE 54474 SOLITARIO OVERBEE OUTPATIEN 1 1 [facility] T VISIT CARE 15 MINUTES OFFICE 62417 SOLITARIO OVERBEE OUTPATIEN 1 1 [facility] GENNY T VISIT CARE 15 MINUTES OFFICE 39679 SOLITARIO OVERBEE OUTPATIEN 1 1 PR[facility] GENNY T VISIT CARE 15 MINUTES [facility] [place] [facility] 1 1 G A R H OUTPATIEN T OFFICE 65176 SOLITARIO OVERBEE OUTPATIEN 1 1 PRIMARY GENNY T VISIT CARE 15 MINUTES INITIAL 99237 GAUNT TIN GAUNT TIN PREVENTIV 1 1 E MEDICINE NEW PT AGE 12-17 YR OFFICE 81485 JEANIE JEANIE OUTPATIEN 1 1 [facility] OFFICE 07784 SOLITARIO OVERBEE OUTPATIEN 1 1 [facility] T VISIT CARE 15 MINUTES OFFICE 44922 JEANIE JEANIE OUTPATIEN 1 1 [facility] OFFICE 28976 JEANIE JEANIE OUTPATIEN 1 1 [facility] OFFICE 88240 JEANIE JEANIE OUTPATIEN 1 1 [facility] OFFICE 29175 JEANIE JEANIE OUTPATIEN 1 1 [facility] MIN[facility]ES OFFICE 72951 JEANIE JEANIE OUTPATIEN 1 1 [facility]ES OFFICE 69153 JEANIE JEANIE OUTPATIEN 1 1 [facility] OFFICE 64080 JEANIE JEANIE OUTPATIEN 1 1 [facility]ES OFFICE 16640 JEANIE JEANIE OUTPATIEN 1 1 [facility] OFFICE 97019 SOLITARIO OVERBEE OUTPATIEN 1 1 [facility] T VISIT CARE 15 MINUTES OFFICE 87412 JEANIE JEANIE OUTPATIEN 1 1 [facility] 5 [facility] MINUT[facility] 61918 JEANIE JEANIE OUTPATIEN 1 1 [facility] OFFICE 89404 SOLITARIO OVERBEE OUTPATIEN 1 1 PRIMARY GENNY T VISIT CARE 15 MINUTES OFFICE 82130 JEANIE JEANIE OUTPATIEN 1 1 [facility]ES OFFICE 63785 JEANIE JEANIE OUTPATIEN 1 1 [facility] OFFICE 02123 SOLITARIO OVERBEE OUTPATIEN 1 1 PRIMARY GENNY T VISIT CARE 15 MINUTES OFFICE 55373 JEANIE JEANIE OUTPATIEN 1 1 [facility]ES OFFICE 15485 JEANIE JEANIE OUTPATIEN 1 1 [facility] MIN[facility]ES OFFICE 73931 JEANIE JEANIE OUTPATIEN 1 1 [facility]ES OFFICE 97057 SOLITARIO OVERBEE OUTPATIEN 1 1 [facility]IMARY GENNY T VISIT CARE 15 MINUTES OFFICE 99493 SOLITARIO OVERBEE OUTPATIEN 1 1 PRIMARY GENNY T VISIT CARE 15 MINUTES OFFICE 04140 JEANIE JEANIE OUTPATIEN 1 1 [facility]ES OFFICE 33873 JEANIE JEANIE OUTPATIEN 0 0 [facility] OFFICE 45122 SOLITARIO OVERBEE OUTPATIEN 0 0 PRIMARY GENNY T VISIT CARE 15 MINUTES OFFICE 97049 JEANIE JEANIE OUTPATIEN 0 0 [facility] OFF[facility] 04705 DR. MALIKA HARRYPATIEN 0 0 LYDIA Ramsay VISIT Espinoza JON 15 D MINUTES OFFICE 13839 JEANIE JEANIE OUTPATIEN 0 0 [facility] OFFICE 32987 SOLITARIO OVERBEE OUTPATIEN 0 0 PRIMARY GENNY T VISIT CARE 15 MINUTES OFFICE 75808 JEANIE JEANIE OUTPATIEN 0 0 [facility]ES OFFICE 78921 JEANIE JEANIE OUTPATIEN 0 0 [facility] OFFICE 57181 DR. MALIKA HARRYPATIEN 0 0 LYDIA Ramsya VISIT Espinoza JON 15 D MINUTES OFFICE 95541 JEANIE JEANIE OUTPATIEN 0 0 [facility]ES OFFICE 35721 JEANIE JEANIE OUTPATIEN 0 0 [facility] MINUTES OFFICE 04723 DR. DONTRELL CIFUENTES 0 0 LYDIA Ramsay VISIT Espinoza JON 15 D MINUTES [facility] [place] [facility] 0 0 G A R H OUTPATIEN T OFFICE 07674 DR. JON OUTPATIEN 0 0 LYDIA Ramsay VISIT Espinoza JON 15 D [address]ES [address] JON OUTPATIEN 0 0 LYDIA COSME Devendra VISIT Espinoza JON 15 D MIN[address] OFFICE [address]64 DR. JON, OUTPATIEN 0 0 LYDIA Ramsay VISIT Espinoza JON 15 D MINUTES [facility] [place] [facility] 0 0 G A R H OUTPATIEN T [facility] [place] [facility] 0 0 G A R H OUTPATIEN T [facility] [place] [facility] 0 0 G A R H OUTPATIEN T OFFICE 90302 DR. JON, OUTPATIEN 0 0 LYDIA Ramsay VISIT Espinoza JON 15 D MINUTES [facility] [place] [facility] 0 0 G A R H OUTPATIEN T EMERGENCY 87212 [place] 0 0 G A R H DEPARTMEN T VISIT LOW/MODER SEVERITY EMERGENCY 93529 [facility], 0 0 MEDICAL ROXANA Mulligan DEPARTMEN PARTNERS T [facility] HIGH/URGE NT SEVERITY OFFICE 66980 JODY VERA OUTPATIEN 0 0 ELEMENTAR ELEMENTAR T VISIT Y Y 10 MINUTES [facility] [place] - 0 0 G A R H OUTPATIEN T EMERGENCY 63684 [facility] 0 0 MEDICAL , DEIDRE DEPARTMEN PARTNERS F T [facility]IT [facility] MODERATE SEVERITY EMERGENCY 54702 [place] 0 0 G A R H DEPARTMEN T VISIT LOW/MODER SEVERITY OFFICE 01507 JODY VERA OUTPATIEN 0 0 ELEMENTAR ELEMENTAR T VISIT Y Y [address] JON, OUTPATIEN 0 0 LYDIA FREEMAN Devendra VISIT Espinoza JON 15 D MINUTES OFFICE 21024 SOLITARIO LEMUS OUTPATIEN 0 0 PRIMARY JOVANNA D T VISIT CARE 15 MINUTES OFFICE 78456 SOLITARIO ALLAN, OUTPATIEN 9 9 PRIMARY JOVANNA D T VISIT CARE 15 MINUTES [facility] [place] [facility] T OFFICE 84451 [facility] OUTPAT[facility] 9 9 HEALTH ELEMENTAR T VISIT CENTRAL Y 10 BANK ACCT MINUTES OFFICE 40613 [facility] OUTPATIEN 9 9 HEALTH ELEMENTAR T NEW 20 CENTRAL Y MINUTES BANK ACCT OFFICE 15601 SOLITARIO ALLAN, OUTPATIEN 9 9 PRIMARY JOVANNA D T VISIT CARE 15 MINUTES OFFICE 87319 SOLITARIO ALLAN, OUTPATIEN 9 9 PRIMARY JOVANNA D T VISIT CARE 15 MINUTES [facility] [place] [facility] 55758 MARISA LORENZO 9 9 RODY SORTO NEW/ESTAB HOSP PATIENT 40 MIN OFFICE 11284 SOLITARIO ALLAN, OUTPATIEN 9 9 PRIMARY JOVANNA D T VISIT CARE 15 MINUTES [facility] [place] [facility] 9 9 G A R H OUTPATIEN T EMERGENCY 71271 [place] 9 9 G A R H DEPARTMEN T VISIT LOW/MODER SEVERITY EMERGENCY 83989 [facility] MIGUEL ÁNGEL, 9 9 MEDICAL MARCELLUS DEPARTMEN PARTNERS E T [facility]IT [facility] MODERATE SEVERITY OFFICE 67737 SOLITARIO ALLAN, OUTPATIEN 9 9 PRIMARY JOVANNA D T VISIT CARE 15 MINUTES [facility] [place] [facility] 9 9 G A R H OUTPATIEN T OFFICE 02351 ESAU POLANCO 9 9 LYDIA Ramsay VISIT Espinoza JON 15 D MINUTES OFFICE 46491 ESAU POLANCO 9 9 LYDIA Ramsay VISIT Espinoza JON 15 D MINUTES OFFICE 68437 SOLITARIO LEMUS, OUTPATIEN 9 9 PRIMARY JOVANNA D T VISIT CARE 15 MINUTES OFFICE 94414 SOLITARIO DODSONOME, OUTPATIEN 9 9 PRIMARY JOVANNA D T VISIT CARE 15 MINUTES [facility] [place] - 9 9 [facility] T EMERGENCY 61739 [place] 9 9 [facility] T VISIT MODERATE SEVERITY OFFICE 33782 DR. JON, OUTPATIEN 9 9 LYDIA FREEMAN T VISIT Espinoza JON 15 D MINUTES OFFICE 62928 SOLITARIO LEMUS, OUTPATIEN 8 8 PRIMARY JOVANNA Phillip T VISIT CARE 15 MINUTES [facility] [place] [facility] 8 8 [facility] 37576 ALLAN, ALLAN, OUTPATIEN 8 8 JOVANNA D JOVANNA D T NEW 20 MINUTES [facility] [place] - 8 8 [facility] T EMERGENCY 99748 LAUREN 8 8 [facility] T VISIT LIMITED/M INOR PROB OFFICE 88058 ALICJA VAZQUEZ [facility] 8 8 [facility] CARE JESSIKA T VISIT MED [facility] 10 MINUTES
--- OUTSIDE RECORDS SUMMARY | 2016-12-12 22:35 | External Medical Summary Rpt ---
Demographics Preferred Language [place] Marital Status Unknown Taoism Affiliation Unknown Race Unknown Ethnic Group Unknown Author Author , PATRIZIA PIERCE Address Unknown Phone Immunization Unable to retrieve immunization data due to connection failure with Immunization Registry. Please try again later.
--- OUTSIDE RECORDS SUMMARY | 2016-12-12 22:35 | External Medical Summary Rpt ---
Demographics Preferred Language Stateless Marital Status Unknown Bahai Affiliation Unknown Race Unknown Ethnic Group Unknown Author Author , PATRIZIA PIERCE Address Unknown Phone Immunization Unable to retrieve immunization data due to connection failure with Immunization Registry. Please try again later.
== END 2016-12-10 20:26 | disposition home or self-care (01) ==
LOC: ER 18:27
PROVIDERS: Emergency Medicine
DX: R11.2 Nausea with vomiting, unspecified (principal); Z72.0 Tobacco use
CPT/HCPCS: J2405

== ENCOUNTER 2017-01-14 12:32 | Emergency (ER) | payer MEDICAID ==
[~2017-01-14] VITALS: Ht 162.6 cm; Wt 77.1 kg
--- NOTE | 2017-01-14 12:41 | Urgent Treatment Center Report ---
See Addendum History of Present Issue Date/Time Seen by Provider 01/14/17 1240 Visit Reason Pt arrived:Walked Presenting Problem:PT STATES RLQ PAIN AND DIARRHEA SINCE YESTERDAY Location if Accident: Onset of symptoms date/time:01/13/17/ or onset unknown for:MEDICAL HX UNKNOWN Have you (or family members/close friends) recently traveled outside the [place]? N If Yes, where/when: Have you had exposure to infectious disease within the past month? TB? Other? Specify: c/o RLQ abdominal pain since yesterday. Described as "like a contraction". Intermittent, lasting 2-3 minutes, occurring every 5-6 minutes, sharp. Pain worse with breathing out or pushing in on abdomen. Denies Nausea or vomiting but + watery diarrhea since yesterday. "Can't eat anything without it coming back out". Pt denies that this pain is consistent w/ typical diarrhea associated cramping. LMP 12/17/16. Hx of PCOS but denies pain similiar to this prior to or with periods in the past. "this is much worse then any pain". Hasn't taken or tried anything for symptoms. Denies fever. Source patient Exam Limitations no limitations ALLERGIES Coded Allergies: penicillin G (Intermediate, SWELLING 12/10/16) erythromycin base (Mild, I-HIVES 12/10/16) Uncoded Allergies: ARTIFICIAL STRAWBERRY FLAVORING (Mild, I-RASH 06/04/15) Home Medications Reported Medications No Known Home Medications History Medical History General CAD? No Angina: No ME: No Hypertension? No Hyperlipidemia? No CHF? No DVT? No PE? No COPD? No Asthma? No Anemia? No GERD? No Gastric ulcers? No GI Bleed? No Hernia? No Thyroid Problems? No Hypothyroidism? No CVA? No Seizures? Yes Diabetes? No Renal Insuffiency? No UTI? Yes Stones? No BPH? No GB Disease: No Nephritic Syndrome? No Asplenia? No Hepatitis? No Sickle Cell Disease? No Arthritis? No Migraines? Yes Cataracts? No Glaucoma? No MRSA? No HIV? No TB? No Anxiety? No Depression? No Cancer? No More? 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 Musculoskeletal denies back pain Skin denies lesions, denies lumps, denies rash Physical Exam Vital Signs Vital Signs Date Time Temp Pulse Resp B/P Pulse O2 O2 Flow FiO2 Ox Delivery Rate 01/14 1237 98.2 87 18 128/76 98 General Appearance mild distress (guarding RLQ) Neck non-tender, supple Respiratory Status No: respiratory distress, productive cough, non productive cough. Lung Sounds anterior: lungs clear. posterior: lungs clear. bilateral: lungs clear. Cardiovascular regular rate/rhythm, no peripheral edema, no murmur Gastrointestinal soft, no organomegaly, no pulsatile mass, abnormal bowel sounds (faint), guarding (RLQ), no rebound, tenderness (RLQ, inferior to umbilicus) Back no CVA tenderness Neurologic alert, oriented x 3 Mental status normal mood/affect Skin normal color, warm/dry Medical Decision Making LABS/Meds/Orders Pt receiving controlled substance in ED? No Results/Orders Laboratory Tests 01/14/17 1237: Urine Color YELLOW, Urine Appearance Clear, Urine pH 6.5, Ur Specific [place] 1.015, Urine Protein NEGATIVE, Urine Ketones NEGATIVE, Urine Blood NEGATIVE, Urine Nitrate NEGATIVE, Urine Bilirubin NEGATIVE, Urine Urobilinogen 0.2, Ur Leukocyte Esterase NEGATIVE, Urine Glucose NEGATIVE, Urine Test NEGATIVE Orders Procedure Date/time Status [facility] URINE 01/14 123 Complete [facility] URINE DIPSTICK 01/14 1237 Complete Departure Departure Time of Disposition 1252 Disposition DC Home or Self Care(routine) Clinical Impression Primary Impression: Right lower quadrant abdominal pain Condition STABLE Additional Instructions Discussed [facility] guidelines and symptoms with patient. Agreeable to transfer to ER for abdominal pain evaluation and management. Report called to Jamie. Bed 10 available. Prescriptions Current Visit Scripts No Known Home Medications at 1253
--- NOTE | 2017-01-14 12:41 | Urgent Treatment Center Report ---
See Addendum History of Present Issue Date/Time Seen by Provider 01/14/17 1240 Visit Reason Pt arrived:Walked Presenting Problem:PT STATES RLQ PAIN AND DIARRHEA SINCE YESTERDAY Location if Accident: Onset of symptoms date/time:01/13/17/ or onset unknown for:MEDICAL HX UNKNOWN Have you (or family members/close friends) recently traveled outside the [place]? N If Yes, where/when: Have you had exposure to infectious disease within the past month? TB? Other? Specify: c/o RLQ abdominal pain since yesterday. Described as "like a contraction". Intermittent, lasting 2-3 minutes, occurring every 5-6 minutes, sharp. Pain worse with breathing out or pushing in on abdomen. Denies Nausea or vomiting but + watery diarrhea since yesterday. "Can't eat anything without it coming back out". Pt denies that this pain is consistent w/ typical diarrhea associated cramping. LMP 12/17/16. Hx of PCOS but denies pain similiar to this prior to or with periods in the past. "this is much worse then any pain". Hasn't taken or tried anything for symptoms. Denies fever. Source patient Exam Limitations no limitations ALLERGIES Coded Allergies: penicillin G (Intermediate, SWELLING 12/10/16) erythromycin base (Mild, I-HIVES 12/10/16) Uncoded Allergies: ARTIFICIAL STRAWBERRY FLAVORING (Mild, I-RASH 06/04/15) Home Medications Reported Medications No Known Home Medications History Medical History General CAD? No Angina: No [place]: No Hypertension? No Hyperlipidemia? No CHF? No DVT? No PE? No COPD? No Asthma? No Anemia? No GERD? No Gastric ulcers? No GI Bleed? No Hernia? No Thyroid Problems? No Hypothyroidism? No CVA? No Seizures? Yes Diabetes? No Renal Insuffiency? No UTI? Yes Stones? No BPH? No GB Disease: No Nephritic Syndrome? No Asplenia? No Hepatitis? No Sickle Cell Disease? No Arthritis? No Migraines? Yes Cataracts? No Glaucoma? No MRSA? No HIV? No TB? No Anxiety? No Depression? No Cancer? No More? 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 Musculoskeletal denies back pain Skin denies lesions, denies lumps, denies rash Physical Exam Vital Signs Vital Signs Date Time Temp Pulse Resp B/P Pulse O2 O2 Flow FiO2 Ox Delivery Rate 01/14 1237 98.2 87 18 128/76 98 General Appearance mild distress (guarding RLQ) Neck non-tender, supple Respiratory Status No: respiratory distress, productive cough, non productive cough. Lung Sounds anterior: lungs clear. posterior: lungs clear. bilateral: lungs clear. Cardiovascular regular rate/rhythm, no peripheral edema, no murmur Gastrointestinal soft, no organomegaly, no pulsatile mass, abnormal bowel sounds (faint), guarding (RLQ), no rebound, tenderness (RLQ, inferior to umbilicus) Back no CVA tenderness Neurologic alert, oriented x 3 Mental status normal mood/affect Skin normal color, warm/dry Medical Decision Making LABS/Meds/Orders Pt receiving controlled substance in ED? No Results/Orders Laboratory Tests 01/14/17 1237: Urine Color YELLOW, Urine Appearance Clear, Urine pH 6.5, Ur Specific [place] 1.015, Urine Protein NEGATIVE, Urine Ketones NEGATIVE, Urine Blood NEGATIVE, Urine Nitrate NEGATIVE, Urine Bilirubin NEGATIVE, Urine Urobilinogen 0.2, Ur Leukocyte Esterase NEGATIVE, Urine Glucose NEGATIVE, Urine Test NEGATIVE Orders Procedure Date/time Status [facility] URINE 01/14 123 Complete [facility] URINE DIPSTICK 01/14 1237 Complete Departure Departure Time of Disposition 1252 Disposition DC Home or Self Care(routine) Clinical Impression Primary Impression: Right lower quadrant abdominal pain Condition STABLE Additional Instructions Discussed [facility] guidelines and symptoms with patient. Agreeable to transfer to ER for abdominal pain evaluation and management. Report called to Jamie. Bed 10 available. Prescriptions Current Visit Scripts No Known Home Medications at 1253
[2017-01-14 12:43] LABS: URINE BILIRUBIN - DIPSTICK NEGATIVE (NEG); URINE BLOOD NEGATIVE (NEG); UTC URINE PREGNANCY NEGATIVE (NEG)
[2017-01-14 13:09] VITALS: BP 128/76
== END 2017-01-14 13:10 | disposition home or self-care (01) ==
LOC: UTC 12:32
PROVIDERS: Nurse Practitioner Family
DX: R10.31 Right lower quadrant pain (principal); Z72.0 Tobacco use

== ENCOUNTER 2017-01-14 19:56 | Emergency (ER) | payer MEDICAID ==
[~2017-01-14] VITALS: Ht 162.6 cm; Wt 77.1 kg
[2017-01-14 20:14] LABS: HEMOGLOBIN 14.4 g/dL (12.2-16.2); LYMPH # 4.1 K/mm3 (0.7-4.5); LYMPH % 27.6 % (10-50.0)
[2017-01-14 20:14] LABS: URINE BILIRUBIN - DIPSTICK NEGATIVE (NEG); URINE BLOOD NEGATIVE (NEG)
[2017-01-14 22:04] LABS: NEUTROPHILS 66 % (42-76)
--- NOTE | 2017-01-14 23:44 | Emergency Room Report ---
History of Present Illness Time Seen by 2040 Presenting Problem in Triage Pt arrived:Walked Presenting Problem:C/O RIGHT SIDED ABDOMINAL PAIN SINCE 01/13/17. C/O VOMITING AND DIARRHEA. 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 N Clinical Suspician of Infection? N Mental Status: 1 - Regular (Normal Baseline) Sepsis Risk:Possible Sepsis Risk Have you (or family members/close friends) recently traveled outside the [place]? N If Yes, where/when: Have you had exposure to infectious disease within the past month? N TB? Other? Specify: Source patient, RN notes reviewed, family, old records Exam Limitations no limitations Comment pt with crampy abd pain with some diarrhea over the last few days - no fever or blood in stool with no known contacts and no travel and no rash or swollen jts - was seen in [facility] earlier Cardiac Chest Pain Chest pain indicative of cardiac No Timing/Duration this evening Severity moderate ALLERGIES Coded Allergies: penicillin G (Intermediate, SWELLING 12/10/16) erythromycin base (Mild, I-HIVES 12/10/16) Uncoded Allergies: ARTIFICIAL STRAWBERRY FLAVORING (Mild, I-RASH 06/04/15) Home Medications Reported Medications No Known Home Medications History Medical History General CAD? No Angina: No [place]: No Hypertension? No Hyperlipidemia? No CHF? No DVT? No PE? No COPD? No Asthma? No Anemia? No GERD? No Gastric ulcers? No GI Bleed? No Hernia? No Thyroid Problems? No Hypothyroidism? No CVA? No Seizures? Yes Diabetes? No Renal Insuffiency? No End Stage Renal Disease? No UTI? Yes Stones? No BPH? No GB Disease: No Nephritic Syndrome? No Asplenia? No Hepatitis? No Sickle Cell Disease? No Arthritis? No Migraines? Yes Cataracts? No Glaucoma? No MRSA? No HIV? No TB? No Anxiety? No Depression? No Cancer? No More? 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 Respiratory denies cough, denies shortness of breath, denies wheezing Cardiovascular denies chest pain, denies palpitations, denies syncope Gastrointestinal see HPI, abdominal pain, diarrhea, nausea, denies vomiting Genitourinary denies: dysuria, frequency, hesitancy, hematuria. Musculoskeletal denies back pain, denies joint pain, denies joint swelling, denies neck pain Skin denies rash Psychiatric/Neurological denies headache, denies seizure Physical Exam Vital Signs Vital Signs Date Time Temp Pulse Resp B/P Pulse O2 O2 Flow FiO2 Ox Delivery Rate 01/14 2307 80 18 129/61 98 01/14 2237 99.3 84 18 115/71 99 01/14 2152 87 18 113/70 98 01/14 2122 85 18 116/73 98 01/146 87 18 91/61 98 01/14 2001 98.5 107 20 129/80 99 - WBC >12,000 or <4,000 or 10% bands? 2 or more SIRS Criteria Met? B/P:129/61 MAP:96 Creatinine >2.0? UA output<0.5ml/kg/hr for 2 hrs? Platelet count >100,000? Lactate >2.0mmol/1? INR >1.2 or PTT > than 60 sec? Evidence of Organ Dysfunction? Provider documented clinical suspician of infection? N Sepsis Criteria Count: 2 Sepsis Risk: Possible Sepsis Risk General Appearance no apparent distress Eye Exam - bilateral eye PERRL, bilateral eye EOMI Ear, Nose, Throat normal ENT inspection Neck supple Respiratory Status No: respiratory distress. Lung Sounds bilateral: lungs clear. 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 No Results/Orders Laboratory Tests 01/14/172009: Sodium 140, Potassium 3.6, Chloride 104, Carbon Dioxide 28, BUN 11, Creatinine 0.9, Estimated Creat Clear 120, Estimated GFR (MDRD) 79, Glucose 108 H, Calcium 8.8, Total Bilirubin 0.2, AST 8 L, ALT 18, Alkaline Phosphatase 81, Total Protein 7.3, Albumin 3.5, Globulin 3.8 H, Albumin/Globulin Ratio 0.9 L, Amylase 45, Lipase 146, WBC 15.0 H, RBC 4.68, Hgb 14.4, Hct 41.8, MCV 89.4, RDW 12.9, Plt Count 220, MPV 8.9, Gran % 66.3, Gran # 10.0 H, Total Counted 100, Lymphocytes % 27.6, Monocytes % 2.7, Eosinophils % 3.2, Basophils % 0.3, Neutrophils 66, Lymphocytes (Manual) 31, Lymphocytes # 4.1, Monocytes (Manual) 1 L, Monocytes # 0.4, Eosinophils # 0.5 H, Eosinophils # (Manual) 2, Basophils # 0.0, Platelet Estimate NORMAL, Anisocytosis 1+, PUBS MCHC 34.5, MCH 30.9 01/14/172003: Urine Color YELLOW, Urine Appearance CLEAR, Urine pH 6.0, Ur Specific [place] 1.010, Urine Protein NEGATIVE, Urine Ketones NEGATIVE, Urine Blood NEGATIVE, Urine Nitrate NEGATIVE, Urine Bilirubin NEGATIVE, Urine Urobilinogen 0.2, Ur Leukocyte Esterase NEGATIVE, Urine RBC NONE, Urine WBC OCC, Ur Squamous Epith Cells 10-20, Urine Bacteria TRACE, Urine Glucose NEGATIVE Current Medication Orders Sig/Gisel Start time Last Medication Dose Route Stop Time Status Admin Sodium Chloride 10 ML PRN PRN 01/14 2015 AC IV 01/15 2007 Orders Procedure Date/time Status DIET-NOTHING BY MOUTH 01/[address] ABD & PELVIS W/O CONTRAST 01/14 2019 Active DIFFERENTIAL-WBC 01/[address] ABD/PELVIS REQ 01/15 2008 Complete IV SALINE LOCK 01/15 2008 Active URINALYSIS/COMPLETE 01/15 2008 Complete URINE 01/15 2008 Complete LIPASE 01/15 2008 Complete DIARRHEA PANEL, PCR 01/15 2008 Active CBC WITH AUTO DIFF 01/15 2008 Complete CHEM 12 PROFILE 01/15 2008 Complete AMYLASE 01/15 2008 Complete XRAY/CT/US XRAY/CT/US CT abdomen, pelvis CT interpretation by discussed w/radiologist Time results known: 2341 CT Results normal/NAD Departure Departure Time of Disposition 2341 Disposition DC Home or Self Care(routine) Clinical Impression Primary Impression: Gastroenteritis Condition STABLE Referrals NO REFERRAL (Family) Patient Instructions DIET-DIARRHEA NUTRITION [facility] Additional Instructions fluids and see pcp for follow up Discharge Counseling Counseled pt/family regarding diagnosis, test results, follow up needs Prescriptions Current Visit Scripts No Known Home Medications ED Critical Care Critical Care No at 2345
--- NOTE | 2017-01-14 23:44 | Emergency Room Report ---
History of Present Illness Time Seen by 2040 Presenting Problem in Triage Pt arrived:Walked Presenting Problem:C/O RIGHT SIDED ABDOMINAL PAIN SINCE 01/13/17. C/O VOMITING AND DIARRHEA. 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 N Clinical Suspician of Infection? N Mental Status: 1 - Regular (Normal Baseline) Sepsis Risk:Possible Sepsis Risk Have you (or family members/close friends) recently traveled outside the [place]? N If Yes, where/when: Have you had exposure to infectious disease within the past month? N TB? Other? Specify: Source patient, RN notes reviewed, family, old records Exam Limitations no limitations Comment pt with crampy abd pain with some diarrhea over the last few days - no fever or blood in stool with no known contacts and no travel and no rash or swollen jts - was seen in [facility] earlier Cardiac Chest Pain Chest pain indicative of cardiac No Timing/Duration this evening Severity moderate ALLERGIES Coded Allergies: penicillin G (Intermediate, SWELLING 12/10/16) erythromycin base (Mild, I-HIVES 12/10/16) Uncoded Allergies: ARTIFICIAL STRAWBERRY FLAVORING (Mild, I-RASH 06/04/15) Home Medications Reported Medications No Known Home Medications History Medical History General CAD? No Angina: No [place]: No Hypertension? No Hyperlipidemia? No CHF? No DVT? No PE? No COPD? No Asthma? No Anemia? No GERD? No Gastric ulcers? No GI Bleed? No Hernia? No Thyroid Problems? No Hypothyroidism? No CVA? No Seizures? Yes Diabetes? No Renal Insuffiency? No End Stage Renal Disease? No UTI? Yes Stones? No BPH? No GB Disease: No Nephritic Syndrome? No Asplenia? No Hepatitis? No Sickle Cell Disease? No Arthritis? No Migraines? Yes Cataracts? No Glaucoma? No MRSA? No HIV? No TB? No Anxiety? No Depression? No Cancer? No More? 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 Respiratory denies cough, denies shortness of breath, denies wheezing Cardiovascular denies chest pain, denies palpitations, denies syncope Gastrointestinal see HPI, abdominal pain, diarrhea, nausea, denies vomiting Genitourinary denies: dysuria, frequency, hesitancy, hematuria. Musculoskeletal denies back pain, denies joint pain, denies joint swelling, denies neck pain Skin denies rash Psychiatric/Neurological denies headache, denies seizure Physical Exam Vital Signs Vital Signs Date Time Temp Pulse Resp B/P Pulse O2 O2 Flow FiO2 Ox Delivery Rate 01/14 2307 80 18 129/61 98 01/14 2237 99.3 84 18 115/71 99 01/14 2152 87 18 113/70 98 01/14 2122 85 18 116/73 98 01/146 87 18 91/61 98 01/14 2001 98.5 107 20 129/80 99 - WBC >12,000 or <4,000 or 10% bands? 2 or more SIRS Criteria Met? B/P:129/61 MAP:96 Creatinine >2.0? UA output<0.5ml/kg/hr for 2 hrs? Platelet count >100,000? Lactate >2.0mmol/1? INR >1.2 or PTT > than 60 sec? Evidence of Organ Dysfunction? Provider documented clinical suspician of infection? N Sepsis Criteria Count: 2 Sepsis Risk: Possible Sepsis Risk General Appearance no apparent distress Eye Exam - bilateral eye PERRL, bilateral eye EOMI Ear, Nose, Throat normal ENT inspection Neck supple Respiratory Status No: respiratory distress. Lung Sounds bilateral: lungs clear. 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 No Results/Orders Laboratory Tests 01/14/172009: Sodium 140, Potassium 3.6, Chloride 104, Carbon Dioxide 28, BUN 11, Creatinine 0.9, Estimated Creat Clear 120, Estimated GFR (MDRD) 79, Glucose 108 H, Calcium 8.8, Total Bilirubin 0.2, AST 8 L, ALT 18, Alkaline Phosphatase 81, Total Protein 7.3, Albumin 3.5, Globulin 3.8 H, Albumin/Globulin Ratio 0.9 L, Amylase 45, Lipase 146, WBC 15.0 H, RBC 4.68, Hgb 14.4, Hct 41.8, MCV 89.4, RDW 12.9, Plt Count 220, MPV 8.9, Gran % 66.3, Gran # 10.0 H, Total Counted 100, Lymphocytes % 27.6, Monocytes % 2.7, Eosinophils % 3.2, Basophils % 0.3, Neutrophils 66, Lymphocytes (Manual) 31, Lymphocytes # 4.1, Monocytes (Manual) 1 L, Monocytes # 0.4, Eosinophils # 0.5 H, Eosinophils # (Manual) 2, Basophils # 0.0, Platelet Estimate NORMAL, Anisocytosis 1+, PUBS MCHC 34.5, MCH 30.9 01/14/172003: Urine Color YELLOW, Urine Appearance CLEAR, Urine pH 6.0, Ur Specific [place] 1.010, Urine Protein NEGATIVE, Urine Ketones NEGATIVE, Urine Blood NEGATIVE, Urine Nitrate NEGATIVE, Urine Bilirubin NEGATIVE, Urine Urobilinogen 0.2, Ur Leukocyte Esterase NEGATIVE, Urine RBC NONE, Urine WBC OCC, Ur Squamous Epith Cells 10-20, Urine Bacteria TRACE, Urine Glucose NEGATIVE Current Medication Orders Sig/Gisel Start time Last Medication Dose Route Stop Time Status Admin Sodium Chloride 10 ML PRN PRN 01/14 2015 AC IV 01/15 2007 Orders Procedure Date/time Status DIET-NOTHING BY MOUTH 01/[address] ABD & PELVIS W/O CONTRAST 01/14 2019 Active DIFFERENTIAL-WBC 01/[address] ABD/PELVIS REQ 01/15 2008 Complete IV SALINE LOCK 01/15 2008 Active URINALYSIS/COMPLETE 01/15 2008 Complete URINE 01/15 2008 Complete LIPASE 01/15 2008 Complete DIARRHEA PANEL, PCR 01/15 2008 Active CBC WITH AUTO DIFF 01/15 2008 Complete CHEM 12 PROFILE 01/15 2008 Complete AMYLASE 01/15 2008 Complete XRAY/CT/US XRAY/CT/US CT abdomen, pelvis CT interpretation by discussed w/radiologist Time results known: 2341 CT Results normal/NAD Departure Departure Time of Disposition 2341 Disposition DC Home or Self Care(routine) Clinical Impression Primary Impression: Gastroenteritis Condition STABLE Referrals NO REFERRAL (Family) Patient Instructions DIET-DIARRHEA NUTRITION [facility] Additional Instructions fluids and see pcp for follow up Discharge Counseling Counseled pt/family regarding diagnosis, test results, follow up needs Prescriptions Current Visit Scripts No Known Home Medications ED Critical Care Critical Care No at 2348
[2017-01-14 23:54] VITALS: BP 131/81
--- NOTE | 2017-01-15 07:10 | RADIOLOGY REPORT PS360 ---
CT ABD PELVIS W/O CONTRAST CLINICAL INDICATION: Right lower quadrant pain RT SIDED ABD PAIN ORDERING PHYSICIAN: Shaquille Salcedo MD PATIENT AGE: 21 years COMPARISON: 12/10/2016 TECHNIQUE: Axial images obtained with sagittal and coronal reformats. PROCEDURE: Oral Contrast: None IV Contrast: None . FINDINGS: Lung bases are clear. The liver, gallbladder, spleen, pancreas, adrenal glands, kidneys, ureters, and urinary bladder have an unremarkable appearance. Hyperdense material noted within the stomach as before No intestinal obstruction. Unremarkable appendix. There is mild thickening versus nondistention of the descending and sigmoid colon and rectum. No evidence of diverticulitis. The left ovary is enlarged with multiple follicular cysts and may be better evaluated with ultrasound. Small amount fluid is present in the cul-de-sac. Endometrium appears somewhat prominent. No acute bony anomalies. IMPRESSION: 1. Thickening of the descending and sigmoid colon and rectum. This may be due to nondistention versus colitis. 2. Enlarged left ovary measuring 5 x 4 cm with multiple follicular cysts suspected a small amount fluid in the cul-de-sac. Endometrium also appears somewhat prominent. Pelvic ultrasound may be of further value.
== END 2017-01-14 23:54 | disposition home or self-care (01) ==
LOC: ER 19:56
PROVIDERS: Emergency Medicine
DX: K52.9 Noninfective gastroenteritis and colitis, unspecified (principal); Z72.0 Tobacco use

== ENCOUNTER 2017-02-19 10:43 | Emergency (ER) | payer MEDICAID ==
[~2017-02-19] VITALS: Ht 157.5 cm; Wt 78.9 kg
--- NOTE | 2017-02-19 11:11 | Urgent Treatment Center Report ---
History of Present Issue Date/Time Seen by Provider 02/19/17 1103 Visit Reason Pt arrived:Walked Presenting Problem:C/O KNOT ON THE BACK OF HER HEAD THAT "COMES AND GOES" Location if Accident: Onset of symptoms date/time:/ or onset unknown for:MEDICAL HX UNKNOWN Have you (or family members/close friends) recently traveled outside the [place]? N If Yes, where/when: Have you had exposure to infectious disease within the past month? TB? Other? Specify: Patient state that she noticed that she has been having a small "knot" behind her ear on the the base of her skull that comes and goes for the last 2 years States that she is also having a headache today States that she got a little worried she may need to come in and get checked ALLERGIES Coded Allergies: penicillin G (Intermediate, SWELLING 12/10/16) erythromycin base (Mild, I-HIVES 12/10/16) Uncoded Allergies: ARTIFICIAL STRAWBERRY FLAVORING (Mild, I-RASH 06/04/15) Home Medications Reported Medications No Known Home Medications History Medical History General CAD? No Angina: No [place]: No Hypertension? No Hyperlipidemia? No CHF? No DVT? No PE? No COPD? No Asthma? No Anemia? No GERD? No Gastric ulcers? No GI Bleed? No Hernia? No Thyroid Problems? No Hypothyroidism? No CVA? No Seizures? Yes Diabetes? No Renal Insuffiency? No UTI? Yes Stones? No BPH? No GB Disease: No Nephritic Syndrome? No Asplenia? No Hepatitis? No Sickle Cell Disease? No Arthritis? No Migraines? Yes Cataracts? No Glaucoma? No MRSA? No HIV? No TB? No Anxiety? No Depression? No Cancer? No More? 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 No: respiratory distress. Cardiovascular normal exam, regular rate/rhythm Neurologic alert, normal exam, oriented x 3 Comments Palpated patients head and noted small pea sized raised occipital node, tender to touch patient state that she recently had sore throat. Patient also states that she has now got a mild headache no signs of distress, no redness no streaks, denies vision disturbances denies fever Medical Decision Making LABS/Meds/Orders Pt receiving controlled substance in ED? No Results/Orders Current Medication Orders Sig/Gisel Start time Last Medication Dose Route Stop Time Status Admin Ibuprofen 800 MG ONCE ONE 02/19 1115 AC PO 02/19 111 Progress [facility] Progress Notes Comment Patient educated on lymphnodes and how they can swell in response to illness, viruses etc. Advised that she needs to follow up with family doctor for more testing if symptoms continue Departure Departure Time of Disposition 111 Disposition DC Home or Self Care(routine) Clinical Impression Primary Impression: Swollen lymph nodes Condition STABLE Referrals [facility] Patient Instructions DI for Headache, DI for Migraine, Tension Headache Additional Instructions Follow up with family doctor Follow up with [facility] for migraines Over the counter Motrin or Tylenol as needed for fever or pain REturn if needed Discharge Counseling Counseled pt/family regarding diagnosis, medications/RX, home care, follow up needs Prescriptions Current Visit Scripts No Known Home Medications at 1112
--- NOTE | 2017-02-19 11:11 | [facility]gent Treatment Center Report ---
History of Present Issue Date/Time Seen by Provider 02/19/17 1103 Visit Reason Pt arrived:Walked Presenting Problem:C/O KNOT ON THE BACK OF HER HEAD THAT "COMES AND GOES" Location if Accident: Onset of symptoms date/time:/ or onset unknown for:MEDICAL HX UNKNOWN Have you (or family members/close friends) recently traveled outside the [place]? N If Yes, where/when: Have you had exposure to infectious disease within the past month? TB? Other? Specify: Patient state that she noticed that she has been having a small "knot" behind her ear on the the base of her skull that comes and goes for the last 2 years States that she is also having a headache today States that she got a little worried she may need to come in and get checked ALLERGIES Coded Allergies: penicillin G (Intermediate, SWELLING 12/10/16) erythromycin base (Mild, I-HIVES 12/10/16) Uncoded Allergies: ARTIFICIAL STRAWBERRY FLAVORING (Mild, I-RASH 06/04/15) Home Medications Reported Medications No Known Home Medications History Medical History General CAD? No Angina: No UT: No Hypertension? No Hyperlipidemia? No CHF? No DVT? No PE? No COPD? No Asthma? No Anemia? No GERD? No Gastric ulcers? No GI Bleed? No Hernia? No Thyroid Problems? No Hypothyroidism? No CVA? No Seizures? Yes Diabetes? No Renal Insuffiency? No UTI? Yes Stones? No BPH? No GB Disease: No Nephritic Syndrome? No Asplenia? No Hepatitis? No Sickle Cell Disease? No Arthritis? No Migraines? Yes Cataracts? No Glaucoma? No MRSA? No HIV? No TB? No Anxiety? No Depression? No Cancer? No More? 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 No: respiratory distress. Cardiovascular normal exam, regular rate/rhythm Neurologic alert, normal exam, oriented x 3 Comments Palpated patients head and noted small pea sized raised occipital node, tender to touch patient state that she recently had sore throat. Patient also states that she has now got a mild headache no signs of distress, no redness no streaks, denies vision disturbances denies fever Medical Decision Making LABS/Meds/Orders Pt receiving controlled substance in ED? No Results/Orders Current Medication Orders Sig/Gisel Start time Last Medication Dose Route Stop Time Status Admin Ibuprofen 800 MG ONCE ONE 02/19 1115 AC PO 02/19 111 Progress [facility] Progress Notes Comment Patient educated on lymphnodes and how they can swell in response to illness, viruses etc. Advised that she needs to follow up with family doctor for more testing if symptoms continue Departure Departure Time of Disposition 111 Disposition DC Home or Self Care(routine) Clinical Impression Primary Impression: Swollen lymph nodes Condition STABLE Referrals [facility] Patient Instructions DI for Headache, DI for Migraine, Tension Headache Additional Instructions Follow up with family doctor Follow up with [facility] for migraines Over the counter Motrin or Tylenol as needed for fever or pain REturn if needed Discharge Counseling Counseled pt/family regarding diagnosis, medications/RX, home care, follow up needs Prescriptions Current Visit Scripts No Known Home Medications at 1112
[2017-02-19 11:15] VITALS: BP 154/87
--- OUTSIDE RECORDS SUMMARY | 2017-02-21 16:03 | External Medical Summary Rpt | CCD ---
Author Author , KARI PIERCE Address Unknown Phone [email or web address] Providers Care Appellate Court Judge Name Role Phone [facility], Unavailable Unavailable [facility] Unavailable Unavailable PHARMACY Purpose Continuity of Care Document - 09-25-2009 through 2016 Problems Code Diagnosis DOS Provider Status M54.5 LOW BACK 08-13-2016 PAIN R10.817 GENERALIZED 08-13-2016 ABDOMINAL TENDERNESS R10.84 GENERALIZED 08-13-2016 ABDOMINAL PAIN R31.9 HEMATURIA, 08-13-2016 UNSPECIFIED Z72.0 TOBACCO USE 08-13-2016 G43.909 MIGRAINE, UNSP, NOT INTRACTABLE , WITHOUT [...] OUT D/T PT LV BEF SEEN BY TH CARE PROV Z71.1 PERSON W FEARED HLTH COMPLAINT IN WHOM NO DIAGNOSIS IS MADE Medications Na ND Rx Da Fi Fi Am Da Di Ph RX Ph St me C No te ll ll ou ys ag ar # ys at rm s nt no ma ic us Or Da si cy ia de te s n re d ME 00 10 10 0 21 6 CA 62 OV Ac TH 78 -2 -2 .0 RE 17 ER ti YL 15 - - 00 50 BE ve WI 02 20 20 MO 9 E ED 20 11 11 RE BR NI 7 IA SO PH N LO AR S NE MA 4 CY MG DO SE PK 59 10 10 0 8. 25 CA 62 OV Ac 31 -2 -2 50 RE 17 ER ti 00 5- 5- 0 50 BE ve 57 20 20 MO 8 E 92 11 11 RE BR 0 IA PH N AR S MA CY [place] 64 10 10 0 6. 5 CA 62 OV Ac IT 67 -2 -2 00 RE 17 ER ti HR 90 5- 5- 0 50 BE ve OM 96 20 20 MO 7 E YC 10 11 11 RE BR IN 4 IA PH N 25 AR S 0 MA MG CY TA BL ET WI 00 10 10 0 30 10 CA 62 OV Ac OM 78 -1 -1 .0 RE 17 ER ti ET 11 06 BE ve FELIPE 83 20 20 MO 5 E ZI 01 11 11 RE BR NE 0 IA PH N 25 AR S MA MG CY TA BL ET 16 10 10 0 20 10 CA 62 OV Ac 71 -1 -1 .0 RE 17 ER ti 40 8 06 BE ve 20 20 20 MO 4 E 50 11 11 RE BR 2 IA PH N AR S MA CY BE 65 10 10 0 30 10 CA 62 OV Ac NZ 16 -1 -1 .0 RE 17 ER ti ON 20 06 BE ve AT 53 20 20 MO 3 E AT 61 11 11 RE BR E 0 IA 10 PH N 0 AR S MG MA CY CA PS UL E IB 53 10 10 0 30 10 CA 62 OV Ac UP 74 -0 -0 .0 RE 16 ER ti RO 60 3- 3- 00 19 BE ve FE 46 20 20 MO 5 E N 60 11 11 RE BR 80 5 IA 0 PH N MG AR S MA TA CY BL ET IB 53 08 08 0 90 30 CA 62 OV Ac UP 74 -2 -2 .0 RE 13 ER ti RO 60 5- 5- 00 72 BE ve FE 46 20 20 MO 5 E N 60 11 11 RE BR 80 5 IA 0 PH N MG AR S MA TA CY BL ET LO 51 08 08 0 30 30 CA 62 OV Ac RA 66 -2 -2 .0 RE 13 ER ti TA 00 5- 5- 00 72 BE ve DI 52 20 20 MO 4 E NE 60 11 11 RE BR 5 IA 10 PH N AR S MG MA CY TA BL ET CE 00 08 08 0 21 7 CA 62 OV Ac PH 09 -2 -2 .0 RE 13 ER ti AL 33 5- 5- 00 72 BE ve EX 14 20 20 MO 3 E IN 70 11 11 RE BR 5 IA 50 PH N 0 AR S MG MA CY CA PS UL E 16 08 08 0 20 10 CA 62 OV Ac 71 -0 -0 .0 RE 12 ER ti 40 8- 8- 00 67 BE ve 20 20 20 MO 2 E 50 11 11 RE BR 2 IA PH N AR S MA CY CI 00 08 08 0 7. 10 CA 62 OV Ac WI 06 -0 -0 50 RE 12 ER [...] 28 CA 62 GA Ac 06 -1 -2 00 RE 09 UN ti 21 [...] IA PH N AR S MA CY 16 05 05 0 20 10 CA 62 OV Ac 71 -1 -1 .0 RE 07 ER ti 40 0- 0- 00 63 BE ve 20 20 20 MO 2 E 50 11 11 RE BR 2 IA PH N AR S MA CY BE 65 05 05 0 [...] MA MG CY TA BL ET 00 11 03 2 60 30 CA 61 CO Ac 14 -0 -0 .0 RE 97 LL ti 39 2- 3- 00 40 IN ve 90 20 20 MO 0 S 80 10 11 RE WI 1 LL PH IA AR M MA CY AV 00 11 03 4 28 28 [...] 0 10 5 CA 62 OV Ac DC 00 -2 -2 .0 RE 02 ER [...] IA PH N AR S MA CY WI 00 01 01 0 15 5 CA [...] 0 MA MG CY TA BL ET WI 00 10 12 0 20 5 CA [...] PH IA ET AR M MA CY 00 11 12 2 60 30 CA 61 CO Ac 14 -0 -0 .0 RE 97 LL ti 39 2- 6- 00 40 IN ve 90 20 20 MO 0 S 80 10 10 RE WI 1 LL PH IA AR M MA CY [place] 00 11 11 0 6. 5 CA 61 OV Ac IT 09 -1 -1 00 RE 96 ER ti HR 37 6- 6- 0 18 BE ve OM 14 20 20 MO 3 E YC 61 10 10 RE BR IN 8 IA PH N 25 AR S 0 MA MG CY TA BL ET [place] 52 11 11 5 28 28 [place] 34 FELIPE Ac TE 54 -0 -0 .0 VA 10 LL ti RA 40 2- 2- 00 24 ve -2 94 20 20 PH KA 8 92 10 10 AR TI TA 8 MA NA BL CY D ET NA 00 11 11 3 60 30 [place] 34 FELIPE Ac WI 09 -0 -0 .0 VA 10 LL ti OX 30 2- 2- 00 23 ve EN 53 20 20 PH KA 70 10 10 AR TI SO 5 MA NA DI CY D UM 55 0 MG TA B IB 53 10 10 0 60 10 [...] IA PH N AR S MA CY 00 09 09 0 20 5 CA 40 CO Ac 78 -2 -2 .0 RE 38 LL ti 11 3- 3- 00 26 IN ve 26 20 20 MO 9 S 20 10 10 RE WI 1 LL PH IA AR M MA CY WI 00 09 09 0 20 5 CA 61 CO Ac OM 78 -2 -2 .0 RE 92 LL ti ET 11 3- 3- 00 64 IN ve FELIPE 83 20 20 MO 3 S ZI 01 10 10 RE WI NE 0 LL PH IA 25 AR M MA MG CY TA BL ET IN 00 09 09 2 30 10 [...] .0 RE 90 LL ti OX 51 9- 9- 00 51 IN ve 73 20 20 [...] .0 RE 04 RL ti 10 8 8 00 65 OW ve 79 20 20 MO 0 77 10 10 RE DA 0 NA PH S AR MA CY WI 00 05 05 0 10 3 CA 61 BA Ac OM 71 -1 -1 .0 RE 85 RL ti ET 30 8 8 59 OW ve HE 52 20 20 MO 8 GA 61 10 10 RE DA N 2 NA 25 PH S AR MG MA CY JASMINE PP OS IT OR Y Results Labs Lab Lab Date Result Refere Interp Status Commen Order Detail nces retati t Range on COMPREHENSIVE METABOLIC PANEL (05-28-2014 02:20) GLOMERU 18-2 >60.0 complet LAR 015 mL/min/ ed FILTRAT 02:20 1.73 m2 ION RATE Sita n GLOMERU 05-28-2 >60.0 complet LAR 015 mL/min/ ed FILTRAT [...] Comment: determinations of GFR should be obtained. BUN/Cre 10 complet at 015 ed Ratio 02:20 Bilirub 0.2 0.0-1.0 complet in, 015 mg/dL ed Total 02:20 AST 11 U/L 15-37 complet 015 ed 02:20 ALT 25 U/L 12-78 complet 015 ed 02:20 Alk 105 U/L 50-136 complet Phos 015 ed 02:20 Albumin 3.7 3.4-5.0 complet 015 gm/dL ed 02:20 Total 2 7.4 6.4-8.2 complet Protein 015 gm/dL ed 02:20 Calcium 9.3 8.5-10. complet 015 mg/dL 1 ed 02:20 CO2 27 22-29 complet 015 mmol/L ed 02:20 Chlorid 105 98-107 complet e 015 mEq/L ed 02:20 Potassi 01-18-2 4.0 3.5-5.1 complet um 015 mEq/L ed 02:20 Sodium 136 136-145 complet 015 mEq/L ed 02:20 Creatin 1.0 0.6-1.3 complet ine 015 mg/dL ed 02:20 BUN 10 7-18 complet 015 mg/dL ed 02:20 Glucose 99 70-100 complet 015 mg/dL ed 02:20 LIPASE (05-28-2014 02:20) Lipase 120 U/L 73-393 complet 015 ed 02:20 AMYLASE,SERUM (05-28-2014 02:20) Amylase 43 U/L 25-115 complet 015 ed 02:20 CBC W/DIFF (05-28-2014 02:20) Lymphoc 3.5 X 0.7-4.3 complet yte 015 10\S\3 ed Count 02:20 Basophi 0.1 X 0.0-0.1 complet l Count 015 10\S\3 ed 02:20 Eosinop 0.3 X 0.0-0.8 complet hil 015 10\S\3 ed Count 02:20 Monocyt 0.6 X 0.2-1.2 complet e Count 015 10\S\3 ed 02:20 Neutrop 11.0 X 1.5-7.1 complet hil 015 10\S\3 ed Count 02:20 Basophi 0.8 % 0.0-2.0 complet ls % 015 ed 02:20 Eosinop 1.9 % 0.0-6.0 complet hils % 015 ed 02:20 Monocyt 4.1 % 0.0-13. complet es % 015 0 ed 02:20 Lymphoc 22.6 % 20.0-51 complet ytes % 015 .0 ed 02:20 Neutrop 70.6 % 42.0-75 complet hils % 015 .0 ed 02:20 MPV 10.2 fl 6.2-10. complet 015 6 ed 02:20 RDW 13.5 % 12.0-15 complet 015 .0 ed 02:20 MCV 18-2 90.6 fl 81.0-99 complet 015 .0 ed 02:20 MCHC -18-2 33.2 32.0-37 complet 015 gm/dL .0 ed 02:20 MCH -18-2 30.1 pg 27.0-32 complet 015 .0 ed 02:20 Platele 18-2 224 X 130-400 complet t 015 10\S\3 ed 02:20 Hematoc -18-2 42.2 % 37.0-47 complet rit 015 .0 ed 02:20 Hemoglo 18-2 14.0 12.0-16 complet bin 015 gm/dL .0 ed 02:20 RBC -18-2 4.65 X 4.20-5. complet 015 10\S\6 40 ed 02:20 WBC 18-2 15.5 X 3.5-9.6 complet 015 10\S\3 ed 02:20 URINALYSIS W/C+S IF INDICATED (05-28-2014 02:05) Epithel -18-2 5-10 NONE complet ial 015 [place]QU[place]OU SEEN ed Cells 02:05 S EPITHEL IAL CELLS Bacteri -18-2 TRACE NONE complet a 015 SEEN ed 02:05 UA RBC -18-2 NONE 0-2 complet 015 SEEN ed 02:05 UA WBC -18-2 0-2 0-2 complet 015 ed 02:05 Blood -18-2 NEGATIV NEGATIV complet 015 E E ed 02:05 Bilirub -18-2 NEGATIV NEGATIV complet in 015 E E ed 02:05 Urobili -18-2 0 mg/dL 0-1 complet nogen 015 ed 02:05 Ketones -18-2 NEGATIV NEGATIV complet 015 E E ed 02:05 Glucose -18-2 NEGATIV NEGATIV complet 015 E E ed 02:05 UA -18-2 NEGATIV NEGATIV complet Protein 015 E E ed 02:05 Nitrite -18-2 NEGATIV NEGATIV complet 015 E E ed 02:05 Leukocy -18-2 NEGATIV NEGATIV complet te 015 E E ed 02:05 PH -18-2 7.0 5.0-7.0 complet 015 ed 02:05 Specifi 05-28- 1.005 1.016-1 complet c 015 .022 ed [place] 02:05 Appeara HAZY CLEAR complet nce 015 ed 02:05 Color YELLOW YELLOW, complet 015 STRAW,C ed 02:05 OLORLES S,PALE YELLOW HCG SCREEN,URINE (05-28-2014 02:05) Qualita 05-28-2 NEGATIV NEGATIV complet tive 015 E E ed HCG 02:05 COMP. METABOLIC PANEL (CHEM 12) (04-25-2014 09:40) ALBUMIN -16-2 3.6 3.4-5.0 complet 014 G/DL ed 09:40 BILIRUB 16-2 0.20 0.00-1. complet IN, 014 MG/DL 00 ed TOTAL 09:40 ALT -16-2 31 U/L 12-78 complet 014 ed 09:40 AST -16-2 27 U/L 15-37 complet 014 ed 09:40 ALKALIN 16-2 87 U/L 45-117 complet E 014 ed PHOSPHA 09:40 TASE CALCIUM 16-2 9.0 8.5-10. complet 014 MG/DL 1 ed 09:40 A/G 16-2 1.1 0.6-1.6 complet RATIO 014 ed 09:40 GLOBULI 16-2 3.2 2.4-4.8 complet N 014 G/DL ed 09:40 PROTEIN -16-2 6.8 6.4-8.4 complet , TOTAL 014 G/DL ed 09:40 CREATIN -16-2 0.7 0.6-1.3 complet INE 014 MG/DL ed 09:40 CO2 -16-2 24 21-32 complet 014 mmol/L ed 09:40 CHLORID -16-2 106 98-107 complet E 014 mmol/l ed 09:40 POTASSI -16-2 4.3 3.6-5.2 complet UM 014 mmol/l ed 09:40 SODIUM -16-2 137 133-144 complet 014 mmol/L ed 09:40 BUN -16-2 12 7-18 complet 014 MG/DL ed 09:40 GLUCOSE -16-2 88 70-110 complet 014 MG/DL ed 09:40 LIPASE (04-25-2014 09:40) LIPASE 12-16-2 98 U/L 73-393 complet 014 ed 09:40 AMYLASE (04-25-2014 09:40) AMYLASE 12-16-2 39 U/L 25-115 complet 014 ed 09:40 URINALYSIS COMPLETE (04-25-2014 09:40) COLOR 12-16-2 YELLOW complet 014 ed 09:40 HYALINE 12-16-2 [...] ed 09:40 LEUKOCY 12-16-2 NEGATIV NEGATIV complet DOANLD 014 E E ed 09:40 NITRITE 12-16-2 [...] complet 014 g/dl .3 ed 09:40 MCH 12-16-2 30.3 pg 26.4-33 complet 014 .3 ed 09:40 MCV 12-16-2 89.8 fl 78.2-10 complet 014 1.8 ed 09:40 HCT 12-16-2 41.3 % 29.9-45 complet 014 .5 ed 09:40 HGB 12-16-2 13.9 10.0-16 complet 014 gm/dl .0 ed 09:40 RBC 4.600 3.450-5 complet 014 M/ul .400 ed 09:40 WBC 11.4 3.0-11. complet 014 K/UL 3 ed [...] % 10.1-16 complet 014 .2 ed 21:55 PLATELE 181 122-454 complet T 014 K/UL ed 21:55 MPV 9.6 fl 6.4-10. complet 014 4 ed 21:55 NEUTROP 55.0 % 43.0-83 complet HILS% 014 .0 ed 21:55 LYMPH% 01-25-2 33.4 % 10.0-42 complet 014 .0 ed 21:55 MONOS% 01-25-2 4.7 % 1.0-14. complet 014 0 ed 21:55 EOS% 01-25-2 6.0 % 0.0-11. complet 014 0 ed 21:55 BASO% 17-2 0.9 % 0.0-2.0 complet 014 ed 21:55 NEUT # 17-2 6.8 2.7-6.9 complet 014 K/ul ed 21:55 MONOS# 09-17-2 0.6 0.2-0.6 complet 014 K/ul ed 21:55 EOS# -17-2 0.7 0.0-0.9 complet 014 K/ul ed 21:55 BASO# 09-17-2 0.1 0.0-0.2 complet 014 K/ul ed 21:55 WBC 01-25- 12.4 3.0-11. complet 014 K/UL 3 ed 21:55 RBC 01-25-2 3.820 3.450-5 complet 014 M/ul .400 ed 21:55 HGB 11.8 10.0-16 complet 014 gm/dl .0 ed 21:55 HCT 34.1 % 29.9-45 complet 014 .5 ed 21:55 MCV 89.3 fl 78.2-10 complet 014 1.8 ed 21:55 MCH 30.8 pg 26.4-33 complet 014 .3 ed 21:55 MCHC 34.5 32.5-35 complet 014 g/dl .3 ed 21:55 LYMPH# 4.1 0.4-3.9 complet 014 K/ul ed 21:55 AMYLASE (01-25-2014 21:55) AMYLASE 36 U/L 25-115 complet 014 ed 21:55 LIPASE (01-25-2014 21:55) LIPASE 112 U/L 73-393 complet 014 ed 21:55 COMP. METABOLIC PANEL (CHEM 12) (01-25-2014 21:55) GLUCOSE 79 70-110 complet 014 MG/DL ed 21:55 BUN 8 MG/DL 7-18 complet 014 ed 21:55 SODIUM 139 133-144 complet 014 mmol/L ed 21:55 POTASSI 4.1 3.6-5.2 complet UM 014 mmol/l ed 21:55 CHLORID 108 98-107 complet E 014 mmol/l ed 21:55 CO2 27 21-32 complet 014 mmol/L ed 21:55 CREATIN 0.8 0.6-1.3 complet INE 014 MG/DL ed 21:55 PROTEIN 6.6 6.4-8.4 complet , TOTAL 014 G/DL ed 21:55 ALBUMIN 3.2 3.4-5.0 complet 014 G/DL ed 21:55 GLOBULI 3.4 2.4-4.8 complet N 014 G/DL ed 21:55 A/G 0.9 0.6-1.6 complet RATIO 014 ed 21:55 CALCIUM 9.0 8.5-10. complet 014 MG/DL 1 ed 21:55 ALKALIN 84 U/L 45-117 complet E 014 ed PHOSPHA 21:55 TASE AST 17 U/L 15-37 complet 014 ed 21:55 ALT 20 U/L 12-78 complet 014 ed 21:55 BILIRUB 0.10 0.00-1. complet IN, 014 MG/DL 00 ed TOTAL 21:55 UA, MICROSCOPIC REVIEW (01-25-2014 21:30) BACTERI 1+ HPF Absent complet A 014 ed 21:30 EPITHEL TNTC complet IAL 014 HPF ed CELLS 21:30 WBC 0-5 HPF 0-5 complet 014 ed 21:30 RBC 01-25- 0-5 HPF 0-5 complet 014 ed 21:30 COMMENT: (01-25-2014 21:30) COMMENT SEE complet : 014 BELOW ed 21:30 URINALYSIS COMPLETE (01-25-2014 21:30) COLOR 01-25- YELLOW complet 014 ed 21:30 RBC 01-25- REVIEW 0-4 complet COUNT 014 /HPF ed 21:30 LEUKOCY NEGATIV NEGATIV complet DONALD 014 E E ed 21:30 NITRITE 01-25- NEGATIV NEGATIV complet 014 E E ed 21:30 UROBILI 0.2 0.2-1.0 complet NOGEN 014 E.U./DL ed 21:30 SPECIFI 01-25- 1.012 1.006-1 complet C 014 .035 ed GRAVITY 21:30 KETONE 01-25- NEGATIV NEGATIV complet 014 E MG/DL E ed 21:30 BILIRUB NEGATIV NEGATIV complet IN 014 E E ed 21:30 GLUCOSE 01-25- NEGATIV NEGATIV complet 014 E MG/DL E ed 21:30 CLARITY CLOUDY complet 014 ed 21:30 PROTEIN NEGATIV NEGATIV complet 014 E MG/DL E ed 21:30 PH 6.5 5.0-9.0 complet 014 ed 21:30 BLOOD NEGATIV NEGATIV complet 014 E E ed 21:30 URINE HCG (01-25-2014 21:30) URINE NEGATIV complet HCG 014 E ed 21:30 URINALYSIS W/C+S IF INDICATED (01-03-2014 22:08) Leukocy NEGATIV NEGATIV complet te 014 E E ed 22:08 PH 7.0 5.0-7.0 complet 014 ed 22:08 Specifi 1.010 1.016-1 complet c 014 .022 ed [place] 22:08 Appeara HAZY CLEAR complet nce 014 ed 22:08 Color YELLOW YELLOW, complet 014 STRAW,C ed [...] Cells 22:08 S EPITHEL IAL CELLS Bacteri 01-03- NONE NONE complet a 014 SEEN SEEN [...] complet 014 E E ed 22:08 Glucose NEGATIV NEGATIV complet 014 E E ed 22:08 UA NEGATIV NEGATIV complet Protein 014 E E ed 22:08 Nitrite 08--2 NEGATIV NEGATIV complet 014 E E ed 22:08 HCG SCREEN,URINE (01-03-2014 22:08) Qual[facility] 08-26-2 NEGATIV NEGATIV complet tive 014 E E ed HCG 22:08 URINALYSIS COMPLETE (07-28-2013 00:49) EPITHEL 03-20-2 [...] 014 /HPF E l ed 00:49 COLOR 03-20-2 YELLOW complet 014 ed 00:49 URINE HCG (07-28-2013 00:39) URINE 03-20-2 NEGATIV complet HCG 014 E ed 00:39 BASIC METABOLIC PANEL (CHEM 7) (07-28-2013 00:34) CALCIUM 03-20-2 9.5 8.5-10. complet 014 MG/DL 1 ed 00:34 CREATIN 07-28-2 0.8 0.6-1.3 complet INE 014 MG/DL ed 00:34 CO2 07-28-2 28 21-32 complet 014 mmol/L ed 00:34 CHLORID 07-28- 106 98-107 complet E 014 mmol/l ed 00:34 POTASSI 4.1 3.6-5.2 complet UM 014 mmol/l ed 00:34 SODIUM 142 133-144 complet 014 mmol/L ed 00:34 BUN 10 7-18 complet 014 MG/DL ed 00:34 GLUCOSE 96 70-110 complet 014 MG/DL ed 00:34 MONO-TEST (07-28-2013 00:33) MONO-TE NEGATIV NEGATIV complet ST 014 E E ed 00:33 MANUAL DIFFERENTIAL (06-15-2013 13:57) SEGS 05-2 54 % 23-85 complet 014 ed 13:57 RBC 02-05-2 NORMAL complet MORPHOL 014 ed OGY 13:57 PLATELE 02-05-2 NORMAL complet T 014 ed MORPHOL 13:57 OGY PLATELE 02-05-2 ADEQUAT complet T 014 E ed ESTIMAT [...] METABOLIC PANEL (CHEM 7) (06-15-2013 13:57) GLUCOSE 76 70-110 complet 014 MG/DL ed 13:57 CALCIUM 9.2 8.5-10. complet 014 MG/DL 1 ed 13:57 CREATIN 0.8 0.6-1.3 complet INE 014 MG/DL ed 13:57 CO2 25 21-32 complet 014 mmol/L ed 13:57 CHLORID 107 98-107 complet E 014 mmol/l ed 13:57 POTASSI 4.3 3.6-5.2 complet UM 014 mmol/l ed 13:57 SODIUM 136 133-144 complet 014 mmol/L ed 13:57 BUN 9 MG/DL 7-18 complet 014 ed 13:57 [...] 10.1-16 complet 014 .2 ed 13:57 MCHC 34.1 32.5-35 complet 014 g/dl .3 ed 13:57 MCH 31.2 pg 26.4-33 complet 014 .3 ed 13:57 MCV 91.7 fl 78.2-10 complet 014 1.8 ed 13:57 HCT 02-05-2 38.5 % 29.9-45 complet 014 .5 ed 13:57 HGB -05-2 13.1 10.0-16 complet 014 gm/dl .0 ed 13:57 RBC -05-2 4.200 3.450-5 complet 014 M/ul .400 ed 13:57 WBC -05-2 11.9 3.0-11. Above complet 014 K/UL 3 high ed 13:57 normal MONO (01-06-2013 21:47) Willacy --2 NEGATIV NEGATIV Normal complet Spot 013 E E ed 21:47 INFLUENZA VIRUS A/B DIRECT IF TST (01-06-2013 21:44) Influen 08--2 NEGATIV NEGATIV Normal complet za B 013 E E ed Antigen 21:44 Influen 08--2 NEGATIV NEGATIV Normal complet za A 013 E E ed Antigen 21:44 HCG SCREEN,URINE (11-27-2012 15:53) Qual[facility] 07-20-2 NEGATIV NEGATIV Normal complet tive 013 E E ed HCG 15:53 URINALYSIS W/MICRO (11-27-2012 15:51) Epithel 07-20-2 20-50 NONE Abnorma complet ial 013 SEEN l ed Cells 15:51 Bacteri 07-20-2 2+ NONE Abnorma complet a 013 SEEN l ed 15:51 UA RBC 07-20-2 0-2 0-2 Normal complet 013 ed 15:51 UA WBC 07-20-2 0-2 0-2 Normal complet 013 ed 15:51 Blood 07-20-2 NEGATIV NEGATIV Normal complet 013 E [...] Protein 013 E E ed 15:51 Nitrite 07-20-2 NEGATIV NEGATIV Normal complet 013 E E ed 15:51 Leukocy 07-20-2 NEGATIV NEGATIV Normal complet te 013 E E ed 15:51 PH -20-2 6.0 5.0-7.0 Normal complet 013 ed 15:51 Specifi 20-2 1.020 1.016-1 Normal complet c 013 .022 ed [place] 15:51 Appeara 20-2 SL HAZY CLEAR Abnorma complet nce 013 l ed 15:51 Color 20-2 YELLOW YELLOW, Normal complet 013 STRAW,C ed 15:51 OLORLES S,PALE YELLOW BASIC METABOLIC PANEL (11-27-2012 15:50) BUN/Cre 20-2 9 complet at 013 ed Ratio 15:50 Calcium 20-2 8.8 7.5-10. Normal complet 013 mg/dL 2 ed 15:50 CO2 -20-2 29 21-29 Normal complet 013 mmol/L ed 15:50 Chlorid 20-2 107 99-108 Normal complet e 013 mEq/L ed 15:50 Potassi 20-2 3.8 3.5-5.0 Normal complet um 013 mEq/L ed 15:50 Sodium 20-2 141 133-144 Normal complet 013 mEq/L ed 15:50 Creatin -20-2 0.9 0.3-0.9 Normal complet ine 013 mg/dL ed 15:50 Glucose 20-2 113 70-99 Above complet 013 mg/dL high ed 15:50 normal BUN 20-2 8 mg/dL 5-18 Normal complet 013 ed 15:50 CBC W/DIFF (11-27-2012 15:50) Lymphoc -20-2 2.5 X 0.7-4.3 Normal complet yte 013 [...] ed 15:50 CULTURE, BLOOD (04-03-2012 17:45) Clinica Specime complet l 012 n: ed Report 17:45 BLOOD HCG,SCREEN (04-03-2012 17:45) [facility] NEGATIV NEGATIV Normal complet tive 012 E E ed HCG 17:45 CBC W/DIFF (04-03-2012 17:45) Lymphoc 2.5 X 0.7-4.3 Normal complet yte 012 10 ed Count 17:45 Basophi 0.1 X 0.0-0.1 Normal complet l Count 012 10 ed 17:45 Eosinop 11-24-2 0.4 X 0.0-0.8 Normal complet hil 012 10 ed Count 17:45 Monocyt 11-24-2 0.4 X 0.2-1.2 Normal complet e Count 012 10 ed 17:45 Neutrop 11-24-2 10.8 X 1.5-7.1 Above complet hil 012 10 high ed Count 17:45 normal Basophi -24-2 0.4 % 0.0-2.0 Normal complet ls % 012 ed 17:45 Eosinop 11-24-2 2.7 % 0.0-6.0 Normal complet hils % 012 ed 17:45 Monocyt 11-24-2 2.9 % 3.0-15. Below complet es % 012 0 low ed 17:45 normal Lymphoc -24-2 17.4 % 4.0-51. Normal complet ytes % 012 0 ed 17:45 Neutrop 11-24-2 76.6 % 33.0-89 Normal complet hils % 012 .0 ed 17:45 MPV 24-2 10.6 fl 6.6-10. Above complet 012 1 high ed 17:45 normal RDW 24-2 12.0 % 10.7-14 Normal complet 012 .1 ed 17:45 MCV -24-2 91.0 fl 78.0-98 Normal complet 012 .0 ed 17:45 MCHC 24-2 32.8 31.8-35 Normal complet 012 gm/dL .7 ed 17:45 MCH 24-2 29.8 pg 25.5-33 Normal complet 012 .7 ed 17:45 Platele 24-2 314 X 126-404 Normal complet t 012 10 ed 17:45 Hematoc -24-2 46.7 % 32.9-46 Above complet rit 012 .2 high ed 17:45 normal Hemoglo -24-2 15.3 11.2-15 Normal complet bin 012 gm/dL .5 ed 17:45 RBC -24-2 5.14 X 3.64-5. Normal complet 012 10 36 ed 17:45 WBC -24-2 14.2 X 3.9-11. Normal complet 012 10 6 ed 17:45 CULTURE, BLOOD (04-03-2012 17:45) Clinica 11-24-2 No complet l 012 Growth ed Report [...] complet l 012 ed Report 17:45 (Final) [facility]: complet l 012 Final ed Report 17:45 Last Updated : 012 09:34 Clinica Collect complet l 012 ed: ed Report 17:45 012 17:45 Clinica Specime complet l 012 n: ed Report 17:45 BLOOD HCG SCREEN,URINE (04-01-2012 22:56) [facility] NEGATIV NEGATIV Normal complet tive 012 E E ed HCG 22:56 URINALYSIS W/MICRO (04-01-2012 22:37) AMORPHO NONE NONE Normal complet US 012 SEEN SEEN ed SEDIMEN 22:37 T YEAST, NONE NONE Normal complet UA 012 OBSERVE OBSERVE ed 22:37 D D Crystal NONE NONE Normal complet s 012 SEEN SEEN ed 22:37 Casts NONE NONE Normal complet 012 SEEN SEEN ed 22:37 Mucus 04-01- NONE NONE Normal complet 012 SEEN SEEN ed 22:37 Epithel 10-20 NONE Abnorma complet ial 012 SEEN l ed Cells 22:37 Bacteri 04-01- 3+ NONE Abnorma complet a 012 SEEN l ed 22:37 UA RBC 04-01- 0-2 0-2 Normal complet 012 ed 22:37 UA WBC 04-01-2 0-2 0-2 Normal complet 012 ed 22:37 Blood NEGATIV NEGATIV Normal complet 012 E E ed 22:37 Bilirub NEGATIV NEGATIV Normal complet in 012 E E ed 22:37 Urobili 11-22-2 NEGATIV 0-1 Normal complet nogen 012 E mg/dL ed 22:37 Ketones -22-2 NEGATIV NEGATIV Normal complet 012 E E ed 22:37 Glucose -22-2 NEGATIV NEGATIV Normal complet 012 E E ed 22:37 UA -22-2 NEGATIV NEGATIV Normal complet Protein 012 E E ed 22:37 Nitrite -22-2 NEGATIV NEGATIV Normal complet 012 E E ed 22:37 Leukocy -22-2 NEGATIV NEGATIV Normal complet te 012 E E ed 22:37 PH 22-2 6.5 5.0-7.0 Normal complet 012 ed 22:37 Specifi -22-2 1.020 1.016-1 Normal complet c 012 .022 ed [place] 22:37 Appeara 04-01-2 CLOUDY CLEAR Abnorma complet nce 012 l ed 22:37 Color 04-01-2 YELLOW YELLOW, Normal complet 012 STRAW,C ed 22:37 OLORLES S,PALE YELLOW COMPREHENSIVE METABOLIC PANEL (03-02-2012 15:20) A/G 23-2 0.9 complet Ratio 012 ed 15:20 BUN/Cre 23-2 9 complet at 012 ed Ratio 15:20 Bilirub 23-2 0.20 0.1-1.2 Normal complet in, 012 mg/dL ed Total 15:20 AST 03-02-2 28 U/L 7-35 Normal complet 012 ed 15:20 ALT 23-2 38 U/L 6-24 Above complet 012 high ed 15:20 normal Alk 03-02-2 116 U/L 24-368 Normal complet Phos 012 ed 15:20 Albumin 23-2 3.5 2.7-5.2 Normal complet 012 gm/dL ed 15:20 Total 10-23-2 7.4 5.5-8.2 Normal complet Protein 012 gm/dL ed 15:20 Calcium 23-2 9.6 7.5-10. Normal complet 012 mg/dL 2 ed 15:20 CO2 23-2 29 21-29 Normal complet 012 mmol/L ed 15:20 Chlorid 23-2 104 99-108 Normal complet e 012 mEq/L ed 15:20 Potassi 23-2 3.8 3.5-5.0 Normal complet um 012 mEq/L ed 15:20 Sodium 03-02-2 139 133-144 Normal complet 012 mEq/L ed 15:20 Creatin 1023-2 1.0 0.3-0.9 Above complet ine 012 mg/dL high ed 15:20 normal BUN 23-2 9 mg/dL 5-18 Normal complet 012 ed 15:20 Glucose 23-2 123 70-99 Above complet 012 mg/dL high ed 15:20 normal CBC W/DIFF (03-02-2011 15:20) Lymphoc 23-2 2.7 X 0.7-4.3 Normal complet yte 012 10 ed Count 15:20 Basophi 03-02-2 0.2 X 0.0-0.1 Above complet l Count 012 10 high ed 15:20 normal Eosinop 03-02-2 0.4 X 0.0-0.8 Normal complet hil 012 10 ed Count 15:20 Monocyt 03-02-2 0.4 X 0.2-1.2 Normal complet e Count 012 10 ed 15:20 Neutrop 23-2 7.5 X 1.5-7.1 Above complet hil 012 10 high ed Count 15:20 normal Basophi 03-02-2 1.5 % 0.0-2.0 Normal complet ls % 012 ed 15:20 Eosinop 23-2 3.6 % 0.0-6.0 Normal complet hils % 012 ed 15:20 Monocyt 23-2 4.0 % 3.0-15. Normal complet es % 012 0 ed 15:20 Lymphoc 23-2 23.8 % 4.0-51. Normal complet ytes % 012 0 ed 15:20 Neutrop 1023-2 67.1 % 33.0-89 Normal complet hils % 012 .0 ed 15:20 MPV 1023-2 9.4 fl 6.6-10. Normal complet 012 1 ed 15:20 RDW 23-2 12.3 % 10.7-14 Normal complet 012 .1 ed 15:20 MCV 1023-2 90.0 fl 78.0-98 Normal complet 012 .0 ed 15:20 MCHC 23-2 34.0 31.8-35 Normal complet 012 gm/dL .7 ed 15:20 MCH 10-23-2 30.6 pg 25.5-33 Normal complet 012 .7 ed 15:20 Platele 10-23-2 262 X 126-404 Normal complet t 012 10 ed 15:20 Hematoc 10-23-2 40.8 % 32.9-46 Normal complet rit 012 .2 ed 15:20 Hemoglo 10-23-2 13.9 11.2-15 Normal complet bin 012 gm/dL .5 ed 15:20 RBC 10-23-2 4.54 X 3.64-5. Normal complet 012 10 36 ed 15:20 WBC 10-23-2 11.2 X 3.9-11. Normal complet 012 10 6 ed 15:20 URINALYSIS W/MICRO (03-02-2012 14:00) Epithel 10-23-2 5-10 NONE Abnorma complet ial 012 [place] SEEN l ed Cells 14:00 S EPITHEL IAL CELLS UA RBC 10-23-2 0-2 0-2 Normal complet 012 ed 14:00 UA WBC 10-23-2 0-2 0-2 Normal complet 012 ed 14:00 Blood 10-23-2 NEGATIV NEGATIV Normal complet 012 E E ed 14:00 Bilirub 10-23-2 NEGATIV NEGATIV Normal complet in 012 E E ed 14:00 Urobili 10-23-2 NEGATIV 0-1 Normal complet nogen 012 E mg/dL ed 14:00 Ketones 10-23-2 NEGATIV NEGATIV Normal complet 012 E E ed 14:00 Glucose 10-23-2 NEGATIV NEGATIV Normal complet 012 E E ed 14:00 UA 10-23-2 NEGATIV NEGATIV Normal complet Protein 012 E E ed 14:00 Nitrite 10-23-2 NEGATIV NEGATIV Normal complet 012 E E ed 14:00 Leukocy 10-23-2 NEGATIV NEGATIV Normal complet te 012 E E ed 14:00 PH 10-23-2 6.5 5.0-7.0 Normal complet 012 ed 14:00 Specifi 10-23-2 1.010 1.016-1 Below complet c 012 .022 low ed [place] 14:00 normal Appeara 10-23-2 CLEAR CLEAR Normal complet nce 012 ed 14:00 Color 10-23-2 YELLOW YELLOW, Normal complet 012 STRAW,C ed 14:00 OLORLES S,PALE YELLOW
--- OUTSIDE RECORDS SUMMARY | 2017-02-21 16:03 | External Medical Summary Rpt | CCD ---
Author Author , KARI PIERCE Address Unknown Phone [email or web address] Care Team Providers Care Voice Teacher Name Role Phone [facility], Unavailable Unavailable [facility] Unavailable Unavailable PHARMACY Purpose Continuity of Care [...] 15 - - 00 50 BE ve [place] 02 20 20 MO 9 E ED [...] 0 MA MG CY TA BL ET [place] 00 10 10 0 30 10 CA [...] 0 7. 10 CA 62 OV Ac [place] 06 -0 -0 50 RE 12 ER [...] 0 10 5 CA 62 OV Ac MA 00 -2 -2 .0 RE 02 ER [...] IA PH N AR S MA CY [place] 00 01 01 0 15 5 CA [...] 0 MA MG CY TA BL ET [place] 00 10 12 0 20 5 CA [...] 3 60 30 [place] 34 FELIPE Ac [place] 09 -0 -0 .0 VA 10 LL [...] LL PH IA AR M MA CY [place] 00 09 09 0 20 5 CA [...] 0 NA PH S AR MA CY [place] 00 05 05 0 10 3 CA [...] 1.005 1.016-1 complet c 015 .022 ed [place] 02:05 [facility] HAZY CLEAR complet nce 015 [...] 1.010 1.016-1 complet c 014 .022 ed [place] 22:08 [facility] HAZY CLEAR complet nce 014 [...] high ed 13:57 normal MONO (01-06-2013 21:47) [place] --2 NEGATIV NEGATIV Normal complet Spot 013 [...] 1.016-1 Normal complet c 013 .022 ed [place] 15:51 [facility] 20-2 SL HAZY CLEAR Abnorma [...] complet l 012 ed Report 17:45 (Final) [facility] Status: complet l 012 Final ed Report [...] 1.016-1 Normal complet c 012 .022 ed [place] 22:37 [facility] 04-01-2 CLOUDY CLEAR Abnorma complet [...] Below complet c 012 .022 low ed [place] 14:00 normal [facility] 10-23-2 CLEAR CLEAR Normal complet nce 012 ed 14:00 Color 10-23-2 YELLOW YELLOW, Normal complet 012 STRAW,C ed 14:00 OLORLES S,PALE YELLOW
--- OUTSIDE RECORDS SUMMARY | 2017-02-21 16:05 | External Medical Summary Rpt ---
Author Author KARI Enrique, [employer] Organization [employer] Address Unknown Phone Unavailable
--- OUTSIDE RECORDS SUMMARY | 2017-02-21 16:05 | External Medical Summary Rpt | CCD ---
Demographics Preferred Language Tunisian Marital Status Unknown Yarsani Affiliation Unknown Race Unknown Ethnic Group Unknown Author Author , KARI PIERCE Address Unknown Phone Immunization No patient found.
--- OUTSIDE RECORDS SUMMARY | 2017-02-21 16:05 | External Medical Summary Rpt | CCD ---
Demographics Preferred Language Greek Marital Status Unknown Sabianist Affiliation Unknown Race Unknown Ethnic Group Unknown Author Author , KARI PIERCE Address Unknown Phone [email or web address] Care Team Providers Care Duty Officer Name Role Phone [facility], Unavailable Unavailable [facility], [facility] Unavailable Unavailable PHARMACY Purpose Continuity of Care Document - 09-25-2009 through 2016 Medications Na ND Rx Da Fi Fi [...] .0 RE 17 ER ti YL 15 50 BE ve NH 02 20 20 MO 9 E ED [...] MA CY CA PS UL E 16 10 10 0 20 10 CA 62 OV Ac 71 -1 -1 .0 RE 17 ER ti 40 06 BE ve 20 20 20 MO 4 E 50 11 11 RE BR 2 IA PH N AR S MA CY NH 00 10 10 0 30 10 CA [...] RE 13 ER ti TA 00 5 5- 00 72 BE ve DI 52 [...] AR S MA TA CY BL ET 16 08 08 0 20 10 CA 62 OV Ac 71 -0 -0 .0 RE 12 ER ti 40 8- 8- 00 67 BE ve 20 20 20 MO 2 E 50 11 11 RE BR 2 IA PH N AR S MA CY CI 00 08 08 0 7. 10 CA 62 OV Ac NH 06 -0 -0 50 RE 12 ER [...] 2 3. 28 CA 62 GA Ac 00 RE 09 UN ti 21 6- 8- 0 82 T ve 92 20 20 MO 8 TI 01 11 11 RE NA 5 C PH AR MA CY 00 06 06 2 3. 28 CA 62 GA Ac 00 RE 09 UN ti 21 6- [...] 0 10 5 CA 62 OV Ac AL 00 -2 -2 .0 RE 02 ER [...] IA PH N AR S MA CY NH 00 01 01 0 15 5 CA [...] 0 MA MG CY TA BL ET [place] 00 10 12 0 20 5 CA 61 CO Ac OM 78 -0 -0 .0 RE 97 LL ti ET 11 5- 7- 00 47 IN ve FELIPE 83 20 20 MO 3 S ZI 01 10 10 RE WI NE 0 LL PH IA 25 AR M MA MG CY TA BL ET 00 11 12 2 60 30 CA 61 CO Ac 14 -0 -0 .0 RE 97 LL ti 39 2- 6- 00 40 IN ve 90 20 20 MO 0 S 80 10 10 RE WI 1 LL PH IA AR M MA CY AV 00 11 12 4 28 28 [...] 3 60 30 [place] 34 FELIPE Ac NH 09 -0 -0 .0 VA 10 LL [...] IA PH N AR S MA CY NH 00 09 09 0 20 5 CA 61 CO Ac OM 78 -2 -2 .0 RE 92 LL ti ET 11 64 IN ve FELIPE 83 20 20 MO 3 S ZI 01 10 10 RE WI NE 0 LL PH IA 25 AR M MA MG CY TA BL ET 00 09 09 0 20 5 CA 40 CO Ac 78 -2 -2 .0 RE 38 LL ti 11 26 IN ve 26 20 20 MO 9 S 20 10 10 [address] 1 LL PH IA AR M MA CY IN 00 09 09 2 30 10 CA 61 CO Ac DO 78 -1 -1 .0 RE 92 LL ti ME 12 5- 15 IN ve TH 32 20 20 [...] -1 .0 RE 04 RL ti 10 65 OW ve 79 20 20 MO 0 77 10 10 RE DA 0 NA PH S AR MA CY [place] 00 05 05 0 10 3 CA 61 BA Ac OM 71 -1 -1 .0 RE 85 RL ti ET 30 59 OW ve HE 52 20 20 MO 8 GA 61 10 10 RE DA N 2 NA 25 PH S AR MG MA CY JASMINE PP OS IT OR Y
--- OUTSIDE RECORDS SUMMARY | 2017-02-21 16:05 | External Medical Summary Rpt | CCD ---
Demographics Preferred Language Togolese Marital Status Unknown Jehovah'S Witness Affiliation Unknown Race Unknown Ethnic Group Unknown Author Author , KARI PIERCE Address Unknown Phone [email or web address] Care Team Providers Care Mobile Home Set Up Person Name Role Phone [facility], Unavailable Unavailable [facility], [facility] Unavailable Unavailable PHARMACY Purpose Continuity of [...] ER ti YL 15 50 BE ve IN 02 20 20 MO 9 E ED [...] IA PH N AR S MA CY IN 00 10 10 0 30 10 CA [...] 0 7. 10 CA 62 OV Ac IN 06 -0 -0 50 RE 12 ER [...] 0 10 5 CA 62 OV Ac PA 00 -2 -2 .0 RE 02 ER [...] IA PH N AR S MA CY IN 00 01 01 0 15 5 CA [...] 0 MA MG CY TA BL ET IN 00 10 12 0 20 5 CA [...] 3 60 30 [place] 34 FELIPE Ac IN 09 -0 -0 .0 VA 10 LL [...] IA PH N AR S MA CY IN 00 09 09 0 20 5 CA [...] 0 NA PH S AR MA CY IN 00 05 05 0 10 3 CA 61 BA Ac OM 71 -1 -1 .0 RE 85 RL ti ET 30 59 OW ve HE 52 20 20 MO 8 GA 61 10 10 RE DA N 2 NA 25 PH S AR MG MA CY JASMINE PP OS IT OR Y
--- OUTSIDE RECORDS SUMMARY | 2017-02-21 16:05 | External Medical Summary Rpt | CCD ---
Demographics Preferred Language Palauan Marital Status Unknown Jehovah'S Witness Affiliation Unknown Race Unknown Ethnic Group Unknown Author Author , KARI PIERCE Address Unknown Phone Immunization No patient found.
[2017-02-28] MEDS ORDERED: BROMFED DM COU118 ML PO (10:53)
== END 2017-02-19 11:20 | disposition home or self-care (01) ==
LOC: UTC 10:43
DX: R59.0 Localized enlarged lymph nodes (principal); R51 Headache; Z88.0 Allergy status to penicillin; F17.210 Nicotine dependence, cigarettes, uncomplicated

== ENCOUNTER 2017-03-18 12:35 | Emergency (ER) | payer MEDICAID ==
[~2017-03-18] VITALS: Ht 162.6 cm; Wt 78.0 kg
[~2017-03-18 12:35] MED LIST changes: +BROMFED DM COU118 ML PO
--- NOTE | 2017-03-18 12:51 | Emergency Room Report ---
History of Present Illness Time Seen by [id number] Presenting Problem in Triage Pt arrived:Walked Presenting Problem:PT DESCRIBES HAVING " RIGHT SIDE PAIN THAT IS AGGRAVATED BY HITTING BUMPS ON THE ROAD OR WITH EACH STEP SHE WALKS" ; FURTHER STATED IT BEGAN SOMEWHAT LAST NIGHT AND DESCRIBES THROBBING. 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 N Clinical Suspician of Infection? N Mental Status: 1 - Regular (Normal Baseline) Sepsis Risk:Low Sepsis Risk Have you (or family members/close friends) recently traveled outside the [place]? N If Yes, where/when: Have you had exposure to infectious disease within the past month? TB? Other? Specify: Comment The patient complains of RIGHT lower quadrant abdominal pain that started last night, worsening today. It worsens when she walks, she states "my guts feel like they're going to fall out" when walking. She was flushed last night causing her to think she had a fever, but temperature was not taken. She says she is not urinating much, but has no dysuria or gross hematuria. No vomiting, but nauseated. No diarrhea or constipation. Last bowel movement was yesterday. Last normal menstrual period was February 25. ALLERGIES Coded Allergies: penicillin G (Intermediate, SWELLING 03/18/17) erythromycin base (Mild, I-HIVES 03/18/17) Uncoded Allergies: ARTIFICIAL STRAWBERRY FLAVORING (Mild, I-RASH 06/04/15) Home Medications Active Scripts D-METHORPHAN HB/P-EPD HCL/BPM (Bromfed Dm Cough Syrup) 10 ML PO QIDP PRN cough #240 ML Prov: 02/28/17 History Medical History General CAD? No Angina: No MA: No Hypertension? No Hyperlipidemia? No CHF? No DVT? No PE? No COPD? No Asthma? No Anemia? No GERD? No Gastric ulcers? No GI Bleed? No Hernia? No Thyroid Problems? No Hypothyroidism? No CVA? No Seizures? Yes Diabetes? No Renal Insuffiency? No End Stage Renal Disease? No UTI? Yes Stones? No BPH? No GB Disease: No Nephritic Syndrome? No Asplenia? No Hepatitis? No Sickle Cell Disease? No Arthritis? No Migraines? Yes Cataracts? No Glaucoma? No MRSA? No HIV? No TB? No Anxiety? No Depression? No Cancer? No More? 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 She says that this pain is not the same as that one, but says that she cannot remember that visit. Review of Systems All Other Systems Reviewed and Negative Constitutional see HPI Gastrointestinal abdominal pain, denies constipation, denies diarrhea, nausea, denies vomiting Genitourinary see HPI. denies: dysuria, hematuria. Physical Exam Vital Signs Vital Signs Date Time Temp Pulse Resp B/P Pulse O2 O2 Flow FiO2 Ox Delivery Rate 03/18 1408 98.4 75 18 126/73 99 03/18 1308 20 03/18 1241 98.2 101 18 133/94 98 General Appearance no apparent distress Eye Exam - bilateral eye normal exam, bilateral eye PERRL, bilateral eye EOMI Ear, Nose, Throat hearing grossly normal, normal ENT inspection Neck normal inspection, non-tender, supple, full range of motion Respiratory Status Yes: trachea midline, chest symmetrical, non tender chest. No: respiratory distress. Lung Sounds bilateral: normal breath sounds, lungs clear. Cardiovascular normal exam, regular rate/rhythm, no peripheral edema, no gallop, no JVD, no murmur, no rub, normal peripheral pulses Gastrointestinal normal bowel sounds, soft, no organomegaly, no guarding, rebound, tenderness (RIGHT lower quadrant) Extremities normal inspection Neurologic alert Mental status normal mood/affect Skin intact, normal color, warm/dry Medical Decision Making LABS/Meds/Orders Pt receiving controlled substance in ED? No Results/Orders Laboratory Tests 03/18/17 1250: Sodium 138, Potassium 4.0, Chloride 103, Carbon Dioxide 29, BUN 9, Creatinine 0.9, Estimated Creat Clear 122, Estimated GFR (MDRD) 79, Glucose 105, Calcium 9.1, Total Bilirubin 0.2, AST 18, ALT 23, Alkaline Phosphatase 92, Total Protein 7.5, Albumin 3.8, Globulin 3.7 H, Albumin/Globulin Ratio 1.0 L, Lipase 147, WBC 12.3 H, RBC 4.55, Hgb 13.9, Hct 40.9, MCV 90.0, RDW 12.9, Plt Count 243, MPV 9.2, Gran % 63.1, Gran # 7.8, Lymphocytes % 28.5, Monocytes % 4.3, Eosinophils % 3.7, Basophils % 0.4, Lymphocytes # 3.5, Monocytes # 0.5, Eosinophils # 0.5 H, Basophils # 0.1, PUBS MCHC 33.9, MCH 30.6 03/18/17 1245: Urine Color YELLOW, Urine Appearance CLOUDY, Urine pH 7.0, Ur Specific [place] 1.015, Urine Protein NEGATIVE, Urine Ketones NEGATIVE, Urine Blood NEGATIVE, Urine Nitrate NEGATIVE, Urine Bilirubin NEGATIVE, Urine Urobilinogen 0.2, Ur Leukocyte Esterase NEGATIVE, Urine WBC OCC, Ur Squamous Epith Cells 10-20, Urine Bacteria 3+, Urine Glucose NEGATIVE Current Medication Orders Sig/Gisel Start time Last Medication Dose Route Stop Time Status Admin Iopamidol 75 ML ONCE ONE 03/18 1330 DCD 03/18 IV 03/18 1331 1329 Sodium Chloride 10 ML PRN PRN 03/18 1330 DCD 03/18 IV 03/18 1459 1329 Ketorolac 30 MG ONCE ONE 03/18 1315 DC 03/18 Tromethamine IV 03/18 1316 1308 Ondansetron HCl 4 MG ONCE ONE 03/18 1315 DC 03/18 IV 03/18 1316 1309 Ondansetron HCl 0 .STK-MED ONE 03/18 1307 DC .ROUTE Ketorolac 0 .STK-MED ONE 03/18 1305 DC Tromethamine .ROUTE Sodium Chloride 10 ML PRN PRN 03/18 1245 DCD IV 03/19 1245 Orders Procedure Date/time Status DIET-NOTHING BY MOUTH 03/[address] ABD/PELVIS REQ 03/18 1257 Complete IV SALINE LOCK 03/18 1245 Active CULTURE, URINE 03/18 124 Active URINALYSIS/COMPLETE 03/18 1245 Complete URINE 03/18 1245 Complete LIPASE 03/18 1245 Complete CBC WITH AUTO DIFF 03/18 1245 Complete CHEM 12 PROFILE 03/18 1245 Complete XRAY/CT/US XRAY/CT/US CT abdomen, pelvis Comment CT scan interpreted by radiologist: No evidence of appendicitis or obstructing ureteral calculus. Small peripherally enhancing RIGHT ovarian cyst 14 mm. Possible ruptured ovarian cyst, although no free fluid seen. Progress - 1:55 PM: Patient states feels better after medications. Appears comfortable. Departure Departure Disposition DC Home or Self Care(routine) Clinical Impression Primary Impression: Ruptured ovarian cyst Condition STABLE Patient Instructions DI for Ovarian Cyst Additional Instructions Additional instructions for ABDOMINAL PAIN: See your physician as soon as possible for further evaluation. Return immediately if worsening abdominal pain, vomiting, shortness of breath, fever, vomiting of blood or abdominal distention. Prescriptions Current Visit Scripts Naproxen (Naprosyn 500MG Tab) 500 MG PO BID #14 TAB Ondansetron (Zofran 4MG Odt) 4 MG PO Q8HP PRN NAUSEA AND VOMITING #10 ODT ED Critical Care Critical Care No at 1410
--- OUTSIDE RECORDS SUMMARY | 2017-03-18 12:51 | External Medical Summary Rpt | CCD ---
Demographics Preferred Language Citizen Of [place] Marital Status Unknown Sikhism Affiliation Unknown Race Unknown Ethnic Group Unknown Author Author , KARI PIERCE Address Unknown Phone Immunization No patient found.
--- OUTSIDE RECORDS SUMMARY | 2017-03-18 12:51 | External Medical Summary Rpt | CCD ---
Demographics Preferred Language Dutch Marital Status Unknown Scientologist Affiliation Unknown Race Unknown Ethnic Group Unknown Author Author , KARI PIERCE Address Unknown Phone Immunization No patient found.
[2017-03-18 12:58] LABS: HEMOGLOBIN 13.9 g/dL (12.2-16.2); LYMPH # 3.5 K/mm3 (0.7-4.5); LYMPH % 28.5 % (10-50.0)
[2017-03-18 13:09] LABS: URINE BILIRUBIN - DIPSTICK NEGATIVE (NEG); URINE BLOOD NEGATIVE (NEG)
--- NOTE | 2017-03-18 13:50 | RADIOLOGY REPORT PS360 ---
CT ABD PELVIS W/ CONTRAST CLINICAL INDICATION: RLQ ABD PAIN ORDERING PHYSICIAN: Hollis Fang MD PATIENT AGE: 21 years COMPARISON: 01/14/2017 TECHNIQUE: Axial images obtained with sagittal and coronal reformats. PROCEDURE: Oral Contrast: None IV Contrast: 75 mL Isovue-[id number]. FINDINGS: Lung bases are clear. Liver, spleen, adrenal glands, and pancreas have an unremarkable appearance. No renal calculi or hydronephrosis. No ureteral calculi. Urinary bladder has an unremarkable appearance. The appendix is unremarkable. No evidence of appendicitis, diverticulitis, intestinal obstruction, or free air. The ovaries are somewhat prominent. There is a peripherally enhancing right ovarian cyst which measures 14 mm. This may be seen with ruptured ovarian cyst however, there is no significant amount of fluid in the cul-de-sac which one would also expect to see with ruptured cyst. No acute bony anomalies. IMPRESSION: 1. No evidence of appendicitis or obstructing ureteral calculus. 2. Small peripherally enhancing right ovarian cyst 14 mm..
[2017-03-18] MEDS ORDERED: NAPROSYN500 M1 PO (13:56)
[2017-03-18] MEDS ORDERED: ZOFRAN ODT4 MG PO (13:56)
[2017-03-18 14:08] VITALS: BP 126/73
== END 2017-03-18 14:08 | disposition home or self-care (01) ==
LOC: ER 12:35
PROVIDERS: Emergency Medicine
DX: N83.291 Other ovarian cyst, right side (principal); Z88.0 Allergy status to penicillin; R56.9 Unspecified convulsions; F17.210 Nicotine dependence, cigarettes, uncomplicated
CPT/HCPCS: J2405; Q9967

== ENCOUNTER 2017-04-13 22:07 | Emergency (ER) | payer MEDICAID ==
[~2017-04-13] VITALS: Ht 162.6 cm; Wt 78.9 kg
[~2017-04-13 22:07] MED LIST changes: +NAPROSYN500 M1 PO
--- NOTE | 2017-04-13 22:21 | Emergency Room Report ---
History of Present Illness Time Seen by [id number] Presenting Problem in Triage Pt arrived:Walked Presenting Problem:C/O ABDOMINAL PAIN X 2 WEEKS. 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 N Clinical Suspician of Infection? N Mental Status: 1 - Regular (Normal Baseline) Sepsis Risk:Possible Sepsis Risk Have you (or family members/close friends) recently traveled outside the [place]? N If Yes, where/when: Have you had exposure to infectious disease within the past month? N TB? Other? Specify: Source patient, RN notes reviewed, family, old records Exam Limitations no limitations Comment pt with upper abd pain with nausea but no fever or rash over the last few days Cardiac Chest Pain Chest pain indicative of cardiac No Timing/Duration this evening Severity moderate ALLERGIES Coded Allergies: penicillin G (Intermediate, SWELLING 03/18/17) erythromycin base (Mild, I-HIVES 03/18/17) Uncoded Allergies: ARTIFICIAL STRAWBERRY FLAVORING (Mild, I-RASH 06/04/15) History Medical History General CAD? No Angina: No NM: No Hypertension? No Hyperlipidemia? No CHF? No DVT? No PE? No COPD? No Asthma? No Anemia? No GERD? No Gastric ulcers? No GI Bleed? No Hernia? No Thyroid Problems? No Hypothyroidism? No CVA? No Seizures? Yes Diabetes? No Renal Insuffiency? No End Stage Renal Disease? No UTI? Yes Stones? No BPH? No GB Disease: No Nephritic Syndrome? No Asplenia? No Hepatitis? No Sickle Cell Disease? No Arthritis? No Migraines? Yes Cataracts? No Glaucoma? No MRSA? No HIV? No TB? No Anxiety? No Depression? No Cancer? No More? 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 Respiratory denies cough, denies shortness of breath, denies wheezing Cardiovascular denies chest pain, denies syncope Gastrointestinal denies abdominal pain, denies diarrhea, denies vomiting Genitourinary denies: dysuria, frequency, hesitancy, hematuria. Musculoskeletal denies back pain, denies joint pain, denies joint swelling, denies neck pain Skin denies rash Psychiatric/Neurological denies headache, denies seizure Physical Exam Vital Signs Vital Signs Date Time Temp Pulse Resp B/P Pulse O2 O2 Flow FiO2 Ox Delivery Rate 04/13 2209 98.4 90 20 121/76 98 - WBC >12,000 or <4,000 or 10% bands? 2 or more SIRS Criteria Met? B/P:121/76 MAP:91 Creatinine >2.0? UA output<0.5ml/kg/hr for 2 hrs? Platelet count >100,000? Lactate >2.0mmol/1? INR >1.2 or PTT > than 60 sec? Evidence of Organ Dysfunction? Provider documented clinical suspician of infection? N Sepsis Criteria Count: 2 Sepsis Risk: Possible Sepsis Risk General Appearance no apparent distress Eye Exam - bilateral eye PERRL, bilateral eye EOMI Ear, Nose, Throat normal ENT inspection Neck supple Respiratory Status No: respiratory distress. Lung Sounds bilateral: lungs clear. 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 No Results/Orders Laboratory Tests 04/13/175: Sodium 140, Potassium 3.7, Chloride 102, Carbon Dioxide 29, BUN 11, Creatinine 1.2 H, Estimated Creat Clear 92, Estimated GFR (MDRD) 57 L, Glucose 103, Calcium 9.2, Total Bilirubin 0.2, AST 14 L, ALT 22, Alkaline Phosphatase 94, Total Protein 7.0, Albumin 3.6, Globulin 3.4 H, Albumin/Globulin Ratio 1.1, Amylase 39, Lipase 126, WBC 13.1 H, RBC 4.46, Hgb 13.8, Hct 40.2, MCV 90.1, RDW 12.6, Plt Count 212, MPV 9.5, Gran % 65.7, Gran # 8.6 H, Lymphocytes % 28.0, Monocytes % 3.5, Eosinophils % 2.6, Basophils % 0.3, Lymphocytes # 3.7, Monocytes # 0.5, Eosinophils # 0.3, Basophils # 0.0, PUBS MCHC 34.2, MCH 30.9 04/13/17 2220: Urine Color YELLOW, Urine Appearance CLEAR, Urine pH 7.0, Ur Specific [place] 1.015, Urine Protein NEGATIVE, Urine Ketones NEGATIVE, Urine Blood NEGATIVE, Urine Nitrate NEGATIVE, Urine Bilirubin NEGATIVE, Urine Urobilinogen 0.2, Ur Leukocyte Esterase NEGATIVE, Urine WBC 3-5, Ur Squamous Epith Cells 3-5, Urine Bacteria OCC, Urine Glucose NEGATIVE Current Medication Orders Sig/Gisel Start time Last Medication Dose Route Stop Time Status Admin Sodium Chloride 10 ML PRN PRN 04/13 2230 AC IV 04/14 2218 Orders Procedure Date/time Status DIET-NOTHING BY MOUTH 04/[address] ABD & PELVIS W/O CONTRAST 04/[address] ABD/PELVIS REQ 04/13 2257 Complete IV SALINE LOCK 04/13 2218 Active URINALYSIS/COMPLETE 04/13 2218 Complete URINE 04/13 2218 Complete LIPASE 04/13 2218 Complete CBC WITH AUTO DIFF 04/13 2218 Complete CHEM 12 PROFILE 04/13 2218 Complete AMYLASE 04/13 2218 Complete XRAY/CT/US XRAY/CT/US CT abdomen, pelvis CT interpretation by discussed w/radiologist Time results known: 0040 CT Results normal/NAD Departure Departure Time of Disposition 004 Disposition DC Home or Self Care(routine) Clinical Impression Primary Impression: Abdominal pain Qualifiers: Abdominal location: unspecified location Qualified Code: R10.9 - Unspecified abdominal pain Condition STABLE Referrals Kiel Salcido MD (Family) Patient Instructions DI for Abdominal Pain-Adult Additional Instructions fluids and see pcp for follow up Discharge Counseling Counseled pt/family regarding diagnosis, test results, follow up needs ED Critical Care Critical Care No at 0043
--- OUTSIDE RECORDS SUMMARY | 2017-04-13 22:25 | External Medical Summary Rpt | CCD ---
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 ys at rm s nt no ma ic us Or Da si cy ia de te s n re d ME 00 01 02 21 6 00 CA Ac ED 60 -0 -0 .0 00 RE ti NI 35 4- 3- 00 06 ve SO 33 20 20 33 MO NE 71 17 17 22 RE 5 5 96 PH MG AR MA TA CY B DO SE PA CK AL 00 01 02 75 7 00 [...] MA Y- CY D TA BL ET AZ 68 01 02 6. 5 00 CA Ac IT 18 -0 -0 00 00 RE ti HR 00 2- 3- 0 06 ve OM 16 20 20 33 MO YC 01 17 17 21 RE IN 3 30 PH 25 AR 0 MA MG CY TA BL ET TR 00 12 01 28 28 00 CA Ac I- 55 -2 -2 .0 00 RE ti SP 59 0- 0- 00 06 ve RI 01 20 20 32 MO NT 85 16 17 81 RE EC 8 30 PH TA AR BL MA ET CY AZ 64 10 10 0 6. [...] IA PH N AR S MA CY ME 00 10 10 0 21 6 CA 62 OV Ac TH 78 -2 -2 .0 RE 17 ER ti YL 15 50 BE ve ME 02 20 20 MO 9 E ED 20 11 11 RE BR NI 7 IA SO PH N LO AR S NE MA 4 CY MG DO SE PK BE 65 10 10 0 30 10 [...] IA PH N AR S MA CY ME 00 10 10 0 30 10 CA [...] 0 7. 10 CA 62 OV Ac ME 06 -0 -0 50 RE 12 ER ti OD 58 8- 8- 0 67 BE ve EX 53 20 20 MO 3 E 30 11 11 RE BR OT 2 IA IC PH N AR S JASMINE MA SP CY EN SI ON 00 06 07 2 3. 28 CA 62 GA Ac 06 -2 00 RE 09 UN ti 21 6- 8- 0 82 T ve 92 20 20 MO 8 TI 01 11 11 RE NA 5 C PH AR MA CY IB 53 07 07 0 45 15 CA 62 OV Ac UP 74 -2 -2 .0 RE 12 ER ti RO 60 8- 8- 00 08 BE ve FE 46 20 20 MO 9 E N 60 11 11 RE BR 80 5 IA 0 PH N MG AR S MA TA CY BL ET 00 06 06 2 3. 28 CA [...] 0 10 5 CA 62 OV Ac WV 00 -2 -2 .0 RE 02 ER [...] IA PH N AR S MA CY ME 00 01 01 0 15 5 CA [...] 0 MA MG CY TA BL ET ME 00 10 12 0 20 5 CA [...] 3 60 30 KY 34 FELIPE Ac ME 09 -0 -0 .0 VA 10 LL [...] LL PH IA AR M MA CY ME 00 09 09 0 20 5 CA 61 CO Ac OM 78 -2 -2 .0 RE 92 LL ti ET 11 00 64 IN ve FELIPE 83 20 20 MO 3 S ZI 01 10 10 RE WI NE 0 LL PH IA 25 AR M MA MG CY TA BL ET IN 00 09 09 2 30 10 CA 61 CO Ac DO 78 -1 -1 .0 RE 92 LL ti ME 12 15 IN ve TH 32 20 20 MO 7 S AC 50 10 10 RE WI IN 1 LL PH IA 25 AR M MA MG CY CA PS UL E IB 53 09 09 0 30 8 CA 61 CO Ac UP 74 -1 -1 .0 RE 92 LL ti RO 60 15 IN ve FE 46 20 20 [...] -1 .0 RE 88 LL ti 30 71 IN ve 62 20 20 MO 3 S 11 10 10 RE WI 0 LL PH IA AR M MA CY 60 05 05 0 10 3 CA 20 BA Ac 95 -1 -1 .0 RE 04 RL ti 10 65 OW ve 79 20 20 MO 0 77 10 10 RE DA 0 NA PH S AR MA CY ME 00 05 05 0 10 3 CA [...] 10 09 09 RE JA IN 4 WV PH E 25 AR D 0 MA MG CY TA BL ET 60 10 11 00 12 3 CA 61 NE Ac 25 -2 -0 0. RE 72 WS ti 80 3- 5- 00 88 OM ve 23 20 20 0 MO 5 E 91 09 09 RE JA 6 WV PH E AR D MA CY ME 00 09 10 00 20 5 CA 61 NE Ac OM 78 -3 -0 .0 RE 71 WS ti ET 11 0- 8- 00 43 OM ve FELIPE 83 20 20 MO 8 E ZI 01 09 09 RE JA NE 0 WV PH E 25 AR D MA MG CY TA BL ET AZ 00 08 09 00 6. 5 CA 61 NE Ac IT 78 -2 -1 00 RE 69 WS ti HR 11 6- 0- 0 20 OM ve OM 49 20 20 MO 6 E YC 66 09 09 RE JA IN 8 WV PH E 25 AR D 0 MA [...] 02 03 00 30 8 CA 61 WV Ac 74 -2 -1 .0 RE 59 [...] 0 bl PH e AR MA CY ME 00 09 10 00 6. 4 CA 61 No Ac OM 78 -2 -0 00 RE 50 t ti ET 11 2- 9- 0 01 Av ve FELIPE 83 20 20 MO 8 ai ZI 01 08 08 RE la NE 0 bl PH e 25 AR MA MG CY TA BL ET Results Labs Lab Lab Date Result Refere Interp Status Commen Order Detail nces retati t Range on CBC w auto diff (03-18-2017 12:50) Automat = 90.0 82.2-97 complet ed 017 fl .8 ed erythro 12:50 cyte mean corpusc ular v Automat = 33.9 31.8-35 complet ed 017 g/dl .4 ed erythro 12:50 cyte mean corpusc ular h Mean = 30.6 27-31.2 complet corpusc 017 pg ed ular 12:50 hemoglo bin (MCH) determ Lymphoc = 28.5 10-50.0 complet yte 017 % ed count, 12:50 blood, automat ed Absolut = 3.5 0.7-4.5 complet e 017 K/mm3 ed lymphoc 12:50 yte count Blood = 12.3 4.8-10. complet leukocy 017 K/MM3 8 ed donald 12:50 count (number /volume ) Automat = 12.9 11.5-17 complet ed 017 % .5 ed erythro 12:50 cyte distrib ution width Red = 4.55 4.2-5.4 complet blood 017 M/mm3 ed cell 12:50 count Blood = 243 142-424 complet platele 017 K/mm3 ed t count 12:50 Automat = 9.2 7.4-10. complet ed 017 fl 4 ed blood 12:50 platele t mean volume milka [place] % = 4.3 % 1.7-9.3 complet 017 ed 12:50 Absolut = 0.5 0.1-1.0 complet e 017 K/mm3 ed monocyt 12:50 e count Blood = 13.9 12.2-16 complet hemoglo 017 g/dL .2 ed bin 12:50 measure ment (mass/v olum Blood = 40.9 37.0-47 complet hematoc 017 % .0 ed rit 12:50 (volume fractio n) Granulo = 63.1 37.0-80 complet cyte 017 % .0 ed percent 12:50 age Blood = 7.8 1.8-7.8 complet granulo 017 K/mm3 ed cytes 12:50 automat ed count (numb Automat = 3.7 % 0.1-12. complet ed 017 0 ed blood 12:50 eosinop hils/10 0 leukocy t Automat = 0.5 0.0-0.4 complet ed 017 K/mm3 ed blood 12:50 eosinop hil count Baso % = 0.4 % 0.1-2.0 complet 017 ed 12:50 Automat = 0.1 0-0.2 complet ed 017 K/MM3 ed blood 12:50 basophi l count (count/ vo Urine test (03-18-2017 12:45) Urine 11-08-2 = NEG complet pregnan 017 NEGATIV ed cy test 12:45 E CBC W/DIFF (05-28-2014 02:20) WBC 15.5 X 3.5-9.6 complet 015 10\S\3 ed 02:20 RBC 4.65 X 4.20-5. complet 015 10\S\6 40 ed 02:20 Hemoglo 14.0 12.0-16 complet bin 015 gm/dL .0 ed 02:20 Hematoc 42.2 % 37.0-47 complet rit 015 .0 ed 02:20 Platele 224 X 130-400 complet t 015 10\S\3 ed 02:20 MCH 30.1 pg 27.0-32 complet 015 .0 ed 02:20 MCHC 33.2 32.0-37 complet 015 gm/dL .0 ed 02:20 MCV 90.6 fl 81.0-99 complet 015 .0 ed 02:20 RDW 13.5 % 12.0-15 complet 015 .0 ed 02:20 MPV 10.2 fl 6.2-10. complet 015 6 ed 02:20 Neutrop 05-28- 70.6 % 42.0-75 complet hils % 015 .0 ed 02:20 Lymphoc 22.6 % 20.0-51 complet ytes % 015 .0 ed 02:20 Monocyt 4.1 % 0.0-13. complet es % 015 0 ed 02:20 Eosinop 05-28-2 1.9 % 0.0-6.0 complet hils % 015 ed 02:20 Basophi 05-28-2 0.8 % 0.0-2.0 complet ls % 015 ed 02:20 Neutrop 05-28-2 11.0 X 1.5-7.1 complet hil 015 10\S\3 ed Count 02:20 Monocyt 18-2 0.6 X 0.2-1.2 complet e Count 015 10\S\3 ed 02:20 Eosinop 05-28-2 0.3 X 0.0-0.8 complet hil 015 10\S\3 [...] in, 015 mg/dL ed Total 02:20 BUN/Cre 2 10 complet at 015 ed Ratio 02:20 GLOMERU 2 >60.0 complet LAR 015 mL/min/ ed FILTRAT [...] determinations of GFR should be obtained. GLOMERU 01-18-2 >60.0 complet LAR 015 mL/min/ ed FILTRAT 02:20 1.73 m2 ION RATE Kristy n HCG SCREEN,URINE (05-28-2014 02:05) Qualita -18-2 NEGATIV NEGATIV complet tive 015 E E ed HCG 02:05 URINALYSIS W/C+S IF INDICATED (05-28-2014 02:05) Color -18-2 YELLOW YELLOW, complet 015 STRAW,C ed 02:05 OLORLES S,PALE YELLOW Appeara -18-2 HAZY CLEAR complet nce 015 ed 02:05 Specifi -18-2 1.005 1.016-1 complet c 015 .022 ed [place] 02:05 PH -18-2 7.0 5.0-7.0 complet 015 ed 02:05 Leukocy -18-2 NEGATIV NEGATIV complet te 015 E E ed 02:05 Nitrite -18-2 NEGATIV NEGATIV complet 015 E E ed 02:05 UA -18-2 NEGATIV NEGATIV complet Protein 015 E E ed 02:05 Glucose -18-2 NEGATIV NEGATIV complet 015 E E ed 02:05 Ketones -18-2 NEGATIV NEGATIV complet 015 E E ed 02:05 Urobili -18-2 0 mg/dL 0-1 complet nogen 015 ed 02:05 Bilirub -18-2 NEGATIV NEGATIV complet in 015 E E ed 02:05 Blood -18-2 NEGATIV NEGATIV complet 015 E E ed 02:05 UA WBC -18-2 0-2 0-2 complet 015 ed 02:05 UA RBC -18-2 NONE 0-2 complet 015 SEEN ed 02:05 Bacteri -18-2 TRACE NONE complet a 015 SEEN ed 02:05 Epithel -18-2 5-10 NONE complet ial 015 SQUAMOU SEEN ed Cells 02:05 S EPITHEL IAL CELLS COMP. METABOLIC PANEL (CHEM 12) (04-25-2014 09:40) ALBUMIN -16-2 3.6 3.4-5.0 complet 014 G/DL ed 09:40 BILIRUB 16-2 0.20 0.00-1. complet IN, 014 MG/DL 00 ed TOTAL 09:40 ALT 16-2 31 U/L 12-78 complet 014 ed 09:40 AST -16-2 27 U/L 15-37 complet 014 ed 09:40 ALKALIN 04-25-2 87 U/L 45-117 complet E 014 ed PHOSPHA 09:40 TASE CALCIUM 16-2 9.0 8.5-10. complet 014 MG/DL 1 ed 09:40 A/G 16-2 1.1 0.6-1.6 complet RATIO 014 ed 09:40 GLOBULI 16-2 3.2 2.4-4.8 complet N 014 G/DL ed 09:40 PROTEIN -16-2 6.8 6.4-8.4 complet , TOTAL 014 G/DL ed 09:40 CREATIN -16-2 0.7 0.6-1.3 complet INE 014 MG/DL ed 09:40 CO2 16-2 24 21-32 complet 014 mmol/L ed 09:40 CHLORID 16-2 106 98-107 complet E 014 mmol/l ed 09:40 POTASSI 16-2 4.3 3.6-5.2 complet UM 014 mmol/l ed 09:40 SODIUM 16-2 137 133-144 complet 014 mmol/L ed 09:40 BUN -16-2 12 7-18 complet 014 MG/DL ed 09:40 GLUCOSE 16-2 88 70-110 complet 014 MG/DL ed 09:40 URINALYSIS COMPLETE (04-25-2014 09:40) COLOR 12-16-2 YELLOW complet 014 ed 09:40 HYALINE 12-16-2 0 /LPF 0-4 complet CAST 014 ed 09:40 BACTERI 12-16-2 NEGATIV NEGATIV complet A COUNT 014 E /HPF E ed 09:40 Comment: BACTERIA INTERPRETATION: Comment: NEGATIVE <=599/ul Comment: TRACE >=600, <=1199/ul Comment: 1+ >=1200, <=2399/ul Comment: 2+ >=2400, <=3599/ul Comment: 3+ >=3600, <=4799/ul Comment: 4+ >=4800/ul EPITHEL 12-16-2 6 /HPF 0-6 complet IAL [...] complet 014 gm/dl .0 ed 09:40 RBC 12-16-2 4.600 3.450-5 complet 014 M/ul .400 ed 09:40 WBC 12-16-2 11.4 3.0-11. complet 014 K/UL 3 ed 09:40 LIPASE (04-25-2014 09:40) LIPASE 12-16-2 98 U/L 73-393 complet 014 ed 09:40 AMYLASE (04-25-2014 09:40) AMYLASE 39 U/L 25-115 complet 014 ed 09:40 URINE HCG (03-04-2014 23:30) URINE NEGATIV complet HCG 014 E ed 23:30 CBC W/DIFF (02-16-2014 00:12) MCH 30.7 pg 27.0-32 complet 014 .0 ed 00:12 Platele 265 X 130-400 complet t 014 10\S\3 ed 00:12 Hematoc 39.2 % 37.0-47 complet rit 014 .0 ed 00:12 Hemoglo 13.2 12.0-16 complet bin 014 gm/dL .0 ed 00:12 RBC 4.29 X 4.20-5. complet 014 10\S\6 40 ed 00:12 WBC 11.5 X 3.5-9.6 complet 014 10\S\3 ed 00:12 MCHC 33.6 32.0-37 complet 014 gm/dL .0 ed 00:12 Basophi 0.0 % 0.0-2.0 complet ls % 014 ed 00:12 Monocyt 0.3 X 0.2-1.2 complet e Count 014 10\S\3 ed 00:12 Neutrop 8.1 X 1.5-7.1 complet hil 014 10\S\3 ed Count 00:12 Eosinop 0.0 % 0.0-6.0 complet hils % 014 ed 00:12 Lymphoc 3.1 X 0.7-4.3 complet yte 014 10\S\3 ed Count 00:12 Basophi 0.0 X 0.0-0.1 complet l Count 014 10\S\3 ed 00:12 Eosinop 0.0 X 0.0-0.8 complet hil 014 10\S\3 ed Count 00:12 RDW 12.6 % 12.0-15 complet 014 .0 ed 00:12 MCV 91.4 fl 81.0-99 complet 014 .0 ed 00:12 Monocyt 2.8 % 0.0-13. complet es % 014 0 ed 00:12 Lymphoc 27.1 % 20.0-51 complet ytes % 014 .0 ed 00:12 Neutrop 70.1 % 42.0-75 complet hils % 014 .0 ed 00:12 MPV 8.6 fl 6.2-10. complet 014 6 ed 00:12 COMP. METABOLIC PANEL (CHEM 12) (01-25-2014 21:55) BILIRUB 0.10 0.00-1. complet IN, 014 MG/DL 00 ed TOTAL 21:55 ALT 20 U/L 12-78 complet 014 ed 21:55 AST 17 U/L 15-37 complet 014 ed 21:55 ALKALIN 84 U/L 45-117 complet E 014 ed PHOSPHA 21:55 TASE CALCIUM 9.0 8.5-10. complet 014 MG/DL 1 ed 21:55 A/G 0.9 0.6-1.6 complet RATIO 014 ed 21:55 GLOBULI 3.4 2.4-4.8 complet N 014 G/DL ed 21:55 ALBUMIN 3.2 3.4-5.0 complet 014 G/DL ed 21:55 PROTEIN 6.6 6.4-8.4 complet , TOTAL 014 G/DL ed 21:55 CREATIN 0.8 0.6-1.3 complet INE 014 MG/DL ed 21:55 CO2 27 21-32 complet 014 mmol/L ed 21:55 CHLORID 108 98-107 complet E 014 mmol/l ed 21:55 POTASSI 4.1 3.6-5.2 complet UM 014 mmol/l ed 21:55 SODIUM 139 133-144 complet 014 mmol/L ed 21:55 BUN 8 MG/DL 7-18 complet 014 ed 21:55 GLUCOSE 79 70-110 complet 014 MG/DL ed 21:55 LIPASE (01-25-2014 21:55) LIPASE 112 U/L 73-393 complet 014 ed 21:55 AMYLASE (01-25-2014 21:55) AMYLASE 36 U/L 25-115 complet 014 ed 21:55 CBC\T\AUTO DIFF (01-25-2014 21:55) MCH 30.8 pg 26.4-33 complet 014 .3 ed 21:55 MCV 89.3 fl 78.2-10 complet 014 1.8 ed 21:55 HCT 34.1 % 29.9-45 complet 014 .5 ed 21:55 HGB 11.8 10.0-16 complet 014 gm/dl .0 ed 21:55 RBC 3.820 3.450-5 complet 014 M/ul .400 ed 21:55 WBC 01-25-2 12.4 3.0-11. complet 014 K/UL 3 ed 21:55 BASO# 09-17-2 0.1 0.0-0.2 complet 014 K/ul ed 21:55 EOS# -17-2 0.7 0.0-0.9 complet 014 K/ul ed 21:55 MONOS# 09-17-2 0.6 0.2-0.6 complet 014 K/ul ed 21:55 NEUT # -17-2 6.8 2.7-6.9 complet 014 K/ul ed 21:55 BASO% -17-2 0.9 % 0.0-2.0 complet 014 ed 21:55 EOS% 09-17-2 6.0 % 0.0-11. complet 014 0 ed 21:55 MONOS% -17-2 4.7 % 1.0-14. complet 014 0 ed 21:55 LYMPH% 17-2 33.4 % 10.0-42 complet 014 .0 ed 21:55 NEUTROP 01-25-2 55.0 % 43.0-83 complet HILS% 014 .0 ed 21:55 MPV 9.6 fl 6.4-10. complet 014 4 ed 21:55 PLATELE 09-17-2 181 122-454 complet T 014 K/UL ed 21:55 RDW 12.6 % 10.1-16 complet 014 .2 ed 21:55 MCHC 34.5 32.5-35 complet 014 g/dl .3 ed 21:55 LYMPH# 4.1 0.4-3.9 complet 014 K/ul ed 21:55 URINE HCG (01-25-2014 21:30) URINE NEGATIV complet HCG 014 E ed 21:30 UA, MICROSCOPIC REVIEW (01-25-2014 21:30) BACTERI 1+ HPF Absent complet A 014 ed 21:30 EPITHEL TNTC complet IAL 014 HPF ed CELLS 21:30 WBC 01-25- 0-5 HPF 0-5 complet 014 ed 21:30 RBC 01-25- 0-5 HPF 0-5 complet 014 ed 21:30 COMMENT: (01-25-2014 21:30) COMMENT SEE complet : 014 BELOW ed 21:30 URINALYSIS COMPLETE (01-25-2014 21:30) COLOR 01-25- YELLOW complet 014 ed 21:30 RBC 01-25- REVIEW 0-4 complet COUNT 014 /HPF ed 21:30 LEUKOCY 01-25- NEGATIV NEGATIV complet DONALD 014 E E ed 21:30 NITRITE 01-25- NEGATIV NEGATIV complet 014 E E ed 21:30 UROBILI 01-25-2 0.2 0.2-1.0 complet NOGEN 014 E.U./DL ed 21:30 SPECIFI 01-25-2 1.012 1.006-1 complet C 014 .035 ed GRAVITY 21:30 KETONE 01-25-2 NEGATIV NEGATIV complet 014 E MG/DL E ed 21:30 BILIRUB 01-25-2 NEGATIV NEGATIV complet IN 014 E E ed 21:30 GLUCOSE 01-25-2 NEGATIV NEGATIV complet 014 E MG/DL E ed 21:30 CLARITY 01-25- CLOUDY complet 014 ed 21:30 PROTEIN 01-25- NEGATIV NEGATIV complet 014 E MG/DL E ed 21:30 PH 01-25- 6.5 5.0-9.0 complet 014 ed 21:30 BLOOD 09-17-2 NEGATIV NEGATIV complet 014 E E ed 21:30 URINALYSIS W/C+S IF INDICATED (01-03-2014 22:08) Appeara HAZY CLEAR complet nce 014 ed 22:08 Specifi 1.010 1.016-1 complet c 014 .022 ed [place] 22:08 PH 7.0 5.0-7.0 complet 014 ed 22:08 Leukocy NEGATIV NEGATIV complet te 014 E E ed 22:08 Nitrite NEGATIV NEGATIV complet 014 E E ed 22:08 UA NEGATIV NEGATIV complet Protein 014 E E ed 22:08 Glucose NEGATIV NEGATIV complet 014 E E ed 22:08 Ketones NEGATIV NEGATIV complet 014 E E ed 22:08 Urobili NEGATIV 0-1 complet nogen 014 E mg/dL ed 22:08 Bilirub NEGATIV NEGATIV complet in 014 E E ed 22:08 Blood NEGATIV NEGATIV complet 014 E E ed 22:08 UA WBC 01-03- NONE 0-2 complet 014 SEEN ed 22:08 UA RBC 01-03- NONE 0-2 complet 014 SEEN ed 22:08 Bacteri NONE NONE complet a 014 SEEN SEEN ed 22:08 Epithel 10-20 NONE complet ial 014 SQUAMOU SEEN ed Cells 22:08 S EPITHEL IAL CELLS Mucus NONE NONE complet 014 SEEN SEEN ed 22:08 Casts NONE NONE complet 014 SEEN SEEN ed 22:08 Crystal NONE NONE complet s 014 SEEN SEEN ed 22:08 YEAST, NONE NONE complet UA 014 OBSERVE OBSERVE ed 22:08 D D AMORPHO 1+ NONE complet US 014 SEEN ed SEDIMEN 22:08 T TRICHOM NONE complet ONAS 014 SEEN ed 22:08 Color YELLOW YELLOW, complet 014 STRAW,C ed 22:08 OLORLES S,PALE YELLOW HCG SCREEN,URINE (01-03-2014 22:08) Qualita 08-26-2 NEGATIV [...] complet 014 MG/DL 1 ed 00:34 CREATIN 03-20-2 0.8 0.6-1.3 complet INE 014 MG/DL ed [...] complet ST 014 E E ed 00:33 APTT (06-15-2013 13:57) APTT 31 SEC 26-33 complet 014 ed 13:57 PROTIME\T\INR (06-15-2013 13:57) INR 1.02 0.88-1. complet 014 12 ed 13:57 PROTHRO 06-15-2 11.2 9.9-12. complet MBIN 014 SEC 5 ed TIME 13:57 MANUAL DIFFERENTIAL (06-15-2013 13:57) SEGS 06-15-2 54 % 23-85 complet 014 ed 13:57 RBC -05-2 NORMAL complet MORPHOL 014 ed OGY 13:57 PLATELE -05-2 NORMAL complet T 014 ed MORPHOL 13:57 OGY PLATELE 05-2 ADEQUAT complet T 014 E ed ESTIMAT [...] complet INE 014 MG/DL ed 13:57 CO2 -05-2 25 21-32 complet 014 mmol/L ed 13:57 CHLORID 06-15-2 107 98-107 complet E 014 mmol/l ed 13:57 POTASSI 06-15-2 4.3 3.6-5.2 complet UM 014 mmol/l ed 13:57 SODIUM 2 136 133-144 complet 014 mmol/L ed 13:57 BUN 05-2 9 MG/DL 7-18 complet 014 ed 13:57 HCG QUALITATIVE SERUM (06-15-2013 13:57) HCG 05-2 NEGATIV complet QUALITA 014 E ed TIVE 13:57 SERUM CBC/NO DIFF+ PLATELET (06-15-2013 13:57) MPV 05-2 9.8 fl 6.4-10. complet 014 4 ed 13:57 PLATELE 257 122-454 complet T 014 K/UL ed 13:57 RDW 05-2 13.2 % 10.1-16 complet 014 .2 ed 13:57 MCHC 05-2 34.1 32.5-35 complet 014 g/dl .3 ed 13:57 MCH -05-2 31.2 pg 26.4-33 complet 014 .3 ed 13:57 MCV 05-2 91.7 fl 78.2-10 complet 014 1.8 ed 13:57 HCT -05-2 38.5 % 29.9-45 complet 014 .5 ed 13:57 HGB 05-2 13.1 10.0-16 complet 014 gm/dl .0 ed 13:57 RBC 02-05-2 4.200 3.450-5 complet 014 M/ul .400 ed 13:57 WBC 02-05-2 11.9 3.0-11. Above complet 014 K/UL 3 high ed 13:57 normal MONO (01-06-2013 21:47) [place] 08-29-2 NEGATIV NEGATIV Normal complet Spot 013 E E ed 21:47 INFLUENZA VIRUS A/B DIRECT IF TST (01-06-2013 21:44) Influen 08-29-2 NEGATIV NEGATIV Normal complet za B 013 E E ed Antigen 21:44 Influen 08-29-2 NEGATIV NEGATIV Normal complet za A 013 [...] te 013 E E ed 15:51 PH 07-20-2 6.0 5.0-7.0 Normal complet 013 ed 15:51 Specifi 07-20-2 1.020 1.016-1 Normal complet c 013 .022 ed [place] 15:51 Appeara 07-20-2 SL HAZY CLEAR Abnorma complet nce 013 l ed 15:51 Color 07-20-2 YELLOW YELLOW, Normal complet 013 STRAW,C ed 15:51 OLORLES S,PALE YELLOW CBC W/DIFF (11-27-2012 15:50) Lymphoc 07-20-2 2.5 [...] complet t 013 10 ed 15:50 Hematoc -20-2 39.4 % 32.9-46 Normal complet rit 013 .2 ed 15:50 Hemoglo -20-2 13.5 11.2-15 Normal complet bin 013 gm/dL .5 ed 15:50 RBC -20-2 4.36 X 3.64-5. Normal complet 013 10 36 ed 15:50 WBC -20-2 8.7 X 3.9-11. Normal complet 013 10 6 ed 15:50 BASIC METABOLIC PANEL (11-27-2012 15:50) BUN/Cre 20-2 [...] Normal complet 013 mEq/L ed 15:50 Creatin 20-2 0.9 0.3-0.9 Normal complet ine 013 mg/dL ed 15:50 Glucose 20-2 113 70-99 Above complet 013 mg/dL high ed 15:50 normal BUN 20-2 8 mg/dL 5-18 Normal complet 013 ed 15:50 CULTURE, BLOOD (04-03-2012 17:45) Clinica [...] HCG 17:45 CBC W/DIFF (04-03-2012 17:45) Lymphoc 04-03- 2.5 X 0.7-4.3 Normal complet yte 012 10 ed Count 17:45 Basophi 04-03-2 0.1 X 0.0-0.1 Normal complet l Count 012 10 ed 17:45 Eosinop 04-03-2 0.4 X 0.0-0.8 Normal complet hil 012 10 ed Count 17:45 Monocyt 04-03-2 0.4 X 0.2-1.2 Normal complet e Count 012 10 ed 17:45 Neutrop 04-03-2 10.8 X 1.5-7.1 Above complet hil 012 10 high ed Count 17:45 normal Basophi 04-03-2 0.4 % 0.0-2.0 Normal complet ls % 012 ed 17:45 Eosinop 04-03-2 2.7 % 0.0-6.0 Normal complet hils % 012 ed 17:45 Monocyt 04-03-2 2.9 % 3.0-15. Below complet es % 012 0 low ed 17:45 normal Lymphoc 04-03-2 17.4 % 4.0-51. Normal complet ytes % 012 0 ed 17:45 Neutrop 24-2 76.6 % 33.0-89 Normal complet hils % 012 .0 ed 17:45 MPV 24-2 10.6 fl 6.6-10. Above complet 012 1 high ed 17:45 normal RDW 04-03-2 12.0 % 10.7-14 Normal complet 012 .1 ed 17:45 MCV 04-03-2 91.0 fl 78.0-98 Normal complet 012 .0 ed 17:45 MCHC 11-24-2 32.8 31.8-35 Normal complet 012 gm/dL .7 ed 17:45 MCH 11-24-2 29.8 pg 25.5-33 Normal complet 012 .7 ed 17:45 Platele 11-24-2 314 X 126-404 Normal complet t 012 [...] HCG 22:56 URINALYSIS W/MICRO (04-01-2012 22:37) AMORPHO --2 NONE NONE Normal complet US 012 SEEN SEEN ed SEDIMEN 22:37 T YEAST, 04-01-2 NONE NONE Normal complet UA 012 OBSERVE OBSERVE ed 22:37 D D Crystal 04-01-2 NONE NONE Normal complet s 012 SEEN SEEN ed 22:37 Casts --2 NONE NONE Normal complet 012 SEEN SEEN ed 22:37 Mucus -22-2 NONE NONE Normal complet 012 SEEN SEEN ed 22:37 Epithel -22-2 10-20 NONE Abnorma complet ial 012 SEEN l ed Cells 22:37 Bacteri -22-2 3+ NONE Abnorma complet a 012 SEEN l ed 22:37 UA RBC -22-2 0-2 0-2 Normal complet 012 ed 22:37 UA WBC 11-22-2 0-2 0-2 Normal complet 012 ed 22:37 Blood -22-2 NEGATIV NEGATIV Normal complet 012 E E ed 22:37 Bilirub -22-2 NEGATIV NEGATIV Normal complet in 012 E E ed 22:37 Urobili -22-2 NEGATIV 0-1 Normal complet nogen 012 E mg/dL ed 22:37 Ketones 11-22-2 NEGATIV NEGATIV Normal complet 012 E E ed 22:37 Glucose 11-22-2 NEGATIV NEGATIV Normal complet 012 E E ed 22:37 UA 11-22-2 NEGATIV NEGATIV Normal complet Protein 012 E E ed 22:37 Nitrite 11-22-2 NEGATIV NEGATIV Normal complet 012 E E ed 22:37 Leukocy 11-22-2 NEGATIV NEGATIV Normal complet te 012 E E ed 22:37 PH 11-22-2 6.5 5.0-7.0 Normal complet 012 ed 22:37 Specifi 11-22-2 1.020 1.016-1 Normal complet c 012 .022 ed [place] 22:37 Appeara -22-2 CLOUDY CLEAR Abnorma complet nce 012 l ed 22:37 Color -22-2 YELLOW YELLOW, Normal complet 012 STRAW,C ed 22:37 OLORLES S,PALE YELLOW COMPREHENSIVE METABOLIC PANEL (03-02-2012 15:20) BUN 10-23-2 9 mg/dL 5-18 Normal complet 012 ed 15:20 Creatin 10-23-2 1.0 0.3-0.9 Above complet ine 012 mg/dL high ed 15:20 normal Sodium 23-2 139 133-144 Normal complet 012 mEq/L ed 15:20 Potassi 10-23-2 3.8 3.5-5.0 Normal complet um 012 mEq/L ed 15:20 Chlorid 10-23-2 104 99-108 Normal complet e 012 mEq/L ed 15:20 CO2 10-23-2 29 21-29 Normal complet 012 mmol/L ed 15:20 Calcium 10-23-2 9.6 7.5-10. Normal complet 012 mg/dL 2 ed 15:20 Total 10-23-2 7.4 5.5-8.2 Normal complet Protein 012 gm/dL ed 15:20 Albumin 10-23-2 3.5 2.7-5.2 Normal complet 012 gm/dL ed 15:20 Alk 10-23-2 116 U/L 24-368 Normal complet Phos 012 ed 15:20 ALT 10-23-2 38 U/L 6-24 Above complet 012 high ed 15:20 normal AST 10-23-2 28 U/L 7-35 Normal complet 012 ed 15:20 Bilirub 23-2 0.20 0.1-1.2 Normal complet in, 012 mg/dL ed Total 15:20 BUN/Cre 23-2 9 complet at 012 ed Ratio 15:20 A/G 23-2 0.9 complet Ratio 012 ed 15:20 Glucose 1023-2 123 70-99 Above complet 012 mg/dL high ed 15:20 normal CBC W/DIFF (03-02-2012 15:20) Lymphoc 1023-2 2.7 X 0.7-4.3 Normal complet yte 012 10 ed Count 15:20 Basophi 23-2 0.2 X 0.0-0.1 Above complet l Count 012 10 high ed 15:20 normal Eosinop 23-2 0.4 X 0.0-0.8 Normal complet hil 012 10 ed Count 15:20 Monocyt 1023-2 0.4 X 0.2-1.2 Normal complet e Count 012 10 ed 15:20 Neutrop 23-2 7.5 X 1.5-7.1 Above complet hil 012 10 high ed Count 15:20 normal Basophi 23-2 1.5 % 0.0-2.0 Normal complet ls % 012 ed 15:20 Eosinop 1023-2 3.6 % 0.0-6.0 Normal complet hils % 012 ed 15:20 Monocyt 10-23-2 4.0 % 3.0-15. Normal complet es % 012 0 ed 15:20 Lymphoc 1023-2 23.8 % 4.0-51. Normal complet ytes % 012 0 ed 15:20 Neutrop 1023-2 67.1 % 33.0-89 Normal complet hils % 012 .0 ed 15:20 MPV 1023-2 9.4 fl 6.6-10. Normal complet 012 1 ed 15:20 RDW 1023-2 12.3 % 10.7-14 Normal complet 012 .1 ed 15:20 MCV 10-23-2 90.0 fl 78.0-98 Normal complet 012 .0 ed 15:20 MCHC 1023-2 34.0 31.8-35 Normal complet 012 gm/dL .7 [...] Below complet c 012 .022 low ed [place] 14:00 normal Appeara 10-23-2 CLEAR CLEAR Normal complet nce 012 ed 14:00 Color 10-23-2 YELLOW YELLOW, Normal complet 012 STRAW,C ed 14:00 OLORLES S,PALE YELLOW Encounters Encounter Start End Date Code Location Performer Type Date [facility] [place] - 7 7 [facility] [place] - 7 7 [facility] [place] - 7 7 [facility] [place] [facility] 7 7 [facility] 7 7 [facility] [place] - 7 7 [facility] 7 N [facility] [place] [facility] 7 7 [facility] [place] - 6 6 G A R H [facility] [place] - 6 6 G A R H [facility] [place] [facility] 6 6 [facility] [place] [facility] 6 6 [facility] [place] [facility] 6 6 G A R H [facility] [place] - 6 6 G A R H [facility] [place] - 6 6 [facility]IEN [facility] 6 6 [facility]ALTH INPATIENT [facility] [place] - 6 6 G A R H [facility] [place] [facility] 6 6 [facility] [place] - 6 6 [facility] [place] [facility] 6 6 [facility] - 6 6 [facility] [place] [facility] 6 6 N [facility] - 6 6 N [facility] [place] - 6 6 [facility] [place] [facility] 6 6 [facility] [place] 5 [facility] [place] - 5 5 [facility] [place] [facility] 5 G A R H [facility] [place] [facility] 5 5 [facility] [place] - 5 5 [facility] [place] [facility] [place] [facility] [place] [facility] [address] [facility] [place] - 4 4 [facility] [place] [facility] 4 4 [facility] [place] [facility] 4 4 [facility] [place] [facility] 3 3 [facility] [place] [facility] 3 3 [facility] [place] [facility] 3 [facility] [place] [facility] 3 3 [facility] [place] [facility] 3 3 [facility] [place] [facility] 3 3 [facility] [place] [facility] [address] [facility] [place] - [address] [facility] [place] [facility] 2 2 [facility] [place] [facility] 2 [facility] [place] [facility] [address] [facility] [place] [facility] 2 2 [facility] [place] [facility] 2 2 [facility] [place] [facility] 1 1 G A R [facility] [place] [facility] 1 1 [facility] [place] [facility] 1 [facility] [place] [facility] 0 0 [facility] [place] [facility] [place] [facility] 0 [facility] [place] [facility] [place] [facility] [place] [facility] 0 [facility] [place] [facility] [address] [facility] [place] - [address] [facility] [place] - 9 9 G [facility] [place] [facility] 9 [facility] [place] [facility] 9 9 [facility] [place] - [address] [facility] [place] [facility] 8 8 [facility] T
--- OUTSIDE RECORDS SUMMARY | 2017-04-13 22:25 | External Medical Summary Rpt | CCD ---
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 Swift % = 4.3 % 1.7-9.3 complet 017 [...] 1.005 1.016-1 complet c 015 .022 ed [place] 02:05 PH -18-2 7.0 5.0-7.0 complet 015 [...] 1.010 1.016-1 complet c 014 .022 ed [place] 22:08 PH 7.0 5.0-7.0 complet 014 ed [...] high ed 13:57 normal MONO (01-06-2013 21:47) Swift 08-29-2 NEGATIV NEGATIV Normal complet Spot 013 [...] 1.016-1 Normal complet c 013 .022 ed [place] 15:51 Appeara 07-20-2 SL HAZY CLEAR Abnorma [...] 1.016-1 Normal complet c 012 .022 ed [place] 22:37 Appeara -22-2 CLOUDY CLEAR Abnorma complet [...] Below complet c 012 .022 low ed [place]icht[place] 14:00 normal Appeara 10-23-2 CLEAR CLEAR Normal complet nce 012 ed 14:00 Color 10-23-2 YELLOW YELLOW, Normal complet 012 STRAW,C ed 14:00 OLORLES S,PALE YELLOW Encounters Encounter Start End Date Code Location Performer Type Date [facility] [place] - [facility] 7 [facility] [place] [facility] 7 [facility] [place] [facility] 7 [facility] [place] 7 7 [facility] - 7 7 [facility] [place] [facility] 7 N [facility] [place] [facility] 7 7 [facility] [place] 6 6 [facility] [place] [facility] 6 [facility] [place] [facility] 6 6 [facility] [place] [facility] 6 6 [facility] [place] [facility] 6 6 [facility] [place] 6 6 [facility] - 6 6 HEALTH OUTPATIEN [facility] EPISCOPAL[facility] 6 6 HEALTH INPATIENT [facility] [place] 6 6 G A [facility] [place] [facility] 6 6 [facility] [place] [facility] 6 6 [facility] [place] 6 6 [facility] - 6 6 [facility]COP[facility] [place] [facility] - 6 6 N [facility] - 6 6 [facility] [place] [facility] 6 [facility] [place] [facility] 6 6 [facility] [place] [facility] 5 [facility] [place] 5 5 [facility] [place] [facility] 5 5 [facility] [place] [facility] 5 5 [facility] [place] 5 5 [facility] [place] [facility] 4 4 [facility] [place] [facility] 4 4 [facility] [place] [facility] 4 4 [facility] [place] 4 4 [facility] [place] - 4 4 [facility] [place] - 4 4 [facility] [place] - 3 3 [facility] [place] 3 3 G [facility] [place] [facility] 3 3 [facility] [place] [facility] 3 3 [facility] [place] [facility] 3 3 [facility] [place] - 3 3 [facility] [place] - 2 2 [facility] [place] 2 2 [facility] [place] 2 2 [facility] [place] [facility] 2 2 [facility] [place] [facility] 2 2 [facility] [place] 2 2 [facility] [place] [facility] 2 2 [facility] [place] [facility] 1 1 [facility] [place] [facility] 1 1 [facility] [place] [facility] 1 1 [facility] [place] [facility] 0 0 [facility] [place] [facility] 0 0 [facility] [place] [facility] 0 0 [facility] [place] [facility] 0 0 [facility] [place] [facility] 0 [facility] [place] [facility] 0 0 [facility] [place] [facility] 9 9 [facility] [place] 9 9 [facility] [place] 9 9 [facility] [place] [facility] 9 9 [facility] [place] - 8 8 [facility] [place] - 8 8 [facility] T
--- OUTSIDE RECORDS SUMMARY | 2017-04-13 22:32 | External Medical Summary Rpt | CCD ---
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 8 ai ZI 01 08 08 RE la NE 0 bl PH e 25 AR MA MG CY TA BL ET Encounters Encounter Start End Date Code Location Performer Type Date [facility] [place] [facility] [place] [facility] 7 [facility] [place] [facility] [place] [id number] [facility] [place] [facility] [place] [facility] 7 [facility] [place] [facility] [place] [facility] [place] [facility] 6 [facility] [place] [facility] [place] [facility] 6 [facility] [place] [facility] 6 6 [facility] [place] - 6 6 [facility] 6 6 [facility] [place] [facility] 6 6 G [facility] [place] [facility] 6 6 [facility] [place] [facility] [place] [facility] 6 6 [facility] [place] [facility] 6 6 [facility] [place] [facility] 6 6 [facility] [place] [facility] 6 [facility] [place] [facility] 6 [facility] [place] [facility] 6 6 [facility] [place] - 5 5 [facility] [place] - 5 5 G [facility] [place] - 5 5 [facility] [place] - 5 5 [facility] [place] - 5 5 G [facility] [place] - 4 4 [facility] [place] [facility] 4 4 [facility] [place] - 4 4 [facility] [place] - 4 4 [facility] [place] - 4 4 [facility] [place] - 4 4 [facility] [place] - 3 3 [facility] [place] - 3 3 [facility] [place] - 3 3 [facility] [place] - 3 3 [facility] [place] - 3 3 [facility] [place] - 3 3 [facility] [place] - 2 2 [facility] [place] - 2 2 [facility] [place] - 2 2 [facility] [place] [facility] 2 2 [facility] [place] - 2 2 [facility] [place] [facility] 2 2 [facility] [place] [facility] 2 2 [facility] [place] [facility] 1 1 [facility] [place] [facility] 1 [facility] [place] [facility] 1 1 [facility] [place] [facility] 0 0 [facility] [place] [facility] [place] [facility] 0 [facility] [place] [facility] 0 [facility] [place] [facility] 0 [facility] [place] [facility] 0 0 [facility] [place] - 9 9 [facility] [place] - 9 9 [facility] [place] [facility] 9 9 [facility] [place] [facility] 9 9 [facility] [place] - 9 9 [facility] [place] - 8 8 [facility] [place] - 8 8 [facility]
--- OUTSIDE RECORDS SUMMARY | 2017-04-13 22:32 | External Medical Summary Rpt | CCD ---
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 [facility] 5 5 [facility] [place] [facility] 5 [facility] [place] [facility] 5 5 [facility] [place] [facility] 4 4 [facility] [place] [facility] [place] [facility] 4 4 [facility] [place] - 4 4 [facility] [place] - 4 4 [facility] [place] - 4 4 [facility] [place] - 3 3 [facility] [place] [facility] 3 3 [facility] [place] [facility] 3 [facility] [place] [facility] 3 [facility] [place] [facility] 3 [facility] [place] - 3 3 [facility] [place] - 2 2 [facility] [place] - 2 2 [facility] [place] [facility] 2 2 [facility] [place] [facility] [place] [facility] [place] [facility] 2 2 [facility] [place] [facility] 2 [facility] [place] [facility] 1 [facility] [place] [facility] 1 [facility] [place] [facility] 1 [facility] [place] [facility] [place] [facility] [place] [facility] [place] [facility] [place] [facility] [place] [facility] 0 [facility] [place] - 9 9 [facility] [place] - 9 9 [facility] [place] 9 9 [facility] [place] [facility] 9 9 [facility] [place] - 9 9 [facility] [place] - 8 8 [facility] [place] - 8 8 [facility]
--- OUTSIDE RECORDS SUMMARY | 2017-04-13 22:33 | External Medical Summary Rpt | CCD ---
Demographics Preferred Language Kuwaiti Marital Status Unknown [employer] Affiliation Unknown Race Unknown Ethnic Group Unknown Author Author , KARI PIERCE Address Unknown Phone Immunization No patient found.
--- OUTSIDE RECORDS SUMMARY | 2017-04-13 22:33 | External Medical Summary Rpt | CCD ---
Demographics Preferred Language Malian Marital Status Unknown [employer] Affiliation Unknown Race Unknown Ethnic Group Unknown Author Author , KARI PIERCE Address Unknown Phone Immunization No patient found.
[2017-04-13 22:37] LABS: URINE BILIRUBIN - DIPSTICK NEGATIVE (NEG); URINE BLOOD NEGATIVE (NEG)
[2017-04-13 22:40] LABS: HEMOGLOBIN 13.8 g/dL (12.2-16.2); LYMPH # 3.7 K/mm3 (0.7-4.5)
[2017-04-14 00:50] VITALS: BP 110/87
--- NOTE | 2017-04-14 06:53 | RADIOLOGY REPORT PS360 ---
CT ABD PELVIS W/O CONTRAST CLINICAL INDICATION: Right lower quadrant pain C/O ABDOMINAL PAIN ORDERING PHYSICIAN: Jamshid Salcido MD PATIENT AGE: 21 years COMPARISON: 03/18/2017 TECHNIQUE: Axial images obtained with sagittal and coronal reformats. PROCEDURE: Oral Contrast: None IV Contrast: None . FINDINGS: Lower thorax: Scarring within the right middle lobe and lingula ABDOMEN: Liver: No masses or biliary dilatation. Gallbladder: Nondistended. No radio opaque stones. Pancreas: No masses or peripancreatic fluid collections. Spleen: Unremarkable. Adrenals: Unremarkable Kidneys/ureters: No masses. No renal calculi. No hydronephrosis. No perinephric fluid collections. No ureteral dilatation or obvious ureteral calculi. Stomach bowel: Nondistended. No obvious mass or thickening. Appendix: No evidence of appendicitis. PELVIS: Reproductive: Unremarkable Bladder: Nondistended. No obvious stones or masses. ABDOMEN & PELVIS: Peritoneum: No abnormal fluid collections. No obvious inflammatory changes. No free air. Lymph nodes: No enlarged lymph nodes apparent. Vasculature: No evidence of abdominal aortic aneurysm. No retroperitoneal hemorrhage evident. Bones: No acute fracture IMPRESSION: No acute intra-abdominal or pelvic findings.
== END 2017-04-14 00:50 | disposition home or self-care (01) ==
LOC: ER 22:07
PROVIDERS: Emergency Medicine
DX: R10.10 Upper abdominal pain, unspecified (principal); F17.210 Nicotine dependence, cigarettes, uncomplicated; Z88.0 Allergy status to penicillin

== ENCOUNTER → 2017-04-24 | Outpatient (CLI) | payer MEDICAID ==
[2017-04-24 18:29] LABS: HEMOGLOBIN 14.5 g/dL (12.2-16.2); LYMPH # 2.7 K/mm3 (0.7-4.5); LYMPH % 21.7 % (10-50.0)
[2017-04-24 19:04] LABS: BUN 9 mg/dL (7-18)
[2017-04-24 19:07] LABS: GFR (ESTIMATED) 106 ML/MIN (59-)
[2017-04-24 19:13] LABS: AMPHETAMINES/METAMPHETAMINES NEGATIVE ng/mL (<1000)
== END ==
LOC: LAB 17:56
PROVIDERS: Nurse Practitioner Family
DX: R53.83 Other fatigue (principal); E55.9 Vitamin D deficiency, unspecified; Z79.899 Other long term (current) drug therapy